=== PATIENT | female | born 1945 | race Caucasian/White ===

== ENCOUNTER → 2017-02-17 | Outpatient (CLI) | payer OTHER, MEDICARE ==
[~2017-02-17] MED LIST: ATOR10TA88 PO; CLOB-85 TOP; MCRK20 PO; METO25TA3 PO; ZLF50 PO
[2017-02-17 10:00] LABS: ESTIMATED AVERAGE GLUCOSE 126 mg/dl; HA1C FLAG Normal (Normal)
[2017-02-17 10:13] LABS: ALT/SGPT 35 U/L (12-78); AST/SGOT 27 U/L (15-37); BLOOD UREA NITROGEN 16 mg/dl (7-18); BUN/CREATININE RATIO 19.4 (10-20); CALCIUM 9.5 mg/dl (8.5-10.1); CARBON DIOXIDE 29 mmol/L (21-32); CHLORIDE 105 mmol/L (98-107); CHOLESTEROL 166 mg/dl (0-200); GLUCOSE 102 mg/dl (70-99); POTASSIUM 3.9 mmol/L (3.5-5.1); SODIUM 141 mmol/L (136-145); TRIGLYCERIDES 152 mg/dl (0-150); VERY LOW DENSITY LIPOPROT CALC 30 mg/dl
[2017-02-17 10:24] LABS: HDL CHOLESTEROL 55 mg/dl; LDL CHOLESTEROL CALCULATED 81 mg/dl
== END | disposition home or self-care (01) ==
LOC: C.LAB1850 08:39
PROVIDERS: ATTEND Internal Medicine
DX: Z11.59 Encounter for screening for other viral diseases (principal); E78.00 Pure hypercholesterolemia, unspecified; R73.03 Prediabetes

== ENCOUNTER 2019-05-04 19:55 | Inpatient (IN) ==
[2019-05-04] MEDS ORDERED: LABETALOL HCL IV 5 MG/ML 20ML IV STA ×2 (20:11→22:28)
[2019-05-04 20:27] LABS: Basophils # (auto) 0.03 K/uL (0-0.2); Basophils % (auto) 0.3 %; Eosinophils # (auto) 0.12 K/uL (0-0.5); Hematocrit (blood only) 39.9 % (37-47); Hemoglobin 13.5 g/dL (12.0-16.0); Immature Granulocytes # (auto) 0.03 K/uL (0.00-0.02); Immature Granulocytes % (auto) 0.3 %; Lymphocytes # (auto) 2.49 K/uL (1.2-3.4); Lymphocytes % (auto) 21.7 %; Mean Corpuscular Hemoglobin 31.6 pg (25-34); Mean Corpuscular Hgb Conc 33.8 g/dL (32-36); Mean Corpuscular Volume 93.4 fL (80-100); Mean Platelet Volume 11.5 fL (7.4-10.4); Monocytes # (auto) 1.26 K/uL (0.11-0.59); Neutrophils # (auto) 7.57 K/uL (1.4-6.5); Neutrophils % (auto) 65.7 %; Platelet Count 207 K/uL (130-400); RDW Coefficient of Variation 12.7 % (11.5-14.5); RDW Standard Deviation 43.1 fL (36.4-46.3); Red Blood Count 4.27 M/uL (4.2-5.4)
[2019-05-04 20:36] LABS: Prothrombin Time 10.1 Seconds (9.0-12.0)
[2019-05-04 20:43] LABS: Albumin Level 3.6 gm/dl (3.4-5.0); BUN Creatinine Ratio 18.2 (10-20); Blood Urea Nitrogen 16 mg/dl (7-18); Calcium 9.2 mg/dl (8.5-10.1); Carbon Dioxide 26 mmol/L (21-32); Chloride 105 mmol/L (98-107); Creatinine Clr Calc Pharmacy 61.9 ml/min; Est GFR (African American) 77.1; Est GFR (Non-African American) 66.6; Glucose 178 mg/dl (70-99); Lipase 125 U/L (73-393); Magnesium 1.9 mg/dl (1.8-2.4); Potassium 2.8 mmol/L (3.5-5.1); Sodium 138 mmol/L (136-145)
[2019-05-04] MEDS: SODIUM CHLORIDE 0.9% 1000ML 1,000 ML IV SCH (20:48)
[2019-05-04 20:54] LABS: Alanine Aminotransferase 41 U/L (12-78); Albumin Globulin Ratio 0.9 (0.9-2); Alkaline Phosphatase 103 U/L (45-117); Aspartate Aminotransferase 30 U/L (15-37); Bilirubin,Total 0.7 mg/dl (0.2-1); Globulin 3.9 gm/dl (2.5-4.0); Total Protein 7.5 gm/dl (6.4-8.2); Troponin I < 0.015 ng/ml (0-0.045)
[2019-05-04] MEDS ORDERED: OPTIRAY 320 125ml IV PRN (21:26)
--- NOTE | 2019-05-04 21:58 | CT Scan Report ---
UNENHANCED CT OF THE BRAIN; CT ANGIOGRAM OF THE BRAIN; CT ANGIOGRAM OF THE NECK CLINICAL HISTORY: Headache and dizziness. COMPARISON STUDY: CT of the brain, CT angiogram of the head, and CT angiogram of the neck dated 03/11. TECHNIQUE: Unenhanced axial CT scan of the brain is performed. Subsequently, following the IV adminis tration of 118 of [address] [address], CT angiogram of the head and neck was performed from the aortic arch t o the vertex. Images are reviewed in the axial, sagittal, and coronal planes. 3-D MIPS images are cre ated and assessed. IV contrast was administered without complication. All measurements were calculate d based on NASCET criteria. A dose lowering technique was utilized adhering to the principles of ALA RA. CT DOSE: 1037.23 mGy.cm FINDINGS: Brain parenchyma: There is age-related involutional change noting mild subcortical and periventricula r microangiopathic disease. 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 There is no hemorrhage, mass effect, or evidence of acute territorial ischemia by CT criteria. There is no evidence of enhancing mass lesion on the angiogram phase images. The ventricles, sulci, and ci sterns are prominent secondary to involutional change. Rosales-white matter differentiation is preserved . No extra-axial fluid collection is seen. Thoracic aorta: There is atherosclerotic calcification of the thoracic aorta. Visualized portions of the thoracic aorta are normal in caliber. The aortic arch demonstrates bovine variant anatomy. Right carotid arterial system: The right common carotid artery is widely patent, as are the right int ernal and external carotid arteries. Left carotid arterial system: The left common carotid artery is widely patent, as are the left engineer internship al and external carotid arteries. Vertebral arteries: The vertebral arteries are widely patent bilaterally and codominant. Subclavian arteries: Widely patent bilaterally. Intracranial vasculature: There is atherosclerotic calcification of the cavernous carotid and vertebr al arteries. There is a large right posterior communicating artery. The internal carotid arteries are patent at the skull base, as are the anterior and middle cerebral arteries bilaterally. The vertebro basilar system and posterior cerebral arteries are widely patent. The vertebral arteries are codomina nt. There is focal stenosis in the M2 segment of the right middle cerebral artery, best seen on coron al MIP image #37. No additional foci of high-grade stenosis are seen. No aneurysm or vessel cut off s een throughout the intracranial circulation. Jugular veins: Patent bilaterally. Dural sinuses: Patent. Lung apices: Partially visualized upper lobe lung parenchyma appears clear. Soft tissues: The visualized pharyngeal soft tissues are normal in appearance noting angiographic pha se technique. The oropharyngeal airway appears widely patent. The salivary and thyroid glands are nor mal in appearance. No cervical lymphadenopathy is seen. Orbits: The bony orbits are grossly intact. Orbital contents are normal as visualized. Skeletal structures: The skeletal structures are osteopenic. The calvarium appears intact. The cervic al spine is maintained noting multilevel spondylosis. No lytic or blastic lesion is seen. Sinuses and mastoids: The paranasal sinuses are clear. There are bilateral mastoid effusions, left la rger than right. IMPRESSION: 1. There is no hemorrhage, mass effect, or evidence of acute territorial ischemia by CT criteria. 2. Senescent change and remote right MCA territory infarct as above. 3. Unremarkable CT angiogram of the neck. 4. There is focal high-grade stenosis within an M2 branch of the right middle cerebral artery. 5. The remaining intracranial vessels appear patent. ACT 112: Negative or not required by law. Electronically signed by: Fadi Orozco M.D. 05/04/2019 9:56 PM
[2019-05-04 22:21] LABS: Appearance Urine Clear (Clear); Bacteria Urine Automated Negative (Negative); Bilirubin Urine Negative (Negative); Blood Urine Negative (Negative); Color Urine Yellow; Epithelial Cell Urine Auto >30 /lpf (0-5); Glucose Urine UA Negative (Negative); Ketones Urine Trace (Negative); Leukocyte Esterase Urine 1+ (Negative); Nitrite Urine Negative (Negative); Protein Urine Negative (Negative); RBC Urine Automated 0-4 /hpf (0-4); Specific Gravity Urine 1.036 (1.000-1.030); Urobilinogen Urine Negative (Negative)
--- NOTE | 2019-05-04 22:21 | XRay Report ---
AP CHEST WITH ABDOMINAL SERIES CLINICAL HISTORY: Strokelike symptoms. Diarrhea FINDINGS: An AP upright chest radiograph is compared to study dated 06/07/2018. The examination is degraded by a pical lordotic positioning. The heart is enlarged noting atherosclerotic calcification of the thoraci c aorta. The pulmonary vasculature is noncongested. Chronic interstitial thickening is similar to pre vious. The lungs and pleural spaces are clear. No pneumothorax is seen. The skeletal structures are o steopenic. The bony thorax is grossly intact. Supine and erect abdominal radiographs are correlated with lumbar spine radiographs dated 03/15/2012. There is a nonobstructed abdominal bowel gas pattern. No evidence of intraperitoneal free air is seen . Question a calcified gallstone in the right upper quadrant. Excreted IV contrast is present within the renal collecting systems and the bladder. The lumbosacral spine and bony pelvis appear intact. Scarlet mbosacral spondylosis is observed. IMPRESSION: 1. Cardiomegaly with no active disease in the chest. 2. Nonobstructed abdominal bowel gas pattern. 3. Question cholelithiasis. ACT 112: Negative or not required by law. Electronically signed by: Fadi Orozco M.D. 05/04/2019 10:20 PM
[2019-05-04] MEDS ORDERED: POTASSIUM CHLORIDE 20 MEQ TABCR PO STA (22:28)
[2019-05-05] MEDS ORDERED: HydrALAZINE HCL 20 MG/ML VIAL IV ONE (00:29)
[2019-05-05] MEDS ORDERED: ASPIRIN CHEW 324 MG PO STA (00:30)
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
[2019-05-05] MEDS ORDERED: PHARMACIST DISCHARGE MED REC CONSULT PRN (02:29)
[2019-05-05] MEDS: SODIUM CHLORIDE 0.9% 1000ML 1,000 ML IV SCH (03:53)
[2019-05-05 03:59] LABS: Basophils # (auto) 0.02 K/uL (0-0.2); Basophils % (auto) 0.2 %; Eosinophils # (auto) 0.09 K/uL (0-0.5); Eosinophils % (auto) 1.1 %; Hematocrit (blood only) 39.3 % (37-47); Hemoglobin 13.5 g/dL (12.0-16.0); Immature Granulocytes # (auto) 0.03 K/uL (0.00-0.02); Immature Granulocytes % (auto) 0.4 %; Lymphocytes # (auto) 2.05 K/uL (1.2-3.4); Lymphocytes % (auto) 25.1 %; Mean Corpuscular Hemoglobin 31.5 pg (25-34); Mean Corpuscular Hgb Conc 34.4 g/dL (32-36); Mean Corpuscular Volume 91.6 fL (80-100); Mean Platelet Volume 11.6 fL (7.4-10.4); Monocytes % (auto) 12.2 %; Neutrophils # (auto) 4.99 K/uL (1.4-6.5); Platelet Count 196 K/uL (130-400); RDW Coefficient of Variation 12.8 % (11.5-14.5); RDW Standard Deviation 42.9 fL (36.4-46.3); Red Blood Count 4.29 M/uL (4.2-5.4); White Blood Count 8.18 K/uL (4.8-10.8)
[2019-05-05 04:16] LABS: Partial Thromboplastin Time 25.9 Seconds (21.0-31.0); Prothrombin Time 10.1 Seconds (9.0-12.0)
[2019-05-05 04:24] LABS: Alanine Aminotransferase 36 U/L (12-78); Albumin Globulin Ratio 0.9 (0.9-2); Albumin Level 3.5 gm/dl (3.4-5.0); Alkaline Phosphatase 96 U/L (45-117); Aspartate Aminotransferase 22 U/L (15-37); BUN Creatinine Ratio 14.8 (10-20); Bilirubin,Total 0.7 mg/dl (0.2-1); Blood Urea Nitrogen 10 mg/dl (7-18); Calcium 8.6 mg/dl (8.5-10.1); Carbon Dioxide 27 mmol/L (21-32); Chloride 110 mmol/L (98-107); Chol HDL Ratio 3; Cholesterol 180 mg/dl (0-200); Creatinine Clr Calc Pharmacy 79.5 ml/min; Est GFR (African American) 100.4; Est GFR (Non-African American) 86.6; Globulin 3.9 gm/dl (2.5-4.0); Glucose 110 mg/dl (70-99); HDL Cholesterol 64 mg/dl; LDL Cholesterol Calculated 99 mg/dl; Magnesium 1.9 mg/dl (1.8-2.4); Potassium 3.4 mmol/L (3.5-5.1); Sodium 142 mmol/L (136-145); Total Protein 7.4 gm/dl (6.4-8.2); Triglycerides 87 mg/dl (0-150); Troponin I < 0.015 ng/ml (0-0.045); VLDL Cholesterol 17 mg/dl
[2019-05-05] MEDS ORDERED: dilTIAZem HCl 5 MG/ML 5 ML VIAL IV PRN (05:10)
[2019-05-05] MEDS ORDERED: GLUCOSE 40% GEL 15 GM TUBE PO PRN (05:17)
[2019-05-05] MEDS ORDERED: GLUCAGON FOR INJ 1 MG VIAL SQ PRN (05:17)
[2019-05-05] MEDS ORDERED: CARBOHYDRATES FOR HYPOGLYCEMIA PO PRN (05:17)
[2019-05-05] MEDS ORDERED: DEXTROSE 50% 50 ML SYRINGE IV PRN (05:17)
[2019-05-05] MEDS ORDERED: GLUCOSE 10 TABS/TUBE PO PRN (05:17)
[2019-05-05] MEDS ORDERED: METOPROLOL TARTRATE 1 MG/ML VIAL IV ONE (05:20)
[2019-05-05] MEDS ORDERED: NSS + 20MEQ KCL 20 MEQ/1,000 ML BAG IV SCH (05:30)
[2019-05-05 06:01] LABS: Estimated Average Glucose 120 mg/dl; Hemoglobin A1C 5.8 % (4.5-5.6)
--- NOTE | 2019-05-05 07:21 | Magnetic Resonance Report ---
MR brain wo con CLINICAL HISTORY: 74 years-old Female presenting with Left side weakness, imbalance, gait disturbance since 05/01/2019, left hand weakness, history of stroke, high-grade stenosis of the M2 segment of th e right MCA. TECHNIQUE: Multisequence, multiplanar MR imaging of the brain was performed without the use of intrav enous contrast. IV contrast: None. COMPARISON: 03/11/[address] from 05/04/2019. FINDINGS: Localizer images: Unremarkable. Bone marrow signal intensity within the calvarium within normal limits. Normal midline sagittal structures. Proportional ventricular and sulcal prominence, likely age-relate d parenchymal volume loss. No mass effect or midline shift. Acute lacunar infarct in the right centra l mayela. Associated mild FLAIR hyperintensity. No hemorrhage. Periventricular white matter T2/FLAIR hy perintensity, nonspecific but likely indicative of chronic small vessel ischemic change. Old right mi ddle cerebral artery (MCA) territory infarct involving the right temporoparietal region. Associated T 1 hyperintensity consistent with cortical laminar necrosis/mineralization. No extra-axial fluid collection. T2 skull base flow voids preserved. Fluid in the mastoid air cells, left greater than right. IMPRESSION: 1. Acute lacunar infarct in the right central mayela. This is at least 6 to 12 hours old given the ass ociated FLAIR hyperintensity. 2. No hemorrhage. 3. Old right MCA infarct. 4. Chronic small vessel ischemic change. These findings were discussed with Dr. Hakwins by Dr. Mcclendon on 05/05/2019 4:17 AM. ACT 112: Negative or not required by law. Electronically signed by: Alvin Barbosa M.D. 05/05/2019 7:19 AM
[2019-05-05] MEDS ORDERED: METOPROLOL TARTRATE 1 MG/ML VIAL IV PRN (08:00)
[2019-05-05] MEDS: HEPARIN SOD 5,000 UNIT/0.5 ML VIAL SQ SCH ×3 (08:01→20:32)
[2019-05-05] MEDS: INSULIN ASPART 100 UNITS/ML 3 ML PEN SC SCH ×4 (08:01→20:21)
[2019-05-05] MEDS ORDERED: HydrALAZINE HCL 20 MG/ML VIAL IV PRN ×2 (09:41→13:39)
--- NOTE | 2019-05-05 09:54 | Neurology Consultation ---
Date of Consultation May 05, 2019 Assessment & Plan (1) Right pontine CVA: Small acute lacunar infarct within the central right elvin-mayela presenting with a mild left hemiparesis and incoordination which has been present for the past 3 days, but occurs in the context of a chronic right MCA territory infarct with some probable left-sided sensorimotor neglect. Hypertension and history of prior stroke are significant risk factors for this patient. She does appear to be neurologically stable this morning. There is no evidence of a significant stenosis within the cervical vessels. Specifically, no evidence of vertebrobasilar insufficiency on angiography. 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 Would recommend adding clopidogrel 75 mg/day. May continue with daily low-dose aspirin for the next 6 weeks. Afterwards, however, I would discontinue daily low-dose aspirin and continue with clopidogrel monotherapy. Agree with switching from pravastatin to atorvastatin. Continue medical management of hypertension, plan for gradual reduction in s ystolic blood pressure to avoid hypoperfusion injury. Follow-up with results of up-to-date transthoracic echocardiogram. Consultations with PT/OT/speech therapy. No further immediate neurological recommendations. Please contact me if I may be of further assistance. History of Present Illness Reason for Consultation: Stroke Requesting Physician: Garrett Hawkins MD Attending Physician: Agustin Louis MD History of Present Illness The patient is a 74-year-old female with a history of hypertension, prediabetes, hyperlipidemia, and right MCA stroke occurring last March presenting with a mild left hemisensory deficit, associated mild neglect, and very mild left hemiparesis. She has been taking daily low-dose aspirin and pravastatin. The patient presented to the emergency department yesterday with a chief complaint of left-sided weakness, especially the left arm which began 2 days prior and is associated with a feeling of imbalance with standing and walking. The symptoms have been persistent. She denies any associated numbness, change in speech, change in vision, vertigo, or headache. A CT of the head revealed changes consistent with her known history of chronic right MCA territory stroke. CT angiography of the head revealed a high-grade stenosis of the right M2 branch. CT angiography of the neck was unremarkable. A follow-up brain MRI has been completed as well which reveals an acute lacunar infarct within the right central mayela, probably 6 to 12 hours old based on imaging characteristics. Imaging described below. The patient has been notably hypertensive with a systolic blood pressure of around 200 at the time of presentation. This morning, the patient does not report any significant change in her presenting symptoms. Additional details as below. Allergies Allergy/AdvReac Type Severity Reaction Status Date / Time "ALL ANTIBIOTICS" Allergy Intermediate HIVES Uncoded 05/04/19 21:46 Home Medications Home Medications Medication Instructions Recorded Confirmed Type aspirin 81 mg PO DAILY 06/05/18 05/04/19 History acetaminophen [Tylenol] 650 mg PO Q6H PRN 06/07/18 05/04/19 History metoprolol tartrate 50 mg tablet 50 mg PO BID #180 tab 01/24/19 05/04/19 Rx hydrochlorothiazide 25 mg tablet 25 mg PO DAILY 03/09/19 05/04/19 History omeprazole 20 mg capsule,delayed 20 mg PO DAILY #90 cap 03/09/19 05/04/19 Rx release pravastatin 40 mg tablet 40 mg PO DAILY #90 tab 04/19/19 05/04/19 Rx Patient History Medical History Acute right MCA stroke (Resolved) GERD (gastroesophageal reflux disease) HTN (hypertension) (Chronic) HTN (hypertension) Hypercholesterolemia Hypercholesterolemia (Chronic) Pre-diabetes Prediabetes Sinusitis Suicide attempt 2013 - ETOH/Valium combination - had acute inpatient psychiatric stay Surgical History H/O oral surgery S/P appendectomy S/P hysterectomy with oophorectomy Family History Mother Hypertension Grandmother (Maternal) Stroke Other Heart disease Social History Preferred Language: [place] Communication Ability: Effective Visual Impairment: Severely Limited Hearing Ability: Normal 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 Beliefs That Will Affect Care: None marital status: Current Living Situation: Alone Current Living Situation Comment: senior apartment housing current occupational status: retired Other Information That Helps Us Care for You: No Feels Safe at Home: Yes Safety Concerns: Feels Safe At This Time Smoking Status: Unknown if ever smoked Hx Alcohol Use: No Hx Substance Use: No Childhood Exposure to Second-Hand Smoke: Yes Dental Care, Regularly: Yes Physical Activity Frequency: Daily Seatbelt Use: always Sunscreen Use: No Review of Systems Constitutional: no fever and no chills Eyes: no blind spots and no diplopia Ear, Nose, Mouth, Throat: no hearing loss Respiratory: no cough and no dyspnea Cardiovascular: no chest pain and no palpitations Gastrointestinal: no nausea and no vomiting Genitourinary: no urinary incontinence Musculoskeletal: no neck pain and no myalgia Integumentary: no rash and no lesions Neurologic: as per Subjective / HPI, + gait abnormality, + unsteadiness, + localized weakness and + lack of coordination; no loss of sensation, no syncope, no headache(s), no confusion and no memory loss Psychiatric: no depression and no anxiety Hematologic / Lymphatic: no easy bleeding and no easy bruising Physical Exam Physical Exam: The patient is a well-developed, well-nourished elderly female. She is alert and fully oriented. Recent and remote memory intact. Attention and concentration normal. Patient exhibits a normal spontaneous speech pattern. She is able to name objects and repeat phrases. Speech is non-dysarthric. Patient exhibits an age-appropriate fund of knowledge and normal comprehension of vocabulary. Visual mensah full to confrontation. Visual acuity normal. Pupils equal round reactive to light and accommodation. Eye movements normal. There is no ptosis, nystagmus, or ophthalmoplegia. Facial sensation intact. There is no facial droop or weakness. Hearing intact. Palate elevates to midl ine. Shoulder shrug intact. Tongue protrudes to midline. Sensation intact all modalities in all 4 limbs. Deep tendon reflexes are relatively brisk for the left arm and leg. Left plantar response upgoing, right plantar response downgoing. Patient exhibits mild to moderate dysmetria with ukodzd-iq-bpay and idoz-be-abyg on the left. No dysmetria with yuvrwv-cm-beqh or uklp-lm-djqd on the right. There is decreased facility of fine finger movements for the left hand as well. I am unable to adequately visualize the optic nerves and posterior segments with direct ophthalmoscopic examination. Carotid pulses normal bilaterally, no bruits to auscultation. Gait and station not tested due to safety concerns. Muscle strength testing reveals a mild left hemiparesis affecting the arm and leg. There is no pronator drift for the left arm. Muscle tone normal throughout. There is no atrophy. No abnormal movements observed. Results & Data Vital Signs (Past 12 Hours) Vital Signs Temp Pulse Pulse Resp BP BP Pulse Ox 05/05/19 09:15 88 7 L 175/74 H 97 05/05/19 09:08 77 13 235/97 H 98 05/05/19 09:06 79 9 L 219/86 H 97 05/05/19 09:00 95 H 27 H 94 05/05/19 08:36 77 8 L 211/99 H 98 05/05/19 08:30 81 23 93 05/05/19 08:00 37.2 C 89 84 26 H 195/87 H 225/103 H 95 05/05/19 07:57 81 18 195/87 H 97 05/05/19 07:30 82 17 96 05/05/19 07:17 84 18 225/103 H 97 05/05/19 07:00 80 18 97 05/05/19 06:39 77 16 205/87 H 98 05/05/19 06:30 81 20 95 05/05/19 06:00 77 18 96 05/05/19 05:39 78 17 214/91 H 98 05/05/19 05:30 75 13 94 05/05/19 05:23 88 212/80 H 05/05/19 05:18 89 12 212/90 H 97 05/05/19 05:00 83 18 93 05/05/19 04:30 88 18 93 05/05/19 04:17 89 05/05/19 04:00 96 H 21 97 05/05/19 03:46 104 H 27 H 227/87 H 97 05/05/19 03:40 98 H 16 237/112 H 99 05/05/19 03:35 36.8 C 100 H 24 05/05/19 03:30 36.8 C 92 H 20 227/87 H 96 05/05/19 02:23 90 18 235/117 H 97 05/05/19 02:01 92 H 18 235/117 H 98 05/05/19 01:30 87 19 175/84 H 97 05/05/19 01:00 84 19 189/74 H 97 05/05/19 00:30 84 17 197/77 H 98 05/05/19 00:19 89 16 188/116 H 98 05/05/19 00:00 87 13 209/94 H 96 05/04/19 23:30 83 15 186/79 H 98 05/04/19 23:27 86 20 197/87 H 95 05/04/19 23:01 82 17 197/87 H 97 05/04/19 23:00 83 82 12 197/87 H 95 05/04/19 22:39 85 21 211/82 H 95 05/04/19 22:30 87 15 93 05/04/19 22:18 88 18 191/86 H 97 05/04/19 22:17 90 14 191/86 H 05/04/19 22:15 95 H 19 05/04/19 21:30 95 Laboratory Results WBC 8.18, hemoglobin 13.5, hematocrit 39.3, platelet count 196, sodium 142, potassium 3.4, BUN 10, creatinine 0.67, glucose 110, hemoglobin A1c 5.8, calcium 8.6, magnesium 1.9, AST 22, ALT 36, troponin less than 0.015, triglycerides 87, cholesterol 180, LDL 99, VLDL 17, HDL [address] of the head negative for hemorrhage, mass-effect, or acute process. There are changes consistent with this patient's history of a chronic right MCA infarct. CT angiography of the head and neck revealed a high-grade stenosis within the right M2 branch of the middle cerebral artery. No significant st enosis within the cervical vessels. I reviewed the images as well as the radiologist's interpretation of this test. Noncontrast brain MRI reveals an acute lacunar infarct within the right central mayela, probably 6 to 12 hours old given associated abnormality on FLAIR sequences. The old right MCA territory infarct is again observed. There is also evidence of chronic small vessel ischemic disease. No hemorrhage. I reviewed the images as well as the radiologist's interpretation of this test. Electrocardiogram reveals a normal sinus rhythm, 94 bpm An echocardiogram completed in March 2018 reveals normal left ventricular size and systolic function, ejection fraction 60 to 65%, without regional wall motion abnormalities. No ASD or PFO visualized.
[2019-05-05] MEDS: METOPROLOL TARTRATE 50 MG TAB PO SCH ×3 (10:08→20:22)
[2019-05-05] MEDS: PANTOprazole 40 MG TAB PO SCH ×2 (10:08→10:41)
[2019-05-05] MEDS: ASPIRIN 81 MG ECTAB PO SCH ×2 (10:08→10:40)
[2019-05-05] MEDS: ATORVASTATIN 40 MG TAB PO SCH ×2 (10:08→10:40)
[2019-05-05] MEDS ORDERED: CLOPIDOGREL BISULFATE 75 MG TAB PO SCH (11:45)
[2019-05-05] MEDS: ENALAPRILAT 0.625 MG in SYRINGE 9.5 ML IV SCH ×3 (12:04→23:25)
[2019-05-05] MEDS ORDERED: LABETALOL HCL IV 5 MG/ML 20ML IV PRN (13:39)
--- NOTE | 2019-05-05 13:54 | Hospitalist Progress Note ---
Date of Service May 05, 2019 Assessment & Plan (1) Right pontine CVA: MRI brain on 05/05 shows acute right pontine CVA. - Seen by neurology - Recommend DAPT x 6 weeks, then switch to Plavix only - Switch from pravastatin to atorvastatin - Consult PT/OT/speech/neurology. - Risk-factor modification: - A1c was 5.8%. - Lipid panel with LDL 99, HDL 64, trig 87, total cholesterol 180. - Will need to work on BP. Patient reports her BP is usually >180/100 in the office or checking at the pharmacy. (2) Uncontrolled hypertension: BP has been high for a long time, and was as high as 270/120 on presentation. - Will work to keep BP < 180/110 with home meds, hydralazine PRN, and enalaprilat. (3) Major depressive disorder, recurrent episode, severe degree, without mention of psychotic behavior: Reported an episode of feeling "overwhelmed" today with lots of crying. Had a prior suicide attempt in 2013 from overdose. Presently denies overall depression, self-harm intent, or other SIGECAPS symptoms. - Will monitor mood. (4) Prediabetes: A1c was 5.8%. - Sliding scale insulin (5) Hypercholesterolemia: - Continue atorvastatin (6) GERD (gastroesophageal reflux disease): Change omeprazole to pantoprazole 40 mg p.o. daily (7) DVT prophylaxis: Heparin 5000 units SQ Q12h Subjective Reports feeling tearful today because she feels "overwhelmed" by her situation. Otherwise, she is doing well Reports no fevers/chills, chest pain, shortness of breath, abdominal pain, nausea, or vomiting. Physical Exam Constitutional: WD/WN, vitals as above Eyes: EOM intact bilaterally; no conjunctival abnormality ENMT: external ear and nose normal, oropharynx normal Neck: trachea midline, no thyromegaly normal visual inspection Respiratory: normal respiratory effort, lungs clear to auscultation no r espiratory distress Cardiovascular: RRR, no murmur, no edema Gastrointestinal (Abdomen): Inspection/Auscultation: abdomen normal to inspection; abdomen not distended Musculoskeletal: no cyanosis or clubbing, extremities motor strength 5/5 Skin: no rashes, warm and dry Neurologic: moves all extremities and awake Speech / Cognition: normal speech Motor/Sensory: + abnormal movement Coordination: + abnormal zdfkwa-ku-rsgv test (Left) and + abnormal ghqb-wz-ybrt test (Left) Psychiatric: Orientation: alert, oriented to person and cooperative Results & Data Vital Signs (Past 12 Hours) Vital Signs Temp Pulse Pulse Resp BP BP Pulse Ox 05/05/19 12:00 85 05/05/19 11:30 112 H 26 H 05/05/19 11:22 96 H 23 224/101 H 05/05/19 11:06 109 H 22 188/114 H 05/05/19 11:00 112 H 16 05/05/19 10:36 95 H 12 199/107 H 05/05/19 10:30 94 H 20 05/05/19 10:06 85 16 195/87 H 05/05/19 10:00 85 16 05/05/19 09:39 80 17 05/05/19 09:37 79 24 194/96 H 05/05/19 09:36 78 18 208/136 H 05/05/19 09:30 77 22 05/05/19 09:15 88 7 L 175/74 H 97 05/05/19 09:08 77 13 235/97 H 98 05/05/19 09:06 79 9 L 219/86 H 97 05/05/19 09:00 95 H 27 H 94 05/05/19 08:36 77 8 L 211/99 H 98 05/05/19 08:30 81 23 93 05/05/19 08:00 37.2 C 89 84 26 H 195/87 H 225/103 H 95 05/05/19 07:57 81 18 195/87 H 97 05/05/19 07:30 82 17 96 05/05/19 07:17 84 18 225/103 H 97 05/05/19 07:00 80 18 97 05/05/19 06:39 77 16 205/87 H 98 05/05/19 06:30 81 20 95 05/05/19 06:00 77 18 96 05/05/19 05:39 78 17 214/91 H 98 05/05/19 05:30 75 13 94 05/05/19 05:23 88 212/80 H 05/05/19 05:18 89 12 212/90 H 97 05/05/19 05:00 83 18 93 05/05/19 04:30 88 18 93 05/05/19 04:17 89 05/05/19 04:00 96 H 21 97 05/05/19 03:46 104 H 27 H 227/87 H 97 05/05/19 03:40 98 H 16 237/112 H 99 05/05/19 03:35 36.8 C 100 H 24 05/05/19 03:30 36.8 C 92 H 20 227/87 H 96 05/05/19 02:23 90 18 235/117 H 97 05/05/19 02:01 92 H 18 235/117 H 98 PG Care Time/CCT Total # of Minutes Spent Total Time Spent with Patient: Total time spent is greater than 50% in coordination of care (as documented) at patient's floor/unit and/or counseling patient:
[2019-05-05] MEDS: ACETAMINOPHEN 325 MG TAB PO PRN ×2 (17:01→23:15)
--- NOTE | 2019-05-05 17:28 | Communication Note ---
Date of Service: May 05, 2019 Responded to code purple in Telemetry patient in room 102 Ms. Marylou Donnelly. She is a 74 year old woman who is here in hospital for an ischemic stroke. She had a witnessed episode of loss of consciousness with a rigidity to her body that lasted for about a minute which resulted in her nurse calling the code purple. When ICU team got to the room <1 minute after code call patient was speaking normally in full sentences and was intact mentally apart from some anxiety over the commotion. She denied any chest pain, shortness of breath, abdominal pain, though she did endorse that she had recently used the bathroom and felt she was nauseous at that time. She does not remember the event at all just that she awoke and was helped back to bed. On physical exam she did have some right sided limb weakness and neglect that according to primary team physician represents no new change on this admission. Cranial nerves appeared to be intact. With no new neurologic findings and no post ictal state and given history of recent bathroom use vaso vagal is most likely cause of her presentation. Patient has been having her blood pressure lowered slowly and pressures had been lower and patient had been bradycardic prior to event. We will investigate cardiogenic causes by checking a stat EKG, BMP, Calcium, Phosphate, Magnesium and TSH levels now. No need for escalation of care at this time, but we will follow along with primary Dr. Louis from not too far as patient is still down here on the unit on telemetry status. Resident Activity Tracking Resident Involvement: Resident Care Provided Care Provided: Adult Hospital Medicine
[2019-05-05 18:13] LABS: BUN Creatinine Ratio 12.2 (10-20); Calcium 9.3 mg/dl (8.5-10.1); Creatinine Clr Calc Pharmacy 73.6 ml/min; Est GFR (African American) 99.4; Est GFR (Non-African American) 85.8; Magnesium 1.9 mg/dl (1.8-2.4); Potassium 3.4 mmol/L (3.5-5.1)
[2019-05-05 18:23] LABS: Phosphorus 2.7 mg/dl (2.5-4.9); Thyroid Stimulating Hormone 2.96 uIu/ml (0.300-4.500)
[2019-05-05] MEDS ORDERED: POTASSIUM CHLORIDE PWD 20 MEQ PACK PO SCH (21:00)
--- NOTE | 2019-05-06 03:11 | Emergency Department Note ---
Entered by Lupe Forbes acting as a scribe for Adriana Aleman DO History of Present Illness General Chief complaint: Stroke/CVA Symptoms Time Seen by Provider: 05/04/19 20:01 Source: patient and EMS Mode of arrival: EMS History of Present Illness Onset (ago): day(s) 2 Location: head (stroke/CVA sx) Pain Consistency: + constant Associated symptoms: + denies other symptoms (changes in vision, tinnitus, cold sx, current heartburn, trouble with speech or swallowing, numbness/tingling, hand pain ), + headaches (today only (now relieved), present with dizziness), + weakness (generalized x2 days, left arm and hand weakness/loss of strength this morning) and + other (left sided facial droop today, 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 EMS reports that the patient began to experience dizziness associated with loss of balance 2 days ago. Today her friends noticed that she had a left sided facial droop. EMS reports that her last known well was 3 days ago. 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 The patient explains that she has a walker which she uses for ambulation when needed and that she had to rely on it for the last 2 days due to extreme dizziness, weakness, and "staggering". This morning the patient noticed weakness in her left arm and loss of strength in her dominant left hand. She states that she could not hold a pen to write and that she could wrap her hand around a glass but was unable to hold it. EMS explains that the patient's previous stroke was discovered after experiencing symptoms of a sinus infection and having a head CT reveal a stroke. The patient states that her symptoms today do not feel the same as those of her past stroke and that she did not experience trouble with her left hand at that time. She reports complete resolution from her previous stroke. Additionally, the patient had a headache present with her dizziness today. She took Acetaminophen for relief of her headache and since onset, her dizziness subsided on its own. The patient explains that she went to sleep and woke up with a "clear head" but still felt off balance. She admits that she has not had any other headaches within the last few days. The patient also reports waking up with a sore throat for the past 3 days. She also includes that she has had more frequent bowel movements and urination. Of note, she recently began a new prescription for heartburn but has not had any other medication changes. The patient also notes that she was doing a lot of housework 1 day ago which made her arms and shoulders sore. She denies chest pain, shortness of breath, changes in vision, tinnitus, cold sx, current heartburn, trouble with speech or swallowing, numbness/tingling, and hand pain. The patient offers no additional concerns at this time. Home Medications Home Medications Medication Instructions Recorded Confirmed Type aspirin 81 mg PO DAILY 06/05/18 05/04/19 History acetaminophen [Tylenol] 650 mg PO Q6H PRN 06/07/18 05/04/19 History metoprolol tartrate 50 mg tablet 50 mg PO BID #180 tab 01/24/19 05/04/19 Rx hydrochlorothiazide 25 mg tablet 25 mg PO DAILY 03/09/19 05/04/19 History omeprazole 20 mg capsule,delayed 20 mg PO DAILY #90 cap 03/09/19 05/04/19 Rx release pravastatin 40 mg tablet 40 mg PO DAILY #90 tab 04/19/19 05/04/19 Rx Allergies Allergy/AdvReac Type Severity Reaction Status Date / Time "ALL ANTIBIOTICS" Allergy Intermediate HIVES Uncoded 05/04/19 21:46 Past Med/Surg History Medical History Acute right MCA stroke (Resolved) GERD (gastroesophageal reflux disease) HTN (hypertension) (Chronic) HTN (hypertension) Hypercholesterolemia Hypercholesterolemia (Chronic) Pre-diabetes Prediabetes Sinusitis Suicide attempt 2013 - ETOH/Valium combination - had acute inpatient psychiatric stay Surgical History H/O oral surgery S/P appendectomy S/P hysterectomy with oophorectomy Family History Mother Hypertension Grandmother (Maternal) Stroke Other Heart disease Social History Preferred Language: [place] Communication Ability: Effective Visual Impairment: Severely Limited Hearing Ability: Normal Kettle Loader Required: No Beliefs That Will Affect Care: None marital status: Current Living Situation: Alone Current Living Situation Comment: senior apartment housing current occupational status: retired Other Information That Helps Us Care for You: No Feels Safe at Home: Yes Safety Concerns: Feels Safe At This Time Smoking Status: Unknown if ever smoked Hx Alcohol Use: No Hx Substance Use: No Childhood Exposure to Second-Hand Smoke: Yes Dental Care, Regularly: Yes Physical Activity Frequency: Daily Seatbelt Use: always Sunscreen Use: No Review of Systems See HPI for pertinent positives & negatives. and A total of 10 systems reviewed and were otherwise negative Physical Exam Vital Signs Vital Signs - 24 hr 05/04/19 19:49 05/04/19 20:02 05/04/19 20:09 Temperature Temperature Source Pulse Rate 101 H 99 H Pulse Rate [Apical] Pulse Rate from SpO2 Sensor Pulse Rhythm Pulse Rhythm [Apical] Pulse Strength Pulse Strength [Apical] Respiratory Rate 26 H 24 Respiratory Effort / Characteristics Respiratory Depth Respiratory Pattern Blood Pressure 271/118 H Blood Pressure [Left Arm] Blood Pressure Mean 178 Blood Pressure Mean [Left Arm] Blood Pressure Position Blood Pressure Position [Left Arm] Pulse Oximetry 98 Oxygen Delivery Method Room Air Sepsis Recent Fever Within 48 Hours Sepsis New/Unexplained Change in Mental Status Sepsis Action Taken by Nursing 05/04/19 20:12 05/04/19 20:19 05/04/19 20:33 Temperature 36.9 C Temperature Source Oral Pulse Rate 97 H 96 H Pulse Rate [Apical] 97 H Pulse Rate from SpO2 Sensor Pulse Rhythm Regular Pulse Rhythm [Apical] Pulse Strength Normal Pulse Strength [Apical] Respiratory Rate 20 21 20 Respiratory Effort / Characteristics Non-Labored Spontaneous Non-Labored Spontaneous Respiratory Depth Normal Normal Respiratory Pattern Blood Pressure 271/118 H 197/74 H Blood Pressure [Left Arm] 197/74 H Blood Pressure Mean 169 151 Blood Pressure Mean [Left Arm] 115 Blood Pressure Position Sitting Blood Pressure Position [Left Arm] Sitting Pulse Oximetry 96 96 Oxygen Delivery Method Room Air Room Air Sepsis Recent Fever Within 48 Hours No Sepsis New/Unexplained Change in Mental Status No Sepsis Action Taken by Nursing No Action Required 05/04/19 20:35 05/04/19 20:37 05/04/19 21:00 Temperature Temperature Source Pulse Rate 98 H 95 H 86 Pulse Rate [Apical] Pulse Rate from SpO2 Sensor 98 H 95 H 86 Pulse Rhythm Pulse Rhythm [Apical] Pulse Strength Pulse Strength [Apical] Respiratory Rate 21 23 14 Respiratory Effort / Characteristics Respiratory Depth Respiratory Pattern Blood Pressure 208/87 H 197/101 H Blood Pressure [Left Arm] Blood Pressure Mean 118 128 Blood Pressure Mean [Left Arm] Blood Pressure Position Blood Pressure Position [Left Arm] Pulse Oximetry 96 95 95 Oxygen Delivery Method Sepsis Recent Fever Within 48 Hours Sepsis New/Unexplained Change in Mental Status Sepsis Action Taken by Nursing 05/04/19 21:01 05/04/19 22:18 05/04/19 23:00 Temperature Temperature Source Pulse Rate 85 Pulse Rate [Apical] 88 82 Pulse Rate from SpO2 Sensor 85 Pulse Rhythm Pulse Rhythm [Apical] Regular Regular Pulse Strength Pulse Strength [Apical] Normal Normal Respiratory Rate 21 18 14 Respiratory Effort / Characteristics Non-Labored Non-Labored Respiratory Depth Normal Normal Respiratory Pattern Regular Regular Blood Pressure 187/70 H Blood Pressure [Left Arm] 191/86 H 197/87 H Blood Pressure Mean 108 Blood Pressure Mean [Left Arm] 121 123 Blood Pressure Position Blood Pressure Position [Left Arm] Lying Lying Pulse Oximetry 94 97 96 Oxygen Delivery Method Room Air Room Air Sepsis Recent Fever Within 48 Hours Sepsis New/Unexplained Change in Mental Status Sepsis Action Taken by Nursing GENERAL: alert, well appearing, well nourished, no distress, non-toxic EYE EXAM: normal conjunctiva, PERRL and EOM's grossly intact OROPHARYNX: no exudate, no erythema, lips, buccal mucosa, and tongue normal and mucous membranes are moist NECK: supple, no nuchal rigidity, no adenopathy, non-tender LUNGS: Clear to auscultation. Normal chest wall mechanics, no w/r/r HEART: no murmurs, S1 normal and S2 normal ABDOMEN: abdomen soft, non-tender, normo-active bowel sounds, no masses, no rebound or guarding. BACK: Back is symmetrical on inspection and there is no deformity, no midline tenderness, no CVA tenderness. SKIN: no rashes and no bruising UPPER EXTREMITIES: left upper extremity weakness and mild ataxia. No evidence of trauma, normal pulses, no swelling. LOWER EXTREMITIES: No pitting edema, left lower extremity weakness. No evidence of trauma, normal pulses. NEURO EXAM: Normal sensorium, cranial nerves II-XII grossly intact, normal speech, left sided facial droop, mild limb ataxia, weakness in left upper and lower extremities. No drift. Difficulty with finger to nose of left side. Gross sensation intact. NIH stroke score is 5. Course Course 2010: Past medical records reviewed. The patient was evaluated in room B03B. A complete history and physical exam was performed. 2144: I spoke to Dr. Hawkins, [facility] who accepts the patient for admission. 2234: I checked on the patient and updated her on scans and plan to admit. The patient verbally expressed understanding and agreement of the treatment plan. The patient will be evaluated for further treatment. Administered Medications Acetaminophen (Tylenol) 650 mg PO Q6H PRN PRN Reason: Pain Stop: 06/04/19 02:28 Last Admin: 05/05/19 23:15 Dose: 650 mg Documented by: [id number] Admin: 05/05/19 17:01 Dose: 650 mg Documented by: [id number] Aspirin (Ecotrin Ectab) 81 mg PO DAILY [facility] Stop: 06/04/19 08:59 Last Admin: 05/05/19 10:40 Dose: 81 mg Documented by: [id number] Admin: 05/05/19 10:08 Dose: Not Given Documented by: [id number] Atorvastatin Cal[facility]) [facility] Stop: 06/04/19 08:59 Last Admin: 05/05/19 10:40 Dose: 40 mg Documented by: [id number] Admin: 05/05/19 10:08 Dose: Not Given Documented by: [id number] Clopidogrel Bisulfate (Plavix) [facility] Stop: 06/04/19 11:44 Last Admin: 05/05/19 12:04 Dose: 75 mg Documented by: [id number] Heparin Sodium (Porcine) (Heparin Sodium (Porcine)) 5,000 units SQ Q12 [facility] Stop: 06/04/19 08:59 Last Admin: 05/05/19 20:32 Dose: Not Given Documented by: [id number] Admin: 05/05/19 08:01 Dose: 5,000 units Documented by: [id number] Cosigned by: [id number] Hydralazine HCl (Hydralazine Hcl) 10 mg IV Q4H PRN PRN Reason: SBP > 180 or DBP > 110 Stop: 06/04/19 09:40 Last Admin: 05/05/19 15:54 Dose: 10 mg Documented by: [id number] Enalaprilat 0.625 mg/ Syringe 10 mls @ 2 mls/min IV Q6H [facility]NA Stop: 06/04/19 11:59 Last Admin: 05/05/19 23:25 Dose: 2 mls/min Documented by: [id number] Admin: 05/05/19 17:01 Dose: 2 mls/min Documented by: [id number] Admin: 05/05/19 12:04 Dose: 2 mls/min Documented by: [id number] Insulin Aspart (Novolog Flexpen) 0 units SC ACHS SUSANA Stop: 06/04/19 07:29 Last Admin: 05/05/19 20:21 Dose: Not Given Documented by: [id number] Cosigned by: [id number] Admin: 05/05/19 17:01 Dose: Not Given Documented by: [id number] Cosigned by: [id number] Admin: 05/05/19 11:52 Dose: 4 units Documented by: [id number] Cosigned by: [id number] Admin: 05/05/19 08:01 Dose: Not Given Documented by: [id number] Cosigned by: [id number] Metoprolol Tartrate (Lopressor) 50 mg PO BID [facility]USANA Stop: 06/04/19 08:59 Last Admin: 05/05/19 20:22 Dose: 50 mg Documented by: [id number] Admin: 05/05/19 10:41 Dose: 50 mg Documented by: [id number] Admin: 05/05/19 10:08 Dose: Not Given Documented by: [id number] Pantoprazole Sodium (Protonix) 40 mg PO DAILY [facility] Stop: 06/04/19 08:59 Last Admin: 05/05/19 10:41 Dose: 40 mg Documented by: [id number] Admin: 05/05/19 10:08 Dose: Not Given Documented by: [id number] Potassium Chloride (Klor-Con Pwd) 20 meq PO BID SUSANA Stop: 05/06/19 09:01 Last Admin: 05/05/19 20:22 Dose: 20 meq Documented by: [id number] Discontinued Medications Aspirin (Aspirin) 324 mg PO NOW STA Stop: 05/05/19 00:31 Last Admin: 05/05/19 01:20 Dose: 324 mg Documented by: [id number] Diltiazem HCl (Cardizem) 10 mg IV Q4H PRN PRN Reason: Blood Pressure - High Stop: 06/04/19 05:09 Last Admin: 05/05/19 09:10 Dose: 10 mg Documented by: [id number] Cosigned by: [id number] Hydralazine HCl (Hydralazine Hcl) 5 mg IV NOW ONE Stop: 05/05/19 00:30 Last Admin: 05/05/19 01:19 Dose: 5 mg Documented by: [id number] Hydralazine HCl (Hydralazine Hcl) 5 mg IV Q4H PRN PRN Reason: SBP > 180 or DBP > 110 Stop: 06/04/19 09:40 Last Admin: 05/05/19 10:07 Dose: 5 mg Documented by: [id number] Sodium Chloride (Nss 1000ml) 1,000 mls @ 250 mls/hr IV .Q4H SUSANA Stop: 06/03/19 20:14 Last Infusion: 05/05/19 07:42 Dose: 0 mls/hr Documented by: [id number] Admin: 05/05/19 03:53 Dose: 250 mls/hr Documented by: [id number] Infusion: 05/05/19 01:32 Dose: 0 mls/hr Documented by: [id number] Admin: 05/04/19 20:48 Dose: 250 mls/hr Documented by: [id number] Potassium Chloride/Sodium Chloride (Normal Saline W/20 Meq Kcl) 20 meq in 1,000 mls @ 100 mls/hr IV .Q10H SUSANA Stop: 06/04/19 05:29 Last Infusion: 05/05/19 12:00 Dose: 0 mls/hr Documented by: [id number] Admin: 05/05/19 05:39 Dose: 100 mls/hr Documented by: [id number] Ioversol (Optiray 320 125ml) 118 ml IV ONCE PRN PRN Reason: Interaction Checking Stop: 05/08/19 21:25 Last Admin: 05/04/19 21:26 Dose: 1 ml Documented by: [id number] Labetalol HCl (Normodyne) 10 mg IV NOW STA Stop: 05/04/19 20:12 Last Admin: 05/04/19 20:46 Dose: 5 mg Documented by: [id number] Cosigned by: [id number] Labetalol HCl (Normodyne) 5 mg IV NOW STA Stop: 05/04/19 22:29 Last Admin: 05/04/19 22:35 Dose: 5 mg Documented by: [id number] Cosigned by: [id number] Metoprolol Tartrate (Lopressor) 5 mg IV Q4 PRN PRN Reason: .SBP >180 Stop: 06/04/19 07:59 Last Admin: 05/05/19 08:00 Dose: 5 mg Documented by: [id number] Metoprolol Tartrate (Lopressor) Confirm Administered Dose 5 mg IV .STK-MED ONE Stop: 05/05/19 05:21 Last Admin: 05/05/19 05:23 Dose: 5 mg Documented by: [id number] Potassium Chloride (Klor-Con M20) 40 meq PO NOW STA Stop: 05/04/19 22:29 Last Admin: 05/04/19 22:35 Dose: 40 meq Documented by: [id number] Medical Decision Making Differential Diagnosis Differential diagnosis includes but is not limited to etiologies such as metabolic, infection, hypo/hyperglycemia, electrolyte abnormalities, cardiac sources, intracerebral event, toxicologic, neurologic, as well as others were entertained. Medical Records Attestation: I reviewed the patient's medical records. Home Medications Current Medication List: was personally reviewed by me Laboratory Data Attestation: I reviewed the patient's lab results. Result diagrams: 05/05/19 03:34 05/05/19 17:34 Lab Results 05/04/19 05/04/19 05/04/19 Range/Units 20:15 20:15 20:15 WBC 11.50 H (4.8-10.8) K/uL RBC 4.27 (4.2-5.4) M/uL Hgb 13.5 (12.0-16.0) g/dL Hct 39.9 (37-47) % MCV 93.4 (80-100) fL MCH 31.6 (25-34) pg MCHC 33.8 (32-36) g/dL RDW Std Deviation 43.1 (36.4-46.3) fL RDW Coeff of Ghassan 12.7 (11.5-14.5) % Plt Count 207 (130-400) K/uL MPV 11.5 H (7.4-10.4) fL Immature Gran % (Auto) 0.3 % Neut % (Auto) 65.7 % Lymph % (Auto) 21.7 % Buchanan % (Auto) 11.0 % Eos % (Auto) 1.0 % Baso % (Auto) 0.3 % Immature Gran # (Auto) 0.03 H (0.00-0.02) K/uL Neut # (Auto) 7.57 H (1.4-6.5) K/uL Lymph # (Auto) 2.49 (1.2-3.4) K/uL Buchanan # (Auto) 1.26 H (0.11-0.59) K/uL Eos # (Auto) 0.12 (0-0.5) K/uL Baso # (Auto) 0.03 (0-0.2) K/uL PT 10.1 (9.0-12.0) Seconds INR 1.0 (0.9-1.1) Sodium 138 (136-145) mmol/L Potassium 2.8 L (3.5-5.1) mmol/L Chloride 105 (98-107) mmol/L Carbon Dioxide 26 (21-32) mmol/L Anion Gap 7.0 (3-11) BUN 16 (7-18) mg/dl Creatinine 0.86 (0.6-1.2) mg/dl Est Cr Clr Drug Dosing 61.9 ml/min Est GFR ( Amer) 77.1 Est GFR (Non-Af Amer) 66.6 BUN/Creatinine Ratio 18.2 (10-20) Glucose 178 H (70-99) mg/dl POC Glucose (70-99) Calcium 9.2 (8.5-10.1) mg/dl Magnesium 1.9 (1.8-2.4) mg/dl Total Bilirubin 0.7 (0.2-1) mg/dl AST 30 (15-37) U/L ALT 41 (12-78) U/L Alkaline Phosphatase 103 (45-117) U/L Troponin I < 0.015 (0-0.045) ng/ml Total Protein 7.5 (6.4-8.2) gm/dl Albumin 3.6 (3.4-5.0) gm/dl Globulin 3.9 (2.5-4.0) gm/dl Albumin/Globulin Ratio 0.9 (0.9-2) Lipase 125 (73-393) U/L TSH 1.640 (0.300-4.500) uIu/ml Urine Color Urine Appearance (Clear) Urine pH (4.5-7.5) Ur Specific [place] (1.000-1.030) Urine Protein (Negative) Urine Glucose (UA) (Negative) Urine Ketones (Negative) Urine Blood (Negative) Urine Nitrite (Negative) Urine Bilirubin (Negative) Urine Urobilinogen (Negative) Ur Leukocyte Esterase (Negative) Urine WBC (Auto) (0-5) /hpf Urine RBC (Auto) (0-4) /hpf U Hyaline Cast (Auto) (0-5) /lpf U Epithel Cells (Auto) (0-5) /lpf Urine Bacteria (Auto) (Negative) 05/04/19 05/04/19 05/04/19 Range/Units 20:30 20:31 22:09 WBC (4.8-10.8) K/uL RBC (4.2-5.4) M/uL Hgb (12.0-16.0) g/dL Hct (37-47) % MCV (80-100) fL MCH (25-34) pg MCHC (32-36) g/dL RDW Std Deviation (36.4-46.3) fL RDW Coeff of Ghassan (11.5-14.5) % Plt Count (130-400) K/uL MPV (7.4-10.4) fL Immature Gran % (Auto) % Neut % (Auto) % Lymph % (Auto) % Buchanan % (Auto) % Eos % (Auto) % Baso % (Auto) % Immature Gran # (Auto) (0.00-0.02) K/uL Neut # (Auto) (1.4-6.5) K/uL Lymph # (Auto) (1.2-3.4) K/uL [place]anan # (Auto) (0.11-0.59) K/uL Eos # (Auto) (0-0.5) K/uL Baso # (Auto) (0-0.2) K/uL PT (9.0-12.0) Seconds INR (0.9-1.1) Sodium (136-145) mmol/L Potassium (3.5-5.1) mmol/L Chloride (98-107) mmol/L Carbon Dioxide (21-32) mmol/L Anion Gap (3-11) BUN (7-18) mg/dl Creatinine (0.6-1.2) mg/dl Est Cr Clr Drug Dosing ml/min Est GFR ( Amer) Est GFR (Non-Af Amer) BUN/Creatinine Ratio (10-20) Glucose (70-99) mg/dl POC Glucose 52 L* 180 H (70-99) Calcium (8.5-10.1) mg/dl Magnesium (1.8-2.4) mg/dl Total Bilirubin (0.2-1) mg/dl AST (15-37) U/L ALT (12-78) U/L Alkaline Phosphatase (45-117) U/L Troponin I (0-0.045) ng/ml Total Protein (6.4-8.2) gm/dl Albumin (3.4-5.0) gm/dl Globulin (2.5-4.0) gm/dl Albumin/Globulin Ratio (0.9-2) Lipase (73-393) U/L TSH (0.300-4.500) uIu/ml Urine Color Yellow Urine Appearance Clear (Clear) Urine pH 6.0 (4.5-7.5) Ur Specific [place] 1.036 H (1.000-1.030) Urine Protein Negative (Negative) Urine Glucose (UA) Negative (Negative) Urine Ketones Trace H (Negative) Urine Blood Negative (Negative) Urine Nitrite Negative (Negative) Urine Bilirubin Negative (Negative) Urine Urobilinogen Negative (Negative) Ur Leukocyte Esterase 1+ H (Negative) Urine WBC (Auto) 5-10 H (0-5) /hpf Urine RBC (Auto) 0-4 (0-4) /hpf U Hyaline Cast (Auto) 1-5 (0-5) /lpf U Epithel Cells (Auto) >30 H (0-5) /lpf Urine Bacteria (Auto) Negative (Negative) Imaging Data Radiologist's Impression: Radiology results as stated below per my review and the radiologist's interpretation: AP CHEST WITH ABDOMINAL SERIES CLINICAL HISTORY: Strokelike symptoms. Diarrhea FINDINGS: An AP upright chest radiograph is compared to study dated 06/07/2018. The examination is degraded by apical lordotic positioning. The heart is enlarged noting atherosclerotic calcification of the thoracic aorta. The pulmonary vasculature is noncongested. Chronic interstitial thickening is similar to previous. The lungs and pleural spaces are clear. No pneumothorax is seen. The skeletal structures are osteopenic. The bony thorax is grossly intact. Supine and erect abdominal radiographs are correlated with lumbar spine radiographs dated 03/15/2012. There is a nonobstructed abdominal bowel gas pattern. No evidence of intraperitoneal free air is seen. Question a calcified gallstone in the right upper quadrant. Excreted IV contrast is present within the renal collecting systems and the bladder. The lumbosacral spine and bony pelvis appear intact. Lumbosacral spondylosis is observed. IMPRESSION: 1. Cardiomegaly with no active disease in the chest. 2. Nonobstructed abdominal bowel gas pattern. 3. Question cholelithiasis. ACT 112: Negative or not required by law. Electronically signed by: Fadi Orozco M.D. 05/04/2019 10:[address] OF THE BRAIN; CT ANGIOGRAM OF THE BRAIN; CT ANGIOGRAM OF THE NECK CLINICAL HISTORY: Headache and dizziness. COMPARISON STUDY: CT of the brain, CT angiogram of the head, and CT angiogram of the neck dated 03/11/2018. TECHNIQUE: Unenhanced axial CT scan of the brain is performed. Subsequently, following the IV administration of 118 of Optiray 320, CT angiogram of the head and neck was performed from the aortic arch to the vertex. Images are reviewed in the axial, sagittal, and coronal planes. 3-D MIPS images are created and assessed. IV contrast was administered without complication. All measurements were calculated based on NASCET criteria. A dose lowering technique was utilized adhering to the principles of ALARA. CT DOSE: 1037.23 mGy.cm FINDINGS: Brain parenchyma: There is age-related involutional change noting mild subcortical and periventricular microangiopathic disease. 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 There is no hemorrhage, mass effect, or evidence of acute territorial ischemia by CT criteria. There is no evidence of enhancing mass lesion on the angiogram phase images. The ventricles, sulci, and cisterns are prominent secondary to involutional change. Rosales-white matter differentiation is preserved. No extra-axial fluid collection is seen. Thoracic aorta: There is atherosclerotic calcification of the thoracic aorta. Visualized portions of the thoracic aorta are normal in caliber. The aortic arch demonstrates bovine variant anatomy. Right carotid arterial system: The right common carotid artery is widely patent, as are the right internal and external carotid arteries. Left carotid arterial system: The left common carotid artery is widely patent, as are the left internal and external carotid arteries. Vertebral arteries: The vertebral arteries are widely patent bilaterally and codominant. Subclavian arteries: Widely patent bilaterally. Intracranial vasculature: There is atherosclerotic calcification of the cavernous carotid and vertebral arteries. There is a large right posterior communicating artery. The internal carotid arteries are patent at the skull base, as are the anterior and middle cerebral arteries bilaterally. The vertebrobasilar system and posterior cerebral arteries are widely patent. The vertebral arteries are codominant. There is focal stenosis in the M2 segment of the right middle cerebral artery, best seen on coronal MIP image #37. No additional foci of high-grade stenosis are seen. No aneurysm or vessel cut off seen throughout the intracranial circulation. Jugular veins: Patent bilaterally. Dural sinuses: Patent. Lung apices: Partially visualized upper lobe lung parenchyma appears clear. Soft tissues: The visualized pharyngeal soft tissues are normal in appearance noting angiographic phase technique. The oropharyngeal airway appears widely patent. The salivary and thyroid glands are normal in appearance. No cervical lymphadenopathy is seen. Orbits: The bony orbits are grossly intact. Orbital contents are normal as visualized. Skeletal structures: The skeletal structures are osteopenic. The calvarium appears intact. The cervical spine is maintained noting multilevel spondylosis. No lytic or blastic lesion is seen. Sinuses and mastoids: The paranasal sinuses are clear. There are bilateral mastoid effusions, left larger than right. IMPRESSION: 1. There is no hemorrhage, mass effect, or evidence of acute territorial ischemia by CT criteria. 2. Senescent change and remote right MCA territory infarct as above. 3. Unremarkable CT angiogram of the neck. 4. There is focal high-grade stenosis within an M2 branch of the right middle cerebral artery. 5. The remaining intracranial vessels appear patent. ACT 112: Negative or not required by law. Electronically signed by: Fadi Orozco M.D. 05/04/2019 9:[address] OF THE BRAIN; CT ANGIOGRAM OF THE BRAIN; CT ANGIOGRAM OF THE NECK CLINICAL HISTORY: Headache and dizziness. COMPARISON STUDY: CT of the brain, CT angiogram of the head, and CT angiogram of the neck dated 03/11/2018. TECHNIQUE: Unenhanced axial CT scan of the brain is performed. Subsequently, following the IV administration of 118 of Optiray 320, CT angiogram of the head and neck was performed from the aortic arch to the vertex. Images are reviewed in the axial, sagittal, and coronal planes. 3-D MIPS images are created and assessed. IV contrast was administered without complication. All measurements were calculated based on NASCET criteria. A dose lowering technique was utilized adhering to the principles of ALARA. CT DOSE: 1037.23 mGy.cm FINDINGS: Brain parenchyma: There is age-related involutional change noting mild subcortical and periventricular microangiopathic disease. Right MCA territory en cephalomalacia is consistent with a remote infarct. There is no hemorrhage, mass effect, or evidence of acute territorial ischemia by CT criteria. There is no evidence of enhancing mass lesion on the angiogram phase images. The ventricles, sulci, and cisterns are prominent secondary to involutional change. Rosales-white matter differentiation is preserved. No extra-axial fluid collection is seen. Thoracic aorta: There is atherosclerotic calcification of the thoracic aorta. Visualized portions of the thoracic aorta are normal in caliber. The aortic arch demonstrates bovine variant anatomy. Right carotid arterial system: The right common carotid artery is widely patent, as are the right internal and external carotid arteries. Left carotid arterial system: The left common carotid artery is widely patent, as are the left internal and external carotid arteries. Vertebral arteries: The vertebral arteries are widely patent bilaterally and codominant. Subclavian arteries: Widely patent bilaterally. Intracranial vasculature: There is atherosclerotic calcification of the cavernous carotid and vertebral arteries. There is a large right posterior communicating artery. The internal carotid arteries are patent at the skull base, as are the anterior and middle cerebral arteries bilaterally. The vertebrobasilar system and posterior cerebral arteries are widely patent. The vertebral arteries are codominant. There is focal stenosis in the M2 segment of the right middle cerebral artery, best seen on coronal MIP image #37. No additional foci of high-grade stenosis are seen. No aneurysm or vessel cut off seen throughout the intracranial circulation. Jugular veins: Patent bilaterally. Dural sinuses: Patent. Lung apices: Partially visualized upper lobe lung parenchyma appears clear. Soft tissues: The visualized pharyngeal soft tissues are normal in appearance noting angiographic phase technique. The oropharyngeal airway appears widely patent. The salivary and thyroid glands are normal in appearance. No cervical lymphadenopathy is seen. Orbits: The bony orbits are grossly intact. Orbital contents are normal as visualized. Skeletal structures: The skeletal structures are osteopenic. The calvarium appears intact. The cervical spine is maintained noting multilevel spondylosis. No lytic or blastic lesion is seen. Sinuses and mastoids: The paranasal sinuses are clear. There are bilateral mastoid effusions, left larger than right. IMPRESSION: 1. There is no hemorrhage, mass effect, or evidence of acute territorial ischemia by CT criteria. 2. Senescent change and remote right MCA territory infarct as above. 3. Unremarkable CT angiogram of the neck. 4. There is focal high-grade stenosis within an M2 branch of the right middle cerebral artery. 5. The remaining intracranial vessels appear patent. ACT 112: Negative or not required by law. Electronically signed by: Fadi Orozco M.D. 05/04/2019 9:[address] OF THE BRAIN; CT ANGIOGRAM OF THE BRAIN; CT ANGIOGRAM OF THE NECK CLINICAL HISTORY: Headache and dizziness. COMPARISON STUDY: CT of the brain, CT angiogram of the head, and CT angiogram of the neck dated 03/11/2018. TECHNIQUE: Unenhanced axial CT scan of the brain is performed. Subsequently, following the IV administration of 118 of Optiray 320, CT angiogram of the head and neck was performed from the aortic arch to the vertex. Images are reviewed in the axial, sagittal, and coronal planes. 3-D MIPS images are created and assessed. IV contrast was administered without complication. All measurements were calculated based on NASCET criteria. A dose lowering technique was utilized adhering to the principles of ALARA. CT DOSE: 1037.23 mGy.cm FINDINGS: Brain parenchyma: There is age-related involutional change noting mild subcortical and periventricular microangiopathic disease. 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 There is no hemorrhage, m ass effect, or evidence of acute territorial ischemia by CT criteria. There is no evidence of enhancing mass lesion on the angiogram phase images. The ventricles, sulci, and cisterns are prominent secondary to involutional change. Rosales-white matter differentiation is preserved. No extra-axial fluid collection is seen. Thoracic aorta: There is atherosclerotic calcification of the thoracic aorta. V isualized portions of the thoracic aorta are normal in caliber. The aortic arch demonstrates bovine variant anatomy. Right carotid arterial system: The right common carotid artery is widely patent, as are the right internal and external carotid arteries. Left carotid arterial system: The left common carotid artery is widely patent, as are the left internal and external carotid arteries. Vertebral arteries: The vertebral arteries are widely patent bilaterally and codominant. Subclavian arteries: Widely patent bilaterally. Intracranial vasculature: There is atherosclerotic calcification of the cavernous carotid and vertebral arteries. There is a large right posterior communicating artery. The internal carotid arteries are patent at the skull base, as are the anterior and middle cerebral arteries bilaterally. The vertebrobasilar system and posterior cerebral arteries are widely patent. The vertebral arteries are codominant. There is focal stenosis in the M2 segment of the right middle cerebral artery, best seen on coronal MIP image #37. No additional foci of high-grade stenosis are seen. No aneurysm or vessel cut off seen throughout the intracranial circulation. Jugular veins: Patent bilaterally. Dural sinuses: Patent. Lung apices: Partially visualized upper lobe lung parenchyma appears clear. Soft tissues: The visualized pharyngeal soft tissues are normal in appearance n oting angiographic phase technique. The oropharyngeal airway appears widely patent. The salivary and thyroid glands are normal in appearance. No cervical lymphadenopathy is seen. Orbits: The bony orbits are grossly intact. Orbital contents are normal as visualized. Skeletal structures: The skeletal structures are osteopenic. The calvarium appears intact. The cervical spine is maintained noting multilevel spondylosis. No lytic or blastic lesion is seen. Sinuses and mastoids: The paranasal sinuses are clear. There are bilateral mastoid effusions, left larger than right. IMPRESSION: 1. There is no hemorrhage, mass effect, or evidence of acute territorial ischemia by CT criteria. 2. Senescent change and remote right MCA territory infarct as above. 3. Unremarkable CT angiogram of the neck. 4. There is focal high-grade stenosis within an M2 branch of the right middle cerebral artery. 5. The remaining intracranial vessels appear patent. ACT 112: Negative or not required by law. Electronically signed by: Fadi Orozco M.D. 05/04/2019 9:56 PM ECG Data Attestation: I personally reviewed and interpreted this ECG as follows: Indication: + other (stroke/ CVA symptoms ) Rate (beats per minute): 94 Rhythm: + sinus rhythm ECG [place]: + Normal ECG Findings: + Other (normal intervals, no acute ischemic changes); no PACs and no PVCs Blood Pressure Blood Pressure Findings: Elevated blood pressure Blood Pressure Disposition: further management by hospitalist MDM Narrative Patient presenting with concerns for possible stroke. Patient found to be significantly hypertensive. Unfortunately patient not a candidate for TPA or other intervention due to symptoms starting 3 days prior. Patient did receive multiple doses of IV medication in order to help improve her blood pressure which still remained significantly elevated. Patient had no worsening symptoms while in the emergency room. No other evidence of acute infection or active bleeding. Case discussed with hospitalist for additional management and evaluation. Patient was made aware of all results and was in agreement with plan. Impression & Plan CVA (cerebral vascular accident), Uncontrolled hypertension Discharge Plan Visit Data *Final* Discharge Date/Time: 05/05/19 02:23 Chief Complaint: Stroke/CVA Symptoms ED Provider: Adriana Aleman Discharge Problem: CVA (cerebral vascular accident), Uncontrolled hypertension Patient Disposition: Admitted As Inpatient Discharge Instructions Interventions: ED Discharge Assessment Last Done: 05/05/19 02:23 Discharge Problem: CVA (cerebral vascular accident) Qualifiers: CVA mechanism: unspecified Qualified Code(s): I63.9 - Cerebral infarction, unspecified The scribe's documentation has been prepared under my direction and personally reviewed by me in its entirety. I confirm that the note above accurately reflects all work, treatment, procedures, and medical decision making performed by me.
[2019-05-06 04:18] LABS: Basophils # (auto) 0.03 K/uL (0-0.2); Basophils % (auto) 0.3 %; Eosinophils # (auto) 0.07 K/uL (0-0.5); Eosinophils % (auto) 0.7 %; Hematocrit (blood only) 38.5 % (37-47); Hemoglobin 13.3 g/dL (12.0-16.0); Immature Granulocytes # (auto) 0.03 K/uL (0.00-0.02); Immature Granulocytes % (auto) 0.3 %; Lymphocytes # (auto) 2.21 K/uL (1.2-3.4); Lymphocytes % (auto) 22.1 %; Mean Corpuscular Hemoglobin 32.3 pg (25-34); Mean Corpuscular Hgb Conc 34.5 g/dL (32-36); Mean Corpuscular Volume 93.4 fL (80-100); Mean Platelet Volume 11.5 fL (7.4-10.4); Monocytes # (auto) 1.05 K/uL (0.11-0.59); Monocytes % (auto) 10.5 %; Neutrophils # (auto) 6.63 K/uL (1.4-6.5); Neutrophils % (auto) 66.1 %; Platelet Count 206 K/uL (130-400); RDW Coefficient of Variation 12.8 % (11.5-14.5); RDW Standard Deviation 43.5 fL (36.4-46.3); Red Blood Count 4.12 M/uL (4.2-5.4); White Blood Count 10.02 K/uL (4.8-10.8)
[2019-05-06 04:35] LABS: Prothrombin Time 10.3 Seconds (9.0-12.0)
[2019-05-06 04:38] LABS: Albumin Level 3.3 gm/dl (3.4-5.0); BUN Creatinine Ratio 14.6 (10-20); Calcium 9.4 mg/dl (8.5-10.1); Creatinine Clr Calc Pharmacy 83.3 ml/min; Est GFR (African American) 103.5; Est GFR (Non-African American) 89.3; Potassium 3.4 mmol/L (3.5-5.1)
[2019-05-06 04:41] LABS: Albumin Globulin Ratio 0.9 (0.9-2); Bilirubin,Total 0.8 mg/dl (0.2-1); Globulin 3.8 gm/dl (2.5-4.0); Total Protein 7.1 gm/dl (6.4-8.2)
[2019-05-06] MEDS: ENALAPRILAT 0.625 MG in SYRINGE 9.5 ML IV SCH (06:00)
[2019-05-06] MEDS: SODIUM CHLORIDE 0.9% 1000ML 1,000 ML IV SCH (07:11)
--- NOTE | 2019-05-06 16:23 | Discharge Summary ---
Date of Service May 06, 2019 Admission HPI Per Admitting Provider The patient is a 74-year-old female with a past medical history including hypertension, prediabetes, hypercholesterolemia, previous acute right MCA stroke and GERD, who presents to the emergency department at the insistence of friends who saw her today, and noted her to have new left upper extremity weakness. The patient reports that she has not noted any specific weakness in her left lower extremity, but she does report difficulty in getting around because of imbalance. In the emergency department, patient underwent a CT of the head which showed no acute findings but did show a remote right MCA CVA. CTA of the neck was found to be negative. CTA of the head showed a high-grade stenosis of the M2 branch of the right MCA. While in the emergency department, patient did receive aspirin 3 and 24 mg p.o., labetalol 10 mg IV and then 5 mg IV. She also received hydralazine 5 mg IV and potassium chloride 40 mEq orally. Principal Diagnosis Acute lacunar infarct in the right central mayela Discharge Exam Constitutional WD/WN, vitals as above Eyes EOM intact bilaterally; no conjunctival abnormality ENMT external ear and nose normal, oropharynx normal Neck trachea midline, no thyromegaly normal visual inspection Respiratory normal respiratory effort, lungs clear to auscultation no respiratory distress Cardiovascular RRR, no murmur, no edema Gastrointestinal (Abdomen) Inspection/Auscultation: abdomen normal to inspection; abdomen not distended Musculoskeletal no cyanosis or clubbing, extremities motor strength 5/5 Skin no rashes, warm and dry Neurologic moves all extremities and awake Speech / Cognition: normal speech Motor/Sensory: + abnormal movement Coordination: + abnormal [id number] test (Left) and + abnormal [id number] test (Left) Psychiatric Orientation: alert, oriented to person and cooperative Discharge Data Allergies Allergy/AdvReac Type Severity Reaction Status Date / Time "ALL ANTIBIOTICS" Allergy Intermediate HIVES Uncoded 05/04/19 21:46 Consultations 05/05/19 00:30 ED Decision to Admit Stat 05/05/19 02:29 Consult Case Management - Discharge Planning Routine Consult Neurology Routine Ordered Studies 05/04/19 20:12 CT head/brain wo con Stat 05/04/19 20:17 CT angio head w con Stat CT angio neck with con Stat 05/05/19 01:43 MR brain wo con Urgent Hospital Course (1) Right pontine CVA: MRI brain on 05/05 showed acute right pontine CVA. - Seen by neurology - Recommended DAPT x 6 weeks, then switch to Plavix only - Switch from pravastatin to atorvastatin Her main modifiable risk factor was her severe HTN. It was >200/120 at times. She was started on a variety of medications to help lower her BP. On 05/06/2019 at 8am, she decided to leave the hospital. I spent considerable time with her trying to dissuade her from this idea. She reported she just needed to go home to get some "deep rest" and that while she knew we were helping her, we were hurting her. (In this regard, she was referring to the blood pressure cuff and lab draws that we needed to do.) She was AAOx4 (self, place, location, season, & current events). She clearly explained why she was here and what we had been doing to treat her. She denied any self-harm, passive wish, or other concerning psychiatric ideation. She was capable of making her own decisions, and so she was discharged with request to closely follow up with her PCP and monitor her BP. I assured her we were always happy to have her come back to the hospital. We discussed her discharge medication changes, and I encouraged her to sheepskin pickler scripts I would send to her pharmacy. She would not wait for printed paperwork and in fact called when the nurse informed her that she had to have her IV removed before she could be discharged. Eventually, after the dispatcher told her the nurse was correct and it was a liability issue to discharge her with an IV in place, she allowed it to be removed and left the hospital. (2) Uncontrolled hypertension: BP has been high for a long time, and was as high as 270/120 on presentation. - Worked to keep BP < 180/110 with home meds, hydralazine PRN, and enalaprilat. - On AMA discharge, I sent lisinopril 20mg PO QHS to her pharmacy and verbally told her about the medication. (3) Major depressive disorder, recurrent episode, severe degree, without mention of psychotic behavior: Reported an episode of feeling "overwhelmed" on 05/05 with lots of crying. Had a prior suicide attempt in 2013 from overdose. Presently denies overall depression, self-harm intent, or other SIGECAPS symptoms prior to this acute m edical event. - See above sections for her AMA discharge. She denied any self-harm intent, passive wish, or other concerning psychiatric issues on 05/06 to me. I encouraged her to seek psychiatric care if she continues to have depression. (4) Prediabetes: A1c was 5.8%. - Sliding scale insulin (5) Hypercholesterolemia: - Continue atorvastatin (6) GERD (gastroesophageal reflux disease): Change omeprazole to pantoprazole 40 mg p.o. daily on discharge to not int eract with Plavix. (7) DVT prophylaxis: Heparin 5000 units SQ Q12h Total Time Total Time Spent Total Time Spent (In Minutes): 35 Discharge Plan Discharge Items Patient Disposition: Against Medical Advice Reason For Visit: R HEMISPHERE CVA Discharge Diagnosis: Stroke Activity: Resume your previous activity Non-emergency contact: Primary Care Provider Call non-emergency contact if: your symptoms worsen Follow-up/Referrals: Maik Du MD [Primary Care Provider] - Diet: Heart Healthy Addtl Attending Provider Instructions: Please take your aspirin for 1 month. Then you can just take the Plavix afterward. We sent Plavix to your pharmacy as well as lisinopril to help lower your blood pressure. You can stop taking the hydrochlorothiazide as you were not taking this anyhow. We switched your omeprazole as it interacts with the Plavix. Please take the pantoprazole instead. Please call Dr. Du's office on Wednesday to be seen as soon as possible. Pending Studies at Discharge: No Stand-Alone Forms: My [facility] [email or web address], Smoking Cessation Medications and DC Order Prescriptions: New atorvastatin 40 mg Tablet 40 mg PO QAM Qty: 30 RF: 0 clopidogrel 75 mg Tablet 75 mg PO QAM Qty: 30 RF: 0 lisinopril 20 mg tablet 20 mg PO HS Qty: 30 RF: 0 pantoprazole 40 mg Tablet,Delayed Release (Dr/Ec) 40 mg PO DAILY Qty: 30 RF: 0 Continued metoprolol tartrate 50 mg tablet 50 mg PO BID Qty: 180 RF: 3 aspirin 81 mg Tablet,Delayed Release (Dr/Ec) 81 mg PO DAILY RF: 0 acetaminophen [Tylenol] 325 mg Tablet 650 mg PO Q6H PRN (Reason: Pain) RF: 0 Discontinued pravastatin 40 mg tablet 40 mg PO DAILY Qty: 90 RF: 3 hydrochlorothiazide 25 mg tablet 25 mg PO DAILY RF: 0 omeprazole 20 mg capsule,delayed release(DR/EC) 20 mg PO DAILY Qty: 90 RF: 3 Discharge Orders: Left Against Medical Advice (Routine); Ordered 05/06/19 Ordered By: Agustin Louis Admission Data Admit Date/Time: 05/05/19 01:53 Attending Provider: Agustin Louis Admit Provider: Garrett Hawkins Primary Care Provider: Maik Du Other Providers: Walter Roberts ; Agustin Louis Other Interventions: Discharge Summary Assessment (RN) Last Done: 05/06/19 08:20 DC Date/Time DO NOT enter until pt leaves facility: 05/06/19 08:37
== END 2019-05-06 08:37 | disposition left against medical advice (07) | DRG 65 ==
LOC: ED 19:55 → SUATTDRO 05-05 01:53 → 1E 05-05 01:53

== ENCOUNTER 2019-05-21 02:39 | Inpatient (IN) ==
[2019-05-21] MEDS ORDERED: LABETALOL HCL IV 5 MG/ML 20ML IV STA ×2 (02:51→03:15)
--- NOTE | 2019-05-21 03:01 | Emergency Department Note ---
ED Provider Note Name: SAVANNA JAMES Age: 74 Arrives Via: Ambulance Informant: Patient, EMS, Chart Review CC: Stroke HPI: [id number] arrives for evaluation of left sided weakness. Patient with history of HTN, DMII, DLP, CVA, GERD, arrives with worsening left sided weakness. Acute right mayela stroke 2 weeks ago and supposed to start lisinopril and Plavix though admits did not yet begin taking these after leaving AMA a day after stroke. Admits she has had some weakness left side since. Went to bed at 7pm. Awoke at 2am with difficulty ambulating due to worsening left leg weakness. Denies headache, fall, chest pain, palpitations, nausea, vomiting. States left arm weakness stable. No medications taken prior to arrival. Patient further admits she may have had this weakness 2 days ago as well with leg dragging at that time. Patient states she wishes to and kill herself. She states she does not wish to be better, she just wants to be . She denies plan nor attempt at harming self. ROS: See above HPI for pertinent positives & negatives. A total of 10 systems reviewed and were otherwise negative. Past Medical History:HTN, GERD, CVA, DLP, DMII Past Surgical History:Apendectomy, hysterectomy Family History:Mother cad, gm htn cva Social History:, lives alone, retired, nonsmoker, no etoh, no drugs Home Medications:See Below - admits she doesn't regularly take them. Allergies:"antibiotics" Vitals:Blood Pressure 270/111, Pulse 68, Resp 18, T 36.8C, O2 97% on RA Physical Exam: GENERAL: Patient is very anxious appearing and in moderate distress. Sobbing EYES: No scleral icterus, unremarkable pupils. ENT: Mucous membranes moist, no nasal congestion. NECK: No masses appreciated, nomeningismus, trachea is midline. RESPIRATORY: No dyspnea. Clear to auscultation and equal bilaterally. No wheeze, no rhonchi. CARDIOVASCULAR: Regular rate and rhythm.No murmurs, rubs, gallops appreciated. GASTROINTESTINAL: Abdomen soft, non-tender, no peritonitis.Bowel sounds positive.No masses appreciated. BACK: No midline tenderness, no CVA tenderness EXTREMITIES: Normal motion all extremities, no cyanosis, no edema. NEUROLOGIC: Alert and oriented. 4/5 left hand strength, 5/5 prox left arm, 4/5 distal left leg, 4/5 prox left leg, perceived decreased sensation left foot, normal 5/5 right side. Left facial droop overcome with voluntary muscles, SKIN: No rash, no jaundice, no diaphoresis. PSYCH: Admits suicidal ideation, admits depression, denies suicidal plan ED Course: Prior Medical Record, Triage/Nursing Notes, Medications, Allergies reviewed by Me Vital Signs: reviewed and remarkable for HTN Labs:Reviewed and remarkable for no significant abnormalities Interventions: Saline Lock, Labetalol 10mg IV x 2, Ativan 1mg IV, Asa 324mg PO Imaging:[facility] Radiologist interpretation reviewed by me: CT Head no acute findings X ray results are stated below per my interpretation: Chest: 1 view: No infiltrate, no effusion, normal cardiac border. EKG:Per My Interpretation: Indication Stroke: SR 70 bpm, qtc 488 with bigeminy. No Ischemia. Compared to EKG 05/05/19 there is similar QRS morphology Consults:Dr Justine Handley Neuro phone conversation agrees not TPA candidate. Mental Health Case Management evaluated and filled 302 petition. Reassessments/Times: Multiple throughout. Seen on arrival at 2:39 am. Evaled many times after this throughout ED stay. Dr Ross NELSON Hospitalist in to evaluate 4am. Blood pressure:Elevated - Referred to Hospitalist Disposition:Hospitalization Differentials:Stroke, Suicide attempt, Infection, HTN emergency, ACS, Electrolyte imbalance, anemia, amongst other pathologies. Medical Decision Makin yr old female history of cva, htn, dmii, gerd, dlp, arrives with worsening left sided weakness. She admits non-compliance with medical regimen since discharge 2 weeks ago after having right mayela stroke and resulting left weakness. Weakness appears to have worsened over last 2 days (though initially thought to have been just a few hours). Did discuss with stroke neuro who agree she is not TPA candidate. Initial CT head was negative for acute findings. She was severely hypertensive which gradually improved with IV anti-hypertensives. She is severely depressed with strong urge for suicide and wish to . No attempt at harming herself yet per patient. Patient was evaluated by Mental Health Case Management who agree she is in need of inpatient psychiatric treatment and 302 petition filled by them. With acute worsening stroke symptoms and HTN will need to come in to hospital for medical monitoring and treatment first. Impression: Acute CVA Hypertensive Emergency Suicidal Ideation Depression Noncompliance with Medical Regimen Critical Care Time: I have personally spent 45 minutes of critical care time in the direct management of this patient. Hypertensive emergency requiring multiple rounds IV antihypertensives in setting of acute on chronic stroke. This was a life/limb threatening event. This 45 minutes is in excess of all separately billable procedures. Ramos Jain MD Impression & Plan Acute CVA (cerebrovascular accident), Hypertensive emergency, Suicidal ideation, Depression, Noncompliance with medication regimen Past Med/Surg History Social History Preferred Language: Mohawk Communication Ability: Effective Visual Impairment: Severely Limited Hearing Ability: Normal Pilot Required: No Beliefs That Will Affect Care: None marital status: Current Living Situation: Alone Current Living Situation Comment: senior apartment housing current occupational status: retired Feels Safe at Home: Yes Smoking Status: Never smoker Hx Alcohol Use: No Hx Substance Use: No Childhood Exposure to Second-Hand Smoke: Yes Dental Care, Regularly: Yes Physical Activity Frequency: Daily Seatbelt Use: always Sunscreen Use: No Results & Data Vital Signs Vital Signs - 24 hr 05/21/19 02:36 05/21/19 02:41 05/21/19 02:52 Temperature 36.8 C Temperature Source Oral Pulse Rate 68 76 Pulse Rate from SpO2 Sensor 78 Pulse Rhythm Regular Pulse Strength Normal Respiratory Rate 18 Respiratory Effort / Characteristics Non-Labored Spontaneous Respiratory Depth Normal Respiratory Pattern Regular Blood Pressure 270/111 H 270/111 H Blood Pressure Mean 164 129 Blood Pressure Position Lying Pulse Oximetry 97 97 97 Oxygen Delivery Method Room Air Room Air Sepsis Recent Fever Within 48 Hours No Sepsis New/Unexplained Change in Mental Status No Sepsis Action Taken by Nursing No Action Required 05/21/19 03:13 05/21/19 03:24 05/21/19 03:36 Temperature Temperature Source Pulse Rate 69 70 74 Pulse Rate from SpO2 Sensor Pulse Rhythm Pulse Strength Respiratory Rate Respiratory Effort / Characteristics Respiratory Depth Respiratory Pattern Blood Pressure 230/83 H 200/81 H 215/117 H Blood Pressure Mean 122 121 135 Blood Pressure Position Pulse Oximetry Oxygen Delivery Method Sepsis Recent Fever Within 48 Hours Sepsis New/Unexplained Change in Mental Status Sepsis Action Taken by Nursing 05/21/19 03:48 05/21/19 03:55 05/21/19 04:01 Temperature Temperature Source Pulse Rate 74 72 69 Pulse Rate from SpO2 Sensor Pulse Rhythm Pulse Strength Respiratory Rate Respiratory Effort / Characteristics Respiratory Depth Respiratory Pattern Blood Pressure 222/112 H 177/89 H 189/80 H Blood Pressure Mean 171 133 98 Blood Pressure Position Pulse Oximetry Oxygen Delivery Method Sepsis Recent Fever Within 48 Hours Sepsis New/Unexplained Change in Mental Status Sepsis Action Taken by Nursing 05/21/19 04:31 Temperature Temperature Source Pulse Rate 68 Pulse Rate from SpO2 Sensor 69 Pulse Rhythm Pulse Strength Respiratory Rate Respiratory Effort / Characteristics Respiratory Depth Respiratory Pattern Blood Pressure 184/135 H Blood Pressure Mean 141 Blood Pressure Position Pulse Oximetry 96 Oxygen Delivery Method Sepsis Recent Fever Within 48 Hours Sepsis New/Unexplained Change in Mental Status Sepsis Action Taken by Nursing Laboratory Data Result diagrams: 05/21/19 02:56 05/21/19 02:56 Lab Results 05/21/19 05/21/19 05/21/19 Range/Units 02:48 02:56 02:56 WBC 7.98 (4.8-10.8) K/uL RBC 4.63 (4.2-5.4) M/uL Hgb 14.7 (12.0-16.0) g/dL POC Hgb (12.0-16.0) g/dl Hct 42.2 (37-47) % POC Hct (37-47) % MCV 91.1 (80-100) fL MCH 31.7 (25-34) pg MCHC 34.8 (32-36) g/dL RDW Std Deviation 41.4 (36.4-46.3) fL RDW Coeff of Ghassan 12.5 (11.5-14.5) % Plt Count 241 (130-400) K/uL MPV 11.2 H (7.4-10.4) fL PT 10.1 (9.0-12.0) Seconds INR 1.0 (0.9-1.1) APTT 25.9 (21.0-31.0) Seconds PTT Ratio 1.0 POC Sodium (135-144) mEq/L Sodium (136-145) mmol/L POC Potassium (3.3-5.0) mEq/L Potassium (3.5-5.1) mmol/L POC Chloride (101-112) mEq/L Chloride (98-107) mmol/L Carbon Dioxide (21-32) mmol/L POC Total CO2 (24-31) mEq/l Anion Gap (3-11) POC Anion Gap (16-25) mmol/L POC BUN (7-18) mg/dl BUN (7-18) mg/dl Creatinine (0.6-1.2) mg/dl POC Creatinine (0.6-1.3) mg/dl Est Cr Clr Drug Dosing ml/min Est GFR ( Amer) Est GFR (Non-Af Amer) BUN/Creatinine Ratio (10-20) Glucose (70-99) mg/dl POC Glucose 110 H (70-99) POC Glucose (other) (70-99) mg/dl Calcium (8.5-10.1) mg/dl POC Ioniz Calcium Jair (1.12-1.32) mmol/l Magnesium (1.8-2.4) mg/dl Total Bilirubin (0.2-1) mg/dl AST (15-37) U/L ALT (12-78) U/L Alkaline Phosphatase (45-117) U/L Total Protein (6.4-8.2) gm/dl Albumin (3.4-5.0) gm/dl Globulin (2.5-4.0) gm/dl Albumin/Globulin Ratio (0.9-2) Salicylates (2.8-20) mg/dl Acetaminophen (10-30) ug/ml 05/21/19 05/21/19 05/21/19 Range/Units 02:56 02:56 02:58 WBC (4.8-10.8) K/uL RBC (4.2-5.4) M/uL Hgb (12.0-16.0) g/dL POC Hgb 14.3 (12.0-16.0) g/dl Hct (37-47) % POC Hct 42 (37-47) % MCV (80-100) fL MCH (25-34) pg MCHC (32-36) g/dL RDW Std Deviation (36.4-46.3) fL RDW Coeff of Ghassan (11.5-14.5) % Plt Count (130-400) K/uL MPV (7.4-10.4) fL PT (9.0-12.0) Seconds INR (0.9-1.1) APTT (21.0-31.0) Seconds PTT Ratio POC Sodium 140 (135-144) mEq/L Sodium 138 (136-145) mmol/L POC Potassium 3.4 (3.3-5.0) mEq/L Potassium 3.3 L (3.5-5.1) mmol/L POC Chloride 103 (101-112) mEq/L Chloride 105 (98-107) mmol/L Carbon Dioxide 26 (21-32) mmol/L POC Total CO2 25 (24-31) mEq/l Anion Gap 7.0 (3-11) POC Anion Gap 16.0 (16-25) mmol/L POC BUN 13 (7-18) mg/dl BUN 13 (7-18) mg/dl Creatinine 0.70 (0.6-1.2) mg/dl POC Creatinine 0.6 (0.6-1.3) mg/dl Est Cr Clr Drug Dosing 84.2 ml/min Est GFR ( Amer) 98.9 Est GFR (Non-Af Amer) 85.4 BUN/Creatinine Ratio 18.1 (10-20) Glucose 121 H (70-99) mg/dl POC Glucose (70-99) POC Glucose (other) 126 H (70-99) mg/dl Calcium 9.7 (8.5-10.1) mg/dl POC Ioniz Calcium Jair 1.13 (1.12-1.32) mmol/l Magnesium 1.9 (1.8-2.4) mg/dl Total Bilirubin 0.5 (0.2-1) mg/dl AST 31 (15-37) U/L ALT 49 (12-78) U/L Alkaline Phosphatase 103 (45-117) U/L Total Protein 7.9 (6.4-8.2) gm/dl Albumin 3.8 (3.4-5.0) gm/dl Globulin 4.1 H (2.5-4.0) gm/dl Albumin/Globulin Ratio 0.9 (0.9-2) Salicylates < 1.7 L (2.8-20) mg/dl Acetaminophen < 2 L (10-30) ug/ml Administered Medications Discontinued Medications Aspirin (Aspirin) 324 mg PO NOW STA Stop: 05/21/19 03:19 Last Admin: 05/21/19 03:28 Dose: 324 mg Documented by: [id number] Lorazepam (Ativan) 1 mg in 2 mls @ 2 mls/min IV NOW STA Stop: 05/21/19 03:04 Last Admin: 05/21/19 03:17 Dose: 2 mls/min Documented by: [id number] Labetalol HCl (Normodyne) 10 mg IV NOW STA Stop: 05/21/19 02:52 Last Admin: 05/21/19 03:18 Dose: 10 mg Documented by: [id number] Cosigned by: [id number] Labetalol HCl (Normodyne) 10 mg IV NOW STA Stop: 05/21/19 03:16 Last Admin: 05/21/19 03:51 Dose: 7.5 mg Documented by: [id number] Cosigned by: [id number] Discharge Plan Visit Data Chief Complaint: Stroke Alert Stated Complaint: STROKE ED Provider: Ramos Jain Discharge Problem: Acute CVA (cerebrovascular accident), Hypertensive emergency, Suicidal ideation, Depression, Noncompliance with medication regimen Discharge Instructions Interventions: ED Discharge Assessment Last Done: 05/21/19 05:16 Discharge Problem: Depression Qualifiers: Depression Type: major depressive disorder Major depression recurrence: recurrent Active/Remission status: currently active Major depression episode severity: severe Psychotic features: without psychotic features Qualified Code(s): F33.2 - Major depressive disorder, recurrent severe without psychotic features
[2019-05-21] MEDS ORDERED: LORazepam 1 MG/2 ML VIAL IV STA (03:03)
[2019-05-21 03:05] LABS: Hematocrit (blood only) 42.2 % (37-47); Hemoglobin 14.7 g/dL (12.0-16.0); Mean Corpuscular Hemoglobin 31.7 pg (25-34); Mean Corpuscular Hgb Conc 34.8 g/dL (32-36); Mean Corpuscular Volume 91.1 fL (80-100); Mean Platelet Volume 11.2 fL (7.4-10.4); Platelet Count 241 K/uL (130-400); RDW Coefficient of Variation 12.5 % (11.5-14.5); RDW Standard Deviation 41.4 fL (36.4-46.3); Red Blood Count 4.63 M/uL (4.2-5.4); White Blood Count 7.98 K/uL (4.8-10.8)
[2019-05-21 03:12] LABS: iSTAT Creatinine 0.6 mg/dl (0.6-1.3); iSTAT Hemoglobin 14.3 g/dl (12.0-16.0); iSTAT Ionized Calcium 1.13 mmol/l (1.12-1.32); iSTAT Potassium 3.4 mEq/L (3.3-5.0)
[2019-05-21 03:16] LABS: Partial Thromboplastin Time 25.9 Seconds (21.0-31.0); Prothrombin Time 10.1 Seconds (9.0-12.0)
[2019-05-21] MEDS ORDERED: ASPIRIN CHEW 324 MG PO STA (03:18)
[2019-05-21 03:24] LABS: Albumin Level 3.8 gm/dl (3.4-5.0); BUN Creatinine Ratio 18.1 (10-20); Calcium 9.7 mg/dl (8.5-10.1); Creatinine Clr Calc Pharmacy 84.2 ml/min; Est GFR (African American) 98.9; Est GFR (Non-African American) 85.4; Magnesium 1.9 mg/dl (1.8-2.4); Potassium 3.3 mmol/L (3.5-5.1)
[2019-05-21 03:26] LABS: Albumin Globulin Ratio 0.9 (0.9-2); Bilirubin,Total 0.5 mg/dl (0.2-1); Globulin 4.1 gm/dl (2.5-4.0); Total Protein 7.9 gm/dl (6.4-8.2)
[2019-05-21 03:34] LABS: Acetaminophen < 2 ug/ml (10-30)
[2019-05-21 03:35] LABS: Salicylate < 1.7 mg/dl (2.8-20)
--- NOTE | 2019-05-21 04:38 | History & Physical Report ---
Date of Service May 21, 2019 Assessment & Plan (1) Acute CVA (cerebrovascular accident): The patient presented with symptomatic worsening of left-sided weakness, felt to be due to noncompliance with taking new medication regimen as outlined. She was admitted 2 weeks ago for an acute right pontine CVA. At that time it was noted that she had a previous right MCA CVA. Plan from neurology was to have an overlap of aspirin and clopidogrel, and then stop aspirin and remain primarily on clopidogrel. The patient had not started to take the lisinopril or clopidogrel after last admission. We will consult neurology to see if there recommendations are unchanged. Present on Admission?: Yes (2) Hypertensive emergency: Permissive hypertension for the first 12 hours for systolic blood pressure target of 180. Hydralazine 10 mg IV every 4 hours as needed systolic blood pressure greater than 180 if heart rate less than 70. Lopressor 5 mg IV every 4 hours PRN systolic blood pressure greater than 180 if heart rate greater than or equal to 70 Continue metoprolol tartrate 50 mg p.o. twice daily and lisinopril 20 mg at bedtime. Hold HCTZ Present on Admission?: Yes (3) Suicidal ideation: Suicidal ideation/depression- patient told nurses and psychiatric liaison that she wished she were , but had no specific plan to kill herself. At this point patient has had a petition completed for 302. We will consult psychiatry. Present on Admission?: Yes (4) Depression: See above Present on Admission?: Yes (5) Right pontine CVA: See above Present on Admission?: Yes (6) GERD (gastroesophageal reflux disease): Continue pantoprazole 40 mg daily Present on Admission?: Yes (7) Hypercholesterolemia: Continue atorvastatin 40 mg daily. Was changed to high intensity atorvastatin instead of pravastatin at last visit. Present on Admission?: Yes History of Present Illness Chief Complaint: The patient presented to the emergency department with complaint of left sided weakness, similar to her episode on 05/05/2019, where she had an acute right mayela stroke. Primary Care Provider: Maik Du MD The patient is a 74-year-old female with a past medical history including cerebrovascular disease, with more distant right MCA stroke, and a more recent right mayela stroke that required admission from 05/05-05/06/2019. At after that admission, the patient was advised to start lisinopril and Plavix, was to have an overlap of aspirin and Plavix for several weeks, and then stop the aspirin. Patient reports that she has not yet started to take those medications. She was noted also to have left the hospital AMA the day after her stroke. Patient also reportedly told the nurses and psychiatric assessment personnel that she wanted to be , but denies on having a specific plan. A petition for a 302 was written at that time. Allergies Allergy/AdvReac Type Severity Reaction Status Date / Time "ALL ANTIBIOTICS" Allergy Intermediate HIVES Uncoded 05/21/19 02:52 Home Medications Home Medications Medication Instructions Recorded Confirmed Type aspirin 81 mg PO DAILY 06/05/18 05/21/19 History acetaminophen [Tylenol] 650 mg PO Q6H PRN 06/07/18 05/21/19 History metoprolol tartrate 50 mg tablet 50 mg PO BID #180 tab 01/24/19 05/21/19 Rx hydrochlorothiazide 25 mg tablet 25 mg PO DAILY 03/09/19 05/21/19 History omeprazole 20 mg capsule,delayed 20 mg PO DAILY #90 cap 03/09/19 05/21/19 Rx release pravastatin 40 mg tablet 40 mg PO DAILY #90 tab 04/19/19 05/21/19 Rx atorvastatin 40 mg PO QAM #30 tab 05/06/19 05/21/19 Rx clopidogrel 75 mg PO QAM #30 tab 05/06/19 05/21/19 Rx lisinopril 20 mg PO HS #30 tab 05/06/19 05/21/19 Rx pantoprazole 40 mg PO DAILY #30 tab 05/06/19 05/21/19 Rx Past Med/Surg History Social History Preferred Language: Malawian Communication Ability: Effective Visual Impairment: Severely Limited Hearing Ability: Normal 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 Beliefs That Will Affect Care: None marital status: Current Living Situation: Alone Current Living Situation Comment: senior apartment housing current occupational status: retired Feels Safe at Home: Yes Smoking Status: Never smoker Hx Alcohol Use: No Hx Substance Use: No Childhood Exposure to Second-Hand Smoke: Yes Dental Care, Regularly: Yes Physical Activity Frequency: Daily Seatbelt Use: always Sunscreen Use: No Review of Systems Review of Systems: Unobtainable due to mental health condition Physical Exam Physical Exam: The patient is awake, alert and oriented 3, well developed and well nourished, normocephalic and atraumatic, lying in bed and in no acute distress. HEENT--PERRL, EOMI, mucous membranes and oropharynx normal. Neck--supple. No JVD. No bruits. Thyroid normal, trachea midline, no adenopathy. Heart--normal S1 and S2. No murmurs, rubs or gallops. Lungs--clear bilaterally, no respiratory distress, no accessory muscle use. Abdomen--normal bowel sounds and soft. Nontender. Nondistended. Extremities--no cyanosis or clubbing. No edema. Dermatologic--normal skin turgor, normal color, no abnormal lymph nodes, no rash. Neurologic--decreased motor strength left side, no change compared to 05/05/2019 when I examined her then Rheumatologic--as noted on left side decreased due to strength decrease. Psychiatric--at the time of my examination, the patient appeared to have a more normal affect, but also been given Lorazepam by the ED. Results & Data Vital Signs (Past 12 Hours) Vital Signs Temp Pulse Resp BP Pulse Ox 05/21/19 02:41 97 05/21/19 02:36 98.2 F 68 18 270/111 H 97 Laboratory Results Laboratory Results WBC 7.98 K/uL (4.8-10.8) 05/21/19 02:56 RBC 4.63 M/uL (4.2-5.4) 05/21/19 02:56 Hgb 14.7 g/dL (12.0-16.0) 05/21/19 02:56 POC Hgb 14.3 g/dl (12.0-16.0) 05/21/19 02:58 Hct 42.2 % (37-47) 05/21/19 02:56 POC Hct 42 % (37-47) 05/21/19 02:58 MCV 91.1 fL (80-100) 05/21/19 02:56 MCH 31.7 pg (25-34) 05/21/19 02:56 MCHC 34.8 g/dL (32-36) 05/21/19 02:56 RDW Std Deviation 41.4 fL (36.4-46.3) 05/21/19 02:56 RDW Coeff of Ghassan 12.5 % (11.5-14.5) 05/21/19 02:56 Plt Count 241 K/uL (130-400) 05/21/19 02:56 MPV 11.2 fL (7.4-10.4) H 05/21/19 02:56 PT 10.1 Seconds (9.0-12.0) 05/21/19 02:56 INR 1.0 (0.9-1.1) 05/21/19 02:56 APTT 25.9 Seconds (21.0-31.0) 05/21/19 02:56 PTT Ratio 1.0 05/21/19 02:56 POC Sodium 140 mEq/L (135-144) 05/21/19 02:58 Sodium 138 mmol/L (136-145) 05/21/19 02:56 POC Potassium 3.4 mEq/L (3.3-5.0) 05/21/19 02:58 Potassium 3.3 mmol/L (3.5-5.1) L 05/21/19 02:56 POC Chloride 103 mEq/L (101-112) 05/21/19 02:58 Chloride 105 mmol/L (98-107) 05/21/19 02:56 Carbon Dioxide 26 mmol/L (21-32) 05/21/19 02:56 POC Total CO2 25 mEq/l (24-31) 05/21/19 02:58 Anion Gap 7.0 (3-11) 05/21/19 02:56 POC Anion Gap 16.0 mmol/L (16-25) 05/21/19 02:58 POC BUN 13 mg/dl (7-18) 05/21/19 02:58 BUN 13 mg/dl (7-18) 05/21/19 02:56 Creatinine 0.70 mg/dl (0.6-1.2) 05/21/19 02:56 POC Creatinine 0.6 mg/dl (0.6-1.3) 05/21/19 02:58 Est Cr Clr Drug Dosing 84.2 ml/min 05/21/19 02:56 Est GFR ( Amer) 98.9 05/21/19 02:56 Est GFR (Non-Af Amer) 85.4 05/21/19 02:56 BUN/Creatinine Ratio 18.1 (10-20) 05/21/19 02:56 Glucose 121 mg/dl (70-99) H 05/21/19 02:56 POC Glucose 110 (70-99) H 05/21/19 02:48 POC Glucose (other) 126 mg/dl (70-99) H 05/21/19 02:58 Calcium 9.7 mg/dl (8.5-10.1) 05/21/19 02:56 POC Ioniz Calcium Jair 1.13 mmol/l (1.12-1.32) 05/21/19 02:58 Magnesium 1.9 mg/dl (1.8-2.4) 05/21/19 02:56 Total Bilirubin 0.5 mg/dl (0.2-1) 05/21/19 02:56 AST 31 U/L (15-37) 05/21/19 02:56 ALT 49 U/L (12-78) 05/21/19 02:56 Alkaline Phosphatase 103 U/L (45-117) 05/21/19 02:56 Total Protein 7.9 gm/dl (6.4-8.2) 05/21/19 02:56 Albumin 3.8 gm/dl (3.4-5.0) 05/21/19 02:56 Globulin 4.1 gm/dl (2.5-4.0) H 05/21/19 02:56 Albumin/Globulin Ratio 0.9 (0.9-2) 05/21/19 02:56 Salicylates < 1.7 mg/dl (2.8-20) L 05/21/19 02:56 Acetaminophen < 2 ug/ml (10-30) L 05/21/19 02:56 Code Status & VTE Plan Code Status Full code VTE Prophylaxis Plan VTE Prophylaxis will be ordered: Yes PG Care Time/CCT Total # of Minutes Spent Total Time Spent with Patient: Total time spent is greater than 50% in coordination of care (as documented) at patient's floor/unit and/or counseling patient: (1) Depression Active/Remission status: currently active Depression Type: major depressive disorder Major depression episode severity: severe Major depression recurrence: recurrent Psychotic features: without psychotic features Qualified Code(s): F33.2 - Major depressive disorder, recurrent severe without psychotic features
[2019-05-21] MEDS ORDERED: HydrALAZINE HCL 20 MG/ML VIAL IV PRN ×2 (05:27→08:40)
[2019-05-21] MEDS ORDERED: METOPROLOL TARTRATE 1 MG/ML VIAL IV PRN (05:27)
[2019-05-21] MEDS ORDERED: ACETAMINOPHEN 325 MG TAB PO PRN (05:39)
[2019-05-21] MEDS ORDERED: MAGNESIUM HYDROXIDE SUSP 30 ML UDC PO PRN (05:39)
[2019-05-21] MEDS ORDERED: ALUMINUM/MAGNESIUM SUSP 30 ML UDC PO PRN (05:39)
[2019-05-21] MEDS ORDERED: POLYETHYLENE (MIRALAX) 17 GM PACK PO PRN (05:39)
[2019-05-21] MEDS ORDERED: PHARMACIST DISCHARGE MED REC CONSULT PRN (05:39)
[2019-05-21] MEDS ORDERED: ONDANSETRON INJ 2 MG/ML 2 ML VIAL IV PRN (05:39)
--- NOTE | 2019-05-21 06:48 | CT Scan Report ---
CT head/brain wo con CLINICAL HISTORY: Stroke alert LEFT-SIDED NUMBNESS AND WEAKNESS. POSSIBLE ACUTE STROKE. COMPARISON STUDY: May 04, 2019 TECHNIQUE: Axial CT of the brain is performed from the vertex to the skull base. IV contrast was not administered for this examination. A dose lowering technique was utilized adhering to the principles of ALARA. CT DOSE: 537.48 mGy.cm FINDINGS: No intra or extra-axial mass lesions are visualized. There is no CT evidence of acute cortical infarc tion. There is no evidence of midline shift. There is no acute hemorrhage. No calvarial fractures ar e visualized. There are patchy white matter hypodensities likely on a small vessel basis. There is an old right MCA distribution infarct. There is no evidence of pathologic ventricular dilatation. There is no evidence of acute sinusitis IMPRESSION: 1. Old right MCA distribution infarct 2. No acute intracranial findings. ACT 112: Negative or not required by law. Electronically signed by: Bird Duckworth M.D. 05/21/2019 6:47 AM
--- NOTE | 2019-05-21 06:50 | XRay Report ---
XR chest 1V portable CLINICAL HISTORY: Suspected acute stroke COMPARISON STUDY: 05/04/2019 FINDINGS: The cardiac and mediastinal contours are normal. There is no evidence of focal pulmonary co nsolidation. There is no evidence of failure. No pleural effusions are visualized.[There is a retroca rdiac opacity possibly representing a hiatal hernia. IMPRESSION: No active disease in the chest. ACT 112: Negative or not required by law. Electronically signed by: Bird Duckworth M.D. 05/21/2019 6:49 AM
--- NOTE | 2019-05-21 07:54 | Neurology Consultation ---
Date of Consultation May 21, 2019 Assessment & Plan (1) Hypertensive urgency: Marylou Donnelly is a 74-year-old woman with past medical history of hypertension, hyperlipidemia, prediabetes, history of right MCA stroke, depression/anxiety with prior suicide attempt and recent right pontine stroke with residual left-sided weakness who p/t [facility] with worsening left-sided weakness in the setting of hypertensive urgency. # H/o multiple strokes (R MCA/R mayela) w/ residual left-sided weakness: now p/w worsening left sided weakness in the setting of severe HTN. Highest on the differential would be hypertensive urgency versus emergency causing recrudescence of recent stroke symptoms. Would also rule out any infectious process that can also cause recrudescence. Less likely would be new lacunar stroke in the setting of hypertensive emergency. - would obtain MRI brain to differentiate hypertensive urgency from emergency - no need to complete stroke workup (TTE/A1c/lipid panel) unless new stroke identified on MRI brain - would obtain UA to r/o UTI that could also worsen prior stroke symptoms - PT/OT, strongly encouraged her that she should go to rehab following this admission - work with PCP on stroke prevention goals (BP<130/85, A1c<7, LDL<70) - would consider 30 day event monitor vs loop recorder to r/o Afib as she has now had 2 strokes in different distributions (R MCA does not have a clear mechanism, more recent pontine stroke is likely 2/2 uncontrolled HTN) - follow up with neurology as previously scheduled after recent pontine stroke at the end of April 2019 # Hypertensive urgency: suspect that this is the main reason for worsening of her recent stroke symptoms (recrudescence effect) - management per primary team, slowly return to goal normotension to prevent cerebral hypoperfusion # Depression with SI: management per primary team. She may benefit from starting fluoxetine for motor recovery and mood (though there is some debate now on whether fluoxetine has that large of an impact on post-stroke motor recovery, but it may still be worth a try in her case). She was requesting a psychiatric consultation to help with symptoms. Thank you for this interesting consult. Dr Roberts will take over the service tomorrow. Please text or call with questions. 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 In the ED, initial blood pressure was 270/111, heart rate 68, respiratory rate 18, satting 97% on room air. Labs notable for hemoglobin 14.7, platelets 241, INR 1.0, mild hypokalemia 3.3, creatinine 0.7, glucose 121, normal calcium and magnesium, LFTs within normal. Chest x-ray showed no sign of infection. Independent review of CTH shows no hemorrhage, encephalomalacia in the right temporo-parietal lobe c/w known chronic R MCA stroke, no loss of mayer-white differentiation or new hypodensity. Of note, she was just admitted 2 weeks ago with left-sided weakness and found to have a right pontine stroke at that time. She left the hospital AMA without completing rehab. She does report non- compliance with BP medication yesterday evening, as well as taking only baby aspirin (has not started plavix as she was waiting to see her PCP on 05/24 because she had some questions). History per patient is that she woke up on 05/20 and noticed dizziness, gait imbalance, dragging her left foot and weakness/numbness in her LLE (predominantly in the left foot). The LUE weakness felt similar to the day prior. She denied any other new symptoms including vision changes, hearing changes, speech changes, or numbness/tingling/weakness elsewhere. She became distraught about having another possible stroke and endorses having SI without a clear plan. She p/t the ED many hours after symptom onset only in the setting of a GLF. She reports that she felt traumatized by her last hospitalization and that was why she left AMA and was hesitant to come in for new neurological symptoms (reports frequent examinations and painful interventions when she was in the ICU during most recent admission). Allergies Allergy/AdvReac Type Severity Reaction Status Date / Time "ALL ANTIBIOTICS" Allergy Intermediate HIVES Uncoded 05/21/19 02:52 Home Medications Home Medications Medication Instructions Recorded Confirmed Type aspirin 81 mg PO DAILY 06/05/18 05/21/19 History acetaminophen [Tylenol] 650 mg PO Q6H PRN 06/07/18 05/21/19 History metoprolol tartrate 50 mg tablet 50 mg PO BID #180 tab 01/24/19 05/21/19 Rx hydrochlorothiazide 25 mg tablet 25 mg PO DAILY 03/09/19 05/21/19 History omeprazole 20 mg capsule,delayed 20 mg PO DAILY #90 cap 03/09/19 05/21/19 Rx release pravastatin 40 mg tablet 40 mg PO DAILY #90 tab 04/19/19 05/21/19 Rx atorvastatin 40 mg PO QAM #30 tab 05/06/19 05/21/19 Rx clopidogrel 75 mg PO QAM #30 tab 05/06/19 05/21/19 Rx lisinopril 20 mg PO HS #30 tab 05/06/19 05/21/19 Rx pantoprazole 40 mg PO DAILY #30 tab 05/06/19 05/21/19 Rx Patient History Medical History Acute right MCA stroke (Resolved) GERD (gastroesophageal reflux disease) HTN (hypertension) (Chronic) HTN (hypertension) Hypercholesterolemia Hypercholesterolemia (Chronic) Pre-diabetes Prediabetes Sinusitis Suicide attempt 2013 - ETOH/Valium combination - had acute inpatient psychiatric stay Surgical History H/O oral surgery S/P appendectomy S/P hysterectomy with oophorectomy Family History Mother Hypertension Grandmother (Maternal) Stroke Other Heart disease Social History Preferred Language: [place] Communication Ability: Effective Visual Impairment: Severely Limited Hearing Ability: Normal Surgical Coder Required: No Beliefs That Will Affect Care: None marital status: Current Living Situation: Alone Current Living Situation Comment: senior apartment housing current occupational status: retired Feels Safe at Home: Yes Smoking Status: Never smoker Second Hand Exposure: No ; Hx Alcohol Use: No Hx Substance Use: No Childhood Exposure to Second-Hand Smoke: Yes Dental Care, Regularly: Yes Physical Activity Frequency: Daily Seatbelt Use: always Sunscreen Use: No Review of Systems 2 Review of Systems: 14 point review of systems completed and negative except as in HPI. Physical Exam Physical Exam: General Exam: GEN: NAD, sitting down in examination bed. HEENT: No conjunctival injection, no rhinorrhea. CV: RRR on monitor, no significant edema. PULM: Nonlabored respirations on room air. Neuro Exam: MS: Awake and Alert. Oriented to person, place, and date. Speech fluent and appropriate without dysarthria or paraphasic errors. Language intact including naming, comprehension, repetition. Cognition and memory grossly intact. Attention intact. No neglect. CN: Left homonymous hemianopia noted mainly in the left eye. No extinction to double simultaneous stimuli. No optic disc edema on fundoscopic exam. PERRLA OU. EOMI without nystagmus. Facial sensation intact to LT. Flattening of the left nasolabial fold. Hearing intact to conversation. Uvula midline with symmetric palatal elevation. Shoulder shrug normal on the right, decreased strength in the left. Tongue midline. MOTOR: Normal bulk and tone. + pronator drift in the LUE. RUE strength 5/5 at deltoids, biceps, triceps, wrist flexors and extensors, and hand grasp. LUE strength 4+/5 at deltoids, biceps, triceps, 5-/5wrist flexors and extensors, and 5/5 hand grasp. RLE strength 5/5 at iliopsoas, hamstrings, quadriceps, tibialis anterior, and gastrocnemius. LLE strength 3/5 at iliopsoas, 3/5 hamstrings, 3/5 quadriceps, 4+/5 tibialis anterior, and 5-/5 gastrocnemius. REFLEXES: 1+ at biceps, triceps, brachioradialis, 1+ patella, and absent Achilles on the right; all reflexes on the left were 2+. Toes mute bilaterally. SENSORY: Intact to LT throughout, no extinction to double simultaneous stimuli. Vibration and temperature intact throughout. COORDINATION: No dysmetria or ataxia on [id number] bilaterally. Normal Gabe bilaterally. GAIT: Deferred due to physical status. NIH STROKE SCALE 1A. Level of Consciousness (0-3) = 0 1B. LOC Questions (0-2) = 0 1C. LOC Commands (0-2) = 0 2. Best Horizontal Gaze (0-2) = 0 3. Visual [place] (0-3) = 1 4. Facial Palsy (0-3) = 1 5. Motor Arm Right (0-4) = 0 Left (0-4) = 1 6. Motor Leg Right (0-4) = 0 Left (0-4) = 3 7. Limb Ataxia (0-2) = 0 8. Sensory (0-2) = 0 9. Best Language (0-3) = 0 10. Dysarthria (0-2) = 0 11. Extinction and Inattention (0-2) = 0 NIHSS TOTAL = 6 Results & Data Vital Signs (Past 12 Hours) Vital Signs Temp Pulse Pulse Resp BP BP Pulse Ox 05/21/19 07:34 36.3 C L 92 H 18 207/110 H 93 05/21/19 05:25 36.5 C 65 18 203/84 H 98 05/21/19 05:16 61 17 206/82 H 96 05/21/19 04:31 68 184/135 H 96 05/21/19 04:01 69 189/80 H 05/21/19 03:55 72 177/89 H 05/21/19 03:48 74 222/112 H 05/21/19 03:36 74 215/117 H 05/21/19 03:24 70 200/81 H 05/21/19 03:13 69 230/83 H 05/21/19 02:52 76 270/111 H 97 05/21/19 02:41 97 05/21/19 02:36 36.8 C 68 18 270/111 H 97 Laboratory Results Short CBC 05/21/19 Range/Units 02:56 WBC 7.98 (4.8-10.8) K/uL Hgb 14.7 (12.0-16.0) g/dL Hct 42.2 (37-47) % Plt Count 241 (130-400) K/uL BMP 05/21/19 02:56 Sodium 138 Potassium 3.3 L Chloride 105 Carbon Dioxide 26 BUN 13 Creatinine 0.70 Glucose 121 H Calcium 9.7 Liver Function 05/21/19 Range/Units 02:56 Total Bilirubin 0.5 (0.2-1) mg/dl AST 31 (15-37) U/L ALT 49 (12-78) U/L Alkaline Phosphatase 103 (45-117) U/L Albumin 3.8 (3.4-5.0) gm/dl PG Care Time/CCT Total # of Minutes Spent Total Time Spent with Patient: Total time spent is greater than 50% in coordination of care (as documented) at patient's floor/unit and/or counseling patient: (1) Depression Active/Remission status: currently active Depression Type: major depressive disorder Major depression episode severity: severe Major depression re currence: recurrent Psychotic features: without psychotic features Qualified Code(s): F33.2 - Major depressive disorder, recurrent severe without psychotic features
[2019-05-21] MEDS: ASPIRIN 81 MG ECTAB PO SCH (08:12)
[2019-05-21] MEDS: ATORVASTATIN 40 MG TAB PO SCH (08:12)
[2019-05-21] MEDS: CLOPIDOGREL BISULFATE 75 MG TAB PO SCH (08:12)
[2019-05-21] MEDS: HEPARIN SOD 5,000 UNIT/0.5 ML VIAL SQ SCH ×3 (08:12→21:15)
[2019-05-21] MEDS: PANTOprazole 40 MG TAB PO SCH (08:12)
[2019-05-21] MEDS ORDERED: METOPROLOL TARTRATE 50 MG TAB PO SCH (09:00)
--- NOTE | 2019-05-21 09:36 | Hospitalist Progress Note ---
Date of Service May 21, 2019 Assessment & Plan (1) Acute CVA (cerebrovascular accident): 74 yo F with recent hx of right pontine CVA, Right MCA CVA, suicide attempt, depression, Gerd, uncontrolled HTN, medication noncompliance admitted for recurrence of stroke-like symptoms found to be secondary to new CVA on MRI. 1) Recurrent CVA - MRI on 05/21 showing acute/subacute infarct on right lentiform nucleus/external capsule in addition to previous MCA and pontine infarcts - Started 75 mg Plavix in addition to 81 mg ASA as patient has had strokes while on just ASA - Atorvastatin 40 mg - Patient previously did not start Plavix and Lisinopril 20 mg after last CVA due to lack of knowledge/poor communication/uncertainty regarding purpose of medications and wanted to discuss with PCP prior to starting. Lengthy discussion between myself and patient as well as with Dr. López regarding vital importance of these medications in controlling her risk for future strokes especially within first 3 months after stroke. - PT/OT crucial to improved functional status - Neuro onboard 2) Uncontrolled HTN - Lisinopril 10 mg - Metoprolol 5 mg IV PRN for Sys BP>180 with HR >70 - Metoprolol Tartrate 25 mg BID - holding HCTZ 3) Depression/Suicidality - evaluated by psychiatry after suicidal ideation on admission. Currently denying ideations however previous suicide attempt in 2013 was planned for 6 months with extremely high doses of narcotics that patient planned and saved up. - left ICU AMA last admission - Very high concern that patient is at risk for suicide at home given the number of strokes she has suffered in the past few months and her change in demeanor when discussing depression/treatment. - Patient is not willing to take antidepressant at this time but says she is willing to do therapy; Psych to set up with [facility] - patient describes her cat as the only source of happiness in her life and only thing keeping her going - Ativan 1 mg PRN at nighttime for agitation 4) Hypokalemia - K 3.4; repleted with oral K 20 mEQ DVT PPx: 5,000 u Heparin SubQ BID FEN/GI: protonix 40 mg IV Diet: Heart Healthy/Safe Tray Code Status: Full Code (2) Hypertensive urgency: (3) H/O stroke within last year: (4) Depression: Supervising Physician Co-Signing Physician Notes I personally examined the patient and verified all zhong points of history and exam, discussed case, and agree with decision making with Dr Ramírez. Feeling about the same. Leg weakness about the same. Expresses motivation to work with therapy and get stronger. Smiling and an occasional laugh during the entirety of our conversation. Vitals noted, in general she is awake and alert no distress. HEENT normocephalic atraumatic mucous membranes are moist. Breathing unlabored no accessory muscle use good effort. Skin shows no rashes no pallor or icterus. Focal weakness as before. Strokesmall vessel disease predominantly related to her hypertensive emergency/crisis. Slowly bring blood pressure under control. Secondary risk reduction mostly with what amounted to be what she should have been on is her home medsas she was not taking all of them, and concerned about how much she was actually taking. PT/OT eval and treat, likely to need rehab. 2 weeks ago her work-up showed no concern for cardioembolic source and no carotid sourcenothing about her situation appears to have changed that. Depressionno longer expressing suicidality, no legal means to keep her here, but given her dramatic shift in demeanor from depressed and expressing suicidality yesterday to now smiling with an occasional laughing saying that she will do everything that she needs to, I do have some concerns that she may simply be masking her depressive symptoms. Definitely will need to follow this closely, fortunately she does at least appear willing to set up counseling out of the hospital. Ongoing empathy and support should be helpful. Otherwise as above Subjective 74 yo F with recent hx of CVA 2 weeks ago and re-emergence of stroke-like symptoms with weakness of left leg upon waking up yesterday morning. This morning still has left hand weakness but says it is improving compared to the original weakness from 2 weeks ago. Describes numbness in the left foot but no abnormal sensation in any other distribution. Weakness in left leg still present. No headache or blurring vision. No chest pain, shortness of breath, difficulty breathing. Of note, expressed suicidal ideation upon admission in the emergency department and was 302'd. This morning she denies any suicidal ideation or having a plan. She says these thoughts were present on admission but improved after receiving 2mg Ativan at 3 am. Attests that her cat at home is the biggest reason she wants to get out of the hospital. Says she didn't take her lisinopril or plavix after the last admission because she wasn't sure about trying new medications prior to meeting with her primary care physician. Review of Systems Constitutional: no fever, no chills, no body aches and no fatigue Respiratory: no cough and no dyspnea Cardiovascular: no chest pain, no dyspnea and no edema Gastrointestinal: no abdominal pain, no nausea, no vomiting, no constipation and no diarrhea/loose stools Genitourinary: no dysuria Physical Exam Constitutional: cooperative; no acute distress and not ill appearing Neck: normal visual inspection Respiratory: normal respiratory effort and able to speak in complete sentences; no respiratory distress, no labored breathing, no retractions, no cough and no audible wheezes Auscultation: lungs clear to auscultation bilaterally; no crackles, no rales, no rhonchi and no wheezes Cardiovascular: Rate/Rhythm: regular rate and regular rhythm Heart Sounds: normal S1 and normal S2; no gallop, no murmur and no cardiac rub Vessels: posterior tibial pulses present Extremities: no pedal edema and no edema Gastrointestinal (Abdomen): Inspection/Auscultation: abdomen normal to inspe ction and normal bowel sounds; abdomen not distended Percussion/Palpation: abdomen soft; abdomen nontender, no guarding, abdomen not rigid and no abdominal mass Neurologic: Diminished connection worker strength bilaterally left weaker than right. left forearm extension and flexion weaker than right. Able to lift rught leg about 2 inches off bed and able to push against resistance. left leg difficult to lift off bed but was able to lift a few centimeters. unable to keep left leg up against resistance. plantar and dorsiflexion of feet bilaterally intact against resistance. Results & Data Vital Signs (Past 12 Hours) Vital Signs Temp Pulse Pulse Resp BP BP Pulse Ox 05/21/19 09:28 169/81 H 05/21/19 07:34 36.3 C L 92 H 18 207/110 H 93 05/21/19 05:25 36.5 C 65 18 203/84 H 98 05/21/19 05:16 61 17 206/82 H 96 05/21/19 04:31 68 184/135 H 96 05/21/19 04:01 69 189/80 H 05/21/19 03:55 72 177/89 H 05/21/19 03:48 74 222/112 H 05/21/19 03:36 74 215/117 H 05/21/19 03:24 70 200/81 H 05/21/19 03:13 69 230/83 H 05/21/19 02:52 76 270/111 H 97 05/21/19 02:41 97 05/21/19 02:36 36.8 C 68 18 270/111 H 97 05/21/19 05/21/19 05/21/19 Range/Units 13:54 07:34 07:22 WBC (4.8-10.8) K/uL RBC (4.2-5.4) M/uL Hgb (12.0-16.0) g/dL POC Hgb (12.0-16.0) g/dl Hct (37-47) % POC Hct (37-47) % MCV (80-100) fL MCH (25-34) pg MCHC (32-36) g/dL RDW Std Deviation (36.4-46.3) fL RDW Coeff of Ghsasan (11.5-14.5) % Plt Count (130-400) K/uL MPV (7.4-10.4) fL PT (9.0-12.0) Seconds INR (0.9-1.1) APTT (21.0-31.0) Seconds PTT Ratio POC Sodium (135-144) mEq/L Sodium (136-145) mmol/L POC Potassium (3.3-5.0) mEq/L Potassium (3.5-5.1) mmol/L POC Chloride (101-112) mEq/L Chloride (98-107) mmol/L Carbon Dioxide (21-32) mmol/L POC Total CO2 (24-31) mEq/l Anion Gap (3-11) POC Anion Gap (16-25) mmol/L POC BUN (7-18) mg/dl BUN (7-18) mg/dl Creatinine (0.6-1.2) mg/dl POC Creatinine (0.6-1.3) mg/dl Est Cr Clr Drug Dosing ml/min Est GFR ( Amer) Est GFR (Non-Af Amer) BUN/Creatinine Ratio (10-20) Glucose (70-99) mg/dl POC Glucose (70-99) POC Glucose (other) (70-99) mg/dl Estimat Average Glucose Pending Hemoglobin A1c Pending Calcium (8.5-10.1) mg/dl POC Ioniz Calcium Jair (1.12-1.32) mmol/l Magnesium (1.8-2.4) mg/dl Total Bilirubin (0.2-1) mg/dl AST (15-37) U/L ALT (12-78) U/L Alkaline Phosphatase (45-117) U/L Troponin I < 0.015 < 0.015 (0-0.045) ng/ml Total Protein (6.4-8.2) gm/dl Albumin (3.4-5.0) gm/dl Globulin (2.5-4.0) gm/dl Albumin/Globulin Ratio (0.9-2) Salicylates (2.8-20) mg/dl Acetaminophen (10-30) ug/ml 05/21/19 05/21/19 05/21/19 Range/Units 02:58 02:56 02:56 WBC (4.8-10.8) K/uL RBC (4.2-5.4) M/uL Hgb (12.0-16.0) g/dL POC Hgb 14.3 (12.0-16.0) g/dl Hct (37-47) % POC Hct 42 (37-47) % MCV (80-100) fL MCH (25-34) pg MCHC (32-36) g/dL RDW Std Deviation (36.4-46.3) fL RDW Coeff of Ghassan (11.5-14.5) % Plt Count (130-400) K/uL MPV (7.4-10.4) fL PT (9.0-12.0) Seconds INR (0.9-1.1) APTT (21.0-31.0) Seconds PTT Ratio POC Sodium 140 (135-144) mEq/L Sodium 138 (136-145) mmol/L POC Potassium 3.4 (3.3-5.0) mEq/L Potassium 3.3 L (3.5-5.1) mmol/L POC Chloride 103 (101-112) mEq/L Chloride 105 (98-107) mmol/L Carbon Dioxide 26 (21-32) mmol/L POC Total CO2 25 (24-31) mEq/l Anion Gap 7.0 (3-11) POC Anion Gap 16.0 (16-25) mmol/L POC BUN 13 (7-18) mg/dl BUN 13 (7-18) mg/dl Creatinine 0.70 (0.6-1.2) mg/dl POC Creatinine 0.6 (0.6-1.3) mg/dl Est Cr Clr Drug Dosing 84.2 ml/min Est GFR ( Amer) 98.9 Est GFR (Non-Af Amer) 85.4 BUN/Creatinine Ratio 18.1 (10-20) Glucose 121 H (70-99) mg/dl POC Glucose (70-99) POC Glucose (other) 126 H (70-99) mg/dl Estimat Average Glucose Hemoglobin A1c Calcium 9.7 (8.5-10.1) mg/dl POC Ioniz Calcium Jair 1.13 (1.12-1.32) mmol/l Magnesium 1.9 (1.8-2.4) mg/dl Total Bilirubin 0.5 (0.2-1) mg/dl AST 31 (15-37) U/L ALT 49 (12-78) U/L Alkaline Phosphatase 103 (45-117) U/L Troponin I (0-0.045) ng/ml Total Protein 7.9 (6.4-8.2) gm/dl Albumin 3.8 (3.4-5.0) gm/dl Globulin 4.1 H (2.5-4.0) gm/dl Albumin/Globulin Ratio 0.9 (0.9-2) Salicylates < 1.7 L (2.8-20) mg/dl Acetaminophen < 2 L (10-30) ug/ml 05/21/19 05/21/19 05/21/19 Range/Units 02:56 02:56 02:48 WBC 7.98 (4.8-10.8) K/uL RBC 4.63 (4.2-5.4) M/uL Hgb 14.7 (12.0-16.0) g/dL POC Hgb (12.0-16.0) g/dl Hct 42.2 (37-47) % POC Hct (37-47) % MCV 91.1 (80-100) fL MCH 31.7 (25-34) pg MCHC 34.8 (32-36) g/dL RDW Std Deviation 41.4 (36.4-46.3) fL RDW Coeff of Ghassan 12.5 (11.5-14.5) % Plt Count 241 (130-400) K/uL MPV 11.2 H (7.4-10.4) fL PT 10.1 (9.0-12.0) Seconds INR 1.0 (0.9-1.1) APTT 25.9 (21.0-31.0) Seconds PTT Ratio 1.0 POC Sodium (135-144) mEq/L Sodium (136-145) mmol/L POC Potassium (3.3-5.0) mEq/L Potassium (3.5-5.1) mmol/L POC Chloride (101-112) mEq/L Chloride (98-107) mmol/L Carbon Dioxide (21-32) mmol/L POC Total CO2 (24-31) mEq/l Anion Gap (3-11) POC Anion Gap (16-25) mmol/L POC BUN (7-18) mg/dl BUN (7-18) mg/dl Creatinine (0.6-1.2) mg/dl POC Creatinine (0.6-1.3) mg/dl Est Cr Clr Drug Dosing ml/min Est GFR ( Amer) Est GFR (Non-Af Amer) BUN/Creatinine Ratio (10-20) Glucose (70-99) mg/dl POC Glucose 110 H (70-99) POC Glucose (other) (70-99) mg/dl Estimat Average Glucose Hemoglobin A1c Calcium (8.5-10.1) mg/dl POC Ioniz Calcium Jair (1.12-1.32) mmol/l Magnesium (1.8-2.4) mg/dl Total Bilirubin (0.2-1) mg/dl AST (15-37) U/L ALT (12-78) U/L Alkaline Phosphatase (45-117) U/L Troponin I (0-0.045) ng/ml Total Protein (6.4-8.2) gm/dl Albumin (3.4-5.0) gm/dl Globulin (2.5-4.0) gm/dl Albumin/Globulin Ratio (0.9-2) Salicylates (2.8-20) mg/dl Acetaminophen (10-30) ug/ml Resident Activity Tracking Resident Involvement: Resident Care Provided Care Provided: Adult Hospital Medicine (1) Depression Active/Remission status: currently active Depression Type: major depressive disorder Major depression episode severity: severe Major depression recurrence: recurrent Psychotic features: without psychotic features Qualified Code(s): F33.2 - Major depressive disorder, recurrent severe without psychotic features
[2019-05-21] MEDS ORDERED: POTASSIUM CHLORIDE 20 MEQ TABCR PO STA (09:55)
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
--- NOTE | 2019-05-21 15:28 | Magnetic Resonance Report ---
MRI OF THE BRAIN WITHOUT CONTRAST CLINICAL HISTORY: New stroke like symptoms. A left-sided weakness. COMPARISON STUDY: Head CT dated 05/21/2019, MRI the brain dated 05/05/2019 FINDINGS: Sagittal T1, axial diffusion, proton density and T2 weighted axial, coronal FLAIR, and axial T1-weigh stacy images were acquired. No intra or extra-axial mass lesions are visualized There are new foci of restricted water diffusion in the region of the right lentiform nucleus/externa l capsule. The findings are indicative of acute/subacute infarct. There is no evidence of ventricular dilatation. Proton density T2-weighted and FLAIR images reveal evidence for old ischemic infarcts involving the r ight temporal and parietal lobes. Gyral increased T1 signal is consistent with laminar necrosis/quartz miner alization. There is an old lacunar infarct at the level the right pontomedullary junction. There are no abnormal flow voids. IMPRESSION: 1. Acute/subacute infarct involving the right lateral lentiform nucleus/external capsule 2. Old right MCA distribution infarcts involving the right temporal and parietal lobes. There is also an old lacunar infarct at the right pontomedullary junction. ACT 112: Negative or not required by law. Electronically signed by: Bird Duckworth M.D. 05/21/2019 3:27 PM
--- NOTE | 2019-05-21 18:06 | Billing Data ---
Date of Service May 21, 2019 Coding Level of Care Code 94979 Subseq Hosp Care Lvl 3
[2019-05-21] MEDS: METOPROLOL TARTRATE 25 MG TAB PO SCH (19:55)
[2019-05-21] MEDS: lisinopriL 10 MG TAB PO SCH (19:55)
[2019-05-21] MEDS ORDERED: lisinopriL 20 MG TAB PO SCH (21:00)
--- NOTE | 2019-05-21 21:43 | Electrocardiogram Report ---
Test Reason : Blood Pressure : / mmHG Vent. Rate : 070 BPM Atrial Rate : 070 BPM P-R Int : 142 ms QRS Dur : 092 ms QT Int : 452 ms P-R-T Axes : 010 -16 -03 degrees QTc Int : 488 ms Poor data quality, interpretation may be adversely affected Sinus rhythm with Premature atrial complexes in a pattern of bigeminy Moderate voltage criteria for LVH, may be normal variant Borderline ECG When compared with ECG of 05-MAY-2019 17:23, Premature atrial complexes are now Present Questionable change in QRS axis T wave inversion now evident in Inferior leads Confirmed by Orestes Joshi ([id number]) on 05/21/2019 9:42:46 PM Referred By: REFERRED SELF Confirmed By:Orestes Joshi
[2019-05-22 06:19] LABS: Basophils # (auto) 0.03 K/uL (0-0.2); Basophils % (auto) 0.4 %; Eosinophils # (auto) 0.16 K/uL (0-0.5); Eosinophils % (auto) 2.3 %; Hematocrit (blood only) 40.3 % (37-47); Hemoglobin 13.5 g/dL (12.0-16.0); Immature Granulocytes # (auto) 0.02 K/uL (0.00-0.02); Immature Granulocytes % (auto) 0.3 %; Lymphocytes # (auto) 1.55 K/uL (1.2-3.4); Lymphocytes % (auto) 21.9 %; Mean Corpuscular Hemoglobin 31.2 pg (25-34); Mean Corpuscular Hgb Conc 33.5 g/dL (32-36); Mean Corpuscular Volume 93.1 fL (80-100); Mean Platelet Volume 11.4 fL (7.4-10.4); Monocytes # (auto) 0.71 K/uL (0.11-0.59); Neutrophils # (auto) 4.62 K/uL (1.4-6.5); Neutrophils % (auto) 65.1 %; Platelet Count 214 K/uL (130-400); RDW Coefficient of Variation 12.8 % (11.5-14.5); Red Blood Count 4.33 M/uL (4.2-5.4); White Blood Count 7.09 K/uL (4.8-10.8)
[2019-05-22 06:29] LABS: Estimated Average Glucose 123 mg/dl; Hemoglobin A1C 5.9 % (4.5-5.6)
[2019-05-22 06:46] LABS: BUN Creatinine Ratio 23.2 (10-20); Calcium 9.4 mg/dl (8.5-10.1); Creatinine Clr Calc Pharmacy 62.3 ml/min; Est GFR (African American) 82.9; Est GFR (Non-African American) 71.5; Potassium 3.7 mmol/L (3.5-5.1)
--- NOTE | 2019-05-22 08:48 | Hospitalist Progress Note ---
Date of Service May 22, 2019 Assessment & Plan (1) Acute CVA (cerebrovascular accident): 74 yo F with recent hx of right pontine CVA admitted on 05/21 for recurrence of L sided weakness found to be secondary to new R CVA on MRI. Recurrent CVA - MRI on 05/21 showing acute/subacute infarct on right lentiform nucleus/external capsule in addition to previous MCA and pontine infarcts (04/2019 and 03/2019) - Started 75 mg Plavix in addition to 81 mg ASA - Continue Atorvastatin 40 mg; Lisinopril 10mg - New CVA thought to be due to medication non-adherence, as patient never started Lisinopril or Plavix after her most recent CVA in April 2019 - Patient had full stroke work up including HbA1c, lipid panel, CTA of head and neck and echocardiogram in April 2019, all of which failed to identify a cardioembolic source - CTA of head from 04/2019 did show focal, high grade stenosis of M2 branch of right MCA - per neurology, management for this is antiplatelet therapy only - we will hold off on repeat TTE and CTA at this time, but will consider cards consult for loop recorder placement to assess for underlying arrhythmia - PT/OT ordered - Neuro following, appreciate recs 2) Uncontrolled HTN - BP sys between 150s-low 200s today, florentino 60-90s. - in the setting of acute ischemic stroke, will d/c PRN medications for elevated BPs, as permissive HTN is appropriate. - holding home HCTZ - Lisinopril 10 mg as above; we would like upper limit of sys pressure <200 3) Depression/Suicidality - This was of concern as patient expressed suicidal ideation during previous recent admission. She subsequently left ICU AMA - Currently denying ideations however previous suicide attempt in 2014 was planned for 6 months with extremely high doses of narcotics that patient saved up. Patient endorsees cat as only source of happiness in life. - evaluated by psychiatry 05/21; recommended against inpatient admission; outpatient follow up established with [facility]. Outpatient follow up is strongly recommended given risk of developing post-stroke depression, in addition to underlying risk factors. - Ativan 1 mg PRN at nighttime for agitation 4) Hypokalemia: -resolved with PO supplement - K at 3.7 05/22 DVT PPx: 5,000 u Heparin SubQ BID FEN/GI: protonix 40 mg IV Diet: Heart Healthy/Safe Tray Code Status: Full Code (2) Hypertensive urgency: (3) H/O stroke within last year: (4) Depression: Supervising Physician Co-Signing Physician Notes Resident Physician Supervision Note: I independently interviewed and examined the patient and verified the zhong history and physical, reviewed labs and image studies, discussed the case with the resident Dr. Beavers and agree with the findings and care plan. Subjective No acute events overnight. Eating and drinking. Toileting well. Denies being in any discomfort. Review of Systems Neurologic: Left sided leg weakness Physical Exam Constitutional: WD/WN, vitals as above Eyes: PERRL, conjunctivae normal, anicteric sclerae ENMT: external ear and nose normal, oropharynx normal Neck: normal visual inspection and trachea midline Respiratory: normal respiratory effort, lungs clear to auscultation no cough Auscultation: no crackles, no rales, no rhonchi, no wheezes and no pleural rub Cardiovascular: Rate/Rhythm: regular rate and regular rhythm Heart Sounds: normal S1, normal S2 and + murmur (systolic ejection murmur with radiation to neck) Vessels: normal carotid upstroke; no carotid bruit Extremities: no edema Gastrointestinal (Abdomen): normal bowel sounds, soft, nontender, no hepatosplenomegaly Skin: no rashes, warm and dry Neurologic: CN's II-XI intact bilaterally, moves all extremities and awake Speech / Cognition: normal speech and normal cognition Motor/Sensory: + abnormal movement (Strength 5/5 on R upper extremity; 4/5 on L; lower extremities not tested) and + pronator drift (L side); no tremor and no sensory deficit Coordination: normal [id number] test Results & Data Vital Signs (Past 12 Hours) Vital Signs Temp Pulse Pulse Pulse Resp BP Pulse Ox 05/22/19 07:09 36.6 C 62 18 210/83 H 97 05/22/19 03:13 36.5 C 60 18 157/77 H 97 05/22/19 00:00 62 05/21/19 23:42 36.7 C 64 19 146/67 H 97 Resident Activity Tracking Resident Involvement: Resident Care Provided Care Provided: Adult Hospital Medicine (1) Depression Active/Remission status: currently active Depression Type: major depressive disorder Major depression episode severity: severe Major depression recurrence: recurrent Psychotic features: without psychotic features Qualified Code(s): F33.2 - Major depressive disorder, recurrent severe without psychotic features
[2019-05-22] MEDS: ATORVASTATIN 40 MG TAB PO SCH (09:10)
[2019-05-22] MEDS: ASPIRIN 81 MG ECTAB PO SCH (09:10)
[2019-05-22] MEDS: CLOPIDOGREL BISULFATE 75 MG TAB PO SCH (09:10)
[2019-05-22] MEDS: METOPROLOL TARTRATE 25 MG TAB PO SCH ×2 (09:10→19:59)
[2019-05-22] MEDS: PANTOprazole 40 MG TAB PO SCH (09:10)
[2019-05-22] MEDS: HEPARIN SOD 5,000 UNIT/0.5 ML VIAL SQ SCH ×2 (09:11→20:37)
[2019-05-22] MEDS: lisinopriL 10 MG TAB PO SCH (19:59)
[2019-05-23 07:04] LABS: Basophils # (auto) 0.02 K/uL (0-0.2); Basophils % (auto) 0.3 %; Eosinophils # (auto) 0.21 K/uL (0-0.5); Eosinophils % (auto) 2.6 %; Hematocrit (blood only) 40.5 % (37-47); Hemoglobin 13.7 g/dL (12.0-16.0); Immature Granulocytes # (auto) 0.02 K/uL (0.00-0.02); Immature Granulocytes % (auto) 0.3 %; Lymphocytes # (auto) 1.59 K/uL (1.2-3.4); Mean Corpuscular Hemoglobin 31.5 pg (25-34); Mean Corpuscular Hgb Conc 33.8 g/dL (32-36); Mean Corpuscular Volume 93.1 fL (80-100); Mean Platelet Volume 11.6 fL (7.4-10.4); Monocytes # (auto) 0.81 K/uL (0.11-0.59); Monocytes % (auto) 10.2 %; Neutrophils # (auto) 5.31 K/uL (1.4-6.5); Neutrophils % (auto) 66.6 %; Platelet Count 208 K/uL (130-400); RDW Coefficient of Variation 12.7 % (11.5-14.5); RDW Standard Deviation 43.1 fL (36.4-46.3); Red Blood Count 4.35 M/uL (4.2-5.4); White Blood Count 7.96 K/uL (4.8-10.8)
[2019-05-23 07:38] LABS: Calcium 9.5 mg/dl (8.5-10.1); Est GFR (African American) 100.4; Est GFR (Non-African American) 86.6; Potassium 3.6 mmol/L (3.5-5.1)
[2019-05-23] MEDS: CLOPIDOGREL BISULFATE 75 MG TAB PO SCH (08:22)
[2019-05-23] MEDS: ASPIRIN 81 MG ECTAB PO SCH (08:22)
[2019-05-23] MEDS: ATORVASTATIN 40 MG TAB PO SCH (08:22)
[2019-05-23] MEDS: PANTOprazole 40 MG TAB PO SCH (08:22)
[2019-05-23] MEDS: HEPARIN SOD 5,000 UNIT/0.5 ML VIAL SQ SCH ×2 (08:24→20:45)
[2019-05-23] MEDS: METOPROLOL TARTRATE 25 MG TAB PO SCH ×2 (09:50→20:44)
--- NOTE | 2019-05-23 14:48 | Hospitalist Progress Note ---
Date of Service May 23, 2019 Assessment & Plan (1) Acute CVA (cerebrovascular accident): 74 yo F with recent hx of right pontine CVA admitted on 05/21 for recurrence of L sided weakness found to be secondary to new R CVA on MRI. Recurrent CVA - MRI on 05/21 showing acute/subacute infarct on right lentiform nucleus/external capsule in addition to previous MCA and pontine infarcts (04/2019 and 03/2019) - Started 75 mg Plavix in addition to 81 mg ASA - Continue Atorvastatin 40 mg; Lisinopril 10mg - New CVA thought to be due to medication non-adherence, as patient never started Lisinopril or Plavix after her most recent CVA in April 2019 - Patient had full stroke work up including HbA1c, lipid panel, CTA of head and neck and echocardiogram in April 2019, all of which failed to identify a cardioembolic source - CTA of head from 04/2019 did show focal, high grade stenosis of M2 branch of right MCA - per neurology, management for this is antiplatelet therapy only - we will hold off on repeat TTE and CTA at this time; cards consult placed for consideration of loop recorder placement to assess for underlying arrhythmia - Neuro following, appreciate recs - PT recommended acute inpatient rehab stay, awaiting placement Uncontrolled HTN - BP sys between 170s-low 200s today, florentino 70-80s. - in the setting of acute ischemic stroke, will d/c PRN medications for elevated BPs, as permissive HTN is appropriate. - holding home HCTZ - Lisinopril 10 mg as above; we would like upper limit of sys pressure <220 Depression/Suicidality - This was of concern as patient expressed suicidal ideation during previous recent admission. She subsequently left ICU AMA - Currently denying ideations however previous suicide attempt in 2014 was planned for 6 months with extremely high doses of narcotics that patient saved up. Patient endorsees cat as only source of happiness in life. - evaluated by psychiatry 05/21; recommended against inpatient admission; outpatient follow up established with [facility]. Outpatient follow up is strongly recommended given risk of developing post-stroke depression, in addition to underlying risk factors. - Ativan 1 mg PRN at nighttime for agitation Hypokalemia: Resolved - K at 3.6 05/23 DVT PPx: 5,000 u Heparin SubQ BID FEN/GI: protonix 40 mg IV Diet: Heart Healthy diet Code Status: Full Code (2) Hypertensive urgency: (3) H/O stroke within last year: (4) Depression: Supervising Physician Co-Signing Physician Notes Resident Physician Supervision Note: I independently interviewed and examined the patient and verified the zhong history and physical, reviewed labs and image studies, discussed the case with the resident Dr. Beavers and agree with the findings and care plan. Subjective No acute events overnight. Eating and drinking. Toileting well. Denies being in any discomfort. Prefers home health vs. acute rehab, but willing to do whatever is best for her health Review of Systems Neurologic: Left sided leg weakness Physical Exam Constitutional: WD/WN, vitals as above Eyes: PERRL, conjunctivae normal, anicteric sclerae ENMT: external ear and nose normal, oropharynx normal Neck: normal visual inspection and trachea midline Respiratory: normal respiratory effort, lungs clear to auscultation no cough Auscultation: no crackles, no rales, no rhonchi, no wheezes and no pleural rub Cardiovascular: Rate/Rhythm: regular rate and regular rhythm Heart Sounds: normal S1, normal S2 and + murmur (systolic ejection murmur with radiation to neck) Vessels: normal carotid upstroke; no carotid bruit Extremities: no edema Gastrointestinal (Abdomen): normal bowel sounds, soft, nontender, no hepatosplenomegaly Skin: no rashes, warm and dry Neurologic: CN's II-XI intact bilaterally, moves all extremities and awake Speech / Cognition: normal speech and normal cognition Motor/Sensory: + abnormal movement (Strength 5/5 on R upper extremity; 4/5 on L; lower extremities not tested) and + pronator drift (L side); no tremor and no sensory deficit Coordination: normal [id number] test Results & Data Vital Signs (Past 12 Hours) Vital Signs Temp Pulse Pulse Pulse Resp BP Pulse Ox 05/23/19 12:00 37 C 74 18 190/85 H 99 05/23/19 08:00 73 05/23/19 07:06 36.8 C 66 19 202/82 H 97 05/23/19 04:18 36.4 C L 62 20 189/78 H 96 Resident Activity Tracking Resident Involvement: Resident Care Provided Care Provided: Adult Hospital Medicine (1) Depression Active/Remission status: currently active Depression Type: major depressive disorder Major depression episode severity: severe Major depression recurrence: recurrent Psychotic features: without psychotic features Qualified Code(s): F33.2 - Major depressive disorder, recurrent severe without psychotic features
--- NOTE | 2019-05-23 16:22 | Cardiology Consultation ---
Date of Consultation May 23, 2019 Assessment & Plan (1) Acute CVA (cerebrovascular accident): She has had 3 separate admissions recently for CVA, they have been in different distributions and so far we have not seen atrial fibrillation. It is certainly possible however that she had it, that can be difficult to diagnose. I agree the loop recorder is indicated. I discussed it with her and she is tentatively agreeable. I have made arrangements for this to be done on May 24, 2019. I discussed the indications, procedure, risks and alternatives with her, I will review them again with her tomorrow before the surgery. 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 There is some question as to whether she started her antiplatelet agents and also left AMA after her more recent stroke. She also has psychiatric issues and has had suicide attempts in the past. She presented on May 21, 2019 with worsening left-sided weakness as well as severe hypertension. Evaluation here included an MRI on May 21, 2019 which showed an acute or subacute infarct in the right lentiform nucleus and external capsule. The prior infarcts were also noted. She has been started on her antiplatelet agents and a consideration for monitoring for atrial fibrillation since she has strokes in several distributions. At the time of my evaluation she is feeling well, she has had no recollection of having palpitations and has never been aware of an abnormal heart rhythm. She tells me that her strokes have always happened during the night. She has no other cardiovascular symptoms. Allergies Allergy/AdvReac Type Severity Reaction Status Date / Time "ALL ANTIBIOTICS" Allergy Intermediate HIVES Uncoded 05/21/19 02:52 Home Medications Home Medications Medication Instructions Recorded Confirmed Type aspirin 81 mg PO DAILY 06/05/18 05/21/19 History acetaminophen [Tylenol] 650 mg PO Q6H PRN 06/07/18 05/21/19 History metoprolol tartrate 50 mg tablet 50 mg PO BID #180 tab 01/24/19 05/21/19 Rx hydrochlorothiazide 25 mg tablet 25 mg PO DAILY 03/09/19 05/21/19 History omeprazole 20 mg capsule,delayed 20 mg PO DAILY #90 cap 03/09/19 05/21/19 Rx release pravastatin 40 mg tablet 40 mg PO DAILY #90 tab 04/19/19 05/21/19 Rx atorvastatin 40 mg PO QAM #30 tab 05/06/19 05/21/19 Rx clopidogrel 75 mg PO QAM #30 tab 05/06/19 05/21/19 Rx lisinopril 20 mg PO HS #30 tab 05/06/19 05/21/19 Rx pantoprazole 40 mg PO DAILY #30 tab 05/06/19 05/21/19 Rx Patient History Medical History Acute right MCA stroke (Resolved) GERD (gastroesophageal reflux disease) HTN (hypertension) (Chronic) HTN (hypertension) Hypercholesterolemia Hypercholesterolemia (Chronic) Pre-diabetes Prediabetes Sinusitis Suicide attempt 2013 - ETOH/Valium combination - had acute inpatient psychiatric stay Surgical History H/O oral surgery S/P appendectomy S/P hysterectomy with oophorectomy Family History Mother Hypertension Grandmother (Maternal) Stroke Other Heart disease Social History Preferred Language: Georgian Communication Ability: Effective Visual Impairment: Severely Limited Hearing Ability: Normal [employer] Required: No Beliefs That Will Affect Care: None marital status: Unknown Current Living Situation: Alone Current Living Situation Comment: senior apartment housing current occupational status: retired Feels Safe at Home: Yes Smoking Status: Never smoker Second Hand Exposure: No ; Hx Alcohol Use: No Hx Substance Use: No Childhood Exposure to Second-Hand Smoke: Yes Dental Care, Regularly: Yes Physical Activity Frequency: Daily Seatbelt Use: always Sunscreen Use: No Review of Systems Review of Systems: All systems reviewed & are unremarkable except as noted in HPI & below Physical Exam Physical Exam: Constitutional: Alert, cooperative and in no distress. HEENT: Unremarkable Neck: No jugular venous distention, carotid pulses are normal and equal bilaterally without bruits. Pulmonary: Clear to auscultation bilaterally. Cardiac: Regular rhythm with no murmur, gallop or rub. Abdomen: Soft, nontender with normal bowel sounds. Extremities: No edema. Distal pulses intact. Neurologic: No obvious focal findings. Gait was not tested. Skin: No rash, ecchymoses or petechiae. Results & Data Vital Signs (Past 12 Hours) Vital Signs Temp Pulse Pulse Pulse Resp BP Pulse Ox 05/23/19 16:00 36.9 C 77 18 184/74 H 96 05/23/19 12:00 37 C 74 18 190/85 H 99 05/23/19 08:00 73 05/23/19 07:06 36.8 C 66 19 202/82 H 97 Diagnostic Findings An electrocardiogram on presentation on May 21, 2019 shows sinus rhythm with frequent premature atrial beats. Review of prior electrocardiogram showed no atrial fibrillation. Telemetry: Since admission she has been on telemetry and has had no atrial fibrillation. She is in sinus rhythm with frequent premature atrial beats. An echocardiogram done May 05, 2019 shows normal left ventricular size and function with no regional wall motion abnormalities. She has moderate left atrial dilatation and mild mitral regurgitation. PG Care Time/CCT Total # of Minutes Spent Total Time Spent with Patient: Total time spent is greater than 50% in coordination of care (as documented) at patient's floor/unit and/or counseling patient:
[2019-05-23] MEDS: lisinopriL 10 MG TAB PO SCH (20:43)
[2019-05-24 06:12] LABS: Basophils # (auto) 0.04 K/uL (0-0.2); Basophils % (auto) 0.6 %; Eosinophils # (auto) 0.22 K/uL (0-0.5); Eosinophils % (auto) 3.3 %; Hematocrit (blood only) 38.5 % (37-47); Hemoglobin 13.4 g/dL (12.0-16.0); Immature Granulocytes # (auto) 0.02 K/uL (0.00-0.02); Immature Granulocytes % (auto) 0.3 %; Lymphocytes % (auto) 23.7 %; Mean Corpuscular Hemoglobin 32.3 pg (25-34); Mean Corpuscular Hgb Conc 34.8 g/dL (32-36); Mean Corpuscular Volume 92.8 fL (80-100); Mean Platelet Volume 11.7 fL (7.4-10.4); Monocytes # (auto) 0.67 K/uL (0.11-0.59); Monocytes % (auto) 9.9 %; Neutrophils # (auto) 4.19 K/uL (1.4-6.5); Neutrophils % (auto) 62.2 %; Platelet Count 194 K/uL (130-400); RDW Coefficient of Variation 12.7 % (11.5-14.5); RDW Standard Deviation 42.9 fL (36.4-46.3); Red Blood Count 4.15 M/uL (4.2-5.4); White Blood Count 6.74 K/uL (4.8-10.8)
[2019-05-24 06:44] LABS: BUN Creatinine Ratio 25.6 (10-20); Calcium 9.4 mg/dl (8.5-10.1); Creatinine Clr Calc Pharmacy 79.7 ml/min; Est GFR (African American) 102.4; Est GFR (Non-African American) 88.4; Potassium 3.6 mmol/L (3.5-5.1)
[2019-05-24] MEDS: ASPIRIN 81 MG ECTAB PO SCH (07:59)
[2019-05-24] MEDS: HEPARIN SOD 5,000 UNIT/0.5 ML VIAL SQ SCH ×2 (07:59→20:11)
[2019-05-24] MEDS: METOPROLOL TARTRATE 25 MG TAB PO SCH ×3 (07:59→21:29)
[2019-05-24] MEDS: PANTOprazole 40 MG TAB PO SCH (07:59)
[2019-05-24] MEDS: CLOPIDOGREL BISULFATE 75 MG TAB PO SCH (07:59)
[2019-05-24] MEDS: ATORVASTATIN 40 MG TAB PO SCH (07:59)
[2019-05-24] MEDS: hydroCHLOROthiazide 25 MG TAB PO SCH (08:35)
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
--- NOTE | 2019-05-24 12:47 | Cardiology Progress Note ---
Date of Service May 24, 2019 Assessment & Plan (1) Acute CVA (cerebrovascular accident): She has had 3 separate admissions recently for CVA, they have been in different distributions and so far we have not seen atrial fibrillation but she has not had long-term monitoring. It is certainly possible however that she had atrial fibrillation, that can be difficult to diagnose. I agree that a loop recorder is indicated. I discussed it with her including the indications, procedure, risks and alternatives and she is agreeable to proceed. Consent obtained. We will be doing that this afternoon. We will not be using sedation. Subjective She is tearful today and worried about her upcoming procedure but she has no cardiovascular complaints. Physical Exam Physical Exam: Constitutional: Alert, cooperative and in no distress. HEENT: Unremarkable Neck: No jugular venous distention, carotid pulses are normal and equal bilaterally without bruits. Pulmonary: Clear to auscultation bilaterally. Cardiac: Regular rhythm with no murmur, gallop or rub. Abdomen: Soft, nontender with normal bowel sounds. Extremities: No edema. Distal pulses intact. Neurologic: No obvious focal findings. Gait was not tested. Skin: No rash, ecchymoses or petechiae. Results & Data Vital Signs (Past 12 Hours) Vital Signs Temp Pulse Resp BP Pulse Ox 05/24/19 11:26 36.6 C 59 L 18 212/108 H 97 05/24/19 08:04 36.6 C 65 18 221/81 H 97 05/24/19 03:44 71 197/84 H PG Care Time/CCT Total # of Minutes Spent Total Time Spent with Patient: Total time spent is greater than 50% in coordination of care (as documented) at patient's floor/unit and/or counseling patient:
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
[2019-05-24] MEDS ORDERED: LIDOCAINE HCL 1% 20 ML VIAL ONE (15:07)
[2019-05-24] MEDS ORDERED: BACITRACIN OINT 0.9 GM PKT ONE (15:24)
--- NOTE | 2019-05-24 15:26 | Operative Report ---
PG Post Operative Report Pre & Post Diagnosis Operation Date: 05/24/19 14:00 Preop diagnosis: Cryptogenic stroke Postoperative diagnosis: Same I identified the patient and participated in the time-out.: Yes Procedure Operation Date: 05/24/19 14:00 Actual Procedures p Loop Insertion - Luis Reese MD Surgeon Luis Reese MD Isolation Washer None Estimated Blood Loss 2 Findings Consistent with Post-Op Diagnosis Specimens None Disposition Accompanied Patient To Recovery: Yes Disposition: Recovery Room Description of Procedure After obtaining informed consent for the procedure, the patient was brought to the laboratory having had nothing by mouth after midnight. The patient was pr epped and draped in the standard sterile manner for a loop recorder implantation. An area at the fourth left intercostal space and 1 cm left of the left sternal border was infiltrated with 1% lidocaine local anesthetic and a 0.5 cm incision was made through the skin. Using the loop recorder insertion tool the loop recorder was inserted through the incision at a 45 downward and leftward angle. The incision was closed with a subcutaneous continuous closure of 4-0 Vicryl followed by a running subcuticular skin closure of 4-0 Vicryl. Steri-Strips were applied and bacitracin ointment was placed on the incision. A dressing was applied. I attest to the content of the Intraoperative Record and any orders documented therein. Any exceptions are noted below.
[2019-05-24] MEDS: lisinopriL 10 MG TAB PO SCH (21:28)
[2019-05-25] MEDS: ATORVASTATIN 40 MG TAB PO SCH (09:00)
[2019-05-25] MEDS: PANTOprazole 40 MG TAB PO SCH (09:00)
[2019-05-25] MEDS: ASPIRIN 81 MG ECTAB PO SCH (09:00)
[2019-05-25] MEDS: CLOPIDOGREL BISULFATE 75 MG TAB PO SCH (09:00)
[2019-05-25] MEDS: METOPROLOL TARTRATE 25 MG TAB PO SCH (09:00)
[2019-05-25] MEDS: HEPARIN SOD 5,000 UNIT/0.5 ML VIAL SQ SCH (09:01)
[2019-05-25] MEDS: hydroCHLOROthiazide 25 MG TAB PO SCH (09:01)
[2019-05-25] MEDS ORDERED: STROKE PATIENT DISCHARGE STA (10:10)
--- NOTE | 2019-05-25 10:17 | Hospitalist Progress Note ---
Date of Service May 25, 2019 Patient was set to be d/c to acute rehab afternoon of 05/24, however because her loop recorder placement was delayed, transport was not available on the evening of 05/24. She will be discharged today to [facility]. Please use today's subjective, ROS and exam; see discharge summary from 05/24/19. Assessment & Plan (1) Acute CVA (cerebrovascular accident): *Please see discharge summary published 05/24/19 (2) Hypertensive urgency: (3) H/O stroke within last year: (4) Depression: Supervising Physician Co-Signing Physician Notes Resident Physician Supervision Note: I independently interviewed and examined the patient and verified the zhong history and physical, reviewed labs and image studies, discussed the case with the resident Dr. Beavers and agree with the findings and care plan. Time spent in discharge 35 min Subjective Reports loop recorder placement was painful. No acute events overnight. No new complaints Review of Systems Neurologic: Left sided leg weakness Physical Exam Constitutional: WD/WN, vitals as above Eyes: PERRL, conjunctivae normal, anicteric sclerae ENMT: external ear and nose normal, oropharynx normal Neck: normal visual inspection and trachea midline Respiratory: normal respiratory effort, lungs clear to auscultation no cough Auscultation: no crackles, no rales, no rhonchi, no wheezes and no pleural rub Cardiovascular: Rate/Rhythm: regular rate and regular rhythm Heart Sounds: normal S1, normal S2 and + murmur (systolic ejection murmur with radiation to neck) Vessels: normal carotid upstroke; no carotid bruit Extremities: no edema Chest (Breasts): Additional Comments: Loop recorder in place on L side of chest; dressing in place Gastrointestinal (Abdomen): normal bowel sounds, soft, nontender, no hepatosplenomegaly Skin: no rashes, warm and dry Neurologic: CN's II-XI intact bilaterally, moves all extremities and awake Speech / Cognition: normal speech and normal cognition Motor/Sensory: + abnormal movement (Strength 5/5 on R upper extremity; 4/5 on L; lower extremities not tested) and + pronator drift (L side); no tremor and no sensory deficit Coordination: normal [id number] test Results & Data Vital Signs (Past 12 Hours) Vital Signs Temp Pulse Pulse Pulse Resp BP Pulse Ox 05/25/19 08:00 57 L 05/25/19 07:32 36.7 C 56 L 19 187/75 H 98 05/25/19 03:58 162/83 H 05/25/19 03:23 36.6 C 56 L 20 97 05/24/19 23:39 36.9 C 60 18 169/74 H 97 Resident Activity Tracking Resident Involvement: Resident Care Provided Care Provided: Adult Hospital Medicine (1) Depression Active/Remission status: currently active Depression Type: major depressive disorder Major depression episode severity: severe Major depression recurrence: recurrent Psychotic features: without psychotic features Qualified Code(s): F33.2 - Major depressive disorder, recurrent severe without psychotic features
--- NOTE | 2019-05-25 10:21 | Cardiology Progress Note ---
Date of Service May 25, 2019 Assessment & Plan (1) Acute CVA (cerebrovascular accident): She has had 3 separate admissions over the past year for CVA, they have been in different distributions and so far we have not seen atrial fibrillation but she has not had long-term monitoring. It is certainly possible however that she had atrial fibrillation, that can be difficult to diagnose as it can be quite sporadic. We can now monitor her for arrhythmias using her loop recorder. (2) History of loop recorder: Her loop recorder implant site looks good, she has received the training on the use of the device and the remote monitor. She is stable for discharge from my standpoint. I have arranged a one-month appointment in place the time and date in her discharge instructions. I have also included wound care and bandaging instructions and her discharge instructions. Subjective She does not have any significant incisional discomfort. No other cardiovascular complaints. Physical Exam Physical Exam: Her loop recorder insertion site looks clean and dry, no bleeding on her dressing. I did change the dressing, the site is not swollen or erythematous. Results & Data Vital Signs (Past 12 Hours) Vital Signs Temp Pulse Pulse Pulse Resp BP Pulse Ox 05/25/19 08:00 57 L 05/25/19 07:32 36.7 C 56 L 19 187/75 H 98 05/25/19 03:58 162/83 H 05/25/19 03:23 36.6 C 56 L 20 97 05/24/19 23:39 36.9 C 60 18 169/74 H 97 Diagnostic Findings Telemetry: No atrial fibrillation. PG Care Time/CCT Total # of Minutes Spent Total Time Spent with Patient: Total time spent is greater than 50% in coordination of care (as documented) at patient's floor/unit and/or counseling patient:
== END 2019-05-25 14:56 | DRG 41 ==
LOC: ED 02:39 → SUATTDRO 04:37 → 2S 04:37 → 2N 05-23 23:16 → 2S 05-24 15:57

== ENCOUNTER 2020-11-15 15:54 | Observation (INO) ==
--- NOTE | 2020-11-15 16:27 | XRay Report ---
XR chest 1V portable HISTORY: 75 years-old Female weakness acute weakness COMPARISON: Chest radiograph 06/06/2019 TECHNIQUE: Portable AP view of the chest FINDINGS: Hiatal hernia. Loop recorder device. The cardiomediastinal and hilar silhouettes are within normal li mits. Calcified plaque of the thoracic aorta. No pneumothorax, pleural effusion, airspace consolidati on or overt pulmonary edema. Spondylitic spurring of the spine. Degenerative changes of the shoulders . IMPRESSION: No acute process. ACT 112: Negative or not required by law. The above report was generated using voice recognition software. It may contain grammatical, syntax o r spelling errors. Electronically signed by: Fred Macedo M.D. 11/15/2020 4:26 PM
--- NOTE | 2020-11-15 16:41 | Emergency Department Note ---
Impression & Plan CVA (cerebral vascular accident), Depression with suicidal ideation ED Provider Note NAME: SAVANNA JAMES AGE: 75 SEX: F : 1945 ARRIVES VIA: Ambulance INFORMANT: Patient, ED PROVIDER(S): Maik Staton DO CHIEF COMPLAINT: Weakness HPI: The patient is a 75-year-old female who presented to the emergency department directly from her primary care physician's office for an evaluation of possible strokelike symptoms. The patient has had multiple strokes in the past. She states that she was recently in our facility almost a year ago with similar complaints. At that time she was found to have a new stroke. She was t old by friends and family approximately 6 weeks ago that she was starting to have strokelike symptoms. She states that she notes eye drifting. She states when she is talking somebody she knows that her eyes will drift and go off of the person's face that she is talking to and go to the side. She notices no nausea or vomiting. She has had no headache. She was also sent to the emergency department because she was felt to be a significant fall risk. She does have significant left-sided weakness from previous strokes. She is also been experiencing suicidal thoughts. The patient states that she does suffer from depression and suicidal ideation. She denies having any fever or cough. She has had no recent traveling. She was sent from the office by ambulance for further evaluation as well as by evaluation by case management. She is also noticed bladder incontinence. ROS: See above HPI for pertinent positives & negatives. A total of 10 systems reviewed and were otherwise negative. PAST MEDICAL HISTORY: See Below PAST SURGICAL HISTORY: See Below FAMILY HISTORY: See Below SOCIAL HISTORY: See Below HOME MEDICATIONS: See Below ALLERGIES: See Below VITALS: See Below PHYSICAL EXAMINATION: GENERAL: Patient is awake alert in no acute distress patient is resting comfortably and showing no signs of anxiety EYES: The conjunctivae are clear. The pupils are round and reactive. EARS, NOSE, MOUTH AND THROAT: The nose is without any evidence of any deformity. NECK: The neck is nontender and supple. RESPIRATORY: Normal respiratory effort is noted there is no evidence of wheezing rhonchi or rales CARDIOVASCULAR: Regular rate and rhythm noted there no murmurs rubs or gallops normal S1 normal S2. GASTROINTESTINAL: The abdomen is soft. The abdomen is mildly distended. There is no significant tenderness. MUSCULOSKELETAL/EXTREMITIES: There is no evidence of gross deformity full range of motion is noted in the hips and shoulders. SKIN: There is no obvious evidence of any rash. There are no petechiae, pallor or cyanosis noted. NEUROLOGIC: Patient is awake alert and oriented x3. There is a left-sided arm drift. The patient is able to hold each leg off the bed for greater than 5 seconds. There is no facial droop. MEDICAL DECISION MAKING: The patient is a 75-year-old female who presented to the emergency department for an evaluation of possible stroke. The patient has had changes in her neurologic status. She has been noticing that her eyes have been drifting and that she has had some change in her ability to concentrate on one object. She went to see her family doctor for the symptoms today which have been ongoing for many weeks and was sent to the emergency department for further evaluation. The patient also has depression with suicidal ideation. I discussed the patient's laboratory and radiographic studies with her. She did appear to have some new findings on CAT scan that were not noticed previously. For this reason I consulted the [facility] hospitalist group they evaluated the patient and felt that she was in need of further inpatient work-up. Triage Nursing notes reviewed. Prior medical records reviewed Vital Signs: reviewed and remarkable for elevated blood pressure. Differential diagnosis: Infection, dehydration, metabolic abnormality, hypo/hyperglycemia, electrolyte disturbance, anemia, hypoxia, cardiac sources, intracerebral event, toxicologic, neurologic, as well as other pathologies. ER treatment provided: See below Diagnostics interpreted by me: ECG: EKG was obtained in the emergency department. My interpretation is normal sinus rhythm at 96 bpm. There is no ectopy. Early transition was noted. There was no acute ST segment abnormalities noted. This was compared to a tracing from June 062019. No significant changes were noted. Cardiac Monitoring: An order was placed for continuous cardiac monitoring. The monitor shows a rate of 78 bpm with sinus rhythm. Laboratory studies: As stated above and show below. Imaging studies: See below Consultation(s): Dr. Shaw was notified about the patient. He evaluated the patient in the emergency department. Past Med/Surg History Medical History Acute CVA (cerebrovascular accident) Acute right MCA stroke Depression GERD (gastroesophageal reflux disease) HTN (hypertension) HTN (hypertension) Hypercholesterolemia Hypercholesterolemia Pre-diabetes Prediabetes Sinusitis Suicidal ideation Suicide attempt 2014 - ETOH/Valium combination - had acute inpatient psychiatric stay Urinary and bowel incontinence Urinary incontinence Surgical History H/O oral surgery History of loop recorder S/P appendectomy S/P hysterectomy with oophorectomy Family History Mother Hypertension Grandmother (Maternal) Stroke Other Heart disease Denies family history of Ovarian cancer Prostate cancer Myocardial infarction Breast cancer Colorectal cancer Social History Smoking Status: Never smoker Second Hand Exposure: No; Hx Alcohol Use: No Hx Substance Use: No Preferred Language: Macedonian Communication Ability: Effective Visual Impairment: No Limitations Hearing Ability: Normal Esl Instructor Required: No Beliefs That Will Affect Care: None marital status: Current Living Situation: Alone Current Living Situation Comment: senior apartment housing, lives at [facility] current occupational status: retired 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[employer], similar to [employer] work Feels Safe at Home: Yes Childhood Exposure to Second-Hand Smoke: Yes Dental Care, Regularly: Yes Physical Activity Frequency: 1-2 Times per Week Physical Activity Frequency Comment: walks to [facility] 2X a week for her groceries Seatbelt Use: always Sunscreen Use: No Assistive Devices: Glasses and Walker Allergies Allergies Allergy/AdvReac Type Severity Reaction Status Date / Time Penicillins Allergy Hives Verified 11/15/20 14:13 Sulfa (Sulfonamide Allergy Hives Verified 11/15/20 14:13 Antibiotics) "ALL ANTIBIOTICS" Allergy Intermediate HIVES Uncoded 11/15/20 17:49 Home Meds Home Medications Medication Instructions Recorded Confirmed acetaminophen [Tylenol] 650 mg PO Q6H PRN 06/07/18 11/15/20 omeprazole 20 mg PO DAILY 11/15/20 11/15/20 Previous Rx's Medication Instructions Recorded clopidogrel 75 mg tablet 75 mg PO QAM #30 tab 10/02/20 lisinopril 20 mg tablet 20 mg PO HS #90 tab 10/02/20 metoprolol tartrate 50 mg tablet 50 mg PO BID #180 tab 10/02/20 pravastatin 40 mg tablet 40 mg PO HS #90 tab 10/02/20 Results & Data (ED) Vital Signs Vital Signs - 24 hr 11/15/20 16:00 11/15/20 16:12 11/15/20 16:17 Temperature 36.9 C 36.9 C Temperature Source Oral Oral Pulse Rate 103 H 96 H Pulse Rate from SpO2 Sensor 103 H Pulse Rhythm Regular Respiratory Rate 16 16 16 Blood Pressure Position Lying Pulse Oximetry 97 97 97 Oxygen Delivery Method Room Air Room Air Sepsis Recent Fever Within 48 Hours No Sepsis New/Unexplained Change in Mental Status N/A Sepsis Action Taken by Nursing No Action Required 11/15/20 16:32 11/15/20 17:13 11/15/20 17:30 Temperature Temperature Source Pulse Rate 100 H 93 H 89 Pulse Rate from SpO2 Sensor 101 H Pulse Rhythm Respiratory Rate 15 16 17 Blood Pressure Position Pulse Oximetry 97 Oxygen Delivery Method Sepsis Recent Fever Within 48 Hours Sepsis New/Unexplained Change in Mental Status Sepsis Action Taken by Nursing 11/15/20 18:07 11/15/20 18:30 Temperature Temperature Source Pulse Rate 104 H 96 H Pulse Rate from SpO2 Sensor 105 H 95 H Pulse Rhythm Respiratory Rate 24 18 Blood Pressure Position Pulse Oximetry 96 95 Oxygen Delivery Method Sepsis Recent Fever Within 48 Hours Sepsis New/Unexplained Change in Mental Status Sepsis Action Taken by [facility]pc Medications Current Medication List: was personally reviewed by me Laboratory Data Attestation: I reviewed the patient's lab results. Result diagrams: 11/15/20 16:40 11/15/20 16:40 Lab Results 11/15/20 11/15/20 11/15/20 Range/Units 16:40 16:40 16:40 WBC 7.83 (4.8-10.8) K/uL RBC 4.84 (4.2-5.4) M/uL Hgb 15.3 (12.0-16.0) g/dL Hct 43.6 (37-47) % MCV 90.1 (80-100) fL MCH 31.6 (25-34) pg MCHC 35.1 (32-36) g/dL RDW Std Deviation 41.0 (36.4-46.3) fL RDW Coeff of Ghassan 12.5 (11.5-14.5) % Plt Count 266 (130-400) K/uL MPV 11.2 H (7.4-10.4) fL Immature Gran % (Auto) 0.3 % Neut % (Auto) 61.8 % Lymph % (Auto) 25.7 % [place] % (Auto) 10.3 % Eos % (Auto) 1.5 % Baso % (Auto) 0.4 % Neut # (Auto) 4.84 (1.4-6.5) K/uL Lymph # (Auto) 2.01 (1.2-3.4) K/uL [place] # (Auto) 0.81 H (0.11-0.59) K/uL Eos # (Auto) 0.12 (0-0.5) K/uL Baso # (Auto) 0.03 (0-0.2) K/uL Immature Gran # (Auto) 0.02 (0.00-0.02) K/uL PT 9.7 (9.0-12.0) Seconds INR 1.0 (0.9-1.1) APTT 24.8 (21.0-31.0) Seconds PTT Ratio 0.9 Sodium 138 (136-145) mmol/L Potassium 3.8 (3.5-5.1) mmol/L Chloride 106 (98-107) mmol/L Carbon Dioxide 25 (21-32) mmol/L Anion Gap 7.0 (3-11) BUN 19 H (7-18) mg/dl Creatinine 0.72 (0.6-1.2) mg/dl Est Cr Clr Drug Dosing 65.8 ml/min Est GFR ( Amer) 94.9 ml/min Est GFR (Non-Af Amer) 81.9 ml/min BUN/Creatinine Ratio 25.6 H (10-20) Glucose 103 H (70-99) mg/dl Calcium 9.6 (8.5-10.1) mg/dl Magnesium 2.4 (1.8-2.4) mg/dl Total Bilirubin 0.5 (0.2-1) mg/dl AST 17 (15-37) U/L ALT 21 (12-78) U/L Alkaline Phosphatase 131 H (45-117) U/L Troponin I < 0.015 (0-0.045) ng/ml Total Protein 8.3 H (6.4-8.2) gm/dl Albumin 4.0 (3.4-5.0) gm/dl Globulin 4.3 H (2.5-4.0) gm/dl Albumin/Globulin Ratio 0.9 (0.9-2) TSH 1.530 (0.300-4.500) uIu/ml Urine Color Urine Appearance (Clear) Urine pH (4.5-7.5) Ur Specific [place] (1.000-1.030) Urine Protein (Negative) Urine Glucose (UA) (Negative) Urine Ketones (Negative) Urine Blood (Negative) Urine Nitrite (Negative) Urine Bilirubin (Negative) Urine Urobilinogen (Negative) Ur Leukocyte Esterase (Negative) COVID-19 Eval Order SARS-CoV-2 (PCR) (Negative) Hepatitis C Ab Screen (Neg) 11/15/20 11/15/20 11/15/20 Range/Units 16:40 17:41 17:41 WBC (4.8-10.8) K/uL RBC (4.2-5.4) M/uL Hgb (12.0-16.0) g/dL Hct (37-47) % MCV (80-100) fL MCH (25-34) pg MCHC (32-36) g/dL RDW Std Deviation (36.4-46.3) fL RDW Coeff of Ghassan (11.5-14.5) % Plt Count (130-400) K/uL MPV (7.4-10.4) fL Immature Gran % (Auto) % Neut % (Auto) % Lymph % (Auto) % [place] % (Auto) % Eos % (Auto) % Baso % (Auto) % Neut # (Auto) (1.4-6.5) K/uL Lymph # (Auto) (1.2-3.4) K/uL [place] # (Auto) (0.11-0.59) K/uL Eos # (Auto) (0-0.5) K/uL Baso # (Auto) (0-0.2) K/uL Immature Gran # (Auto) (0.00-0.02) K/uL PT (9.0-12.0) Seconds INR (0.9-1.1) APTT (21.0-31.0) Seconds PTT Ratio Sodium (136-145) mmol/L Potassium (3.5-5.1) mmol/L Chloride (98-107) mmol/L Carbon Dioxide (21-32) mmol/L Anion Gap (3-11) BUN (7-18) mg/dl Creatinine (0.6-1.2) mg/dl Est Cr Clr Drug Dosing ml/min Est GFR ( Amer) ml/min Est GFR (Non-Af Amer) ml/min BUN/Creatinine Ratio (10-20) Glucose (70-99) mg/dl Calcium (8.5-10.1) mg/dl Magnesium (1.8-2.4) mg/dl Total Bilirubin (0.2-1) mg/dl AST (15-37) U/L ALT (12-78) U/L Alkaline Phosphatase (45-117) U/L Troponin I (0-0.045) ng/ml Total Protein (6.4-8.2) gm/dl Albumin (3.4-5.0) gm/dl Globulin (2.5-4.0) gm/dl Albumin/Globulin Ratio (0.9-2) TSH (0.300-4.500) uIu/ml Urine Color Urine Appearance (Clear) Urine pH (4.5-7.5) Ur Specific [place] (1.000-1.030) Urine Protein (Negative) Urine Glucose (UA) (Negative) Urine Ketones (Negative) Urine Blood (Negative) Urine Nitrite (Negative) Urine Bilirubin (Negative) Urine Urobilinogen (Negative) Ur Leukocyte Esterase (Negative) COVID-19 Eval Order Covid19 at [facility] SARS-CoV-2 (PCR) NEGATIVE (Negative) Hepatitis C Ab Screen Neg (Neg) 11/15/20 Range/Units 18:02 WBC (4.8-10.8) K/uL RBC (4.2-5.4) M/uL Hgb (12.0-16.0) g/dL Hct (37-47) % MCV (80-100) fL MCH (25-34) pg MCHC (32-36) g/dL RDW Std Deviation (36.4-46.3) fL RDW Coeff of Ghassan (11.5-14.5) % Plt Count (130-400) K/uL MPV (7.4-10.4) fL Immature Gran % (Auto) % Neut % (Auto) % Lymph % (Auto) % [place] % (Auto) % Eos % (Auto) % Baso % (Auto) % Neut # (Auto) (1.4-6.5) K/uL Lymph # (Auto) (1.2-3.4) K/uL [place] # (Auto) (0.11-0.59) K/uL Eos # (Auto) (0-0.5) K/uL Baso # (Auto) (0-0.2) K/uL Immature Gran # (Auto) (0.00-0.02) K/uL PT (9.0-12.0) Seconds INR (0.9-1.1) APTT (21.0-31.0) Seconds PTT Ratio Sodium (136-145) mmol/L Potassium (3.5-5.1) mmol/L Chloride (98-107) mmol/L Carbon Dioxide (21-32) mmol/L Anion Gap (3-11) BUN (7-18) mg/dl Creatinine (0.6-1.2) mg/dl Est Cr Clr Drug Dosing ml/min Est GFR ( Amer) ml/min Est GFR (Non-Af Amer) ml/min BUN/Creatinine Ratio (10-20) Glucose (70-99) mg/dl Calcium (8.5-10.1) mg/dl Magnesium (1.8-2.4) mg/dl Total Bilirubin (0.2-1) mg/dl AST (15-37) U/L ALT (12-78) U/L Alkaline Phosphatase (45-117) U/L Troponin I (0-0.045) ng/ml Total Protein (6.4-8.2) gm/dl Albumin (3.4-5.0) gm/dl Globulin (2.5-4.0) gm/dl Albumin/Globulin Ratio (0.9-2) TSH (0.300-4.500) uIu/ml Urine Color Yellow Urine Appearance Clear (Clear) Urine pH 7.5 (4.5-7.5) Ur Specific [place] 1.007 (1.000-1.030) Urine Protein Negative (Negative) Urine Glucose (UA) Negative (Negative) Urine Ketones Trace H (Negative) Urine Blood Negative (Negative) Urine Nitrite Negative (Negative) Urine Bilirubin Negative (Negative) Urine Urobilinogen Negative (Negative) Ur Leukocyte Esterase Negative (Negative) COVID-19 Eval Order SARS-CoV-2 (PCR) (Negative) Hepatitis C Ab Screen (Neg) Administered Medications Heparin Sodium (Porcine) (Heparin Sod 5,000 Unit/0.5 Ml Vial) 5,000 units SQ Q8 SUSANA Stop: 12/15/20 21:59 Last Admin: 11/15/20 21:51 Dose: 5,000 units Documented by: [id number] Lisinopril (Lisinopril 20 Mg Tab) 20 mg PO HS SUSANA Stop: 12/15/20 21:14 Last Admin: 11/15/20 21:50 Dose: 20 mg Documented by: [id number] Metoprolol Tartrate (Metoprolol Tartrate 50 Mg Tab) 50 mg PO BID SUSANA Stop: 12/15/20 21:14 Last Admin: 11/15/20 21:50 Dose: 50 mg Documented by: [id number] Ondansetron HCl (Ondansetron Inj 2 Mg/Ml 2 Ml Vial) 4 mg IV Q6H PRN PRN Reason: Nausea Stop: 12/15/20 21:04 Last Admin: 11/15/20 23:33 Dose: 4 mg Documented by: [id number] Pravastatin Sodium (Pravastatin Sod 40 Mg Tab) 40 mg PO HS SUSANA Stop: 12/15/20 21:14 Last Admin: 11/15/20 21:51 Dose: 40 mg Documented by: [id number] Discontinued Medications Metoprolol Tartrate (Metoprolol Tartrate 1 Mg/Ml Vial) 5 mg IV NOW STA Stop: 11/15/20 19:47 Last Admin: 11/15/20 19:53 Dose: 5 mg Documented by: [id number] Metoprolol Tartrate (Metoprolol Tartrate 1 Mg/Ml Vial) 2.5 mg IV NOW STA Stop: 11/15/20 23:13 Last Admin: 11/15/20 23:32 Dose: 2.5 mg Documented by: [id number] Imaging Data Radiologist's Impression: Chest X-Ray 11/15/20 16:07 XR chest 1V portable HISTORY: 75 years-old Female weakness acute weakness COMPARISON: Chest radiograph 06/06/2019 TECHNIQUE: Portable AP view of the chest FINDINGS: Hiatal hernia. Loop recorder device. The cardiomediastinal and hilar silhouettes are within normal limits. Calcified plaque of the thoracic aorta. No pneumothorax, pleural effusion, airspace consolidation or overt pulmonary edema. Spondylitic spurring of the spine. Degenerative changes of the shoulders. IMPRESSION: No acute process. ACT 112: Negative or not required by law. The above report was generated using voice recognition software. It may contain grammatical, syntax or spelling errors. Electronically signed by: Fred Macedo M.D. 11/15/2020 4:[address] 11/15/20 16:07 CT head/brain wo con CLINICAL HISTORY: 75 years-old Female with weakness. Acute weakness TECHNIQUE: Multiple axial CT images of the head were obtained without contrast. A dose lowering technique was utilized adhering to the principles of ALARA. CT DOSE: 1894.51 mGy.cm COMPARISON: Head CT 06/06/2019. FINDINGS: No acute intracranial hemorrhage, midline shift, intracranial mass, hydrocephalus, territorial ischemia or abnormal extra-axial collection. Encephalomalacia from chronic right MCA territorial infarct. Ex vacuo ventriculomegaly of the right lateral ventricle. Mild patchy white matter hypodensities suggest chronic microvascular ischemic disease. Cerebral vascular calcifications are noted. Subcentimeter chronic appearing lacunar infarcts of the right calix radiata and lentiform nucleus, left calix radiata and caudate nucleus are new from comparison. The calvarium is intact. The paranasal sinuses, mastoid air cells, and middle ear cavities are clear. IMPRESSION: 1. No acute intracranial hemorrhage or acute territorial infarct. 2. Chronic infarct of the right MCA territory. 3. Subcentimeter chronic appearing lacunar infarcts of the bilateral basal ganglia are new from 06/06/2019. ACT 112: Negative or not required by law. The above report was generated using voice recognition software. It may contain grammatical, syntax or spelling errors. Electronically signed by: Fred Macedo M.D. 11/15/2020 5:13 PM Discharge Plan Visit Data Chief Complaint: Stroke/CVA Symptoms ED Provider: Maik Staton Discharge Problem: CVA (cerebral vascular accident), Depression with suicidal ideation Patient Disposition: Admitted As Inpatient Condition: Good Discharge Instructions Interventions: ED Discharge Assessment Last Done: 11/15/20 20:17 Discharge Problem: CVA (cerebral vascular accident) Qualifiers: CVA mechanism: unspecified Qualified Code(s): I63.9 - Cerebral infarction, unspecified
[2020-11-15 16:52] LABS: Basophils # (auto) 0.03 K/uL (0-0.2); Basophils % (auto) 0.4 %; Eosinophils # (auto) 0.12 K/uL (0-0.5); Eosinophils % (auto) 1.5 %; Hematocrit (blood only) 43.6 % (37-47); Hemoglobin 15.3 g/dL (12.0-16.0); Immature Granulocytes # (auto) 0.02 K/uL (0.00-0.02); Immature Granulocytes % (auto) 0.3 %; Lymphocytes # (auto) 2.01 K/uL (1.2-3.4); Lymphocytes % (auto) 25.7 %; Mean Corpuscular Hemoglobin 31.6 pg (25-34); Mean Corpuscular Hgb Conc 35.1 g/dL (32-36); Mean Corpuscular Volume 90.1 fL (80-100); Mean Platelet Volume 11.2 fL (7.4-10.4); Monocytes # (auto) 0.81 K/uL (0.11-0.59); Monocytes % (auto) 10.3 %; Neutrophils # (auto) 4.84 K/uL (1.4-6.5); Neutrophils % (auto) 61.8 %; Platelet Count 266 K/uL (130-400); RDW Coefficient of Variation 12.5 % (11.5-14.5); Red Blood Count 4.84 M/uL (4.2-5.4); White Blood Count 7.83 K/uL (4.8-10.8)
[2020-11-15 17:05] LABS: Partial Thromboplastin Ratio 0.9; Partial Thromboplastin Time 24.8 Seconds (21.0-31.0); Prothrombin Time 9.7 Seconds (9.0-12.0)
[2020-11-15 17:10] LABS: BUN Creatinine Ratio 25.6 (10-20); Blood Urea Nitrogen 19 mg/dl (7-18); Calcium 9.6 mg/dl (8.5-10.1); Carbon Dioxide 25 mmol/L (21-32); Chloride 106 mmol/L (98-107); Creatinine Clr Calc Pharmacy 65.8 ml/min; Est GFR (African American) 94.9 ml/min; Est GFR (Non-African American) 81.9 ml/min; Glucose 103 mg/dl (70-99); Magnesium 2.4 mg/dl (1.8-2.4); Potassium 3.8 mmol/L (3.5-5.1); Sodium 138 mmol/L (136-145)
--- NOTE | 2020-11-15 17:14 | CT Scan Report ---
CT head/brain wo con CLINICAL HISTORY: 75 years-old Female with weakness. Acute weakness TECHNIQUE: Multiple axial CT images of the head were obtained without contrast. A dose lowering tech nique was utilized adhering to the principles of ALARA. CT DOSE: 1894.51 mGy.cm COMPARISON: Head CT 06/06/2019. FINDINGS: No acute intracranial hemorrhage, midline shift, intracranial mass, hydrocephalus, territorial ischem ia or abnormal extra-axial collection. Encephalomalacia from chronic right MCA territorial infarct. E x vacuo ventriculomegaly of the right lateral ventricle. Mild patchy white matter hypodensities sugge st chronic microvascular ischemic disease. Cerebral vascular calcifications are noted. Subcentimeter chronic appearing lacunar infarcts of the right calix radiata and lentiform nucleus, left calix rad iata and caudate nucleus are new from comparison. The calvarium is intact. The paranasal sinuses, mastoid air cells, and middle ear cavities are clear. IMPRESSION: 1. No acute intracranial hemorrhage or acute territorial infarct. 2. Chronic infarct of the right MCA territory. 3. Subcentimeter chronic appearing lacunar infarcts of the bilateral basal ganglia are new from 2019. ACT 112: Negative or not required by law. The above report was generated using voice recognition software. It may contain grammatical, syntax o r spelling errors. Electronically signed by: Fred Macedo M.D. 11/15/2020 5:13 PM
[2020-11-15 17:21] LABS: Alanine Aminotransferase 21 U/L (12-78); Albumin Globulin Ratio 0.9 (0.9-2); Alkaline Phosphatase 131 U/L (45-117); Aspartate Aminotransferase 17 U/L (15-37); Bilirubin,Total 0.5 mg/dl (0.2-1); Globulin 4.3 gm/dl (2.5-4.0); Total Protein 8.3 gm/dl (6.4-8.2); Troponin I < 0.015 ng/ml (0-0.045)
[2020-11-15] MEDS ORDERED: METOPROLOL TARTRATE 1 MG/ML VIAL IV STA ×2 (19:46→23:12)
--- NOTE | 2020-11-15 20:13 | History & Physical Report ---
Date of Service November 15, 2020 Assessment & Plan (1) Stroke-like symptoms: Strokelike symptoms/gaze drifting/worsening imbalance- Stroke without TPA order set CT of head shows chronic infarct in the right MCA territory. Subcentimeter chronic appearing lacunar infarcts of the bilateral basal ganglia new from 06/06/2019 Order CTA of head and neck now Will need to confirm with cardiology as to whether her pacer is MRI compatible before an MRI can be ordered. Continue clopidogrel Permissive hypertension Present on Admission?: Yes (2) CVA (cerebral vascular accident): Previous CVA with residual left-sided weakness, necessitating use of walker, has reportedly become worse over the past weeks to months Present on Admission?: Yes (3) Left leg weakness: Residual from previous CVA Present on Admission?: Yes (4) HTN (hypertension): Continue metoprolol tartrate 50 mg p.o. twice daily and lisinopril 20 mg daily Lopressor 5 mg IV every 4 hours as needed systolic blood pressure greater than 180 Present on Admission?: Yes (5) Hypercholesterolemia: Continue pravastatin 40 mg at bedtime Check a fasting lipid panel Present on Admission?: Yes (6) GERD (gastroesophageal reflux disease): Continue omeprazole Present on Admission?: Yes (7) Urinary incontinence: Check urinalysis, urine culture and sensitivity Present on Admission?: Yes History of Present Illness Chief Complaint: The patient was initially sent to her PCPs office by nurses at her living facility, and then her PCPs office sent her to the emergency department due to concerns regarding strokelike symptoms Primary Care Provider: Maik Du MD The patient is a 75-year-old female with a past medical history including urinary bowel incontinence, depression, left arm and leg weakness from previous CVA, hypertensive urgency, GERD, right pontine CVA, prediabetes, hypertension and hypercholesterolemia. Her family and friends told her that about 6 weeks ago they thought she was having some issues with eye drifting when she was talking to somebody. She has had persistent left arm and leg weakness, which has worsened a little bit during his interval time. She walks with a walker, leading with her right foot, and dragging her left leg behind. The main new symptom she notices over the past 6 weeks, is increased urinary frequency and urgency. Allergies Allergy/AdvReac Type Severity Reaction Status Date / Time Penicillins Allergy Hives Verified 11/15/20 14:13 Sulfa (Sulfonamide Allergy Hives Verified 11/15/20 14:13 Antibiotics) "ALL ANTIBIOTICS" Allergy Intermediate HIVES Uncoded 11/15/20 17:49 Home Medications Medication Instructions Recorded Confirmed Type acetaminophen [Tylenol] 650 mg PO Q6H PRN 06/07/18 11/15/20 History clopidogrel 75 mg tablet 75 mg PO QAM #30 tab 10/02/20 11/15/20 Rx lisinopril 20 mg tablet 20 mg PO HS #90 tab 10/02/20 11/15/20 Rx metoprolol tartrate 50 mg tablet 50 mg PO BID #180 tab 10/02/20 11/15/20 Rx pravastatin 40 mg tablet 40 mg PO HS #90 tab 10/02/20 11/15/20 Rx omeprazole 20 mg PO DAILY 11/15/20 11/15/20 History Past Med/Surg History Medical History Acute CVA (cerebrovascular accident) Acute right MCA stroke Depression GERD (gastroesophageal reflux disease) HTN (hypertension) HTN (hypertension) Hypercholesterolemia Hypercholesterolemia Pre-diabetes Prediabetes Sinusitis Suicidal ideation Suicide attempt 2013 - ETOH/Valium combination - had acute inpatient psychiatric stay Urinary and bowel incontinence Urinary incontinence Surgical History H/O oral surgery History of loop recorder S/P appendectomy S/P hysterectomy with oophorectomy Family History Mother Hypertension Grandmother (Maternal) Stroke Other Heart disease Denies family history of Ovarian cancer Prostate cancer Myocardial infarction Breast cancer Colorectal cancer Social History Smoking Status: Never smoker Second Hand Exposure: No; Hx Alcohol Use: No Hx Substance Use: No Preferred Language: Croatian Communication Ability: Effective Visual Impairment: No Limitations Hearing Ability: Normal Film Developer Required: No Beliefs That Will Affect Care: None marital status: Current Living Situation: Alone Current Living Situation Comment: senior apartment housing, lives at [facility] current occupational status: retired 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[employer] companies, similar to [employer] work Other Information That Helps Us Care for You: No Feels Safe at Home: Yes Childhood Exposure to Second-Hand Smoke: Yes Dental Care, Regularly: Yes Physical Activity Frequency: 1-2 Times per Week Physical Activity Frequency Comment: walks to [place] 2X a week for her groceries Seatbelt Use: always Sunscreen Use: No Assistive Devices: Glasses and Walker Review of Systems Review of Systems: The patient denies chest pain, palpitations, shortness of breath, dyspnea on exertion, cough, lower extremity swelling, sore throat, fevers, chills, sweats, weight change, fatigue, nausea, vomiting, diarrhea , constipation, abdominal pain, pelvic pain, blood in urine or stool, dysuria, loss of consciousness, rash, abnormal bruising or bleeding, generalized arthralgias or myalgias, back or neck pain, or night sweats. The review of systems is otherwise negative other than for that already noted a lauren, and at least 10 systems have been reviewed. Physical Exam Physical Exam: The patient is awake, alert and oriented 3, normocephalic and atraumatic, lying in bed and in no acute distress. HEENT--PERRL, EOMI, mucous membranes and oropharynx dry. Neck--supple. No JVD. No bruits. Thyroid normal, trachea midline, no adenopathy. Heart--normal S1 and S2. No murmurs, rubs or gallops. Lungs--clear bilaterally, no respiratory distress, no accessory muscle use. Abdomen--normal bowel sounds and soft. Nontender. Nondistended Extremities--no cyanosis or clubbing. No edema. There are good distal pulses b/l. Dermatologic--normal skin turgor, normal color, no abnormal lymph nodes, no rash. Neurologic--cranial nerves II through XII grossly intact. right arm and leg normal strength and sensation. Left arm and leg with normal sensation, but decreased strength 4/5 Psychiatric--normal affect. Results & Data Results & Data ([facility]) Vital Signs (Past 12 Hours) Vital Signs Temp Pulse Pulse Resp BP BP Pulse Ox 11/15/20 19:53 86 233/131 H 11/15/20 19:44 100 H 21 233/131 H 96 11/15/20 19:03 14 98 11/15/20 16:17 98.4 F 16 97 11/15/20 16:12 98.4 F 96 H 16 97 Laboratory Results Laboratory Results WBC 7.83 K/uL (4.8-10.8) 11/15/20 16:40 RBC 4.84 M/uL (4.2-5.4) 11/15/20 16:40 Hgb 15.3 g/dL (12.0-16.0) 11/15/20 16:40 Hct 43.6 % (37-47) 11/15/20 16:40 MCV 90.1 fL (80-100) 11/15/20 16:40 MCH 31.6 pg (25-34) 11/15/20 16:40 MCHC 35.1 g/dL (32-36) 11/15/20 16:40 RDW Std Deviation 41.0 fL (36.4-46.3) 11/15/20 16:40 RDW Coeff of Ghassan 12.5 % (11.5-14.5) 11/15/20 16:40 Plt Count 266 K/uL (130-400) 11/15/20 16:40 MPV 11.2 fL (7.4-10.4) H 11/15/20 16:40 Immature Gran % (Auto) 0.3 % 11/15/20 16:40 Neut % (Auto) 61.8 % 11/15/20 16:40 Lymph % (Auto) 25.7 % 11/15/20 16:40 [place] % (Auto) 10.3 % 11/15/20 16:40 Eos % (Auto) 1.5 % 11/15/20 16:40 Baso % (Auto) 0.4 % 11/15/20 16:40 Neut # (Auto) 4.84 K/uL (1.4-6.5) 11/15/20 16:40 Lymph # (Auto) 2.01 K/uL (1.2-3.4) 11/15/20 16:40 [place] # (Auto) 0.81 K/uL (0.11-0.59) H 11/15/20 16:40 Eos # (Auto) 0.12 K/uL (0-0.5) 11/15/20 16:40 Baso # (Auto) 0.03 K/uL (0-0.2) 11/15/20 16:40 Immature Gran # (Auto) 0.02 K/uL (0.00-0.02) 11/15/20 16:40 PT 9.7 Seconds (9.0-12.0) 11/15/20 16:40 INR 1.0 (0.9-1.1) 11/15/20 16:40 APTT 24.8 Seconds (21.0-31.0) 11/15/20 16:40 PTT Ratio 0.9 11/15/20 16:40 Sodium 138 mmol/L (136-145) 11/15/20 16:40 Potassium 3.8 mmol/L (3.5-5.1) 11/15/20 16:40 Chloride 106 mmol/L (98-107) 11/15/20 16:40 Carbon Dioxide 25 mmol/L (21-32) 11/15/20 16:40 Anion Gap 7.0 (3-11) 11/15/20 16:40 BUN 19 mg/dl (7-18) H 11/15/20 16:40 Creatinine 0.72 mg/dl (0.6-1.2) 11/15/20 16:40 Est Cr Clr Drug Dosing 65.8 ml/min 11/15/20 16:40 Est GFR ( Amer) 94.9 ml/min 11/15/20 16:40 Est GFR (Non-Af Amer) 81.9 ml/min 11/15/20 16:40 BUN/Creatinine Ratio 25.6 (10-20) H 11/15/20 16:40 Glucose 103 mg/dl (70-99) H 11/15/20 16:40 Calcium 9.6 mg/dl (8.5-10.1) 11/15/20 16:40 Magnesium 2.4 mg/dl (1.8-2.4) 11/15/20 16:40 Total Bilirubin 0.5 mg/dl (0.2-1) 11/15/20 16:40 AST 17 U/L (15-37) 11/15/20 16:40 ALT 21 U/L (12-78) 11/15/20 16:40 Alkaline Phosphatase 131 U/L (45-117) H 11/15/20 16:40 Troponin I < 0.015 ng/ml (0-0.045) 11/15/20 16:40 Total Protein 8.3 gm/dl (6.4-8.2) H 11/15/20 16:40 Albumin 4.0 gm/dl (3.4-5.0) 11/15/20 16:40 Globulin 4.3 gm/dl (2.5-4.0) H 11/15/20 16:40 Albumin/Globulin Ratio 0.9 (0.9-2) 11/15/20 16:40 TSH 1.530 uIu/ml (0.300-4.500) 11/15/20 16:40 COVID-19 Eval Order Covid19 at [facility] 11/15/20 17:41 SARS-CoV-2 (PCR) NEGATIVE (Negative) 11/15/20 17:41 Impressions Chest X-Ray 11/15/20 16:07 XR chest 1V portable HISTORY: 75 years-old Female weakness acute weakness COMPARISON: Chest radiograph 06/06/2019 TECHNIQUE: Portable AP view of the chest FINDINGS: Hiatal hernia. Loop recorder device. The cardiomediastinal and hilar silhouettes are within normal limits. Calcified plaque of the thoracic aorta. No pne umothorax, pleural effusion, airspace consolidation or overt pulmonary edema. Spondylitic spurring of the spine. Degenerative changes of the shoulders. IMPRESSION: No acute process. ACT 112: Negative or not required by law. The above report was generated using voice recognition software. It may contain grammatical, syntax or spelling errors. Electronically signed by: Fred Macedo M.D. 11/15/2020 4:[address] 11/15/20 16:07 CT head/brain wo con CLINICAL HISTORY: 75 years-old Female with weakness. Acute weakness TECHNIQUE: Multiple axial CT images of the head were obtained without contrast. A dose lowering technique was utilized adhering to the principles of ALARA. CT DOSE: 1894.51 mGy.cm COMPARISON: Head CT 06/06/2019. FINDINGS: No acute intracranial hemorrhage, midline shift, intracranial mass, hydrocephalus, territorial ischemia or abnormal extra-axial collection. Encephalomalacia from chronic right MCA territorial infarct. Ex vacuo ventriculomegaly of the right lateral ventricle. Mild patchy white matter hypodensities suggest chronic microvascular ischemic disease. Cerebral vascular calcifications are noted. Subcentimeter chronic appearing lacunar infarcts of the right calix radiata and lentiform nucleus, left calix radiata and caudate nucleus are new from comparison. The calvarium is intact. The paranasal sinuses, mastoid air cells, and middle ear cavities are clear. IMPRESSION: 1. No acute intracranial hemorrhage or acute territorial infarct. 2. Chronic infarct of the right MCA territory. 3. Subcentimeter chronic appearing lacunar infarcts of the bilateral basal ganglia are new from 06/06/2019. ACT 112: Negative or not required by law. The above report was generated using voice recognition software. It may contain grammatical, syntax or spelling errors. Electronically signed by: Fred Macedo M.D. 11/15/2020 5:13 PM Code Status & VTE Plan Code Status Full code VTE Prophylaxis Plan VTE Prophylaxis will be ordered: Yes PG Care Time/CCT Total # of Minutes Spent Total Time Spent with Patient: Total time spent is greater than 50% in coor dination of care (as documented) at patient's floor/unit and/or counseling patient: Coding Level of Care Code 67132 OBS Care - Level 3 Diagnoses Stroke-like symptoms R29.90 CVA (cerebral vascular accident) I63.9 CVA mechanism: unspecified Left leg weakness R29.898 HTN (hypertension) I10 Hypercholesterolemia E78.00 GERD (gastroesophageal reflux disease) K21.9 Urinary incontinence R32 (1) CVA (cerebral vascular accident) CVA mechanism: unspecified Qualified Code(s): I63.9 - Cerebral infarction, unspecified
[2020-11-15] MEDS ORDERED: METOPROLOL TARTRATE 1 MG/ML VIAL IV PRN (20:45)
[2020-11-15] MEDS ORDERED: ACETAMINOPHEN 325 MG TAB PO PRN ×2 (21:05)
[2020-11-15] MEDS ORDERED: PHARMACIST DISCHARGE MED REC CONSULT PRN (21:05)
[2020-11-15] MEDS: lisinopril 20 MG TAB PO SCH (21:50)
[2020-11-15] MEDS: METOPROLOL TARTRATE 50 MG TAB PO SCH (21:50)
[2020-11-15] MEDS: PRAVASTATIN SOD 40 MG TAB PO SCH (21:51)
[2020-11-15] MEDS: HEPARIN SOD 5,000 UNIT/0.5 ML VIAL SQ SCH (21:51)
[2020-11-15 22:46] LABS: Appearance Urine Clear (Clear); Bilirubin Urine Negative (Negative); Blood Urine Negative (Negative); Color Urine Yellow; Glucose Urine UA Negative (Negative); Ketones Urine Trace (Negative); Leukocyte Esterase Urine Negative (Negative); Nitrite Urine Negative (Negative); Protein Urine Negative (Negative); Specific Gravity Urine 1.007 (1.000-1.030); Urobilinogen Urine Negative (Negative); pH Urine 7.5 (4.5-7.5)
[2020-11-15] MEDS: ONDANSETRON INJ 2 MG/ML 2 ML VIAL IV PRN (23:33)
[2020-11-16] MEDS ORDERED: hydrALAZINE HCL 20 MG/ML VIAL IV ONE ×2 (02:44→11:41)
[2020-11-16] MEDS: HEPARIN SOD 5,000 UNIT/0.5 ML VIAL SQ SCH ×3 (06:39→20:41)
[2020-11-16 07:34] LABS: Basophils # (auto) 0.04 K/uL (0-0.2); Basophils % (auto) 0.5 %; Eosinophils # (auto) 0.17 K/uL (0-0.5); Hematocrit (blood only) 42.2 % (37-47); Hemoglobin 14.4 g/dL (12.0-16.0); Immature Granulocytes # (auto) 0.03 K/uL (0.00-0.02); Immature Granulocytes % (auto) 0.4 %; Lymphocytes # (auto) 1.84 K/uL (1.2-3.4); Lymphocytes % (auto) 21.6 %; Mean Corpuscular Hemoglobin 31.3 pg (25-34); Mean Corpuscular Hgb Conc 34.1 g/dL (32-36); Mean Corpuscular Volume 91.7 fL (80-100); Mean Platelet Volume 11.4 fL (7.4-10.4); Monocytes # (auto) 0.98 K/uL (0.11-0.59); Monocytes % (auto) 11.5 %; Neutrophils # (auto) 5.44 K/uL (1.4-6.5); Platelet Count 277 K/uL (130-400); RDW Coefficient of Variation 12.6 % (11.5-14.5); RDW Standard Deviation 42.1 fL (36.4-46.3)
[2020-11-16] MEDS ORDERED: METOPROLOL TARTRATE 1 MG/ML VIAL IV STA (07:34)
[2020-11-16 07:54] LABS: Partial Thromboplastin Time 26.1 Seconds (21.0-31.0)
[2020-11-16] MEDS: ONDANSETRON INJ 2 MG/ML 2 ML VIAL IV PRN (07:57)
[2020-11-16 08:03] LABS: Alanine Aminotransferase 21 U/L (12-78); Albumin Level 3.3 gm/dl (3.4-5.0); Aspartate Aminotransferase 14 U/L (15-37); BUN Creatinine Ratio 24.3 (10-20); Blood Urea Nitrogen 14 mg/dl (7-18); Calcium 9.2 mg/dl (8.5-10.1); Carbon Dioxide 25 mmol/L (21-32); Chloride 107 mmol/L (98-107); Cholesterol 214 mg/dl (0-200); Creatinine Clr Calc Pharmacy 83.1 ml/min; Est GFR (African American) 105.1 ml/min; Est GFR (Non-African American) 90.7 ml/min; Glucose 103 mg/dl (70-99); Magnesium 2.3 mg/dl (1.8-2.4); Potassium 3.6 mmol/L (3.5-5.1); Sodium 138 mmol/L (136-145); Triglycerides 109 mg/dl (0-150); VLDL Cholesterol 22 mg/dl
[2020-11-16 08:06] LABS: Albumin Globulin Ratio 0.9 (0.9-2); Alkaline Phosphatase 111 U/L (45-117); Bilirubin,Total 0.7 mg/dl (0.2-1); Chol HDL Ratio 4; Globulin 3.7 gm/dl (2.5-4.0); HDL Cholesterol 51 mg/dl; LDL Cholesterol Calculated 141 mg/dl; Troponin I < 0.015 ng/ml (0-0.045)
[2020-11-16] MEDS: PANTOprazole 40 MG TAB PO SCH (08:19)
[2020-11-16] MEDS: CLOPIDOGREL BISULFATE 75 MG TAB PO SCH (08:19)
[2020-11-16] MEDS: METOPROLOL TARTRATE 50 MG TAB PO SCH ×2 (08:19→20:38)
--- NOTE | 2020-11-16 08:29 | Hospitalist Progress Note ---
Date of Service November 16, 2020 Assessment & Plan (1) CVA (cerebral vascular accident): 75 yo F with hx R MCA stroke, depression, HTNive urgency admitted for concerns of stroke symptoms and recurrent rightward gaze. 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 - lipid panel : total cholesterol elevated to 214, LDL 141. - will switch pravastatin to rosuvastatin. - A1c 5.8 - trops negative x3 - PT/OT Gerd - protonix HLD - statin as above DVT ppx: heparin Q8 sq FEN/GI: heart healthy Bowel regimen: miralax prn Code Status: full code Dispo: med/tele (2) Stroke-like symptoms: Admission and Anticipated Discharge Date Admission Date: November 15, 2020 Supervising Physician Co-Signing Physician Notes I personally saw and examined the patient. I verified all zhong points and agree with resident physician Dr Darrell SONI with the following exceptions and/or additions: Generalized left sided weakness at baseline. Left elvin-sensory neglect. No visual field deficit on my exam today but possibly some neglect on this side. Appreciate neurology recommendations for treatment regarding acute/subacute stroke in right occipital lobe. Would recommend DAPT for three weeks. Will clarify this with neruology tomorrow. Subjective feeling ok this morning. no specific complaints. states that her nurses told her that she "drifts to the right" starting about a month ago, and had been getting worse and more persistent in the last 2 weeks. Denies any blurring of vision, starring, twinkling, shades. no pain with movement of eyes. says she gets "easily distracted" which is why it's hard for her to focus on one object during conversations. No new numbness/tingling/weakness. feeling ok this morning. no specific complaints. states that her nurses told her that she "drifts to the right" starting about a month ago, and had been getting worse and more persistent in the last 2 weeks. Denies any blurring of vision, starring, twinkling, shades. no pain with movement of eyes. says she gets "easily distracted" which is why it's hard for her to focus on one object during conversations. No new numbness/tingling/weakness. Review of Systems Review of Systems: All systems reviewed & are unremarkable except as noted in Subjective Physical Exam Physical Exam: Constitutional: in no apparent distress, sitting comfortably in bed. Eyes: EOMI, pupils equal and reactive bilaterally, no scleral icterus. visual mensah intact. choppy/lagging pursuit. Cardiac: RRR, no murmurs, gallops or rubs. Normal S1, S2. loop recorder in p lace. Pulm: CTA BL, no wheezes, rhonchi, crackles or rubs, moving air well throughout both lungs Abd: soft, nontender, nondistended, normal bowel sounds, no rebound or guarding Extremities: 2+ peripheral pulses, no edema. left leg 4/5, right leg 5/5 Neuro: weak movement of left arm and leg, A&Ox3 Results & Data Results & Data ([facility]) Vital Signs (Past 12 Hours) Vital Signs Temp Pulse Pulse Resp BP BP BP 11/16/20 08:16 72 175/80 H 11/16/20 07:53 70 185/72 H 11/16/20 07:49 36.6 C 70 16 185/72 H 11/16/20 03:25 36.7 C 69 18 195/84 H 11/16/20 02:38 64 203/97 H 11/16/20 01:56 68 201/94 H 11/16/20 00:00 78 11/15/20 23:44 36.8 C 65 16 189/97 H 11/15/20 23:32 78 203/95 H 11/15/20 22:50 37.0 C 78 18 203/95 H 11/15/20 22:22 78 11/15/20 21:05 36.8 C 78 18 227/113 H Pulse Ox 11/16/20 08:16 96 11/16/20 07:53 11/16/20 07:49 91 11/16/20 03:25 96 11/16/20 02:38 11/16/20 01:56 11/16/20 00:00 11/15/20 23:44 96 11/15/20 23:32 11/15/20 22:50 98 11/15/20 22:22 11/15/20 21:05 98 Laboratory Results WBC 8.50 K/uL (4.8-10.8) 11/16/20 06:56 RBC 4.60 M/uL (4.2-5.4) 11/16/20 06:56 Hgb 14.4 g/dL (12.0-16.0) 11/16/20 06:56 Hct 42.2 % (37-47) 11/16/20 06:56 MCV 91.7 fL (80-100) 11/16/20 06:56 MCH 31.3 pg (25-34) 11/16/20 06:56 MCHC 34.1 g/dL (32-36) 11/16/20 06:56 RDW Std Deviation 42.1 fL (36.4-46.3) 11/16/20 06:56 RDW Coeff of Ghassan 12.6 % (11.5-14.5) 11/16/20 06:56 Plt Count 277 K/uL (130-400) 11/16/20 06:56 MPV 11.4 fL (7.4-10.4) H 11/16/20 06:56 Immature Gran % (Auto) 0.4 % 11/16/20 06:56 Neut % (Auto) 64.0 % 11/16/20 06:56 Lymph % (Auto) 21.6 % 11/16/20 06:56 [place] % (Auto) 11.5 % 11/16/20 06:56 Eos % (Auto) 2.0 % 11/16/20 06:56 Baso % (Auto) 0.5 % 11/16/20 06:56 Neut # (Auto) 5.44 K/uL (1.4-6.5) 11/16/20 06:56 Lymph # (Auto) 1.84 K/uL (1.2-3.4) 11/16/20 06:56 [place] # (Auto) 0.98 K/uL (0.11-0.59) H 11/16/20 06:56 Eos # (Auto) 0.17 K/uL (0-0.5) 11/16/20 06:56 Baso # (Auto) 0.04 K/uL (0-0.2) 11/16/20 06:56 Immature Gran # (Auto) 0.03 K/uL (0.00-0.02) H 11/16/20 06:56 PT 10.0 Seconds (9.0-12.0) 11/16/20 06:56 INR 1.0 (0.9-1.1) 11/16/20 06:56 APTT 26.1 Seconds (21.0-31.0) 11/16/20 06:56 PTT Ratio 1.0 11/16/20 06:56 Sodium 138 mmol/L (136-145) 11/16/20 06:56 Potassium 3.6 mmol/L (3.5-5.1) 11/16/20 06:56 Chloride 107 mmol/L (98-107) 11/16/20 06:56 Carbon Dioxide 25 mmol/L (21-32) 11/16/20 06:56 Anion Gap 6.0 (3-11) 11/16/20 06:56 BUN 14 mg/dl (7-18) 11/16/20 06:56 Creatinine 0.57 mg/dl (0.6-1.2) L 11/16/20 06:56 Est Cr Clr Drug Dosing 83.1 ml/min 11/16/20 06:56 Est GFR ( Amer) 105.1 ml/min 11/16/20 06:56 Est GFR (Non-Af Amer) 90.7 ml/min 11/16/20 06:56 BUN/Creatinine Ratio 24.3 (10-20) H 11/16/20 06:56 Glucose 103 mg/dl (70-99) H 11/16/20 06:56 Estimat Average Glucose 120 mg/dl 11/16/20 06:56 Hemoglobin A1c 5.8 % (4.5-5.6) H 11/16/20 06:56 Calcium 9.2 mg/dl (8.5-10.1) 11/16/20 06:56 Magnesium 2.3 mg/dl (1.8-2.4) 11/16/20 06:56 Total Bilirubin 0.7 mg/dl (0.2-1) 11/16/20 06:56 AST 14 U/L (15-37) L 11/16/20 06:56 ALT 21 U/L (12-78) 11/16/20 06:56 Alkaline Phosphatase 111 U/L (45-117) 11/16/20 06:56 Troponin I < 0.015 ng/ml (0-0.045) 11/16/20 06:56 Total Protein 7.0 gm/dl (6.4-8.2) 11/16/20 06:56 Albumin 3.3 gm/dl (3.4-5.0) L 11/16/20 06:56 Globulin 3.7 gm/dl (2.5-4.0) 11/16/20 06:56 Albumin/Globulin Ratio 0.9 (0.9-2) 11/16/20 06:56 Triglycerides 109 mg/dl (0-150) 11/16/20 06:56 Cholesterol 214 mg/dl (0-200) H 11/16/20 06:56 LDL Cholesterol, Calc 141 mg/dl 11/16/20 06:56 VLDL Cholesterol, Calc 22 mg/dl 11/16/20 06:56 HDL Cholesterol 51 mg/dl 11/16/20 06:56 Cholesterol/HDL Ratio 4 11/16/20 06:56 TSH 1.530 uIu/ml (0.300-4.500) 11/15/20 16:40 Urine Color Yellow 11/15/20 18:02 Urine Appearance Clear (Clear) 11/15/20 18:02 Urine pH 7.5 (4.5-7.5) 11/15/20 18:02 Ur Specific [place] 1.007 (1.000-1.030) 11/15/20 18:02 Urine Protein Negative (Negative) 11/15/20 18:02 Urine Glucose (UA) Negative (Negative) 11/15/20 18:02 Urine Ketones Trace (Negative) H 11/15/20 18:02 Urine Blood Negative (Negative) 11/15/20 18:02 Urine Nitrite Negative (Negative) 11/15/20 18:02 Urine Bilirubin Negative (Negative) 11/15/20 18:02 Urine Urobilinogen Negative (Negative) 11/15/20 18:02 Ur Leukocyte Esterase Negative (Negative) 11/15/20 18:02 COVID-19 Eval Order Covid19 at [facility] 11/15/20 17:41 SARS-CoV-2 (PCR) NEGATIVE (Negative) 11/15/20 17:41 Hepatitis C Ab Screen Neg (Neg) 11/15/20 16:40 Impressions Chest X-Ray 11/15/20 16:07 XR chest 1V portable HISTORY: 75 years-old Female weakness acute weakness COMPARISON: Chest radiograph 06/06/2019 TECHNIQUE: Portable AP view of the chest FINDINGS: Hiatal hernia. Loop recorder device. The cardiomediastinal and hilar silhouettes are within normal limits. Calcified plaque of the thoracic aorta. No pneumothorax, pleural effusion, airspace consolidation or overt pulmonary edema. Spondylitic spurring of the spine. Degenerative changes of the shoulders. IMPRESSION: No acute process. ACT 112: Negative or not required by law. The above report was generated using voice recognition software. It may contain grammatical, syntax or spelling errors. Electronically signed by: Fred Macedo M.D. 11/15/2020 4:[address] 11/15/20 16:07 CT head/brain wo con CLINICAL HISTORY: 75 years-old Female with weakness. Acute weakness TECHNIQUE: Multiple axial CT images of the head were obtained without contrast. A dose lowering technique was utilized adhering to the principles of ALARA. CT DOSE: 1894.51 mGy.cm COMPARISON: Head CT 06/06/2019. FINDINGS: No acute intracranial hemorrhage, midline shift, intracranial mass, hydrocephalus, territorial ischemia or abnormal extra-axial collection. Encephalomalacia from chronic right MCA territorial infarct. Ex vacuo ventriculomegaly of the right lateral ventricle. Mild patchy white matter hypodensities suggest chronic microvascular ischemic disease. Cerebral vascular calcifications are noted. Subcentimeter chronic appearing lacunar infarcts of the right calix radiata and lentiform nucleus, left calix radiata and caudate nucleus are new from comparison. The calvarium is intact. The paranasal sinuses, mastoid air cells, and middle ear cavities are clear. IMPRESSION: 1. No acute intracranial hemorrhage or acute territorial infarct. 2. Chronic infarct of the right MCA territory. 3. Subcentimeter chronic appearing lacunar infarcts of the bilateral basal ganglia are new from 06/06/2019. ACT 112: Negative or not required by law. The above report was generated using voice recognition software. It may contain grammatical, syntax or spelling errors. Electronically signed by: Fred Macedo M.D. 11/15/2020 5:13 PM Head CTA 11/15/20 21:05 CT angio head w con CLINICAL HISTORY: stroke-like symptoms TECHNIQUE: CT angiography of the head was performed in a dynamic helical fashion during intravenous administration of 119 cc of Optiray. MIP imaging was performed. A dose lowering technique was utilized adhering to the principles of ALARA. CT DOSE: 518.91 mGy.cm COMPARISON STUDY: No previous studies for comparison. FINDINGS: Mild atherosclerotic involvement of supraclinoid aspect of the right and left internal carotid arteries are seen without hemodynamically significant stenosis. Previously seen focal stenosis of the one of M2 segment branches of the right MCA is unchanged. No new areas of stenosis are seen. Left MCA is patent. Bilateral anterior cerebral and anterior communicating arteries are patent patent. Basilar artery is tortuous and patent. Nodular appearance of the P1 segment of the left posterior cerebral artery which is patent through its entire course. Partial origin of the right posterior cerebral artery with mild diffuse narrowing of its P1 segment is unchanged since prior. Distal aspect of the right posterior cerebral artery is patent. Findings are unchanged since prior study. There are no lesion suspicious for aneurysm. There are no major intracranial branch occlusions. The dural venous sinuses appear patent. IMPRESSION: 1. Stable changes at the M2 branch of the right middle cerebral artery. 2. origin of the right posterior cerebral artery with mild diffuse narrowing of its P1 segment which is stable since prior study. 3. Nodular appearance of P1 segment of the left posterior cerebral artery which is also unchanged since prior study. ACT 112: Negative or not required by law. The above report was generated using voice recognition software. It may contain grammatical, syntax or spelling errors. Electronically signed by: Michelle Rapp DO 11/16/2020 9:42 AM Neck CTA 11/15/20 21:05 CT angio neck with con CLINICAL HISTORY: stroke-like symptoms COMPARISON STUDY: May 04, 2019 TECHNIQUE: CT angiography was performed from the aortic arch to the skull base. MIP imaging was performed. The patient was scanned in a dynamic helical fashion during intravenous administration of 119 cc of Optiray. A dose lowering technique was utilized adhering to the principles of ALARA. CT DOSE: Technique: CT angiogram of the carotid and vertebral arteries was obtained using intravenous contrast and 3-D reconstruction. NASCET criteria was utilized. Findings: Minimal atherosclerotic involvement of the clinoid portion of bilateral internal carotid arteries without hemodynamically significant stenosis. Right and left common and internal carotid arteries are patent throughout its course. Short retropharyngeal course of the proximal aspect of the right and left common carotid arteries are seen. Interval development of approximately 70% stenosis within V2 segment of the right vertebral artery (4/216). The rest of right and left vertebral arteries are patent and tortuous. There is no evidence of vertebral dissection. IMPRESSION: 1. Interval development of approximately 70% stenosis within the V2 segment of the right vertebral artery as detailed above. Findings were called to nursing unit at the time of this dictation. ACT 112: Positive. There are findings on this exam that require communication between the performing entity and the patient following Patient Test Result Information Act ([place] Act 112) guidelines. The above report was generated using voice recognition software. It may contain grammatical, syntax or spelling errors. Electronically signed by: Michelle Rapp DO 11/16/2020 9:21 AM Brain MRI 11/16/20 11:06 MRI OF THE BRAIN WITHOUT IV CONTRAST CLINICAL HISTORY: Strokelike symptoms COMPARISON STUDY: CT of the brain dated 11/15/2020. TECHNIQUE: MRI of the brain was performed utilizing various T1 and T2-weighted sequences in the axial, sagittal, and coronal planes. IV contrast was not administered for this examination. FINDINGS: Brain parenchyma: There is age-related involutional change noting moderate subcortical and periventricular microangiopathic disease. Right temporoparietal encephalomalacia is consistent with a remote infarct. There is associated ex vacuo dilatation of the right lateral ventricle and [place] degeneration of the right mayela. Chronic lacunar infarcts are noted in the right mayela and the left basal ganglia. There is no hemorrhage or mass effect. There is no restricted diffusion atypical for acute ischemia. Rosales-white matter differentiation is preserved. No extra-axial fluid collection is seen. The cerebellar tonsils are normal in configuration. Ventricles, sulci, and cisterns: Prominent secondary to involutional change. Pituitary and sella: Unremarkable. Intracranial vasculature: Normal flow voids are maintained at the skull base. Orbits: The bony orbits are grossly intact. Orbital contents are normal in appearance. Sinuses and mastoids: The paranasal sinuses are clear. There are left larger than right mastoid effusions. Calvarium: Unremarkable. Cervical cord: Partially visualized cervical spinal cord is normal in morphology and signal intensity. IMPRESSION: No acute intracranial abnormality. ACT 112: Negative or not required by law. Electronically signed by: Fadi Orozco M.D. 11/16/2020 2:43 PM Resident Activity Tracking Resident Involvement: Resident Care Provided Care Provided: Adult Hospital Medicine (1) CVA (cerebral vascular accident) CVA mechanism: unspecified Qualified Code(s): I63.9 - Cerebral infarction, unspecified
[2020-11-16 08:46] LABS: Estimated Average Glucose 120 mg/dl; Hemoglobin A1C 5.8 % (4.5-5.6)
[2020-11-16] MEDS ORDERED: OPTIRAY 320 125ml IV ONE (08:57)
--- NOTE | 2020-11-16 09:16 | Neurology Consultation ---
Date of Consultation November 16, 2020 Assessment & Plan (1) CVA (cerebral vascular accident): Probable subacute to acute stroke within the right occipital lobe. Patient has a left homonymous hemianopsia, left visual neglect, and left sided sensory neglect she is a tendency to gaze to the right likely due to her left visual and sensory neglect syndrome. Patient will need a brain MRI completed. Continue with Plavix and pravastatin. Would recommend 30-day mobile cardiac outpatient telemetry. Outpatient visual field assessment with ophthalmology. Medical management of hypertension. Patient has been significantly hypertensive during this hospitalization. Systolic blood pressure goal 140 to 160 mmHg. History of Present Illness Reason for Consultation: Strokelike symptoms Requesting Physician: Garrett Hawkins MD Attending Physician: Clyde Christina MD History of Present Illness The patient is a 75-year-old female with a chief complaint of a tendency for her eyes to drift to the right. The symptoms began about 6 weeks ago and has been noted while patient has interacted with friends and family. She is aware that she has a tendency to gaze off to the right. She does complain of some associated difficulty with her visual field to the left side. She denies experiencing any diplopia or ocular pain. No associated vertigo, dysarthria, or dysphagia. She relays a history of previous stroke with some residual left- sided weakness and sensory loss. She has been able to ambulate with a walker. A CT of the head and CT angiogram of the head and neck have been completed. No evidence of hemorrhage or acute process. There is a chronic right MCA territory infarct as well as subcentimeter chronic lacunar infarcts within the bilateral basal ganglia, new from May 2019. CT angiography of the neck reveals interval development of approximately 70% stenosis within the V2 segment of the right vertebral artery. CTA of the head revealed stable stenosis of the M2 segment branch of the right MCA. origin of the right posterior cerebral artery with diffuse narrowing of its P1 segment, stable. Stable nodular appearance of the left P1 segment of the posterior cerebral artery as well. Past medical history notable for an acute right pontine infarct which occurred in April 2019 and a large acute to subacute right MCA territory infarct occurring in March 2018. Previous CT angiography of the neck unremarkable although she does have a focal high-grade stenosis within the M2 branch of the right MCA. Allergies Allergy/AdvReac Type Severity Reaction Status Date / Time Penicillins Allergy Hives Verified 11/15/20 14:13 Sulfa (Sulfonamide Allergy Hives Verified 11/15/20 14:13 Antibiotics) "ALL ANTIBIOTICS" Allergy Intermediate HIVES Uncoded 11/15/20 17:49 Home Medications Medication Instructions Recorded Confirmed Type acetaminophen [Tylenol] 650 mg PO Q6H PRN 06/07/18 11/15/20 History clopidogrel 75 mg tablet 75 mg PO QAM #30 tab 10/02/20 11/15/20 Rx lisinopril 20 mg tablet 20 mg PO HS #90 tab 10/02/20 11/15/20 Rx metoprolol tartrate 50 mg tablet 50 mg PO BID #180 tab 10/02/20 11/15/20 Rx pravastatin 40 mg tablet 40 mg PO HS #90 tab 10/02/20 11/15/20 Rx omeprazole 20 mg PO DAILY 11/15/20 11/15/20 History Patient History Medical History Acute CVA (cerebrovascular accident) Acute right MCA stroke Depression GERD (gastroesophageal reflux disease) HTN (hypertension) HTN (hypertension) Hypercholesterolemia Hypercholesterolemia Pre-diabetes Prediabetes Sinusitis Suicidal ideation Suicide attempt 2013 - ETOH/Valium combination - had acute inpatient psychiatric stay Urinary and bowel incontinence Urinary incontinence Surgical History H/O oral surgery History of loop recorder S/P appendectomy S/P hysterectomy with oophorectomy Family History Mother Hypertension Grandmother (Maternal) Stroke Other Heart disease Denies family history of Ovarian cancer Prostate cancer Myocardial infarction Breast cancer Colorectal cancer Social History Smoking Status: Never smoker Second Hand Exposure: No; Hx Alcohol Use: No Hx Substance Use: No Preferred Language: Indonesian Communication Ability: Effective Visual Impairment: No Limitations Hearing Ability: Normal Hand Packer/Packager Required: No Beliefs That Will Affect Care: None marital status: Current Living Situation: Alone Current Living Situation Comment: senior apartment housing, lives at [facility] current occupational status: retired 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[employer], 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 Feels Safe at Home: Yes Childhood Exposure to Second-Hand Smoke: Yes Dental Care, Regularly: Yes Physical Activity Frequency: 1-2 Times per Week Physical Activity Frequency Comment: walks to [place] 2X a week for her groceries Seatbelt Use: always Sunscreen Use: No Assistive Devices: Glasses and Walker Review of Systems Constitutional: no fever and no chills Eyes: as per Subjective / HPI and + blind spots; no diplopia Ear, Nose, Mouth, Throat: no hearing loss Respiratory: no cough and no dyspnea Cardiovascular: no chest pain and no palpitations Gastrointestinal: no nausea and no vomiting Genitourinary: no dysuria Musculoskeletal: no myalgia Integumentary: no rash and no lesions Neurologic: as per Subjective / HPI, + localized weakness and + loss of sensation; no headache(s) and no memory loss Psychiatric: + depression Hematologic / Lymphatic: no easy bleeding and no easy bruising Exam (Neuro) 2 Constitutional: well developed and well nourished; no acute distress Eyes: PERRL, normal accommodation and EOM intact bilaterally (Tendency for patient to gaze to the right noted); + abnormal visual field confrontation (Left visual field loss noted with confrontation testing.), no fundoscopic abnormality, no nystagmus and no papilledema Cardiovascular: Vessels: normal carotid upstroke; no carotid bruit Neurologic: Oriented to:: Person, Place and Time Memory: Short Term Intact and Remote Intact Attention: Span Intact and Concentration Intact Language: Naming Objects and Repeating Phrases Speech Fluency: negative Dysarthria Speech Aphasia: negative Aphasia Fund of Knowledge: Current Events, Past History and Vocabulary Cranial Nerves: Normal III, IV, (Pupils equal round reactive to light and accommodation, eye movements normal), V (Facial sensation intact), VII (There is no facial droop or weakness), VIII (Hearing intact), IX, X (Palate elevates to midline), XI (Shoulder shrug intact) and XII (Tongue protrudes to midline); Abnorm II (Left visual field loss noted with confrontation testing.) Motor Strength: Hemiparesis Laterality: Left; negative Normal Lower Extremities, Normal Upper Extremities and Pronator Drift Motor Tone: Normal Lower Extremities and Normal Upper Extremities Muscle Bulk/Involuntary Movements: No Involuntary Movements; negative Muscle Atrophy Sensation: Light Touch Intact, Pain/Temperature Intact, Vibration Intact and Proprioception Intact Coordination: Normal, Finger-Nose Abnormal Laterality: Left and Heel-Mancini Abnormal Laterality: Left; negative Dysdiadochokinesia Deep Tendon Reflexes: Rt Triceps: 2+, Lt Triceps: 3+, Rt Biceps: 2+, Lt Biceps: 3+, Rt Brachioradialis: 2+, Lt Brachioradialis: 3+, Rt Patellar: 2+, Lt Patellar: 3+, Rt Ankle: 2+ and Lt Ankle: 2+ Special Tests: Babinski Present (left) Details: Gait cannot be tested in the context of patient's current neurological status. Patient exhibits neglect to the left visual field with a tendency to gaze right. No nystagmus or ophthalmoplegia. Ocular motility otherwise intact. Patient also exhibits some left hemisensory neglect. She will extinguish to double simultaneous stimulation on the left as well. Results & Data ([facility]) Vital Signs (Past 12 Hours) Vital Signs Temp Pulse Pulse Resp BP BP BP 11/16/20 08:35 36.6 C 70 16 185/72 H 11/16/20 08:16 72 175/80 H 11/16/20 07:53 70 185/72 H 11/16/20 07:49 36.6 C 70 16 185/72 H 11/16/20 03:25 36.7 C 69 18 195/84 H 11/16/20 02:38 64 203/97 H 11/16/20 01:56 68 201/94 H 11/16/20 00:00 78 11/15/20 23:44 36.8 C 65 16 189/97 H 11/15/20 23:32 78 203/95 H 11/15/20 22:50 37.0 C 78 18 203/95 H 11/15/20 22:22 78 Pulse Ox 11/16/20 08:35 91 11/16/20 08:16 96 11/16/20 07:53 11/16/20 07:49 91 11/16/20 03:25 96 11/16/20 02:38 11/16/20 01:56 11/16/20 00:00 11/15/20 23:44 96 11/15/20 23:32 11/15/20 22:50 98 11/15/20 22:22 Laboratory Results WBC 8.50, hemoglobin 14.4, hematocrit 42.2, platelet count 277, sodium 138, potassium 3.6, BUN 14, creatinine 0.57, glucose 103, hemoglobin A1c 5.8, calcium 9.2, magnesium 2.3, AST 14, ALT 21, troponin less than 0.015, triglycerides 109, cholesterol 214, LDL 141, VLDL 22, HDL 51, TSH 1.[address] of the head and CT angiography of the head and neck have been completed and are as described in the history of present illness. I reviewed the images as well as the radiologist's interpretation of these tests. A brain MRI completed in May 2019 had revealed an acute to subacute infarct involving the right lateral lentiform nucleus/external capsule as well as old right MCA distribution infarcts involving the right temporal and parietal lobes as well as an old lacunar infarct at the right pontomedullary junction. I reviewed the images as well as the radiologist's interpretation of this test as well. Electrocardiogram reveals a normal sinus rhythm, possible left atrial enlargement, 96 bpm. Coding Level of Care Code 23398 Initial In Care Lvl 3 Diagnoses CVA (cerebral vascular accident) I63.9 CVA mechanism: unspecified (1) CVA (cerebral vascular accident) CVA mechanism: unspecified Qualified Code(s): I63.9 - Cerebral infarction, unspecified
--- NOTE | 2020-11-16 09:22 | CT Scan Report ---
CT angio neck with con CLINICAL HISTORY: stroke-like symptoms COMPARISON STUDY: May 04, 2019 TECHNIQUE: CT angiography was performed from the aortic arch to the skull base. MIP imaging was perfo rmed. The patient was scanned in a dynamic helical fashion during intravenous administration of 119 c c of Optiray. A dose lowering technique was utilized adhering to the principles of ALARA. CT DOSE: Technique: CT angiogram of the carotid and vertebral arteries was obtained using intravenous contrast and 3-D reconstruction. NASCET criteria was utilized. Findings: Minimal atherosclerotic involvement of the clinoid portion of bilateral internal carotid arteries wit hout hemodynamically significant stenosis. Right and left common and internal carotid arteries are pa tent throughout its course. Short retropharyngeal course of the proximal aspect of the right and left common carotid arteries are seen. Interval development of approximately 70% stenosis within V2 segment of the right vertebral artery (4 /216). The rest of right and left vertebral arteries are patent and tortuous. There is no evidence of vertebral dissection. IMPRESSION: 1. Interval development of approximately 70% stenosis within the V2 segment of the right vertebral a rtery as detailed above. Findings were called to nursing unit at the time of this dictation. ACT 112: Positive. There are findings on this exam that require communication between the performing entity and the patient following Patient Test Result Information Act ([place] Act 112) guidelines. The above report was generated using voice recognition software. It may contain grammatical, syntax o r spelling errors. Electronically signed by: Michelle Rapp DO 11/16/2020 9:21 AM
--- NOTE | 2020-11-16 09:43 | CT Scan Report ---
CT angio head w con CLINICAL HISTORY: stroke-like symptoms TECHNIQUE: CT angiography of the head was performed in a dynamic helical fashion during intravenous a dministration of 119 cc of Optiray. MIP imaging was performed. A dose lowering technique was utilized adhering to the principles of ALARA. CT DOSE: 518.91 mGy.cm COMPARISON STUDY: No previous studies for comparison. FINDINGS: Mild atherosclerotic involvement of supraclinoid aspect of the right and left internal carotid arteri es are seen without hemodynamically significant stenosis. Previously seen focal stenosis of the one of M2 segment branches of the right MCA is unchanged. No ne w areas of stenosis are seen. Left MCA is patent. Bilateral anterior cerebral and anterior communicating arteries are patent patent. Basilar artery is tortuous and patent. Nodular appearance of the P1 segment of the left posterior cer ebral artery which is patent through its entire course. Partial origin of the right posterior c erebral artery with mild diffuse narrowing of its P1 segment is unchanged since prior. Distal aspect of the right posterior cerebral artery is patent. Findings are unchanged since prior study. There are no lesion suspicious for aneurysm. There are no major intracranial branch occlusions. The d ural venous sinuses appear patent. IMPRESSION: 1. Stable changes at the M2 branch of the right middle cerebral artery. 2. origin of the right posterior cerebral artery with mild diffuse narrowing of its P1 segment which is stable since prior study. 3. Nodular appearance of P1 segment of the left posterior cerebral artery which is also unchanged si nce prior study. ACT 112: Negative or not required by law. The above report was generated using voice recognition software. It may contain grammatical, syntax o r spelling errors. Electronically signed by: Michelle Rapp DO 11/16/2020 9:42 AM
--- NOTE | 2020-11-16 10:19 | Electrocardiogram Report ---
Test Reason : Blood Pressure : / mmHG Vent. Rate : 096 BPM Atrial Rate : 096 BPM P-R Int : 138 ms QRS Dur : 092 ms QT Int : 378 ms P-R-T Axes : 054 059 020 degrees QTc Int : 477 ms Poor data quality, interpretation may be adversely affected Normal sinus rhythm Possible Left atrial enlargement Borderline ECG When compared with ECG of 06-JUN-2019 07:14, Non-specific change in ST segment in Inferior leads Confirmed by Silas Santiago ([id number]) on 11/16/2020 10:19:21 AM Referred By: Maik Du Confirmed By:Aj Santiago
--- NOTE | 2020-11-16 10:58 | XCELERA ---
[id number]
[2020-11-16] MEDS ORDERED: CYCLOBENZAPRINE HCL 5 MG TAB PO STA (14:04)
--- NOTE | 2020-11-16 14:44 | Magnetic Resonance Report ---
MRI OF THE BRAIN WITHOUT IV CONTRAST CLINICAL HISTORY: Strokelike symptoms COMPARISON STUDY: CT of the brain dated 11/15/2020. TECHNIQUE: MRI of the brain was performed utilizing various T1 and T2-weighted sequences in the axial , sagittal, and coronal planes. IV contrast was not administered for this examination. FINDINGS: Brain parenchyma: There is age-related involutional change noting moderate subcortical and periventri cular microangiopathic disease. Right temporoparietal encephalomalacia is consistent with a remote in farct. There is associated ex vacuo dilatation of the right lateral ventricle and Wallerian degenerat ion of the right mayela. Chronic lacunar infarcts are noted in the right mayela and the left basal gangli a. There is no hemorrhage or mass effect. There is no restricted diffusion atypical for acute ischemi a. Rosales-white matter differentiation is preserved. No extra-axial fluid collection is seen. The cereb ellar tonsils are normal in configuration. Ventricles, sulci, and cisterns: Prominent secondary to involutional change. Pituitary and sella: Unremarkable. Intracranial vasculature: Normal flow voids are maintained at the skull base. Orbits: The bony orbits are grossly intact. Orbital contents are normal in appearance. Sinuses and mastoids: The paranasal sinuses are clear. There are left larger than right mastoid effus ions. Calvarium: Unremarkable. Cervical cord: Partially visualized cervical spinal cord is normal in morphology and signal intensity . IMPRESSION: No acute intracranial abnormality. ACT 112: Negative or not required by law. Electronically signed by: Fadi Orozco M.D. 11/16/2020 2:43 PM
[2020-11-16] MEDS: lisinopril 20 MG TAB PO SCH (20:38)
[2020-11-16] MEDS: PRAVASTATIN SOD 40 MG TAB PO SCH (20:39)
[2020-11-17] MEDS: HEPARIN SOD 5,000 UNIT/0.5 ML VIAL SQ SCH (06:01)
--- NOTE | 2020-11-17 08:43 | Discharge Summary ---
Date of Service November 17, 2020 Admission HPI Per Admitting Provider The patient is a 75-year-old female with a past medical history including urinary bowel incontinence, depression, left arm and leg weakness from previous CVA, hypertensive urgency, GERD, right pontine CVA, prediabetes, hypertension and hypercholesterolemia. Her family and friends told her that about 6 weeks ago they thought she was having some issues with eye drifting when she was talking to somebody. She has had persistent left arm and leg weakness, which has worsened a little bit during his interval time. She walks with a walker, leading with her right foot, and dragging her left leg behind. The main new sy mptom she notices over the past 6 weeks, is increased urinary frequency and urgency. Admission Exam Per Admitting Provider The patient is awake, alert and oriented 3, normocephalic and atraumatic, lying in bed and in no acute distress. HEENT--PERRL, EOMI, mucous membranes and oropharynx dry. Neck--supple. No JVD. No bruits. Thyroid normal, trachea midline, no adenopathy. Heart--normal S1 and S2. No murmurs, rubs or gallops. Lungs--clear bilaterally, no respiratory distress, no accessory muscle use. Abdomen--normal bowel sounds and soft. Nontender. Nondistended Extremities--no cyanosis or clubbing. No edema. There are good distal pulses b/l. Dermatologic--normal skin turgor, normal color, no abnormal lymph nodes, no rash. Neurologic--cranial nerves II through XII grossly intact. right arm and leg normal strength and sensation. Left arm and leg with normal sensation, but decreased strength 4/5 Psychiatric--normal affect. Principal Diagnosis subacute stroke Discharge Exam Constitutional: in no apparent distress, sitting comfortably in bed. Eyes: EOMI, pupils equal and reactive bilaterally, no scleral icterus, visual mensah intact, rightward preferred gaze, choppy movement of eyes Cardiac: RRR, no murmurs, gallops or rubs. Normal S1, S2 Pulm: CTA BL, no wheezes, rhonchi, crackles or rubs, moving air well throughout both lungs Abd: soft, nontender, nondistended, normal bowel sounds, no rebound or guarding Extremities: 2+ peripheral pulses, no edema, limited movement and use of left arm and leg Neuro: A&Ox3, nomal finger to nose, normal right sided heel to ny, Discharge Data Allergies Allergy/AdvReac Type Severity Reaction Status Date / Time Penicillins Allergy Hives Verified 11/25/20 14:15 Sulfa (Sulfonamide Allergy Hives Verified 11/25/20 14:15 Antibiotics) "ALL ANTIBIOTICS" Allergy Intermediate HIVES Uncoded 11/25/20 14:15 Consultations 11/15/20 17:37 ED Decision to Admit Stat 11/15/20 21:05 Consult Neurology Routine Ordered Studies 11/15/20 16:07 CT head/brain wo con Stat 11/15/20 21:05 CT angio head w con Routine CT angio neck with con Routine 11/16/20 11:06 MR brain wo con Routine Hospital Course (1) CVA (cerebral vascular accident): 75 yo F with hx R MCA stroke, depression, HTNive urgency admitted for concerns of stroke symptoms and recurrent rightward gaze. Stroke Symptoms - CTA Head and Neck showing interval prominence of R vertebral artery stenosis to 70% - Head ct negative, MRI negative for acute intracerebral changes - per neurology,recommend 30 day outpatient leasing professional, continue plavix. - loop recorder findings thus far reviewed -- no episodes of Afib. few bradycardic and tachycardic episodes that last <15s each. - lipid panel : total cholesterol elevated to 214, LDL 141. - will switch pravastatin to rosuvastatin 20mg. - A1c 5.8 Would benefit from home health aid to help her around the home since she lives alone. Discharged home with [facility] home health to evaluate her on 11/18 at home. All other medical conditions managed per home regimen. (2) Stroke-like symptoms: Total Time Total Time Spent Total Time Spent (In Minutes): see attending attestation Discharge Plan Discharge Items Patient Disposition: Home - Home Health Services Reason For Visit: Discharge Diagnosis: subacute stroke Condition on Discharge: Good Activity: Resume your previous activity Non-emergency contact: Primary Care Provider Call non-emergency contact if: you have any medication questions and your symptoms worsen Follow-up/Referrals: Maik Du MD [Primary Care Provider] - Diet: Heart Healthy Addtl Attending Provider Instructions: You were seen in the hospital for a persistent rightward gaze that was noticed by others around you. THis is most likely due to an old stroke or brain injury in the part of your brain that controls eye movement and function. Our neurologist saw you in the hospital and recommend you have a 30 day heart mo nitor performed, which you are in the process of having with your loop recorder. We changed your blood pressure medication from the short acting 50 mg Metoprolol twice a day to the long acting Metoprolol succinate 100 mg once a day to help control your high blood pressures more. We also changed your cholesterol medication from pravastatin to rosuvastatin 20 mg once a day. It is important that you continue doing exercises and stretches at home to maintain your strength and work with home PT/OT. You will continue taking your other medications as before. Follow up with your primary care provider and have an ophthalmology appointment set up to have your vision and eyes checked. Pending Studies at Discharge: No Stand-Alone Forms: My [facility], Smoking Cessation Medications and DC Order Prescriptions: New metoprolol succinate 50 mg Tablet Extended Release 24 Hr 100 mg PO QAM 30 Days Qty: 60 RF: 0 Continued clopidogrel 75 mg tablet 75 mg PO QAM Qty: 30 RF: 2 lisinopril 20 mg tablet 20 mg PO HS Qty: 90 RF: 5 acetaminophen [Tylenol] 325 mg Tablet 650 mg PO Q6H PRN (Reason: Pain) RF: 0 omeprazole 20 mg Tablet,Delayed Release (Dr/Ec) 20 mg PO DAILY RF: 0 Discontinued metoprolol tartrate 50 mg tablet 50 mg PO BID Qty: 180 RF: 3 pravastatin 40 mg tablet 40 mg PO HS Qty: 90 RF: 3 No Action baclofen 10 mg tablet 10 mg PO BID Qty: 60 RF: 2 rosuvastatin 20 mg tablet 20 mg PO DAILY Qty: 30 RF: 2 Discharge Orders: Discharge Order (Routine); Ordered 11/17/20 Ordered By: Kendy Ramírez Admission Data Admit Date/Time: 11/15/20 18:32 Attending Provider: Clyde Christina Admit Provider: Garrett Hawkins Primary Care Provider: Maik Du Other Providers: Walter Roberts Other Interventions: Discharge Summary Assessment (RN) Last Done: 11/17/20 13:23 Supervising Physician Co-Signing Physician Notes I personally saw and examined the patient. I verified all zhong points and agree with resident physician Dr Kendy Ramírez with the following exceptions and/or additions: Subacute CVA with rightward gaze noted. Patient mostly at baseline at this time. Switched to rosuvastatin (high dose) and Metoprolol succinate fo better blood pressure control. Resident Activity Tracking Resident Involvement: Resident Care Provided Care Provided: Adult Hospital Medicine
[2020-11-17] MEDS ORDERED: METOPROLOL SUCC 50MG EXT REL TAB PO SCH (09:00)
[2020-11-17 09:13] LABS: Basophils # (auto) 0.03 K/uL (0-0.2); Basophils % (auto) 0.4 %; Eosinophils # (auto) 0.11 K/uL (0-0.5); Eosinophils % (auto) 1.3 %; Hematocrit (blood only) 42.7 % (37-47); Hemoglobin 14.8 g/dL (12.0-16.0); Immature Granulocytes # (auto) 0.02 K/uL (0.00-0.02); Immature Granulocytes % (auto) 0.2 %; Lymphocytes % (auto) 10.9 %; Mean Corpuscular Hemoglobin 31.6 pg (25-34); Mean Corpuscular Hgb Conc 34.7 g/dL (32-36); Mean Platelet Volume 11.4 fL (7.4-10.4); Monocytes # (auto) 0.66 K/uL (0.11-0.59); Neutrophils # (auto) 6.53 K/uL (1.4-6.5); Neutrophils % (auto) 79.2 %; Platelet Count 231 K/uL (130-400); RDW Coefficient of Variation 12.6 % (11.5-14.5); Red Blood Count 4.69 M/uL (4.2-5.4); White Blood Count 8.25 K/uL (4.8-10.8)
[2020-11-17 09:23] LABS: Partial Thromboplastin Time 25.6 Seconds (21.0-31.0)
[2020-11-17 09:42] LABS: Albumin Globulin Ratio 0.8 (0.9-2); Albumin Level 3.2 gm/dl (3.4-5.0); BUN Creatinine Ratio 22.2 (10-20); Bilirubin,Total 0.6 mg/dl (0.2-1); Creatinine Clr Calc Pharmacy 51.3 ml/min; Est GFR (African American) 68.8 ml/min; Est GFR (Non-African American) 59.3 ml/min; Globulin 3.8 gm/dl (2.5-4.0); Magnesium 2.3 mg/dl (1.8-2.4)
[2020-11-17] MEDS: PANTOprazole 40 MG TAB PO SCH (09:44)
[2020-11-17] MEDS: CLOPIDOGREL BISULFATE 75 MG TAB PO SCH (09:45)
[2020-11-17] MEDS ORDERED: STROKE PATIENT DISCHARGE STA (10:19)
--- NOTE | 2020-11-17 11:58 | Neurology Progress Note ---
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 Patient's tendency to gaze right is likely related to her chronic infarct and associated left hemineglect syndrome. No evidence of acute or subacute stroke on recent MRI. Patient should continue with Plavix and pravastatin. Would recommend 30-day mobile cardiac outpatient telemetry as well as assessment with ophthalmology to further characterize her visual field deficit. No further immediate neurological recommendations. Admission and Anticipated Discharge Date Admission Date: November 15, 2020 Subjective Follow-up for stroke No significant change in patient's symptoms since yesterday. Continues to have a tendency to gaze to the right and has difficulty with her left visual field and associated left-sided hemisensory neglect. Patient did complete follow-up brain MRI yesterday which was negative for evidence of any acute or subacute stroke. The study does reveal a relatively large chronic infarct within the right temporoparietal region with associated encephalomalacia and ex vacuo dilatation of the right lateral ventricle and wallerian degeneration of the right mayela. There are chronic lacunar infarcts within the right mayela and left basal ganglia as well. I reviewed the images as well as the radiologist's interpretation of this test and agree. As described previously, her CT angiogram of the neck reveals a 70% stenosis within the V2 segment of the right vertebral artery. CTA of the head had revealed stable changes at the M2 branch of the right middle cerebral artery. An echocardiogram has revealed normal left ventricular systolic function, mild concentric left ventricular hypertrophy, moderately dilated left atrium, no interatrial shunt. Review of Systems Eyes: + blind spots; no diplopia Neurologic: no localized weakness, no loss of sensation and no headache(s) Results & Data ([facility]) Vital Signs (Past 12 Hours) Vital Signs Temp Pulse Resp BP Pulse Ox 11/17/20 08:08 36.8 C 60 16 161/97 H 96 11/17/20 03:44 36.6 C 57 L 20 146/74 H 96 Exam (Neuro) Physical Exam: Patient continues to exhibit signs of left hemineglect and tendency to gaze to the right. She continues to have elements of a left homonymous hemianopsia versus left homonymous quadrantanopsia. Mild left hemiparesis unchanged. Coding Level of Care Code 24807 Subseq Hosp Care Lvl 2 Diagnoses H/O: stroke with residual effects I69.30 Yaniv-neglect of left side R41.4
--- NOTE | 2020-12-02 00:06 | Billing Data ---
Date of Service November 16, 2020 Coding Level of Care Code 61294 Subseq Obs Care Lvl 3
== END 2020-11-17 14:16 | disposition home health service (06) ==
LOC: ED 15:54 → 2S 15:54 → SUATTDRO 18:32 → 2S 20:17
DX: K21.9 Gastro-esophageal reflux disease without esophagitis; Z88.0 Allergy status to penicillin; R73.03 Prediabetes; R15.9 Full incontinence of feces; I10 Essential (primary) hypertension; E78.00 Pure hypercholesterolemia, unspecified; Z88.1 Allergy status to other antibiotic agents; Z79.02 Long term (current) use of antithrombotics/antiplatelets; Z82.49 Family history of ischemic heart disease and other diseases of the circulatory system; Z82.3 Family history of stroke; Z79.899 Other long term (current) drug therapy; Z86.73 Personal history of transient ischemic attack (TIA), and cerebral infarction without residual deficits; I63.9 Cerebral infarction, unspecified; R32 Unspecified urinary incontinence; Z20.822 Contact with and (suspected) exposure to COVID-19; Z88.2 Allergy status to sulfonamides; I69.352 Hemiplegia and hemiparesis following cerebral infarction affecting left dominant side

== ENCOUNTER 2021-01-11 15:25 | Inpatient (IN) ==
--- NOTE | 2021-01-11 16:48 | Medical Student H&P ---
Date of Service January 11, 2021 History of Present Illness Chief Complaint: Falls the past 3 days Primary Care Provider: Maik Du MD Marylou is a 75 yo woman with a history of R MCA infarct with chronic residual L hemiparesis, HTN, HLD, GERD, pre-diabetes, and suicidal ideation who presents to the ED with concerns about repeated falling. She states that she is concerned about a stroke because she has fallen every day the past 3 days. She says that she did not hurt herself when she fell, did not hit her head, or lose consciousness. She remembers each fall. She did not feel dizzy or lightheaded prior to falling; she says that she was just walking from the bathroom with her walker and fell down. She states that she has been on the ground for about 1 hr each fall and crawled across the room for help. She reports no change in vision, no headache, no sob, no chest pain, no palpitations, no abdominal pain, no change in bowel movements, no hematuria, no hematochezia, no vertigo. She is incontinent normally and wears Depends. She has persistent bilateral right deviation of her eyes from past stroke. Allergies Allergy/AdvReac Type Severity Reaction Status Date / Time Penicillins Allergy Hives Verified 11/25/20 14:15 Sulfa (Sulfonamide Allergy Hives Verified 11/25/20 14:15 Antibiotics) "ALL ANTIBIOTICS" Allergy Intermediate HIVES Uncoded 11/25/20 14:15 Home Medications Medication Instructions Recorded Confirmed Type acetaminophen 325 mg tablet 650 mg PO Q6H PRN 06/07/18 01/11/21 History (Tylenol) clopidogrel 75 mg tablet 75 mg PO QAM #30 tab 10/02/20 01/11/21 Rx omeprazole 20 mg tablet,delayed 20 mg PO DAILY 11/15/20 01/11/21 History release baclofen 10 mg tablet 10 mg PO BID #60 tab 11/18/20 01/11/21 Rx rosuvastatin 20 mg tablet 20 mg PO DAILY #30 tab 11/18/20 01/11/21 Rx lisinopril 20 mg tablet 40 mg PO HS #90 tab 12/11/20 01/11/21 Rx Past Med/Surg History Medical History Acute CVA (cerebrovascular accident) Acute right MCA stroke Depression GERD (gastroesophageal reflux disease) HTN (hypertension) HTN (hypertension) Hypercholesterolemia Hypercholesterolemia Pre-diabetes Prediabetes Sinusitis Suicidal ideation Suicide attempt 2013 - ETOH/Valium combination - had acute inpatient psychiatric stay Urinary and bowel incontinence Urinary incontinence Surgical History H/O oral surgery History of loop recorder S/P appendectomy S/P hysterectomy with oophorectomy Family History Mother Hypertension Grandmother (Maternal) Stroke Other Heart disease Denies family history of Ovarian cancer Prostate cancer Myocardial infarction Breast cancer Colorectal cancer Social History Smoking Status: Never smoker Second Hand Exposure: No; Hx Alcohol Use: No Hx Substance Use: No Preferred Language: Romanian Communication Ability: Effective Visual Impairment: No Limitations Hearing Ability: Normal 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 Beliefs That Will Affect Care: None marital status: Current Living Situation: Alone Current Living Situation Comment: senior apartment housing, lives at [facility] current occupational status: retired 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[employer], 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 Feels Safe at Home: No Is there a partner from a previous relationship who is making you feel unsafe now?: No Childhood Exposure to Second-Hand Smoke: Yes Dental Care, Regularly: Yes Physical Activity Frequency: 1-2 Times per Week Physical Activity Frequency Comment: walks to [facility] 2X a week for her groceries Seatbelt Use: always Sunscreen Use: No Assistive Devices: Glasses and Walker Review of Systems no fever, chills, night sweats see HPI no congestion, sore throat see HPI Additional Comments: see HPI see HPI see HPI Physical Exam Constitutional: WD/WN, sitting comfortably in no acute distress Eyes: PERRLA, right deviation of eyes ENMT: oral and pharyngeal mucosa moist Respiratory: lungs CTA in all 6 lung mensah Cardiovascular: regular rate and rhythm, no m/r/g. no carotid bruits appreciated. mild edema in left LE. dorsalis pedis pulse 2+ bilaterally. Gastrointestinal (Abdomen): abdomen soft and non-tender to palpation Skin: no breaks in skin, no erythema, rashes. Neurologic: Alert and oriented x3. Cranial nerves II- XII intact. I not tested. Motor strength in biceps/triceps 5/5 on the R 4/5 on the left. quad strength 5/5 on the R, 4/5 on the L. Psychiatric: Appropriate mood and affect Results & Data ([facility]) Vital Signs (Past 12 Hours) Vital Signs Temp Pulse Resp BP Pulse Ox 01/11/21 16:42 98 01/11/21 15:27 36.8 C 95 H 18 203/117 H 95
[2021-01-11 17:20] LABS: Basophils # (auto) 0.03 K/uL (0-0.2); Basophils % (auto) 0.3 %; Eosinophils % (auto) 1.1 %; Hematocrit (blood only) 42.6 % (37-47); Hemoglobin 14.5 g/dL (12.0-16.0); Immature Granulocytes # (auto) 0.02 K/uL (0.00-0.02); Immature Granulocytes % (auto) 0.2 %; Lymphocytes # (auto) 2.04 K/uL (1.2-3.4); Lymphocytes % (auto) 22.1 %; Mean Corpuscular Hemoglobin 31.5 pg (25-34); Mean Corpuscular Volume 92.6 fL (80-100); Mean Platelet Volume 11.1 fL (7.4-10.4); Monocytes # (auto) 0.82 K/uL (0.11-0.59); Monocytes % (auto) 8.9 %; Neutrophils # (auto) 6.23 K/uL (1.4-6.5); Neutrophils % (auto) 67.4 %; Platelet Count 263 K/uL (130-400); RDW Coefficient of Variation 12.6 % (11.5-14.5); White Blood Count 9.24 K/uL (4.8-10.8)
[2021-01-11 17:37] LABS: Alanine Aminotransferase 22 U/L (12-78); Albumin Level 3.5 gm/dl (3.4-5.0); Aspartate Aminotransferase 16 U/L (15-37); BUN Creatinine Ratio 20.9 (10-20); Blood Urea Nitrogen 17 mg/dl (7-18); Calcium 9.1 mg/dl (8.5-10.1); Carbon Dioxide 28 mmol/L (21-32); Chloride 107 mmol/L (98-107); Creatinine Clr Calc Pharmacy 62.3 ml/min; Est GFR (African American) 84.9 ml/min; Est GFR (Non-African American) 73.2 ml/min; Glucose 107 mg/dl (70-99); Potassium 3.7 mmol/L (3.5-5.1); Sodium 142 mmol/L (136-145)
--- NOTE | 2021-01-11 17:38 | XRay Report ---
XR chest 1V portable CLINICAL HISTORY: weakness COMPARISON STUDY: November 15, 2020 FINDINGS: No pneumothorax. No pleural effusion. No large infiltrates or consolidative lesions are seen. Diffuse reticular coarsening of pulmonary int erstitium is again seen bilaterally, slightly worsened since prior and most likely represent chronic interstitial changes. Cardiomediastinal silhouette is within normal limits in size. No significant pulmonary vascular congestion.. Aorta is calcified Osseous structures: Osteopenia. Degenerative changes of the spine. Loop recorder is again seen projecting to the cardiac silhouette. IMPRESSION: 1. No large infiltrates or consolidative lesions. 2. Atherosclerotic. 3. The rest of findings as above. ACT 112: Negative or not required by law. The above report was generated using voice recognition software. It may contain grammatical, syntax o r spelling errors. Electronically signed by: Michelle Rapp DO 01/11/2021 5:36 PM
--- NOTE | 2021-01-11 17:43 | CT Scan Report ---
CT head/brain wo con CLINICAL HISTORY: falls COMPARISON STUDY: November 15, 2020 TECHNIQUE: Axial CT of the brain is performed from the vertex to the skull base. IV contrast was not administered for this examination. A dose lowering technique was utilized adhering to the principles of ALARA. CT DOSE: 537.48 mGy.cm FINDINGS: No acute intracranial hemorrhage, no midline shift or space occupying lesions. Redemonstration of large area of encephalomalacia involving right parietal and temporal region also a ssociated with slightly asymmetrical ex vacuo dilatation of the right lateral ventricle. Stable lacunar infarcts are seen within bilateral basal ganglia. There are patchy white matter hypodensities likely on a small vessel basis. Atrophic changes of brain parenchyma are seen and associated with mild ex vacuo dilatation of ventric les. No acute depressed skull fractures seen. There is no evidence of acute sinusitis IMPRESSION: No acute intracranial hemorrhage, no midline shift or space occupying lesions. Redemonstration of the stable encephalomalacia involving right parietal and temporal region. No acute depressed skull fractures. The rest of findings as above. ACT 112: Negative or not required by law. The above report was generated using voice recognition software. It may contain grammatical, syntax o r spelling errors. Electronically signed by: Michelle Rapp DO 01/11/2021 5:42 PM
[2021-01-11 17:48] LABS: Albumin Globulin Ratio 0.8 (0.9-2); Alkaline Phosphatase 119 U/L (45-117); Bilirubin,Total 0.4 mg/dl (0.2-1); Globulin 4.1 gm/dl (2.5-4.0); Total Protein 7.6 gm/dl (6.4-8.2); Troponin I < 0.015 ng/ml (0-0.045)
[2021-01-11 17:56] LABS: Bilirubin Urine Negative (Negative); Blood Urine Negative (Negative); Color Urine Yellow; Glucose Urine UA Negative (Negative); Ketones Urine Negative (Negative); Leukocyte Esterase Urine Negative (Negative); Nitrite Urine Negative (Negative); Protein Urine Negative (Negative); Specific Gravity Urine 1.012 (1.000-1.030); Urobilinogen Urine Negative (Negative)
[2021-01-11 17:58] LABS: Appearance Urine Clear (Clear)
--- NOTE | 2021-01-11 18:48 | History & Physical Report ---
Date of Service January 11, 2021 Assessment & Plan (1) Recurrent falls: Plan: Not clear new symptoms to suggest new stroke. Will get MRI as clearly at increased risk but suspect more recrudescence of old stroke areas in setting of uncontrolled hypertension If MRI positive for new acute stroke consult neurology No injuries apparent from her falls Requesting rehab stay which seems guzman. PT/OT/Case management (2) Hypertensive urgency: Plan: Secondary to not taking her usual medications Give her usual metoprolol succinate now as missed for the last 2 days which also explains rebound tachycardia Continue lisinopril 40mg HS Hydralazine 5mg IV now then PRN depending on response. (3) Yaniv-neglect of left side: Plan: Known from previous strokes (4) History of stroke: Plan: Left sided weakness. Prior visual deficits although none on gross visual field exam today. Continue clopidogrel and rosuvastatin (5) Ambulatory dysfunction: Plan: PT/OT (6) Noncompliance with medication regimen: (7) GERD (gastroesophageal reflux disease): Plan: Switch omeprazole to pantoprazole per hospital formulary Plan: VTE prophylaxis - Lovenox 40mg SQ daily Diet - Heart healthy, low Na Disposition - admit to med/tele Admission and Anticipated Discharge Date Admission Date: January 11, 2021 History of Present Illness Chief Complaint: Falling to left side Primary Care Provider: Maik Du MD Marylou Sanders is a 75 year old female with history of multiple strokes who presents to the ER with concern of a new stroke as she has been falling to her left side for the last 3 days. She has significant left sided weakness chronically and left sided neglect but usually is able to walk around with a walker. She is concerned about a new stroke but mainly feels she needs to go somewhere for rehabilitation at this time. She reports no injuries or pain from the falls. No new vision, speech or hearing changes. No new weakness or change in sensation of extremities. Reports her left sided weakness is at it's baseline. She reports non compliance with her medications as sometimes it is too hard to get into the room where she keeps them. Therefore has not taken her medications (including for her blood pressure) for the last few days. She reports her blood pressure is usually higher in hospital than at home. In the ER CT head showed no acute pathology. She was referred to medicine for admission and ongoing management of weakness. Allergies Allergy/AdvReac Type Severity Reaction Status Date / Time Penicillins Allergy Hives Verified 11/25/20 14:15 Sulfa (Sulfonamide Allergy Hives Verified 11/25/20 14:15 Antibiotics) "ALL ANTIBIOTICS" Allergy Intermediate HIVES Uncoded 11/25/20 14:15 Home Medications Medication Instructions Recorded Confirmed Type acetaminophen 325 mg tablet 650 mg PO Q6H PRN 06/07/18 01/11/21 History (Tylenol) clopidogrel 75 mg tablet 75 mg PO QAM #30 tab 10/02/20 01/11/21 Rx omeprazole 20 mg tablet,delayed 20 mg PO DAILY 11/15/20 01/11/21 History release baclofen 10 mg tablet 10 mg PO BID #60 tab 11/18/20 01/11/21 Rx rosuvastatin 20 mg tablet 20 mg PO DAILY #30 tab 11/18/20 01/11/21 Rx lisinopril 20 mg tablet 40 mg PO HS #90 tab 12/11/20 01/11/21 Rx metoprolol succinate 50 mg 100 mg PO QAM 01/11/21 01/11/21 History tablet,extended release 24 hr Past Med/Surg History Medical History Acute CVA (cerebrovascular accident) Acute right MCA stroke Depression Depression with suicidal ideation GERD (gastroesophageal reflux disease) HTN (hypertension) HTN (hypertension) Hypercholesterolemia Hypercholesterolemia Pre-diabetes Prediabetes Sinusitis Suicidal ideation Suicide attempt 2013 - ETOH/Valium combination - had acute inpatient psychiatric stay Urinary and bowel incontinence Urinary incontinence Surgical History H/O oral surgery History of loop recorder S/P appendectomy S/P hysterectomy with oophorectomy Family History Mother Hypertension Grandmother (Maternal) Stroke Other Heart disease Denies family history of Ovarian cancer Prostate cancer Myocardial infarction Breast cancer Colorectal cancer Social History Smoking Status: Never smoker Second Hand Exposure: No; Hx Alcohol Use: No Hx Substance Use: No Preferred Language: Chinese Communication Ability: Effective Visual Impairment: No Limitations Hearing Ability: Normal 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: No Beliefs That Will Affect Care: None marital status: Current Living Situation: Alone Current Living Situation Comment: Senior apartment housing current occupational status: retired 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[employer] companies, similar to [employer] work Other Information That Helps Us Care for You: No Feels Safe at Home: No Is there a partner from a previous relationship who is making you feel unsafe now?: No Any Concerns about Your Family Situation: No Would You Like to Speak to Someone About Your Situation: No Safety Concerns: Afraid for Self Childhood Exposure to Second-Hand Smoke: Yes Dental Care, Regularly: Yes Physical Activity Frequency: 1-2 Times per Week Physical Activity Frequency Comment: walks to [facility] 2X a week for her groceries Seatbelt Use: always Sunscreen Use: No Assistive Devices: Glasses Review of Systems Review of Systems: All systems reviewed & are unremarkable except as noted in HPI & below Physical Exam Constitutional: WD/WN, vitals as above no acute distress Eyes: PERRL, conjunctivae normal, anicteric sclerae normal visual mensah by confrontation and EOM intact bilaterally; no nystagmus ENMT: external ear and nose normal, oropharynx normal Neck: trachea midline, no thyromegaly Respiratory: normal respiratory effort, lungs clear to auscultation Cardiovascular: Rate/Rhythm: regular rhythm and + tachycardic Heart Sounds: + murmur (LLSB systolic) Vessels: no JVD Extremities: normal capillary refill and + pedal edema (L 2+ > R trace pre tibial); no calf tenderness Gastrointestinal (Abdomen): normal bowel sounds, soft, nontender, no hepatosplenomegaly Skin: no rashes, warm and dry Neurologic: moves all extremities, + focal motor deficit (see below) and awake; not confused Speech / Cognition: normal speech Motor/Sensory: + pronator drift (Left); no tremor Cranial Nerves: PERRL, EOM intact bilaterally, normal facial strength, tongue midline, able to rotate head bilaterally, able to elevate shoulders bilaterally, no nystagmus and symmetric palate elevation No right sided weakness LUE weakness proximal > distal, 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 No pleural effusion. No large infiltrates or consolidative lesions are seen. Diffuse reticular coarsening of pulmonary interstitium is again seen bilaterally, slightly worsened since prior and most likely represent chronic interstitial changes. Cardiomediastinal silhouette is within normal limits in size. No significant pulmonary vascular congestion.. Aorta is calcified Osseous structures: Osteopenia. Degenerative changes of the spine. Loop recorder is again seen projecting to the cardiac silhouette. IMPRESSION: 1. No large infiltrates or consolidative lesions. 2. Atherosclerotic. 3. The rest of findings as above. CT head/brain wo con No acute intracranial hemorrhage, no midline shift or space occupying lesions. Redemonstration of large area of encephalomalacia involving right parietal and temporal region also associated with slightly asymmetrical ex vacuo dilatation of the right lateral ventricle. Stable lacunar infarcts are seen within bilateral basal ganglia. There are patchy white matter hypodensities likely on a small vessel basis. Atrophic changes of brain parenchyma are seen and associated with mild ex vacuo dilatation of ventricles. No acute depressed skull fractures seen. There is no evidence of acute sinusitis IMPRESSION: No acute intracranial hemorrhage, no midline shift or space occupying lesions. Redemonstration of the stable encephalomalacia involving right parietal and temporal region. No acute depressed skull fractures. The rest of findings as above. ECG Indication: other Rate (beats per minute): 103 Rhythm: sinus tachycardia Findings: no acute ischemic change Comparison ECG Date: from (November 15, 2020) Change: no significant change Code Status & VTE Plan Code Status Full VTE Prophylaxis Plan VTE Prophylaxis will be ordered: Yes PG Care Time/CCT Total # of Minutes Spent Total Time Spent with Patient: Total time spent is greater than 50% in coordination of care (as documented) at patient's floor/unit and/or counseling patient: Coding Level of Care Code 23429 Initial Inpt Care Lvl 3 Diagnoses Recurrent falls R29.6 Yaniv-neglect of left side R41.4 History of stroke Z86.73 Ambulatory dysfunction R26.2 Hypertensive urgency I16.0 Noncompliance with medication regimen Z91.14 GERD (gastroesophageal reflux disease) K21.9
--- NOTE | 2021-01-11 18:58 | Emergency Department Note ---
History of Present Illness General Chief complaint: Hypertension Stated complaint: UNSTEADY GAIT, FALLS Time Seen by Provider: 01/11/21 16:18 Source: patient Mode of arrival: EMS Limitations: no limitations History of Present Illness This patient comes in after falling the last 3 days. She is fallen once a day. She lives independently. She had a significant stroke in the past and has baseline left-sided weakness mostly of her left hand but also the leg. She does not feel that she is more weak and she is not quite sure why she is falling but is concerned about being at home by herself. She is on Plavix. She feels that she wants to be [facility] to [facility]. She has had no dizziness or lightheadedness or syncope no chest pain. No abdominal pain there is no injuries and she has neck pain or stiffness. No change in vision or difficulty speaking or swallowing acutely. No chest pain shortness of breath or abdominal pain. She had the Covid vaccine. Home Medications Medication Instructions Recorded Confirmed Type acetaminophen 325 mg tablet 650 mg PO Q6H PRN 06/07/18 01/11/21 History (Tylenol) clopidogrel 75 mg tablet 75 mg PO QAM #30 tab 10/02/20 01/11/21 Rx omeprazole 20 mg tablet,delayed 20 mg PO DAILY 11/15/20 01/11/21 History release baclofen 10 mg tablet 10 mg PO BID #60 tab 11/18/20 01/11/21 Rx rosuvastatin 20 mg tablet 20 mg PO DAILY #30 tab 11/18/20 01/11/21 Rx lisinopril 20 mg tablet 40 mg PO HS #90 tab 12/11/20 01/11/21 Rx metoprolol succinate 50 mg 100 mg PO QAM 01/11/21 01/11/21 History tablet,extended release 24 hr Allergies Allergy/AdvReac Type Severity Reaction Status Date / Time Penicillins Allergy Hives Verified 11/25/20 14:15 Sulfa (Sulfonamide Allergy Hives Verified 11/25/20 14:15 Antibiotics) "ALL ANTIBIOTICS" Allergy Intermediate HIVES Uncoded 11/25/20 14:15 Past Med/Surg History Medical History Acute CVA (cerebrovascular accident) Acute right MCA stroke Depression Depression with suicidal ideation GERD (gastroesophageal reflux disease) HTN (hypertension) HTN (hypertension) Hypercholesterolemia Hypercholesterolemia Pre-diabetes Prediabetes Sinusitis Suicidal ideation Suicide attempt 2014 - ETOH/Valium combination - had acute inpatient psychiatric stay Urinary and bowel incontinence Urinary incontinence Surgical History H/O oral surgery History of loop recorder S/P appendectomy S/P hysterectomy with oophorectomy Family History Mother Hypertension Grandmother (Maternal) Stroke Other Heart disease Denies family history of Ovarian cancer Prostate cancer Myocardial infarction Breast cancer Colorectal cancer Social History Smoking Status: Never smoker Second Hand Exposure: No; Hx Alcohol Use: No Hx Substance Use: No Preferred Language: Occitan Communication Ability: Effective Visual Impairment: No Limitations Hearing Ability: Normal Bible Teacher Required: No Beliefs That Will Affect Care: None marital status: Current Living Situation: Alone Current Living Situation Comment: senior apartment housing, lives at [facility] current occupational status: retired 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[employer], 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 Feels Safe at Home: No Is there a partner from a previous relationship who is making you feel unsafe now?: No Childhood Exposure to Second-Hand Smoke: Yes Dental Care, Regularly: Yes Physical Activity Frequency: 1-2 Times per Week Physical Activity Frequency Comment: walks to [facility] 2X a week for her groceries Seatbelt Use: always Sunscreen Use: No Assistive Devices: Glasses and Walker Review of Systems A total of 10 systems reviewed and were otherwise negative Physical Exam Vital Signs Vital Signs - 24 hr 01/11/21 15:27 01/11/21 16:24 01/11/21 16:30 Temperature 36.8 C Temperature Source Oral Pulse Rate 95 H 104 H 105 H Pulse Rate [Apical] Pulse Rate from SpO2 Sensor 113 H 104 H Respiratory Rate 18 16 18 Respiratory Effort / Characteristics Non-Labored Respiratory Depth Normal Respiratory Pattern Regular Blood Pressure 203/117 H Blood Pressure [Right Arm] Blood Pressure Mean 145 Blood Pressure Mean [Right Arm] Blood Pressure Position Lying Blood Pressure Position [Right Arm] Pulse Oximetry 95 97 98 Oxygen Delivery Method Room Air Sepsis Recent Fever Within 48 Hours No Sepsis New/Unexplained Change in Mental Status No Sepsis Action Taken by Nursing No Action Required 01/11/21 16:40 01/11/21 16:42 01/11/21 16:52 Temperature Temperature Source Pulse Rate 103 H 104 H Pulse Rate [Apical] Pulse Rate from SpO2 Sensor 103 H 105 H Respiratory Rate 18 18 Respiratory Effort / Characteristics Respiratory Depth Respiratory Pattern Blood Pressure Blood Pressure [Right Arm] Blood Pressure Mean Blood Pressure Mean [Right Arm] Blood Pressure Position Blood Pressure Position [Right Arm] Pulse Oximetry 98 98 97 Oxygen Delivery Method Room Air Sepsis Recent Fever Within 48 Hours Sepsis New/Unexplained Change in Mental Status Sepsis Action Taken by Nursing 01/11/21 17:00 01/11/21 17:10 01/11/21 17:20 Temperature Temperature Source Pulse Rate 103 H 107 H 109 H Pulse Rate [Apical] Pulse Rate from SpO2 Sensor Respiratory Rate Respiratory Effort / Characteristics Respiratory Depth Respiratory Pattern Blood Pressure Blood Pressure [Right Arm] Blood Pressure Mean Blood Pressure Mean [Right Arm] Blood Pressure Position Blood Pressure Position [Right Arm] Pulse Oximetry Oxygen Delivery Method Sepsis Recent Fever Within 48 Hours Sepsis New/Unexplained Change in Mental Status Sepsis Action Taken by Nursing 01/11/21 17:27 01/11/21 17:30 01/11/21 17:40 Temperature Temperature Source Pulse Rate 100 H 100 H Pulse Rate [Apical] 102 H Pulse Rate from SpO2 Sensor Respiratory Rate 20 14 Respiratory Effort / Characteristics Non-Labored Respiratory Depth Normal Respiratory Pattern Regular Blood Pressure Blood Pressure [Right Arm] Blood Pressure Mean Blood Pressure Mean [Right Arm] Blood Pressure Position Blood Pressure Position [Right Arm] Pulse Oximetry 96 Oxygen Delivery Method Room Air Sepsis Recent Fever Within 48 Hours Sepsis New/Unexplained Change in Mental Status Sepsis Action Taken by Nursing 01/11/21 18:01 01/11/21 19:19 01/11/21 19:20 Temperature Temperature Source Pulse Rate 99 H 96 H Pulse Rate [Apical] Pulse Rate from SpO2 Sensor Respiratory Rate Respiratory Effort / Characteristics Respiratory Depth Respiratory Pattern Blood Pressure Blood Pressure [Right Arm] 215/113 H Blood Pressure Mean Blood Pressure Mean [Right Arm] 147 Blood Pressure Position Blood Pressure Position [Right Arm] Lying Pulse Oximetry Oxygen Delivery Method Sepsis Recent Fever Within 48 Hours Sepsis New/Unexplained Change in Mental Status Sepsis Action Taken by Nursing 01/11/21 19:30 01/11/21 19:50 Temperature Temperature Source Pulse Rate 118 H Pulse Rate [Apical] Pulse Rate from SpO2 Sensor 118 H Respiratory Rate Respiratory Effort / Characteristics Respiratory Depth Respiratory Pattern Blood Pressure Blood Pressure [Right Arm] 195/103 H Blood Pressure Mean Blood Pressure Mean [Right Arm] 133 Blood Pressure Position Blood Pressure Position [Right Arm] Pulse Oximetry 99 Oxygen Delivery Method Sepsis Recent Fever Within 48 Hours Sepsis New/Unexplained Change in Mental Status Sepsis Action Taken by Nursing General: Well developed well nourished older female who appears in no acute distress, breathing comfortably on room air. Normal speech HEENT: Normal cephalic atraumatic. Pupils are equal round and reactive to light. Extraocular movements are intact. Oropharynx is pink with moist mucous membranes. No swelling of the mouth lips or tongue. Neck: Supple with a midline trachea. No meningeal signs or stiffness, no JVD or bruits. No Stridor. Chest: Clear to auscultation bilaterally. No wheezes or rhonchi. No increased work of breathing. Heart: Regular rate and rhythm without murmurs or gallops. Abdomen: Soft nontender, nondistended without rebound guarding or rigidity. Extremities: No cyanosis clubbing or edema. No calf tenderness or assymetry Spine/Back. Non tender to palpation. No CVA tenderness Skin: Good turgor without rashes. Neurologic exam: Cranial nerves two through 12 are intact. She does have some baseline weakness left arm and leg more so on the left arm. She feels that she has no new numbness or weakness compared to baseline. Course Administered Medications Discontinued Medications Hydralazine HCl (Hydralazine Hcl 20 Mg/Ml Vial) 5 mg IV NOW STA Stop: 01/11/21 19:05 Last Admin: 01/11/21 19:15 Dose: 5 mg Documented by: [id number] Metoprolol Succinate (Metoprolol Succ 50mg Ext Rel Tab) 100 mg PO NOW STA Stop: 01/11/21 19:07 Last Admin: 01/11/21 19:57 Dose: 100 mg Documented by: [id number] Medical Decision Making Differential Diagnosis Weakness, infection, CVA, intracranial hemorrhage, electrolyte or metabolic abnormality, trauma Medical Records Attestation: I reviewed the patient's medical records. Home Medications Current Medication List: was personally reviewed by me Laboratory Data Attestation: I reviewed the patient's lab results. Result diagrams: 01/11/21 17:07 01/11/21 17:07 Lab Results 01/11/21 01/11/2101/11/21 Range/Units 17:07 17:07 17:21 WBC 9.24 (4.8-10.8) K/uL RBC 4.60 (4.2-5.4) M/uL Hgb 14.5 (12.0-16.0) g/dL Hct 42.6 (37-47) % MCV 92.6 (80-100) fL MCH 31.5 (25-34) pg MCHC 34.0 (32-36) g/dL RDW Std Deviation 43.0 (36.4-46.3) fL RDW Coeff of Ghassan 12.6 (11.5-14.5) % Plt Count 263 (130-400) K/uL MPV 11.1 H (7.4-10.4) fL Immature Gran % (Auto) 0.2 % Neut % (Auto) 67.4 % Lymph % (Auto) 22.1 % [facility] % (Auto) 8.9 % Eos % (Auto) 1.1 % Baso % (Auto) 0.3 % Neut # (Auto) 6.23 (1.4-6.5) K/uL Lymph # (Auto) 2.04 (1.2-3.4) K/uL [facility] # (Auto) 0.82 H (0.11-0.59) K/uL Eos # (Auto) 0.10 (0-0.5) K/uL Baso # (Auto) 0.03 (0-0.2) K/uL Immature Gran # (Auto) 0.02 (0.00-0.02) K/uL Sodium 142 (136-145) mmol/L Potassium 3.7 (3.5-5.1) mmol/L Chloride 107 (98-107) mmol/L Carbon Dioxide 28 (21-32) mmol/L Anion Gap 7.0 (3-11) BUN 17 (7-18) mg/dl Creatinine 0.79 (0.6-1.2) mg/dl Est Cr Clr Drug Dosing 62.3 ml/min Est GFR ( Amer) 84.9 ml/min Est GFR (Non-Af Amer) 73.2 ml/min BUN/Creatinine Ratio 20.9 H (10-20) Glucose 107 H (70-99) mg/dl Calcium 9.1 (8.5-10.1) mg/dl Total Bilirubin 0.4 (0.2-1) mg/dl AST 16 (15-37) U/L ALT 22 (12-78) U/L Alkaline Phosphatase 119 H (45-117) U/L Troponin I < 0.015 (0-0.045) ng/ml Total Protein 7.6 (6.4-8.2) gm/dl Albumin 3.5 (3.4-5.0) gm/dl Globulin 4.1 H (2.5-4.0) gm/dl Albumin/Globulin Ratio 0.8 L (0.9-2) TSH 1.010 (0.300-4.500) uIu/ml Urine Color Urine Appearance (Clear) Urine pH (4.5-7.5) Ur Specific [place] (1.000-1.030) Urine Protein (Negative) Urine Glucose (UA) (Negative) Urine Ketones (Negative) Urine Blood (Negative) Urine Nitrite (Negative) Urine Bilirubin (Negative) Urine Urobilinogen (Negative) Ur Leukocyte Esterase (Negative) COVID-19 Eval Order Covid19 at [facility] SARS-CoV-2 (PCR) (Negative) 01/11/21 01/11/21 Range/Units 17:21 Unknown WBC (4.8-10.8) K/uL RBC (4.2-5.4) M/uL Hgb (12.0-16.0) g/dL Hct (37-47) % MCV (80-100) fL MCH (25-34) pg MCHC (32-36) g/dL RDW Std Deviation (36.4-46.3) fL RDW Coeff of Ghassan (11.5-14.5) % Plt Count (130-400) K/uL MPV (7.4-10.4) fL Immature Gran % (Auto) % Neut % (Auto) % Lymph % (Auto) % [place] % (Auto) % Eos % (Auto) % Baso % (Auto) % Neut # (Auto) (1.4-6.5) K/uL Lymph # (Auto) (1.2-3.4) K/uL [facility] # (Auto) (0.11-0.59) K/uL Eos # (Auto) (0-0.5) K/uL Baso # (Auto) (0-0.2) K/uL Immature Gran # (Auto) (0.00-0.02) K/uL Sodium (136-145) mmol/L Potassium (3.5-5.1) mmol/L Chloride (98-107) mmol/L Carbon Dioxide (21-32) mmol/L Anion Gap (3-11) BUN (7-18) mg/dl Creatinine (0.6-1.2) mg/dl Est Cr Clr Drug Dosing ml/min Est GFR ( Amer) ml/min Est GFR (Non-Af Amer) ml/min BUN/Creatinine Ratio (10-20) Glucose (70-99) mg/dl Calcium (8.5-10.1) mg/dl Total Bilirubin (0.2-1) mg/dl AST (15-37) U/L ALT (12-78) U/L Alkaline Phosphatase (45-117) U/L Troponin I (0-0.045) ng/ml Total Protein (6.4-8.2) gm/dl Albumin (3.4-5.0) gm/dl Globulin (2.5-4.0) gm/dl Albumin/Globulin Ratio (0.9-2) TSH (0.300-4.500) uIu/ml Urine Color Yellow Urine Appearance Clear (Clear) Urine pH 7.0 (4.5-7.5) Ur Specific [place] 1.012 (1.000-1.030) Urine Protein Negative (Negative) Urine Glucose (UA) Negative (Negative) Urine Ketones Negative (Negative) Urine Blood Negative (Negative) Urine Nitrite Negative (Negative) Urine Bilirubin Negative (Negative) Urine Urobilinogen Negative (Negative) Ur Leukocyte Esterase Negative (Negative) COVID-19 Eval Order SARS-CoV-2 (PCR) NEGATIVE (Negative) Imaging Data Attestation: I personally reviewed and interpreted this imaging study as follows: My Impression: Chest x-rayno acute infiltrate, failure, thorax pain Radiologist's Impression: Chest X-Ray 01/11/21 16:29 XR chest 1V portable CLINICAL HISTORY: weakness COMPARISON STUDY: November 15, 2020 FINDINGS: No pneumothorax. No pleural effusion. No large infiltrates or consolidative lesions are seen. Diffuse reticular coarsening of pulmonary interstitium is again seen bilaterally, slightly worsened since prior and most likely represent chronic interstitial changes. Cardiomediastinal silhouette is within normal limits in size. No significant pulmonary vascular congestion.. Aorta is calcified Osseous structures: Osteopenia. Degenerative changes of the spine. Loop recorder is again seen projecting to the cardiac silhouette. IMPRESSION: 1. No large infiltrates or consolidative lesions. 2. Atherosclerotic. 3. The rest of findings as above. ACT 112: Negative or not required by law. The above report was generated using voice recognition software. It may contain grammatical, syntax or spelling errors. Electronically signed by: Michelle Rapp DO 01/11/2021 5:[address] 01/11/21 16:29 CT head/brain wo con CLINICAL HISTORY: falls COMPARISON STUDY: November 15, 2020 TECHNIQUE: Axial CT of the brain is performed from the vertex to the skull base. IV contrast was not administered for this examination. A dose lowering technique was utilized adhering to the principles of ALARA. CT DOSE: 537.48 mGy.cm FINDINGS: No acute intracranial hemorrhage, no midline shift or space occupying lesions. Redemonstration of large area of encephalomalacia involving right parietal and temporal region also associated with slightly asymmetrical ex vacuo dilatation of the right lateral ventricle. Stable lacunar infarcts are seen within bilateral basal ganglia. There are patchy white matter hypodensities likely on a small vessel basis. Atrophic changes of brain parenchyma are seen and associated with mild ex vacuo dilatation of ventricles. No acute depressed skull fractures seen. There is no evidence of acute sinusitis IMPRESSION: No acute intracranial hemorrhage, no midline shift or space occupying lesions. Redemonstration of the stable encephalomalacia involving right parietal and temporal region. No acute depressed skull fractures. The rest of findings as above. ACT 112: Negative or not required by law. The above report was generated using voice recognition software. It may contain grammatical, syntax or spelling errors. Electronically signed by: Michelle Rapp DO 01/11/2021 5:42 PM ECG Data Attestation: I personally reviewed and interpreted this ECG as follows: Indication: + tachycardia Rate (beats per minute): 103 Rhythm: + sinus tachycardia ECG Intervals/blocks: + Normal QRS, + Normal QT and + Normal MN ECG [place]: + Normal ECG ST segments: + Normal ST segments ECG Findings: no PACs or no PVCs Comparison ECG Date: from (11/15/20) [facility] Narrative This patient comes in as scribed above she has had a history of strokes and lives independently. She is fallen 3 times in the last 3 days. She does not feel she has any new numbness or weakness her neurologic exam. CAT scan of her head was unremarkable for any acute findings. EKG was unremarkable. She has no acute electrolyte or metabolic abnormalities. Her Covid testing was negative. I do feel she needs to be admitted for treatment and evaluation and likely placement as she has been falling frequently. She is on Plavix. I have consulted the [facility] hospitalist to see her for these jorge sures. She has been hypertensive however apparently has not been taking her meds and she will need to be started back on her medications. 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, Ambulatory dysfunction Discharge Plan Visit Data Chief Complaint: Hypertension Stated Complaint: UNSTEADY GAIT, FALLS ED Provider: Walter Young Discharge Problem: Weakness, HTN (hypertension), Falls frequently, retirement (current) use of antithrombotics/antiplatelets, Ambulatory dysfunction Forms Stand Alone Forms: My [facility] Prescriptions Prescriptions: No Action clopidogrel 75 mg tablet 75 mg PO QAM Qty: 30 RF: 2 baclofen 10 mg tablet 10 mg PO BID Qty: 60 RF: 2 rosuvastatin 20 mg tablet 20 mg PO DAILY Qty: 30 RF: 2 lisinopril 20 mg tablet 40 mg PO HS Qty: 90 RF: 5 acetaminophen [Tylenol] 325 mg Tablet 650 mg PO Q6H PRN (Reason: Pain) RF: 0 omeprazole 20 mg Tablet,Delayed Release (Dr/Ec) 20 mg PO DAILY RF: 0 metoprolol succinate 50 mg tablet extended release 24 hr 100 mg PO QAM RF: 0 Referrals Referrals: Maik Du MD [Primary Care Provider] - Discharge Problem: HTN (hypertension) Qualifiers: Hypertension type: unspecified Qualified Code(s): I10 - Essential (primary) hypertension
[2021-01-11] MEDS ORDERED: hydrALAZINE HCL 20 MG/ML VIAL IV STA (19:04)
[2021-01-11] MEDS ORDERED: METOPROLOL SUCC 50MG EXT REL TAB PO STA (19:06)
[2021-01-11] MEDS ORDERED: ACETAMINOPHEN 325 MG TAB PO PRN (21:54)
[2021-01-11] MEDS: BACLOFEN 10 MG TAB PO SCH (23:20)
[2021-01-11] MEDS: lisinopril 40 MG TAB PO SCH (23:20)
[2021-01-11] MEDS: ACETAMINOPHEN 325 MG TAB PO PRN (23:22)
[2021-01-12] MEDS: hydrALAZINE HCL 20 MG/ML VIAL IV PRN (04:21)
--- NOTE | 2021-01-12 06:39 | Ultrasound Report ---
US venous doppler LE LT CLINICAL HISTORY: swollen calf ?DVT COMPARISON STUDY: No previous studies for comparison. FINDINGS: Real-time and color flow Doppler imaging were performed. Flow was seen within the femoral, popliteal and calf veins with no intraluminal thrombus demonstrated. The saphenous vein is patent. This exam is suboptimal due to patient positioning and inability to move left leg according to techni luis report. IMPRESSION: No evidence of deep venous thrombosis. ACT 112: Negative or not required by law. The above report was generated using voice recognition software. It may contain grammatical, syntax o r spelling errors. Electronically signed by: Michelle Rapp DO 01/12/2021 6:38 AM
--- NOTE | 2021-01-12 07:35 | Electrocardiogram Report ---
Test Reason : Blood Pressure : / mmHG Vent. Rate : 103 BPM Atrial Rate : 103 BPM P-R Int : 158 ms QRS Dur : 100 ms QT Int : 360 ms P-R-T Axes : 046 067 047 degrees QTc Int : 471 ms Poor data quality, interpretation may be adversely affected Sinus tachycardia Otherwise normal ECG When compared with ECG of 15-NOV-2020 15:55, Nonspecific T wave abnormality no longer evident in Inferior leads Confirmed by Silas Santiago ([id number]) on 01/12/2021 7:35:45 AM Referred By: REFERRED SELF Confirmed By:Aj Santiago
[2021-01-12] MEDS: ENOXAPARIN INJ 40 MG/0.4 ML SYR SQ SCH (08:58)
[2021-01-12] MEDS: BACLOFEN 10 MG TAB PO SCH ×2 (08:58→20:18)
[2021-01-12] MEDS: METOPROLOL SUCC 50MG EXT REL TAB PO SCH (08:58)
[2021-01-12] MEDS: CLOPIDOGREL BISULFATE 75 MG TAB PO SCH (08:59)
[2021-01-12] MEDS: ROSUVASTATIN CALCIUM 20 MG TAB PO SCH (08:59)
[2021-01-12] MEDS: PANTOprazole 40 MG TAB PO SCH (09:00)
--- NOTE | 2021-01-12 10:15 | Hospitalist Progress Note ---
Date of Service January 12, 2021 Assessment & Plan (1) Recurrent falls: Plan: No clear new symptoms to suggest new stroke. Mostly she feels her left side gives out. No prodromal symptoms, no lightheadedness, chest pain, dizziness, etc. to suggest anything other than mechanical cause. - MRI pending -> Patient reports she will go down this morning. Will get neuro involved if MRI shows acute changes/findings - PT/OT/Case management -> Patient is hoping to go to [facility] and then possibly transition to long-term care as she feels she is no longer safe in her apartment. (2) Hypertensive urgency: Plan: Secondary to not taking her usual medications. - Continue home Toprol XL and lsinopril. - HTN urgency aspect resolved; BP now 145/65. 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 Patient notes no new deficits to me today. (4) History of stroke: Plan: Left sided weakness. Prior visual deficits although none on gross visual field exam. - Continue clopidogrel and rosuvastatin - Continue baclofen BID for contractures (5) Ambulatory dysfunction: Plan: PT/OT (6) GERD (gastroesophageal reflux disease): Plan: - Switch omeprazole to pantoprazole per hospital formulary (7) DVT prophylaxis: Plan: Lovenox 40 mg SQ daily Admission and Anticipated Discharge Date Admission Date: January 11, 2021 Subjective Stable today. No headache, no new focal neurologic deficits. Feels at baseline. Reports no fevers/chills, chest pain, shortness of breath, abdominal pain, nausea, or vomiting. Physical Exam Constitutional: WD/WN, vitals as above Eyes: EOM intact bilaterally; no conjunctival abnormality ENMT: external ear and nose normal, oropharynx normal Neck: trachea midline, no thyromegaly normal visual inspection Respiratory: normal respiratory effort, lungs clear to auscultation no respiratory distress Cardiovascular: RRR, no murmur, no edema Gastrointestinal (Abdomen): Inspection/Auscultation: abdomen normal to inspection; abdomen not distended Musculoskeletal: Extremities: + limited ROM of extremities (Left side contracture) Skin: no rashes, warm and dry Neurologic: + focal motor deficit (Left > right) and awake Psychiatric: Orientation: alert, oriented to person and cooperative Results & Data Results & Data ([facility]) Vital Signs (Past 12 Hours) Vital Signs Temp Pulse Resp BP Pulse Ox 01/12/21 07:57 36.6 C 65 18 147/67 H 92 01/12/21 05:02 129/71 01/12/21 04:00 182/73 H 01/12/21 03:28 36.7 C 66 18 180/81 H 97 01/12/21 01:58 151/90 H 01/11/21 23:29 36.4 C L 67 18 198/104 H 94 PG Care Time/CCT Total # of Minutes Spent Total Time Spent with Patient: Total time spent is greater than 50% in coordination of care (as documented) at patient's floor/unit and/or counseling patient: Coding Level of Care Code 65004 Subseq Hosp Care Lvl 2 Diagnoses Recurrent falls R29.6 Hypertensive urgency I16.0 Yaniv-neglect of left side R41.4 History of stroke Z86.73 Ambulatory dysfunction R26.2 GERD (gastroesophageal reflux disease) K21.9 DVT prophylaxis Z29.9
--- NOTE | 2021-01-12 12:08 | Magnetic Resonance Report ---
MRI OF THE BRAIN WITHOUT CONTRAST CLINICAL HISTORY: New falls to left side ?acute stroke COMPARISON STUDY: MRI of the brain November 16, 2020. Head CT January 11, 2021. TECHNIQUE: Utilizing a 1.5 Margarita magnet and dedicated coil, multiplanar, multiecho imaging of the bra in was performed without IV contrast. FINDINGS: Note is made of a 1 cm focus of increased signal intensity within the lateral right thalamu s on axial image 13 of 24 of the diffusion-weighted sequence. This is mildly hypointense on the ADC m ap. This is new since previous MRI. There is no mass effect. No acute hemorrhage. Old right MCA ken tory infarct with encephalomalacia is unchanged. Associated dilatation of the right lateral ventricle is chronic. Basal cisterns are patent. There are no extra-axial collections. Flow-voids for the og r intracranial vessels are present. This exam is mildly compromised by motion artifact. Multiple old lacunar infarcts are again noted. IMPRESSION: 1. 1 cm acute to subacute infarct within the lateral right thalamus. 2. Otherwise, unchanged appearance of the brain since prior MRI. Old right MCA territory infarct. ACT 112: Negative or not required by law. Electronically signed by: David Carlisle M.D. 01/12/2021 12:06 PM
[2021-01-12] MEDS: lisinopril 40 MG TAB PO SCH (20:18)
[2021-01-13] MEDS: ENOXAPARIN INJ 40 MG/0.4 ML SYR SQ SCH ×2 (08:08→08:12)
[2021-01-13] MEDS: CLOPIDOGREL BISULFATE 75 MG TAB PO SCH (08:09)
[2021-01-13] MEDS: METOPROLOL SUCC 50MG EXT REL TAB PO SCH (08:09)
[2021-01-13] MEDS: ROSUVASTATIN CALCIUM 20 MG TAB PO SCH (08:09)
[2021-01-13] MEDS: PANTOprazole 40 MG TAB PO SCH (08:09)
[2021-01-13] MEDS: BACLOFEN 10 MG TAB PO SCH ×2 (08:09→20:24)
--- NOTE | 2021-01-13 08:27 | Hospitalist Progress Note ---
Date of Service January 13, 2021 Assessment & Plan (1) Recurrent falls: Plan: acute to subacute R thalamic stroke PT/OT will benefit from rehab (2) Hypertensive urgency: Plan: Secondary to not taking her usual medications. - Continue home Toprol XL and lsinopril. Watch now as is bradycardic, will need adjustment - HTN urgency aspect resolved; BP now 145/65. (3) Yaniv-neglect of left side: Plan: new Right thalamic stroke possibly from hypertensive urgency, also left sided weakness from previous R MCA strokes. Patient notes no new deficits with new stroke / to neuro about Plavix failure but with non compliance will continue with Plavix and rosuvastatin (4) History of stroke: Plan: Left sided weakness. Prior visual deficits although none on gross visual field exam. - Continue clopidogrel and rosuvastatin per neurology recommendations - Continue baclofen BID for contractures (5) Ambulatory dysfunction: Plan: PT/OT (6) GERD (gastroesophageal reflux disease): Plan: - PPI per hospital formulary (7) DVT prophylaxis: Plan: Lovenox 40 mg SQ daily Plan: - PT/OT/Case management -> Patient is hoping to go to [facility] and then possibly transition to long-term care as she feels she is no longer safe in her apartment. Admission and Anticipated Discharge Date Admission Date: January 11, 2021 Subjective pt has persistent left hemiparesis, she agrees whole heartedly that she should go to rehab. no new issues today, after speaking to Neurology the pt admits to non compliance with plavix and statin due to immobility and difficulty getting medicines Review of Systems Review of Systems: Mild distress and fatigue no headache, no visual changes no speech or swallowing issues no chest pain, pressure or palpitations no shortness of breath, cough or wheezes no abdominal pain, nausea or vomiting, diarrhea or constipation no dysuria, hematuria or frequency no focal joint pain or swelling no back pain, CVA tenderness or radicular pain no bruising, bleeding or rashes pre existing left hemiplegia no complaints of anxiety or depression.. Physical Exam Physical Exam: The patient appeared well nourished and normally developed. although with pre existing left hemipelegia Vital signs as documented. Head exam is normocephalic atraumatic Neck is without JVD, thyromegaly, or carotid bruits. Lungs are clear to auscultation, no focal loss of breath sounds Cardiac exam, Rhythm is regular.. No murmurs, rubs or gallops. Abdominal exam reveals normal bowel sounds, soft non tender, no masses Extremities are nonedematous and both pedal pulses are present Neurologic exam is alert and oriented, left hemiplegia Skin is without bruises or rashes Psychologically is without concerns for anxiety or depression Results & Data Results & Data ([facility]) Vital Signs (Past 12 Hours) Vital Signs Temp Pulse Pulse Resp BP Pulse Ox 01/13/21 07:31 48 L 01/13/21 06:59 97.9 F 58 L 18 179/77 H 95 01/13/21 04:10 98.2 F 67 18 193/73 H 96 01/13/21 00:48 62 01/12/21 23:39 98.2 F 62 18 141/60 H 98 PG Care Time/CCT Total # of Minutes Spent Total Time Spent with Patient: Total time spent is greater than 50% in coordination of care (as documented) at patient's floor/unit and/or counseling patient: Coding Level of Care Code 53623 Subseq Hosp Care Lvl 2 Diagnoses Recurrent falls R29.6 Hypertensive urgency I16.0 Yaniv-neglect of left side R41.4 History of stroke Z86.73 Ambulatory dysfunction R26.2 GERD (gastroesophageal reflux disease) K21.9 DVT prophylaxis Z29.9
--- NOTE | 2021-01-13 11:00 | Neurology Consultation ---
Date of Consultation January 13, 2021 Assessment & Plan (1) History of stroke: (2) Ambulatory dysfunction: (3) Yaniv-neglect of left side: (4) H/O: stroke with residual effects: (5) Hypertensive urgency: (6) Noncompliance with medication regimen: (7) Hypercholesterolemia: (8) Right thalamic stroke: Marylou Donnelly is a 75-year-old woman with past medical history of hypertension, hyperlipidemia, prediabetes, history of right MCA stroke with residual left sided yaniv-neglect, depression/anxiety with prior suicide attempt and h/o right pontine stroke with residual left-sided weakness who p/t [facility] with recurrent falls in the setting of uncontrolled HTN. Symptom localization: n/a (no new symptoms other than worsening falls) Stroke mechanism: most likely lacunar/lipohyalinosis in setting of medication non-compliance, less likely cardioembolic or cryptogenic Stroke WorkUp: - CT head: shows no hemorrhage, stable hypodensities in the right MCA territory in the temporo-parietal region, chronic right pontine infarct, chronic infarct in the left caudate head/left internal capsule, chronic right external capsule/BG infarct, and questionable infarct in the right thalamus. MRI brain - CTA head/neck: none current admission (had CTA in November 2020) - MRI brain: shows acute infarct in the right thalamus with chronic infarcts in the above territories with associated dilation of the right lateral ventricle, moderate SVID, and mild to moderate generalized atrophy - TTE: pending - Telemetry: intermittent bradycardia - A1c: pending - FLP: pending - Troponin, TSH: negative, WNL Stroke Management: - Acute treatment: n/a, outside of time window - Continuous cardiac monitoring, recommend interrogating pacemaker - Vitals, Neurochecks, NIHSS per unit routine - BP parameters: SBP CAP 180, restart home anti-hypertensives for goal normotension - Complete ischemic stroke workup with: TTE without bubble, A1c, fasting lipid panel, CTA head and neck - Consult speech, PT, OT for supportive management - Will estate planning counselor concerning stroke education, smoking cessation, healthy diet, physical activity, weight loss - Follow up with PCP for assistance with outpatient goals (BP <130/80, LDL <70, A1c <7) - Follow up in neurology clinic in 6-8 weeks with LAUREN Oquendo Secondary Stroke Prevention: - Antiplatelet: continue plavix 75mg daily and consider outpatient plavix assay to make sure she is a responder. If another new stroke in the future in setting of medication compliance, would change to ASA 81mg po daily/brillinta 90mg bid x 30 days (after loading with brilinta 180mg daily), with plan to go back to ASA/plavix after 30 day period - Anticoagulation: Not indicated at this time - Statin: change to atorvastatin 40 mg daily HTN: - BP parameters, as above - Restart home medications with goal of lowering BP to normotension over next 3- 4 days - Interrogate pacemaker FEN/GI: - Diet: Beside dysphagia to clear patient for PO meds/Cardiac HH diet - Monitor lytes and replete PRN Glucose Control: - Sliding scale insulin and accuchecks per primary team to avoid hyperglycemia Thank you for this interesting consult. Plan of care was discussed with primary team. Please call with any questions. Agree with transfer to assisted living as it is unclear if she is appropriately taking her medications at home. History of Present Illness Attending Physician: Joey Elise MD History of Present Illness Marylou Donnelly is a 75-year-old woman with past medical history of hypertension, hyperlipidemia, prediabetes, history of right MCA stroke with residual left sided yaniv-neglect, depression/anxiety with prior suicide attempt and h/o right pontine stroke with residual left-sided weakness who p/t [facility] with recurrent falls in the setting of uncontrolled HTN. [employer] 01/08/21. In the ED, she is afebrile, BP 203/117, heart rate 95, respiratory rate 18, satting 95% room air. Labs notable for WBC 9.24, hemoglobin 14.5, platelets 263, sodium 142, potassium 3.7, creatinine 0.79, glucose 107, LFTs within normal, troponin negative, TSH within normal, UA negative, Covid negative. Chest x-ray showed no pneumonia but did note chronic interstitial changes. Imaging independently reviewed. CT head shows no hemorrhage, stable hypodensities in the right MCA territory in the temporo-parietal region, chronic right pontine infarct, chronic infarct in the left caudate head/left internal capsule, chronic right external capsule/BG infarct, and questionable infarct in the right thalamus. MRI brain shows acute infarct in the right thalamus with chronic infarcts in the above territories with associated dilation of the right lateral ventricle, moderate SVID, and mild to moderate generalized atrophy. She was admitted for placement given recurrent falls. She is on plavix at home with no known missed doses. On examination, she reports that she was in her normal state of health until last week when she started falling more often (at least once per day). Reports that she has not been taking her medications recently due to not being able to get out of her bed easily and getting her medications in the kitchen. She is interested in placement to help her with medications and ambulating. Allergies Allergy/AdvReac Type Severity Reaction Status Date / Time Penicillins Allergy Hives Verified 11/25/20 14:15 Sulfa (Sulfonamide Allergy Hives Verified 11/25/20 14:15 Antibiotics) "ALL ANTIBIOTICS" Allergy Intermediate HIVES Uncoded 11/25/20 14:15 Home Medications Medication Instructions Recorded Confirmed Type acetaminophen 325 mg tablet 650 mg PO Q6H PRN 06/07/18 01/11/21 History (Tylenol) clopidogrel 75 mg tablet 75 mg PO QAM #30 tab 10/02/20 01/11/21 Rx omeprazole 20 mg tablet,delayed 20 mg PO DAILY 11/15/20 01/11/21 History release baclofen 10 mg tablet 10 mg PO BID #60 tab 11/18/20 01/11/21 Rx rosuvastatin 20 mg tablet 20 mg PO DAILY #30 tab 11/18/20 01/11/21 Rx lisinopril 20 mg tablet 40 mg PO HS #90 tab 12/11/20 01/11/21 Rx metoprolol succinate 50 mg 100 mg PO QAM 01/11/21 01/11/21 History tablet,extended release 24 hr Patient History Medical History Acute CVA (cerebrovascular accident) Acute right MCA stroke Depression Depression with suicidal ideation GERD (gastroesophageal reflux disease) HTN (hypertension) HTN (hypertension) Hypercholesterolemia Hypercholesterolemia Pre-diabetes Prediabetes Sinusitis Suicidal ideation Suicide attempt 2013 - ETOH/Valium combination - had acute inpatient psychiatric stay Urinary and bowel incontinence Urinary incontinence Surgical History H/O oral surgery History of loop recorder S/P appendectomy S/P hysterectomy with oophorectomy Family History Mother Hypertension Grandmother (Maternal) Stroke Other Heart disease Denies family history of Ovarian cancer Prostate cancer Myocardial infarction Breast cancer Colorectal cancer Social History Smoking Status: Never smoker Second Hand Exposure: No; Hx Alcohol Use: No Hx Substance Use: No Preferred Language: Armenian Communication Ability: Effective Visual Impairment: No Limitations Hearing Ability: Normal Billet Examiner Required: No Beliefs That Will Affect Care: None marital status: Current Living Situation: Alone Current Living Situation Comment: Senior apartment housing current occupational status: retired 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[employer] companies, similar to [employer] work Other Information That Helps Us Care for You: No Feels Safe at Home: No Is there a partner from a previous relationship who is making you feel unsafe now?: No Any Concerns about Your Family Situation: No Would You Like to Speak to Someone About Your Situation: No Safety Concerns: Afraid for Self Childhood Exposure to Second-Hand Smoke: Yes Dental Care, Regularly: Yes Physical Activity Frequency: 1-2 Times per Week Physical Activity Frequency Comment: walks [facility] 2X a week for her groceries Seatbelt Use: always Sunscreen Use: No Assistive Devices: Glasses and Walker Review of Systems Review of Systems: 14 point review of systems completed and negative except as in HPI. Exam (Neuro) Physical Exam: General Exam: GEN: NAD, lying down in examination bed. HEENT: No conjunctival injection, no rhinorrhea CV: RRR on monitor, no significant edema. PULM: Nonlabored respirations on room air. Neuro Exam: MS: Awake and Alert. Oriented to person, place, and date. Speech fluent and appropriate without dysarthria or paraphasic errors. Language intact including comprehension and repetition, difficulty with low frequency and some high frequency words. Cognition and memory grossly intact. Attention intact. +left sided neglect. CN: +left inferior quadrantopia. + extinction to double simultaneous stimuli. Unable to visualize fundi on fundoscopic exam. PERRLA OU. EOMI without nystagmus. Facial sensation intact to LT. Facial muscles full and symmetric. Hearing intact to conversation. Uvula midline with symmetric palatal elevation. Shoulder shrug normal on the right, diminished on the left. Tongue midline. MOTOR: Normal bulk and tone. No pronator drift. RUE strength 5/5 at deltoids, biceps, triceps, wrist flexors and extensors, and hand grasp. RLE strength 5/5 at iliopsoas, hamstrings, quadriceps, tibialis anterior, and gastrocnemius. LUE antigravity with drift to bed and increased tone. LLE antigravity with minimal drift to bed. REFLEXES: 2+ at biceps, triceps, brachioradialis, trace R patella, absent L patella, and absent Achilles bilaterally. Flexor plantar responses bilaterally. SENSORY: Intact to LT/vibration throughout, + extinction to double simultaneous stimuli. COORDINATION: No dysmetria or ataxia on [id number] bilaterally. Normal Gabe bilaterally. GAIT: Deferred due to physical status. NIH STROKE SCALE 1A. Level of Consciousness (0-3) = 0 1B. LOC Questions (0-2) = 0 1C. LOC Commands (0-2) = 0 2. Best Horizontal Gaze (0-2) = 0 3. Visual [place] (0-3) = 0 4. Facial Palsy (0-3) = 0 5. Motor Arm Right (0-4) = 0 Left (0-4) = 0 6. Motor Leg Right (0-4) = 0 Left (0-4) = 0 7. Limb Ataxia (0-2) = 0 8. Sensory (0-2) = 0 9. Best Language (0-3) = 0 10. Dysarthria (0-2) = 0 11. Extinction and Inattention (0-2) = 0 NIHSS TOTAL = 0 Results & Data ([facility]) Vital Signs (Past 12 Hours) Vital Signs Temp Pulse Pulse Resp BP Pulse Ox 01/13/21 07:31 48 L 01/13/21 06:59 36.6 C 58 L 18 179/77 H 95 01/13/21 04:10 36.8 C 67 18 193/73 H 96 01/13/21 00:48 62 01/12/21 23:39 36.8 C 62 18 141/60 H 98 PG Care Time/CCT Total # of Minutes Spent Total Time Spent with Patient: Total time spent is greater than 50% in coordination of care (as documented) at patient's floor/unit and/or counseling patient: Coding Level of Care Code 60377 Initial Inpt Care Lvl 3 Diagnoses History of stroke Z86.73 Ambulatory dysfunction R26.2 Yaniv-neglect of left side R41.4 H/O: stroke with residual effects I69.30 Hypertensive urgency I16.0 Noncompliance with medication regimen Z91.14 Hypercholesterolemia E78.00 Right thalamic stroke I63.9
[2021-01-13] MEDS: hydrALAZINE HCL 20 MG/ML VIAL IV PRN (12:04)
[2021-01-13] MEDS: ACETAMINOPHEN 325 MG TAB PO PRN (12:09)
[2021-01-13] MEDS ORDERED: MICONAZOLE NITRATE POWDER 43 GM EXT PRN (17:49)
[2021-01-13] MEDS: lisinopril 40 MG TAB PO SCH (20:25)
[2021-01-14] MEDS: ACETAMINOPHEN 325 MG TAB PO PRN (02:39)
[2021-01-14] MEDS: hydrALAZINE HCL 20 MG/ML VIAL IV PRN ×2 (03:44→16:56)
[2021-01-14] MEDS: ONDANSETRON INJ 2 MG/ML 2 ML VIAL IV PRN (05:15)
[2021-01-14] MEDS: METOPROLOL SUCC 50MG EXT REL TAB PO SCH (08:52)
[2021-01-14] MEDS: BACLOFEN 10 MG TAB PO SCH (08:52)
[2021-01-14] MEDS: ROSUVASTATIN CALCIUM 20 MG TAB PO SCH (08:52)
[2021-01-14] MEDS: ENOXAPARIN INJ 40 MG/0.4 ML SYR SQ SCH ×2 (08:52→08:54)
[2021-01-14] MEDS: PANTOprazole 40 MG TAB PO SCH (08:52)
[2021-01-14] MEDS: CLOPIDOGREL BISULFATE 75 MG TAB PO SCH (08:52)
[2021-01-14] MEDS ORDERED: NALOXONE HCL 0.4 MG/1 ML VIAL/CARP IV STA (11:49)
[2021-01-14] MEDS ORDERED: NALOXONE HCL 0.4 MG/1 ML VIAL/CARP ONE (11:49)
[2021-01-14] MEDS: SODIUM CHLORIDE 0.9% 1000ML 1,000 ML IV SCH (12:18)
--- NOTE | 2021-01-14 12:22 | CT Scan Report ---
CT head/brain wo con CLINICAL HISTORY: 75 years-old Female with rule out worsened stroke, pt declined. Acute strokelike s ymptoms TECHNIQUE: Multiple axial CT images of the head were obtained without contrast. A dose lowering tech nique was utilized adhering to the principles of ALARA. CT DOSE: 1277.12 mGycm COMPARISON: Brain MRI 01/12/2021, head CT 01/11/2021 FINDINGS: No acute intracranial hemorrhage, midline shift, intracranial mass, hydrocephalus, territorial ischem ia or abnormal extra-axial collection. Encephalomalacia related to chronic right MCA infarct. White m atter hypodensities suggestive of chronic microvascular ischemic disease. Chronic lacunar infarcts of the basal ganglia. The 1 cm acute or subacute appearing lacunar infarct of the right thalamus is red emonstrated. The study is motion degraded and was therefore repeated. Ex vacuo ventriculomegaly of th e right lateral ventricle. Cerebral vascular calcifications. The calvarium is intact. The paranasal sinuses, mastoid air cells, and middle ear cavities are clear . IMPRESSION: 1. Motion degraded exam. 2. Tiny acute to subacute lacunar infarct of the right thalamus is redemonstrated, better characteriz ed on the brain MRI from 01/12/2021. 3. Chronic right MCA territory infarct. ACT 112: Negative or not required by law. The above report was generated using voice recognition software. It may contain grammatical, syntax o r spelling errors. Electronically signed by: Fred Macedo M.D. 01/14/2021 12:20 PM
[2021-01-14 13:34] LABS: Basophils # (auto) 0.02 K/uL (0-0.2); Basophils % (auto) 0.1 %; Eosinophils # (auto) 0.04 K/uL (0-0.5); Eosinophils % (auto) 0.3 %; Hematocrit (blood only) 42.4 % (37-47); Hemoglobin 14.7 g/dL (12.0-16.0); Immature Granulocytes # (auto) 0.04 K/uL (0.00-0.02); Immature Granulocytes % (auto) 0.3 %; Lymphocytes # (auto) 1.23 K/uL (1.2-3.4); Mean Corpuscular Hemoglobin 31.5 pg (25-34); Mean Platelet Volume 11.2 fL (7.4-10.4); Monocytes # (auto) 1.25 K/uL (0.11-0.59); Monocytes % (auto) 8.2 %; Neutrophils # (auto) 12.74 K/uL (1.4-6.5); Neutrophils % (auto) 83.1 %; Platelet Count 258 K/uL (130-400); RDW Coefficient of Variation 12.9 % (11.5-14.5); RDW Standard Deviation 42.9 fL (36.4-46.3); Red Blood Count 4.66 M/uL (4.2-5.4); White Blood Count 15.32 K/uL (4.8-10.8)
[2021-01-14 13:38] LABS: Mean Corpuscular Hgb Conc 34.7 g/dL (32-36)
[2021-01-14 13:38] LABS: Base Excess ABG -0.5 mEq/L (-9-1.8); HCO3 ABG 22 mmol/L (19-24); Oxygen Saturation ABG 96.8 % (90-95); PCO2 ABG 32 mmHg (35-46); PO2 ABG 82 mmHg (80-95); pH ABG 7.46 (7.35-7.45)
[2021-01-14 13:43] LABS: Allen Test Pos (Pos)
[2021-01-14 13:52] LABS: Albumin Level 3.4 gm/dl (3.4-5.0); BUN Creatinine Ratio 19.3 (10-20); Calcium 9.1 mg/dl (8.5-10.1); Creatinine Clr Calc Pharmacy 47.9 ml/min; Est GFR (African American) 63.8 ml/min; Est GFR (Non-African American) 55.1 ml/min; Potassium 3.8 mmol/L (3.5-5.1)
[2021-01-14 13:55] LABS: Albumin Globulin Ratio 0.9 (0.9-2); Bilirubin,Total 0.5 mg/dl (0.2-1); Total Protein 7.4 gm/dl (6.4-8.2)
--- NOTE | 2021-01-14 14:25 | Neurology Progress Note ---
Date of Service January 14, 2021 Assessment & Plan (1) History of stroke: (2) Ambulatory dysfunction: (3) Yaniv-neglect of left side: (4) H/O: stroke with residual effects: (5) Hypertensive urgency: (6) Noncompliance with medication regimen: (7) Hypercholesterolemia: (8) Right thalamic stroke: Plan: Marylou Donnelly is a 75-year-old woman with past medical history of hypertension, hyperlipidemia, prediabetes, history of right MCA stroke with residual left sided yaniv-neglect, depression/anxiety with prior suicide attempt and h/o right pontine stroke with residual left-sided weakness who p/t [facility] with recurrent falls in the setting of uncontrolled HTN. Symptom localization: n/a (no new symptoms other than worsening falls) Stroke mechanism: most likely lacunar/lipohyalinosis in setting of medication non-compliance, less likely cardioembolic or cryptogenic Stroke WorkUp: - CT head: shows no hemorrhage, stable hypodensities in the right MCA territory in the temporo-parietal region, chronic right pontine infarct, chronic infarct in the left caudate head/left internal capsule, chronic right external capsule/BG infarct, and questionable infarct in the right thalamus. Repeat CTH stable. - CTA head/neck: none current admission (had CTA in November 2020) - MRI brain: shows acute infarct in the right thalamus with chronic infarcts in the above territories with associated dilation of the right lateral ventricle, moderate SVID, and mild to moderate generalized atrophy - Telemetry: intermittent bradycardia - A1c: pending - FLP: pending - Troponin, TSH: negative, WNL Stroke Management: - Continuous cardiac monitoring, recommend interrogating pacemaker - Vitals, Neurochecks, NIHSS per unit routine - BP parameters: SBP CAP 180, restart home anti-hypertensives for goal normotension - Complete ischemic stroke workup with: carotid ultrasound (pending) - Consult speech, PT, OT for supportive management - Will memorial counselor concerning stroke education, smoking cessation, healthy diet, physical activity, weight loss - Follow up with PCP for assistance with outpatient goals (BP <130/80, LDL <70, A1c <7) - Follow up in neurology clinic in 6-8 weeks with LAUREN Oquendo Secondary Stroke Prevention: - Antiplatelet: continue plavix 75mg daily and consider outpatient plavix assay to make sure she is a responder. If another new stroke in the future in setting of medication compliance, would change to ASA 81mg po daily/brillinta 90mg bid x 30 days (after loading with brilinta 180mg daily), with plan to go back to ASA/plavix after 30 day period. - Anticoagulation: Not indicated at this time - Statin: change to atorvastatin 40 mg daily HTN: - BP parameters, as above - Restart home medications with goal of lowering BP to normotension over next 3- 4 days - Interrogate pacemaker FEN/GI: - Diet: Beside dysphagia to clear patient for PO meds/Cardiac HH diet - Monitor lytes and replete PRN Glucose Control: - Sliding scale insulin and accuchecks per primary team to avoid hyperglycemia # Confusion: most likely 2/2 receiving baclofen (not consistently taking at home if at all) with mild renal insufficiency vs infection, less likely seizure - check UA, treatment per primary team if UTI - would hold further baclofen until mental status improves and plan to restart at 5mg bid with slow uptitration given age/renal disease - routine EEG (ordered, pending) Thank you for this interesting consult. Plan of care was discussed with primary team. Please call with any questions. Agree with transfer to assisted living as it is unclear if she is appropriately taking her medications at home and would greatly benefit from assistance. Admission and Anticipated Discharge Date Admission Date: January 11, 2021 Subjective NAEs overnight. Found to be more confused this morning. Taken for repeat CTH that shows stable encephalomalacia and stable new right thalamic stroke, no hemorrhage (independently reviewed). Of note, did receive all of her prescribed home medications starting yesterday though she had reported not taking them at home often due to inability to ambulate well on her own. She was sleeping upon evaluation today and continued to be drowsy but arousable during the examination. Still oriented to person/place, not date anymore. Review of Systems Review of Systems: 10 point review of systems completed and negative except as in HPI. Results & Data ([facility]) Vital Signs (Past 12 Hours) Vital Signs Temp Pulse Pulse Resp BP BP Pulse Ox 01/14/21 13:50 36.8 C 63 18 164/72 H 94 01/14/21 11:21 37.0 C 64 16 130/68 95 01/14/21 07:57 36.9 C 68 20 177/66 H 95 01/14/21 07:46 75 01/14/21 04:18 37.0 C 78 18 192/79 H 96 01/14/21 04:07 38 L 01/14/21 03:39 36.6 C 65 20 218/79 H 97 Exam (Neuro) Physical Exam: General Exam: GEN: NAD, lying down in examination bed. HEENT: No conjunctival injection, no rhinorrhea CV: RRR on monitor, no significant edema. PULM: Nonlabored respirations on room air. Neuro Exam: MS: Drowsy but arousable, initially required frequent stimulation before waking up fully. Oriented to person, place, not date. Speech fluent and appropriate without dysarthria or paraphasic errors. Language intact including comprehension and repetition, difficulty with low frequency and some high frequency words. Cognition and memory mildly impaired. Inattentive. +left sided neglect. CN: +left inferior quadrantopia. + extinction to double simultaneous stimuli. Unable to visualize fundi on fundoscopic exam. PERRLA OU. EOMI without nystagmus. Facial sensation intact to LT. Facial muscles full and symmetric. Hearing intact to conversation. Shoulder shrug normal on the right, diminished on the left. Tongue midline. MOTOR: Normal bulk and tone. No pronator drift. RUE/RLE antigravity without drift. LUE antigravity with drift to bed and increased tone. LLE antigravity with minimal drift to bed. SENSORY: Intact to noxious stimuli throughout, + extinction to double simultaneous stimuli. COORDINATION: No dysmetria or ataxia on [id number] in RUE. GAIT: Deferred due to physical status. NIH STROKE SCALE 1A. Level of Consciousness (0-3) = 1 1B. LOC Questions (0-2) = 0 1C. LOC Commands (0-2) = 0 2. Best Horizontal Gaze (0-2) = 0 3. Visual [place] (0-3) = 0 4. Facial Palsy (0-3) = 0 5. Motor Arm Right (0-4) = 0 Left (0-4) = 0 6. Motor Leg Right (0-4) = 0 Left (0-4) = 0 7. Limb Ataxia (0-2) = 0 8. Sensory (0-2) = 0 9. Best Language (0-3) = 0 10. Dysarthria (0-2) = 0 11. Extinction and Inattention (0-2) = 0 NIHSS TOTAL = 1 PG Care Time/CCT Total # of Minutes Spent Total Time Spent with Patient: Total time spent is greater than 50% in coordination of care (as documented) at patient's floor/unit and/or counseling patient: 45 Coding Level of Care Code 95929 Subseq Hosp Care Lvl 3 Diagnoses History of stroke Z86.73 Ambulatory dysfunction R26.2 Yaniv-neglect of left side R41.4 H/O: stroke with residual effects I69.30 Hypertensive urgency I16.0 Noncompliance with medication regimen Z91.14 Hypercholesterolemia E78.00 Right thalamic stroke I63.9
[2021-01-14 15:34] LABS: Appearance Urine Turbid (Clear); Bacteria Urine Automated 2+ (Negative); Blood Urine 3+ (Negative); Color Urine Dark Yellow; Epithelial Cell Urine Auto >30 /lpf (0-5); Glucose Urine UA Negative (Negative); Ketones Urine Trace (Negative); Leukocyte Esterase Urine 2+ (Negative); Nitrite Urine Positive (Negative); Protein Urine 3+ (Negative); RBC Urine Automated >30 /hpf (0-4); Specific Gravity Urine 1.033 (1.000-1.030); Urobilinogen Urine Negative (Negative); WBC Urine Automated >30 /hpf (0-5); pH Urine 5.5 (4.5-7.5)
[2021-01-14 15:37] LABS: Bilirubin Urine 1+ (Negative)
[2021-01-14 15:47] LABS: Amphetamines+Metham, Urine Neg (Neg); Barbiturates, Urine Neg (Neg); Benzodiazepine, Urine Neg (Neg); Cocaine, Urine Neg (Neg); MDMA (Ecstacy), Urine Neg (Neg); Methadone, Urine Neg (Neg); Opiate, Urine Neg (Neg); Phencyclidine, Urine Neg (Neg)
--- NOTE | 2021-01-14 16:45 | Hospitalist Progress Note ---
Date of Service January 14, 2021 Assessment & Plan (1) Encephalopathy: Plan: Patient awakened this morning with in a confused state and lethargic. Patient was seen urgently at bedside by myself on multiple occasions throughout the morning. Patient had a blood sugar which was normal and a stat CT head which was unremarkable for additional stroke or hemorrhage. She was given naloxone as there was some concern she may have taken home medications that were in her purse. None were found with search by security. Patient had no response to the naloxone and talk screen was negative. Patient had a markedly abnormal urinalysis and ceftriaxone was begun. Neurology is visit with the patient feels no additional imaging is needed This time we feel she may have metabolic encephalopathy due to urinary tract infection exacerbated previous stroke symptoms (2) Recurrent falls: Plan: acute to subacute R thalamic stroke Previous left hemiparesis persists making her an increased fall risk PT/OT will benefit from rehab (3) Hypertensive urgency: Plan: Secondary to not taking her usual medications. - Continue home Toprol XL and lsinopril. Watch now as is bradycardic, will need adjustment - HTN urgency aspect resolved; BP now 145/65. (4) Yaniv-neglect of left side: Plan: new Right thalamic stroke possibly from hypertensive urgency, also left sided weakness from previous R MCA strokes. Patient notes no new deficits with new stroke / to neuro about Plavix failure but with non compliance will continue with Plavix and rosuvastatin (5) History of stroke: Plan: Left sided weakness. Prior visual deficits although none on gross visual field exam. - Continue clopidogrel and rosuvastatin per neurology recommendations - Continue baclofen BID for contractures (6) Ambulatory dysfunction: Plan: PT/OT (7) GERD (gastroesophageal reflux disease): Plan: - PPI per hospital formulary (8) DVT prophylaxis: Plan: Lovenox 40 mg SQ daily Plan: - PT/OT/Case management -> Patient is hoping to go to [facility] and then possibly transition to long-term care as she feels she is no longer safe in her apartment. Admission and Anticipated Discharge Date Admission Date: January 11, 2021 Subjective Patient awoke in an altered state and acute worsening through the morning hours. She was difficult to respond she was mayer in color and ashen her vital signs with low blood pressure but otherwise were stable. She was foaming about her purse nursing was concerned that she may have taken some home medication. We did attempt to give her naloxone without improvement we did check a blood sugar which was unremarkable we checked a noncontrast CT of the head which was unremarkable. Additional laboratories were checked as well as urine analysis which showed a markedly abnormal urinalysis subsequently inferring this might be a metabolic encephalopathy from urinary tract infection. Antibiotics were begun. Neurology did reevaluate the patient did not recommend to proceed with MRI scan feels this is likely encephalopathy from infection but are ordering carotid Doppler and EEG. Review of Systems Review of Systems: Moderate distress and significant fatigue no headache, no visual changes no speech or swallowing issues no chest pain, pressure or palpitations no shortness of breath, cough or wheezes no abdominal pain, nausea or vomiting, diarrhea or constipation no dysuria, hematuria or frequency no focal joint pain or swelling no back pain, CVA tenderness or radicular pain no bruising, bleeding or rashes Patient was lethargic difficult to arouse speaking in incomplete sentences confabulating words not oriented to time was aware she was in the hospital Physical Exam Physical Exam: The patient appeared well nourished and normally developed. Vital signs as documented. Patient is lethargic but does awaken easy Head exam is normocephalic atraumatic Neck is without JVD, thyromegaly, or carotid bruits. Lungs are clear to auscultation, diminished excursion due to effort Cardiac exam, Rhythm is regular.. No murmurs, rubs or gallops. Abdominal exam reveals normal bowel sounds, soft non tender, no masses Extremities are nonedematous and both pedal pulses are present Neurologic exam is alert and oriented x2, overall weak but no focal loss of strength or sensation Skin is without bruises or rashes Results & Data Results & Data ([facility]) Vital Signs (Past 12 Hours) Vital Signs Temp Pulse Pulse Resp BP BP Pulse Ox 01/14/21 16:00 66 01/14/21 15:47 99.0 F 66 18 150/68 H 92 01/14/21 13:50 98.2 F 63 18 164/72 H 94 01/14/21 11:21 98.6 F 64 16 130/68 95 01/14/21 07:57 98.4 F 68 20 177/66 H 95 01/14/21 07:46 75 PG Care Time/CCT Total # of Minutes Spent Total Time Spent with Patient: Total time spent is greater than 50% in coordination of care (as documented) at patient's floor/unit and/or counseling patient: Coding Level of Care Code 13948 Subseq Hosp Care Lvl 3 Diagnoses Recurrent falls R29.6 Hypertensive urgency I16.0 Yaniv-neglect of left side R41.4 History of stroke Z86.73 Ambulatory dysfunction R26.2 GERD (gastroesophageal reflux disease) K21.9 DVT prophylaxis Z29.9 Encephalopathy G93.40
[2021-01-14] MEDS: cefTRIAXone SODIUM 2,000 MG in DEXTROSE 5% 50 ML IV SCH (16:53)
--- NOTE | 2021-01-14 21:05 | Ultrasound Report ---
CAROTID ARTERY ULTRASOUND CLINICAL HISTORY: stroke. COMPARISON STUDY: CTA of the neck November 16, 2020. TECHNIQUE: Real-time, grayscale, and color Doppler sonography of the carotid and vertebral arteries w as performed. Images were viewed in the transverse and longitudinal planes. FINDINGS: There is mild atherosclerotic plaque. Velocity measurements are listed below. COMMON CAROTID PEAK SYSTOLIC VELOCITY (CM/S): RIGHT 121 LEFT 108 ICA PEAK SYSTOLIC VELOCITY (CM/S): RIGHT 95 LEFT 83 Systolic ratios between the internal to common carotid arteries were normal. Antegrade flow is seen in the vertebral arteries. Right vertebral artery stenosis shown on CTA of Nov is not visualized by sonography. The external carotid arteries are patent. IMPRESSION: 1. No evidence for a hemodynamically significant stenosis within the bilateral common carotid or cerv ical internal carotid arteries. 2. Right vertebral artery stenosis on CT of November 16, 2020 not well visualized by sonography. ACT 112: Negative or not required by law. Electronically signed by: David Carlisle M.D. 01/14/2021 9:04 PM
[2021-01-14] MEDS: lisinopril 40 MG TAB PO SCH (21:55)
[2021-01-15] MEDS: SODIUM CHLORIDE 0.9% 1000ML 1,000 ML IV SCH ×2 (00:07→12:15)
[2021-01-15] MEDS: ONDANSETRON INJ 2 MG/ML 2 ML VIAL IV PRN (01:28)
[2021-01-15] MEDS: cefTRIAXone SODIUM 2,000 MG in DEXTROSE 5% 50 ML IV SCH (07:49)
[2021-01-15] MEDS: CLOPIDOGREL BISULFATE 75 MG TAB PO SCH ×2 (09:20→10:34)
[2021-01-15] MEDS: ENOXAPARIN INJ 40 MG/0.4 ML SYR SQ SCH (09:20)
[2021-01-15] MEDS: METOPROLOL SUCC 50MG EXT REL TAB PO SCH ×2 (09:20→10:36)
[2021-01-15] MEDS: ROSUVASTATIN CALCIUM 20 MG TAB PO SCH ×2 (09:21→10:37)
[2021-01-15] MEDS: PANTOprazole 40 MG TAB PO SCH ×2 (09:21→10:36)
--- NOTE | 2021-01-15 11:51 | Neurology Progress Note ---
Date of Service January 15, 2021 Assessment & Plan (1) History of stroke: (2) Ambulatory dysfunction: (3) Yaniv-neglect of left side: (4) H/O: stroke with residual effects: (5) Hypertensive urgency: (6) Noncompliance with medication regimen: (7) Hypercholesterolemia: (8) Right thalamic stroke: Plan: Marylou Donnelly is a 75-year-old woman with past medical history of hypertension, hyperlipidemia, prediabetes, history of right MCA stroke with residual left sided yaniv-neglect, depression/anxiety with prior suicide attempt and h/o right pontine stroke with residual left-sided weakness who p/t [facility] with recurrent falls in the setting of uncontrolled HTN. Symptom localization: n/a (no new symptoms other than worsening falls) Stroke mechanism: most likely lacunar/lipohyalinosis in setting of medication non-compliance, less likely cardioembolic or cryptogenic Stroke WorkUp: - CT head: shows no hemorrhage, stable hypodensities in the right MCA territory in the temporo-parietal region, chronic right pontine infarct, chronic infarct in the left caudate head/left internal capsule, chronic right external capsule/BG infarct, and questionable infarct in the right thalamus. Repeat CTH stable. - Carotid ultrasound: no significant carotid artery stenosis - MRI brain: shows acute infarct in the right thalamus with chronic infarcts in the above territories with associated dilation of the right lateral ventricle, moderate SVID, and mild to moderate generalized atrophy - Telemetry: intermittent bradycardia - Troponin, TSH: negative, WNL Stroke Management: - Continuous cardiac monitoring, recommend interrogating pacemaker - Vitals, Neurochecks, NIHSS per unit routine - BP parameters: SBP CAP 180, restart home anti-hypertensives for goal normotension - Consult speech, PT, OT for supportive management - Will family service counselor concerning stroke education, smoking cessation, healthy diet, physical activity, weight loss - Follow up with PCP for assistance with outpatient goals (BP <130/80, LDL <70, A1c <7) - Follow up in neurology clinic in 6-8 weeks with LAUREN Oquendo Secondary Stroke Prevention: - Antiplatelet: continue plavix 75mg daily and consider outpatient plavix assay to make sure she is a responder. If another new stroke in the future in setting of medication compliance, would change to ASA 81mg po daily/brillinta 90mg bid x 30 days (after loading with brilinta 180mg daily), with plan to go back to ASA/plavix after 30 day period. - Anticoagulation: Not indicated at this time - Statin: change to atorvastatin 40 mg daily # Confusion: most likely 2/2 UTI and possibly baclofen. EEG showed mild generalized encephalopathy, no seizures. - treatment of UTI per primary team - ok to restart baclofen at 5mg bid with slow uptitration given age/renal disease Thank you for this interesting consult. Plan of care was discussed with primary team. Please call with any questions. Agree with transfer to assisted living as it is unclear if she is appropriately taking her medications at home and would greatly benefit from assistance. Admission and Anticipated Discharge Date Admission Date: January 11, 2021 Subjective Found to have a UTI, treated and mental status is improved today. Near baseline currently on examination this afternoon. Review of Systems Review of Systems: 10 point review of systems completed and negative except as in HPI. Results & Data ([facility]) Vital Signs (Past 12 Hours) Vital Signs Temp Pulse Pulse Resp BP BP Pulse Ox 01/15/21 08:13 36.9 C 61 18 151/70 H 94 01/15/21 08:00 60 01/15/21 03:34 37.1 C 64 18 163/64 H 92 Pulse Ox 01/15/21 08:13 01/15/21 08:00 94 01/15/21 03:34 Exam (Neuro) Physical Exam: General Exam: GEN: NAD, lying down in examination bed. HEENT: No conjunctival injection, no rhinorrhea CV: RRR on monitor, no significant edema. PULM: Nonlabored respirations on room air. Neuro Exam: MS: Drowsy but arousable, initially required frequent stimulation before waking up fully. Oriented to person, place, not date. Speech fluent and appropriate without dysarthria or paraphasic errors. Language intact including comprehension and repetition, difficulty with low frequency and some high frequency words. Cognition and memory mildly impaired. Inattentive. +left sided neglect. CN: +left inferior quadrantopia. + extinction to double simultaneous stimuli. Unable to visualize fundi on fundoscopic exam. PERRLA OU. EOMI without nystagmus. Facial sensation intact to LT. Left facial droop. Hearing intact to conversation. Shoulder shrug normal on the right, diminished on the left. Tongue midline. MOTOR: Normal bulk and tone. No pronator drift. RUE/RLE antigravity without drift. LUE antigravity with drift to bed and increased tone. LLE antigravity with minimal drift to bed. SENSORY: Intact to noxious stimuli throughout, + extinction to double simultaneous stimuli. COORDINATION: No dysmetria or ataxia on [id number] in RUE. GAIT: Deferred due to physical status. NIH STROKE SCALE 1A. Level of Consciousness (0-3) = 0 1B. LOC Questions (0-2) = 0 1C. LOC Commands (0-2) = 0 2. Best Horizontal Gaze (0-2) = 0 3. Visual [place] (0-3) = 1 4. Facial Palsy (0-3) = 1 5. Motor Arm Right (0-4) = 0 Left (0-4) = 2 6. Motor Leg Right (0-4) = 0 Left (0-4) = 1 7. Limb Ataxia (0-2) = 0 8. Sensory (0-2) = 0 9. Best Language (0-3) = 0 10. Dysarthria (0-2) = 0 11. Extinction and Inattention (0-2) = 2 NIHSS TOTAL = 7 (chronic, this is her baseline) PG Care Time/CCT Total # of Minutes Spent Total Time Spent with Patient: Total time spent is greater than 50% in coordination of care (as documented) at patient's floor/unit and/or counseling patient: Coding Level of Care Code 95020 Subseq Obs Care Lvl 2 Diagnoses History of stroke Z86.73 Ambulatory dysfunction R26.2 Yaniv-neglect of left side R41.4 H/O: stroke with residual effects I69.30 Hypertensive urgency I16.0 Noncompliance with medication regimen Z91.14 Hypercholesterolemia E78.00 Right thalamic stroke I63.9
[2021-01-15] MEDS: hydrALAZINE HCL 20 MG/ML VIAL IV PRN ×2 (12:41→13:17)
--- NOTE | 2021-01-15 13:51 | Electroencephalogram ---
EEG Procedure Note Date of Service January 15, 2021 Start / End Times Start Time: 5:20pm End Time: 5:40pm Referring Physician Nida Acuna History AMS, worsening confusion Home Medication List Medication Instructions Recorded Confirmed Type acetaminophen 325 mg tablet 650 mg PO Q6H PRN 06/07/18 01/11/21 History (Tylenol) clopidogrel 75 mg tablet 75 mg PO QAM #30 tab 10/02/20 01/11/21 Rx omeprazole 20 mg tablet,delayed 20 mg PO DAILY 11/15/20 01/11/21 History release baclofen 10 mg tablet 10 mg PO BID #60 tab 11/18/20 01/11/21 Rx rosuvastatin 20 mg tablet 20 mg PO DAILY #30 tab 11/18/20 01/11/21 Rx lisinopril 20 mg tablet 40 mg PO HS #90 tab 12/11/20 01/11/21 Rx metoprolol succinate 50 mg 100 mg PO QAM 01/11/21 01/11/21 History tablet,extended release 24 hr Inpatient Medication List Acetaminophen (Acetaminophen 325 Mg Tab) 650 mg PO Q4H PRN PRN Reason: Pain or Fever Stop: 02/10/21 21:53 Last Admin: 01/14/21 02:39 Dose: 650 mg Documented by: [id number] Admin: 01/13/21 12:09 Dose: 650 mg Documented by: [id number] Admin: 01/11/21 23:22 Dose: 650 mg Documented by: [id number] Clopidogrel Bisulfate ([facility]og[facility] Bisulfate 75 Mg Tab) [facility] Stop: 02/11/21 08:59 Last Admin: 01/15/21 10:34 Dose: 75 mg Documented by: [id number] Admin: 01/15/21 09:20 Dose: Not Given Documented by: [id number] Admin: 01/14/21 08:52 Dose: 75 mg Documented by: [id number] Admin: 01/13/21 08:09 Dose: 75 mg Documented by: [id number] Admin: 01/12/21 08:59 Dose: 75 mg Documented by: [id number] Enoxaparin Sodium (Enoxaparin Inj 40 Mg/0.4 Ml Syr) [facility] Stop: 02/11/21 08:59 Last Admin: 01/15/21 09:20 Dose: Not Given Documented by: [id number] Admin: 01/14/21 08:54 Dose: Not Given Documented by: [id number] Admin: 01/13/21 08:12 Dose: Not Given Documented by: [id number] Admin: 01/12/21 08:58 Dose: Not Given Documented by: [id number] Hydralazine HCl (Hydralazine Hcl 20 Mg/Ml Vial) 10 mg IV Q4H PRN PRN Reason: sBP > 180 Stop: 02/10/21 21:35 Last Admin: 01/15/21 13:17 Dose: 10 mg Documented by: [id number] Admin: 01/14/21 16:56 Dose: 10 mg Documented by: [id number] Admin: 01/14/21 03:44 Dose: 10 mg Documented by: [id number] Admin: 01/13/21 12:04 Dose: 10 mg Documented by: [id number] Admin: 01/12/21 04:21 Dose: 10 mg Documented by: [id number] Ceftriaxone Sodium 2,000 mg/ (Dextrose) 70 mls @ 100 mls/hr IV DAILY [facility]; Protocol Stop: 01/19/21 15:59 Last Infusion: 01/15/21 08:31 Dose: 0 mls/hr Documented by: [id number] Admin: 01/15/21 07:49 Dose: 100 mls/hr Documented by: [id number] Infusion: 01/14/21 17:41 Dose: 0 mls/hr Documented by: [id number] Admin: 01/14/21 16:53 Dose: 100 mls/hr Documented by: [id number] Lisinopril (Lisinopril 40 Mg Tab) 40 mg PO HS [facility] Stop: 02/10/21 21:53 Last Admin: 01/14/21 21:55 Dose: Not Given Documented by: [id number] Admin: 01/13/21 20:25 Dose: 40 mg Documented by: [id number] Admin: 01/12/21 20:18 Dose: 40 mg Documented by: [id number] Admin: 01/11/21 23:20 Dose: 40 mg Documented by: [id number] Metoprolol Succinate (Metoprolol Succ 50mg Ext Rel Tab) 100 mg PO QAM [facility] Stop: 02/11/21 08:59 Last Admin: 01/15/21 10:36 Dose: 100 mg Documented by: [id number] Admin: 01/15/21 09:20 Dose: Not Given Documented by: [id number] Admin: 01/14/21 08:52 Dose: 100 mg Documented by: [id number] Admin: 01/13/21 08:09 Dose: 100 mg Documented by: [id number] Admin: 01/12/21 08:58 Dose: 100 mg Documented by: [id number] Ondansetron HCl (Ondansetron Inj 2 Mg/Ml 2 Ml Vial) 4 mg IV Q4H PRN PRN Reason: Nausea Stop: 02/13/21 05:01 Last Admin: 01/15/21 01:28 Dose: 4 mg Documented by: [id number] Admin: 01/14/21 05:15 Dose: 4 mg Documented by: [id number] Pantoprazole Sodium (Pantoprazole 40 Mg Tab) 40 mg PO DAILY [facility] Stop: 02/11/21 08:59 Last Admin: 01/15/21 10:36 Dose: 40 mg Documented by: [id number] Admin: 01/15/21 09:21 Dose: Not Given Documented by: [id number] Admin: 01/14/21 08:52 Dose: 40 mg Documented by: [id number] Admin: 01/13/21 08:09 Dose: 40 mg Documented by: [id number] Admin: 01/12/21 09:00 Dose: 40 mg Documented by: [id number] Rosuvastatin Calcium (Rosuvastatin Calcium 20 Mg Tab) 20 mg PO DAILY [facility] Stop: 02/11/21 08:59 Last Admin: 01/15/21 10:37 Dose: 20 mg Documented by: [id number] Admin: 01/15/21 09:21 Dose: Not Given Documented by: [id number] Admin: 01/14/21 08:52 Dose: 20 mg Documented by: [id number] Admin: 01/13/21 08:09 Dose: 20 mg Documented by: [id number] Admin: 01/12/21 08:59 Dose: 20 mg Documented by: [id number] Discontinued Medications Baclofen (Baclofen 10 Mg Tab) 10 mg PO BID [facility] Stop: 02/10/21 21:53 Last Admin: 01/14/21 08:52 Dose: 10 mg Documented by: [id number] Admin: 01/13/21 20:24 Dose: 10 mg Documented by: [id number] Admin: 01/13/21 08:09 Dose: 10 mg Documented by: [id number] Admin: 01/12/21 20:18 Dose: 10 mg Documented by: [id number] Admin: 01/12/21 08:58 Dose: 10 mg Documented by: [id number] Admin: 01/11/21 23:20 Dose: 10 mg Documented by: [id number] Hydralazine HCl (Hydralazine Hcl 20 Mg/Ml Vial) 5 mg IV NOW STA Stop: 01/11/21 19:05 Last Admin: 01/11/21 19:15 Dose: 5 mg Documented by: [id number] Sodium Chloride (Nss 1000ml) 1,000 mls @ 100 mls/hr IV .Q10H [facility] Stop: 02/13/21 11:59 Last Admin: 01/15/21 12:15 Dose: Not Given Documented by: [id number] Infusion: 01/15/21 10:07 Dose: 0 mls/hr Documented by: [id number] Admin: 01/15/21 00:07 Dose: 100 mls/hr Documented by: [id number] Infusion: 01/14/21 22:18 Dose: 100 mls/hr Documented by: [id number] Infusion: 01/14/21 18:27 Dose: 100 mls/hr Documented by: [id number] Admin: 01/14/21 12:18 Dose: 100 mls/hr Documented by: [id number] Metoprolol Succinate (Metoprolol Succ 50mg Ext Rel Tab) 100 mg PO NOW STA Stop: 01/11/21 19:07 Last Admin: 01/11/21 19:57 Dose: 100 mg Documented by: [id number] Naloxone HCl (Naloxone Hcl 0.4 Mg/1 Ml Vial/Carp) Confirm Administered Dose 0.4 mg .ROUTE .Gamestaq-MED ONE Stop: 01/14/21 11:50 Last Admin: 01/14/21 11:51 Dose: 0.4 mg Documented by: [id number] Naloxone HCl (Naloxone Hcl 0.4 Mg/1 Ml Vial/Carp) 0.4 mg IV NOW STA Stop: 01/14/21 11:50 Last Admin: 01/14/21 12:18 Dose: Not Given Documented by: [id number] Description This is a 21 electrode EEG with a single channel dedicated to limited EKG. The electrodes were placed in accordance with the International 10-20 system. History: AMS, worsening confusion Rx: none Start/Stop: 5:20pm/5:40pm Attending reading: Nida Acuna EEG Description: EEG background: Background was normal voltage with 4-7 Hz theta slowing observed with slightly slower frequency in the right hemisphere. A poorly formed 5-7 Hz posterior dominant rhythm with no clear A-P gradient was observed. The EEG is continuous. There is variability and reactivity present. Activation and reactivity: Photic stimulation performed without any abnormalities noted. No photic driving observed. Hyperventilation was not performed. Sleep: No sleep architecture noted. Epileptiform discharges: No epileptiform discharges were observed. Rhythmic and periodic patterns: None Seizures: None Impression: This was a mildly abnormal EEG given mild generalized slowing consistent with a mild encephalopathy which could be toxic-metabolic in origin or represent mild general cerebral dysfunction. No seizures or epileptiform discharges were seen. Clinical correlation required. [facility] Procedure Codes Indication for Procedure (1) Encephalopathy: Neurology Neurology: 67339 EEG include record awake & drowsy
--- NOTE | 2021-01-15 18:51 | Hospitalist Progress Note ---
Date of Service January 15, 2021 Assessment & Plan (1) Encephalopathy: Plan: Patient awakened this morning with in a confused state and lethargic. Patient was seen urgently at bedside by myself on multiple occasions throughout the morning. Patient had a blood sugar which was normal and a stat CT head which was unremarkable for additional stroke or hemorrhage. She was given naloxone as there was some concern she may have taken home medications that were in her purse. None were found with search by security. Patient had no response to the naloxone and talk screen was negative. Patient had a markedly abnormal urinalysis and ceftriaxone was begun. Neurology is visit with the patient feels no additional imaging is needed This time we feel she may have metabolic encephalopathy due to urinary tract infection exacerbated previous stroke symptoms, preliminary is gram negative bacilli (2) Recurrent falls: Plan: acute to subacute R thalamic stroke Previous left hemiparesis persists making her an increased fall risk PT/OT will benefit from rehab, now that she improved (3) Hypertensive urgency: Plan: Secondary to not taking her usual medications. - Continue home Toprol XL and lsinopril. Watch now as is bradycardic, will need adjustment - HTN urgency aspect resolved; BP now 145/65. (4) Yaniv-neglect of left side: Plan: new Right thalamic stroke possibly from hypertensive urgency, also left sided weakness from previous R MCA strokes. Patient notes no new deficits with new stroke / to neuro about Plavix failure but with non compliance will continue with Plavix and rosuvastatin (5) History of stroke: Plan: Left sided weakness. Prior visual deficits although none on gross visual field exam. - Continue clopidogrel and rosuvastatin per neurology recommendations - Continue baclofen BID for contractures (6) Ambulatory dysfunction: Plan: PT/OT (7) GERD (gastroesophageal reflux disease): Plan: - PPI per hospital formulary (8) DVT prophylaxis: Plan: Lovenox 40 mg SQ daily Plan: - PT/OT/Case management -> Patient is hoping to go to [facility] and then possibly transition to long-term care as she feels she is no longer safe in her apartment. Admission and Anticipated Discharge Date Admission Date: January 11, 2021 Subjective Found to have a UTI, treated and mental status is improved today. Near baseline currently on examination this afternoon. will re asses PT fitness for rehab transfer Review of Systems Review of Systems: improved awakefullness no headache, no visual changes no speech or swallowing issues no chest pain, pressure or palpitations no shortness of breath, cough or wheezes no abdominal pain, nausea or vomiting, diarrhea or constipation no dysuria, hematuria or frequency no focal joint pain or swelling no back pain, CVA tenderness or radicular pain no bruising, bleeding or rashes Patient was back to her baseline Physical Exam Physical Exam: The patient appeared well nourished and normally developed. Vital signs as documented. Patient is lethargic but does awaken easy Head exam is normocephalic atraumatic Neck is without JVD, thyromegaly, or carotid bruits. Lungs are clear to auscultation, diminished excursion due to effort Cardiac exam, Rhythm is regular.. No murmurs, rubs or gallops. Abdominal exam reveals normal bowel sounds, soft non tender, no masses Extremities are nonedematous and both pedal pulses are present Neurologic exam is alert and oriented x2, improving weakness continues without focal loss of strength or sensation Skin is without bruises or rashes Results & Data Results & Data ([facility]) Vital Signs (Past 12 Hours) Vital Signs Temp Pulse Pulse Resp BP BP Pulse Ox 01/15/21 16:39 97.5 F L 63 18 157/79 H 96 01/15/21 14:15 155/89 H 01/15/21 13:13 194/70 H 01/15/21 12:38 192/75 H 01/15/21 12:28 99.0 F 68 16 185/80 H 94 01/15/21 08:13 98.4 F 61 18 151/70 H 94 01/15/21 08:00 60 Pulse Ox 01/15/21 16:39 01/15/21 14:15 01/15/21 13:13 01/15/21 12:38 01/15/21 12:28 01/15/21 08:13 01/15/21 08:00 94 PG Care Time/CCT Total # of Minutes Spent Total Time Spent with Patient: Total time spent is greater than 50% in coordination of care (as documented) at patient's floor/unit and/or counseling patient: Coding Level of Care Code 56357 Subseq Hosp Care Lvl 2 Diagnoses Encephalopathy G93.40 Recurrent falls R29.6 Hypertensive urgency I16.0 Yaniv-neglect of left side R41.4 History of stroke Z86.73 Ambulatory dysfunction R26.2 GERD (gastroesophageal reflux disease) K21.9 DVT prophylaxis Z29.9
[2021-01-15] MEDS: lisinopril 40 MG TAB PO SCH (20:40)
[2021-01-16] MEDS: hydrALAZINE HCL 20 MG/ML VIAL IV PRN (07:58)
[2021-01-16] MEDS ORDERED: CLOPIDOGREL BISULFATE 75 MG TAB PO SCH (09:00)
[2021-01-16] MEDS ORDERED: METOPROLOL SUCC 50MG EXT REL TAB PO SCH (09:00)
[2021-01-16] MEDS ORDERED: PANTOprazole 40 MG TAB PO SCH (09:00)
[2021-01-16] MEDS ORDERED: ROSUVASTATIN CALCIUM 20 MG TAB PO SCH (09:00)
[2021-01-16] MEDS: cefTRIAXone SODIUM 2,000 MG in DEXTROSE 5% 50 ML IV SCH (09:01)
[2021-01-16] MEDS: ENOXAPARIN INJ 40 MG/0.4 ML SYR SQ SCH (09:02)
[2021-01-16] MEDS: METOPROLOL SUCC 50MG EXT REL TAB PO SCH (11:20)
--- NOTE | 2021-01-16 21:11 | Discharge Summary ---
Date of Service January 16, 2021 Admission HPI Per Admitting Provider Marylou Sanders is a 75 year old female with history of multiple strokes who presents to the ER with concern of a new stroke as she has been falling to her left side for the last 3 days. She has significant left sided weakness chronically and left sided neglect but usually is able to walk around with a walker. She is concerned about a new stroke but mainly feels she needs to go somewhere for rehabilitation at this time. She reports no injuries or pain from the falls. No new vision, speech or hearing changes. No new weakness or change in sensation of extremities. Reports her left sided weakness is at it's baseline. She reports non compliance with her medications as sometimes it is too hard to get into the room where she keeps them. Therefore has not taken her medications (including for her blood pressure) for the last few days. She reports her blood pressure is usually higher in hospital than at home. In the ER CT head showed no acute pathology. She was referred to medicine for admission and ongoing management of weakness. Principal Diagnosis acute thalamic stroke ecoli uti with metabolic encephalpathy since resolved Discharge Exam The patient appeared well nourished and normally developed. she has baseline left hemipelegia Vital signs as documented. Head exam is normocephalic atraumatic Neck is without JVD, thyromegaly, or carotid bruits. Lungs are clear to auscultation, no focal loss of breath sounds Cardiac exam, Rhythm is regular.. No murmurs, rubs or gallops. Abdominal exam reveals normal bowel sounds, soft non tender, no masses Extremities are nonedematous and both pedal pulses are present Neurologic exam is alert and oriented x2, left hemiplegia Skin is without bruises or rashes Psychologically is without concerns for anxiety or depression Discharge Data Allergies Allergy/AdvReac Type Severity Reaction Status Date / Time Penicillins Allergy Hives Verified 11/25/20 14:15 Sulfa (Sulfonamide Allergy Hives Verified 11/25/20 14:15 Antibiotics) "ALL ANTIBIOTICS" Allergy Intermediate HIVES Uncoded 11/25/20 14:15 Consultations 01/11/21 20:25 ED Decision to Admit Stat 01/12/21 12:29 Consult Neurology Routine 01/13/21 08:30 Consult Neurology Routine Ordered Studies 01/11/21 16:29 CT head/brain wo con Stat 01/11/21 19:07 US venous doppler LE LT Urgent 01/12/21 19:02 MR brain wo con Routine 01/14/21 11:56 CT head/brain wo con Stat 01/14/21 14:18 US carotid doppler BI Routine Hospital Course (1) Encephalopathy: metabolic encephalopathy due to urinary tract infection exacerbated previous stroke symptoms, preliminary is E coli toxic encephalopathy from medicaiton-> baclofen (2) Recurrent falls: acute to subacute R thalamic stroke Previous left hemiparesis persists making her an increased fall risk PT/OT will benefit from rehab, now that she improved (3) Hypertensive urgency: Secondary to not taking her usual medications. - Continue home Toprol XL and lsinopril. Watch now as is bradycardic, will need adjustment - HTN urgency aspect resolved; BP now 145/65. (4) Yaniv-neglect of left side: new Right thalamic stroke possibly from hypertensive urgency, also left sided weakness from previous R MCA strokes. Patient notes no new deficits with new stroke / to neuro about Plavix failure but with non compliance will continue with Plavix and rosuvastatin (5) History of stroke: Left sided weakness. Prior visual deficits although none on gross visual field exam. - Continue clopidogrel and rosuvastatin per neurology recommendations (6) Ambulatory dysfunction: PT/OT (7) GERD (gastroesophageal reflux disease): - PPI per hospital formulary (8) DVT prophylaxis: Lovenox 40 mg SQ daily - PT/OT/Case management -> Patient is hoping to go to [facility] and then possibly transition to long-term care as she feels she is no longer safe in her apartment. Total Time Total Time Spent Total Time Spent (In Minutes): It required greater than 30 minutes to prepare this patient for discharge Discharge Plan Discharge Items Patient Disposition: Transfer [facility] Reason For Visit: RECURRENT FALLS, HYPERTENSIVE URGENCY Discharge Diagnosis: thalamic stroke metabolic encephalopahty from uti e coli uti Activity: Per Instructions section Activity Comment: per PT/OT Non-emergency contact: Primary Care Provider Call non-emergency contact if: your symptoms worsen and you have a fever Follow-up/Referrals: Maik Du MD [Primary Care Provider] - Diet: Regular Addtl Attending Provider Instructions: please complete antibiotics for E Coli uti and consider re testing once finished it seems that she may have some progressive dementia under lying her stroke, perhaps some cognitive testing once her infection is completed Pending Studies at Discharge: No Stand-Alone Forms: My [facility] Skilled Items Patient informed of condition?: Yes DNR: No Discharge Level of Care: Skilled Communicable Disease: No Discharge Prognosis: Stable Lines: None Urinary Catheter: No Medications and DC Order Prescriptions: New cefdinir 300 mg capsule 300 mg PO BID 5 Days Qty: 10 RF: 0 Continued clopidogrel 75 mg tablet 75 mg PO QAM Qty: 30 RF: 2 rosuvastatin 20 mg tablet 20 mg PO DAILY Qty: 30 RF: 2 lisinopril 20 mg tablet 40 mg PO HS Qty: 90 RF: 5 acetaminophen [Tylenol] 325 mg Tablet 650 mg PO Q6H PRN (Reason: Pain) RF: 0 omeprazole 20 mg Tablet,Delayed Release (Dr/Ec) 20 mg PO DAILY RF: 0 metoprolol succinate 50 mg tablet extended release 24 hr 100 mg PO QAM RF: 0 Discontinued baclofen 10 mg tablet 10 mg PO BID Qty: 60 RF: 2 Discharge Orders: Discharge Order (Routine); Ordered 01/16/21 Ordered By: Joey Elise Admission Data Admit Date/Time: 01/11/21 20:07 Attending Provider: Joey Elise Admit Provider: Clyde Christina Primary Care Provider: Maik Du Other Providers: Agustin Louis ; [facility] ; Clyde Christina ; Magdiel Talbot ; Nida Acuna Other Interventions: Discharge Summary Assessment (RN) Last Done: 01/16/21 12:25 Coding Level of Care Code D/C DAY MANAGEMENT >30 MINS Diagnoses Encephalopathy G93.40 Recurrent falls R29.6 Hypertensive urgency I16.0 Yaniv-neglect of left side R41.4 History of stroke Z86.73 Ambulatory dysfunction R26.2 GERD (gastroesophageal reflux disease) K21.9 DVT prophylaxis Z29.9
== END 2021-01-16 15:21 | DRG 64 ==
LOC: ED 15:25 → SUATTDRO 20:07 → 2N 20:07 → 2S 01-14 11:54 → 3W 01-15 10:25

== ENCOUNTER 2021-03-09 03:19 | Inpatient (IN) ==
--- NOTE | 2021-03-09 03:25 | Emergency Department Note ---
Impression & Plan [facility] NAME: SAVANNA JAMES AGE: 75 SEX: F ARRIVES VIA: Ambulance INFORMANT: Patient ED PROVIDER(S): Chuyita Lockhart DO CHIEF COMPLAINT: Dizziness and vomiting PLAN: Disposition: Admit to the [facility] Condition: Stable MEDICAL DECISION MAKING: This is a 75-year-old female patient with a history of hypertension who presents to the emergency department with nausea and dizziness. The patient was suffering hypertensive emergency. She had significant dizziness, nausea and vomiting which was controlled with Zofran. Her blood pressure was well controlled with IV labetalol. Patient had no strokelike symptoms but did have nausea, vomiting and dizziness. She was given Zofran by EMS with moderate relief of her symptoms. The patient admits that she did not take her nighttime medications which may have contributed to this episode of hypertension. I discussed the case with the [facility] and they will evaluate for further management. Triage Nursing notes reviewed and agree with them. Prior medical records reviewed Vital Signs: reviewed and remarkable for hypertension Differential diagnosis: Hypertensive emergency; acute CVA; myocardial ischemia ER treatment provided: IV labetalol x2 Diagnostics interpreted by me: ECG: Normal sinus rhythm at a rate of [address] segment elevation or signs of ischemia although there was some T wave inversion in the inferior leads which is new compared to an EKG from January. There is no ectopy. Cardiac Monitoring: Normal sinus rhythm at 67 Laboratory studies: See below Imaging studies: As per my interpretation Portable chest x-ray: No acute pulmonary infiltrates or cardiomegaly HPI: 75/F arrives for evaluation of nausea and dizziness. The patient was asleep and awoke with to go to the bathroom and had extreme nausea, dizziness and vomited. The patient was unable to get up to go to the bathroom because of her extreme dizziness. EMS was called and found her blood pressure to be 240/100. The patient has a history of hypertension and states that she did not take her usual nighttime medications before going to sleep. She states that she did feel normal prior to laying down for bed. ROS: See above HPI for pertinent positives & negatives. A total of 10 systems reviewed and were otherwise negative. PAST MEDICAL HISTORY:See Below PAST SURGICAL HISTORY:See Below FAMILY HISTORY:See Below SOCIAL HISTORY:See Below HOME MEDICATIONS:See list ALLERGIES:See list VITALS:See Below PHYSICAL EXAMINATION: HEENT: Head - normocephalic and atraumatic. Pupils are equal, round, and reactive to light. Extraocular eye muscles are intact and sclera are anicteric. Nose - moist nasal mucosa without discharge. Mouth - moist buccal mucosa. Oropharynx is nonerythematous and there is no tonsillar exudate or edema noted. Neck: Supple; no JVD, nuchal rigidity, cervical lymphadenopathy, or auscultated bruits. Heart: Regular rate and rhythm. There is a normal S1 and S2 with no murmurs, clicks, or gallops appreciated. Lungs: Clear to auscultation bilaterally with no wheezes, rales, or rhonchi. Abdomen: Soft, completely nontender, nondistended, with good bowel sounds. There are no palpable pulsatile masses or hepatosplenomegaly. There is no guarding, rigidity, or rebound noted. Extremities: There is some nonpitting edema in the left arm and left leg which is chronic. There are easily palpable peripheral pulses. Neuro:The patient is awake and alert, oriented to day, time, and place. The patient does have baseline weakness in her left arm and left leg. There are no new neurological findings. Skin: Pale and warm ED COURSE: Times/Reassessments: 0335: The patient was evaluated in room B2. A complete history and physical was performed. Laboratory studies were drawn as above. A twelve-lead EKG was obtained as described above. Previous electronic medical records were reviewed. An order was placed for continuous cardiac monitoring. Patient was in a normal sinus rhythm at a rate of 67. Patient was given 10 mg of IV labetalol. A portable chest x-ray was performed. Patient's blood pressure remained elevated and she was given a second dose of IV labetalol. I have personally spent greater than 30 minutes of critical care time in the direct management of this patient. This includes bedside care, interpretation of diagnostic studies, and testing, discussion with consultants, patient, and family members, and other required patient management activities. This 30 minutes is in excess of all separately billable procedures. Chuyita Lockhart DO Past Med/Surg History Medical History Acute CVA (cerebrovascular accident) Acute right MCA stroke Depression Depression with suicidal ideation GERD (gastroesophageal reflux disease) HTN (hypertension) HTN (hypertension) Hypercholesterolemia Hypercholesterolemia Pre-diabetes Prediabetes Sinusitis Suicidal ideation Suicide attempt 2014 - ETOH/Valium combination - had acute inpatient psychiatric stay Urinary and bowel incontinence Urinary incontinence Surgical History H/O oral surgery History of loop recorder S/P appendectomy S/P hysterectomy with oophorectomy Family History Mother Hypertension Grandmother (Maternal) Stroke Other Heart disease Denies family history of Ovarian cancer Prostate cancer Myocardial infarction Breast cancer Colorectal cancer Social History Smoking Status: Never smoker Second Hand Exposure: No; Hx Alcohol Use: No Hx Substance Use: No Preferred Language: Faroese Communication Ability: Effective Visual Impairment: No Limitations Hearing Ability: Normal 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 Beliefs That Will Affect Care: None marital status: Current Living Situation: Alone Current Living Situation Comment: Senior apartment housing current occupational status: retired 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[employer], similar to [employer] work Other Information That Helps Us Care for You: No Feels Safe at Home: Yes Safety Concerns: Feels Safe At This Time Childhood Exposure to Second-Hand Smoke: Yes Dental Care, Regularly: Yes Physical Activity Frequency: 1-2 Times per Week Physical Activity Frequency Comment: walks [facility] 2X a week for her groceries Seatbelt Use: always Sunscreen Use: No Assistive Devices: Glasses Allergies Allergies Allergy/AdvReac Type Severity Reaction Status Date / Time Penicillins Allergy Hives Verified 03/09/21 06:52 Sulfa (Sulfonamide Allergy Hives Verified 03/09/21 06:52 Antibiotics) "ALL ANTIBIOTICS" Allergy Intermediate HIVES Uncoded 03/09/21 06:52 Home Meds Home Medications Medication Instructions Recorded Confirmed acetaminophen 325 mg tablet 650 mg PO Q6H PRN 06/07/18 03/09/21 (Tylenol) omeprazole 20 mg tablet,delayed 20 mg PO DAILY PRN 11/15/20 03/09/21 release metoprolol succinate 50 mg 100 mg PO QAM 01/11/21 03/09/21 tablet,extended release 24 hr baclofen 10 mg tablet 10 mg PO BID 03/09/21 03/09/21 rosuvastatin 20 mg tablet 20 mg PO HS 03/09/21 03/09/21 Previous Rx's Medication Instructions Recorded clopidogrel 75 mg tablet 75 mg PO QAM #30 tab 10/02/20 lisinopril 20 mg tablet 40 mg PO HS #90 tab 12/11/20 Results & Data (ED) Vital Signs Vital Signs - 24 hr 03/09/21 03:25 03/09/21 03:33 03/09/21 03:51 Temperature 36.7 C 36.7 C Temperature Source Oral Oral Pulse Rate 77 Pulse Rate [Radial] 67 Respiratory Rate 16 14 Blood Pressure 224/96 H Blood Pressure [Right Arm] 209/114 H Blood Pressure Mean 138 Blood Pressure Mean [Right Arm] 145 Blood Pressure Position Lying Blood Pressure Position [Right Arm] Lying Pulse Oximetry 96 94 95 Oxygen Delivery Method Room Air Room Air Room Air Sepsis Recent Fever Within 48 Hours No Sepsis New/Unexplained Change in Mental Status No Sepsis Action Taken by Nursing No Action Required 03/09/21 05:34 Temperature Temperature Source Pulse Rate Pulse Rate [Radial] 77 Respiratory Rate 18 Blood Pressure Blood Pressure [Right Arm] 199/78 H Blood Pressure Mean Blood Pressure Mean [Right Arm] 118 Blood Pressure Position Blood Pressure Position [Right Arm] Lying Pulse Oximetry 97 Oxygen Delivery Method Room Air Sepsis Recent Fever Within 48 Hours Sepsis New/Unexplained Change in Mental Status Sepsis Action Taken by Nursing Laboratory Data Result diagrams: 03/09/21 04:07 03/09/21 04:07 Lab Results 03/09/21 03/09/21 Range/Units 04:07 04:07 WBC 8.99 (4.8-10.8) K/uL RBC 4.52 (4.2-5.4) M/uL Hgb 14.0 (12.0-16.0) g/dL Hct 41.1 (37-47) % MCV 90.9 (80-100) fL MCH 31.0 (25-34) pg MCHC 34.1 (32-36) g/dL RDW Std Deviation 41.7 (36.4-46.3) fL RDW Coeff of Ghassan 12.6 (11.5-14.5) % Plt Count 219 (130-400) K/uL MPV 10.9 H (7.4-10.4) fL Immature Gran % (Auto) 0.4 % Neut % (Auto) 82.8 % Lymph % (Auto) 11.0 % Johnston % (Auto) 5.2 % Eos % (Auto) 0.3 % Baso % (Auto) 0.3 % Neut # (Auto) 7.43 H (1.4-6.5) K/uL Lymph # (Auto) 0.99 L (1.2-3.4) K/uL Johnston # (Auto) 0.47 (0.11-0.59) K/uL Eos # (Auto) 0.03 (0-0.5) K/uL Baso # (Auto) 0.03 (0-0.2) K/uL Immature Gran # (Auto) 0.04 H (0.00-0.02) K/uL Sodium 138 (136-145) mmol/L Potassium 3.6 (3.5-5.1) mmol/L Chloride 106 (98-107) mmol/L Carbon Dioxide 27 (21-32) mmol/L Anion Gap 5.0 (3-11) BUN 9 (7-18) mg/dl Creatinine 0.73 (0.6-1.2) mg/dl Est Cr Clr Drug Dosing 66.6 ml/min Est GFR ( Amer) 93.4 ml/min Est GFR (Non-Af Amer) 80.6 ml/min BUN/Creatinine Ratio 12.7 (10-20) Glucose 145 H (70-99) mg/dl Calcium 8.8 (8.5-10.1) mg/dl Total Bilirubin 0.4 (0.2-1) mg/dl AST 14 L (15-37) U/L ALT 21 (12-78) U/L Alkaline Phosphatase 112 (45-117) U/L Troponin I < 0.015 (0-0.045) ng/ml Total Protein 7.3 (6.4-8.2) gm/dl Albumin 3.3 L (3.4-5.0) gm/dl Globulin 4.0 (2.5-4.0) gm/dl Albumin/Globulin Ratio 0.8 L (0.9-2) Administered Medications Clopidogrel Bisulfate (Clopidogrel Bisulfate 75 Mg Tab) [facility] [place] Stop: 04/08/21 08:59 Last Admin: 03/09/21 09:32 Dose: 75 mg Documented by: [id number] Hydralazine HCl (Hydralazine Hcl 20 Mg/Ml Vial) 10 mg IV Q4H PRN PRN Reason: SBP > 190 or DBP > 110 Stop: 04/08/21 16:56 Last Admin: 03/09/21 17:15 Dose: 10 mg Documented by: [id number] Rosuvastatin Calcium (Rosuvastatin Calcium 20 Mg Tab) 20 mg PO DAILY SUSANA Stop: 04/08/21 08:59 Last Admin: 03/09/21 09:32 Dose: 20 mg Documented by: [id number] Discontinued Medications Hydralazine HCl (Hydralazine Hcl 20 Mg/Ml Vial) 5 mg IV NOW ONE Stop: 03/09/21 15:36 Last Admin: 03/09/21 16:09 Dose: 5 mg Documented by: [id number] Labetalol HCl (Labetalol Hcl Iv 5 Mg/Ml 20ml) 10 mg IV NOW STA Stop: 03/09/21 03:48 Last Admin: 03/09/21 04:05 Dose: 10 mg Documented by: [id number] Cosigned by: [id number] Labetalol HCl (Labetalol Hcl Iv 5 Mg/Ml 20ml) 10 mg IV NOW STA Stop: 03/09/21 04:34 Last Admin: 03/09/21 05:33 Dose: 10 mg Documented by: [id number] Cosigned by: [id number] Meclizine HCl (Meclizine Hcl 25 Mg Tab) 25 mg PO NOW STA Stop: 03/09/21 05:57 Last Admin: 03/09/21 07:04 Dose: 25 mg Documented by: [id number] Metoprolol Succinate (Metoprolol Succ 50mg Ext Rel Tab) 100 mg PO QAM SUSANA Stop: 04/08/21 08:59 Last Admin: 03/09/21 09:32 Dose: 100 mg Documented by: [id number] Metoprolol Tartrate (Metoprolol Tartrate 1 Mg/Ml Vial) 25 mg IV NOW STA Stop: 03/09/21 06:03 Last Admin: 03/09/21 06:24 Dose: 25 mg Documented by: [id number] Ondansetron HCl (Ondansetron Inj 2 Mg/Ml 2 Ml Vial) Confirm Administered Dose 4 mg .ROUTE .STK-MED ONE Stop: 03/09/21 07:37 Last Admin: 03/09/21 07:36 Dose: 4 mg Documented by: [id number] Discharge Plan Visit Data Chief Complaint: Vomiting Stated Complaint: Hypertension ED Provider: Chuyita Lockhart Discharge Problem: Hypertensive urgency Patient Disposition: Admitted As Inpatient Discharge Instructions Interventions: ED Discharge Assessment Last Done: 03/09/21 08:05
[2021-03-09] MEDS ORDERED: LABETALOL HCL IV 5 MG/ML 20ML IV STA ×2 (03:47→04:33)
[2021-03-09 04:16] LABS: Basophils # (auto) 0.03 K/uL (0-0.2); Basophils % (auto) 0.3 %; Eosinophils # (auto) 0.03 K/uL (0-0.5); Eosinophils % (auto) 0.3 %; Hematocrit (blood only) 41.1 % (37-47); Immature Granulocytes # (auto) 0.04 K/uL (0.00-0.02); Immature Granulocytes % (auto) 0.4 %; Lymphocytes # (auto) 0.99 K/uL (1.2-3.4); Mean Corpuscular Hgb Conc 34.1 g/dL (32-36); Mean Corpuscular Volume 90.9 fL (80-100); Mean Platelet Volume 10.9 fL (7.4-10.4); Monocytes # (auto) 0.47 K/uL (0.11-0.59); Monocytes % (auto) 5.2 %; Neutrophils # (auto) 7.43 K/uL (1.4-6.5); Neutrophils % (auto) 82.8 %; Platelet Count 219 K/uL (130-400); RDW Coefficient of Variation 12.6 % (11.5-14.5); RDW Standard Deviation 41.7 fL (36.4-46.3); Red Blood Count 4.52 M/uL (4.2-5.4); White Blood Count 8.99 K/uL (4.8-10.8)
[2021-03-09 04:34] LABS: Alanine Aminotransferase 21 U/L (12-78); Albumin Level 3.3 gm/dl (3.4-5.0); Aspartate Aminotransferase 14 U/L (15-37); BUN Creatinine Ratio 12.7 (10-20); Blood Urea Nitrogen 9 mg/dl (7-18); Calcium 8.8 mg/dl (8.5-10.1); Carbon Dioxide 27 mmol/L (21-32); Chloride 106 mmol/L (98-107); Creatinine Clr Calc Pharmacy 66.6 ml/min; Est GFR (African American) 93.4 ml/min; Est GFR (Non-African American) 80.6 ml/min; Glucose 145 mg/dl (70-99); Potassium 3.6 mmol/L (3.5-5.1); Sodium 138 mmol/L (136-145)
[2021-03-09 04:36] LABS: Albumin Globulin Ratio 0.8 (0.9-2); Alkaline Phosphatase 112 U/L (45-117); Bilirubin,Total 0.4 mg/dl (0.2-1); Total Protein 7.3 gm/dl (6.4-8.2)
[2021-03-09 05:29] LABS: Troponin I < 0.015 ng/ml (0-0.045)
[2021-03-09] MEDS ORDERED: MECLIZINE HCL 25 MG TAB PO STA (05:56)
[2021-03-09] MEDS ORDERED: METOPROLOL TARTRATE 1 MG/ML VIAL IV STA (06:02)
--- NOTE | 2021-03-09 06:04 | History & Physical Report ---
Date of Service March 09, 2021 Assessment & Plan (1) Hypertensive urgency: Plan: Mrs. Donnelly is a 75 yo woman with a PMHx of hypertension and CVA with residual deficits who presented for evalution of dizziness. - systolic BP > 180 on arrival - Creatinine WNL, trop undetectable. - UA pending - CT Head ordered to assess for evidence of end-organ damage - Labetalol 10mg IV given in ED. Metoprolol Succinate 25mg IV given on admission. - continue home lisinopril 40mg and metoprolol succinate 100mg daily - voltage criteria met for LVH (aVL > 11mm); suspect patients BP is uncontrolled and has been for a time - recommend consideration of adding amlodipine to home regimen (2) Vertigo: Plan: - new onset - meclizine 25mg ordered on admission - Zofran prn for nausea - likely peripheral due to BPPV (sudden onset, intense nausea and vomiting, worsen when she changed positions) (3) H/O: stroke with residual effects: Plan: - head CT ordered as above - hold plavix until hemorrhage is ruled out - continue statin DVT ppx: hold until intracranial hemorrhage is ruled out with head CT Diet: Heart healthy Dispo: Med/tele Code: DNR/DNI, I discussed with patient History of Present Illness Primary Care Provider: Maik Du MD Mrs. 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 She ate her dinner and sat down on her cough to watch the [employer] football game. She then experienced sudden onset dizziness and she became nauseated. She vomited several times; no blood. She described a "room spinning sensation" at the time of these symptoms. She lives along, so [facility] On [facility], EMS recorded her BP to be 240/100. She takes Metoprolol succinate 100mg daily and lisinopril 40mg daily for HTN. She did not take her evening dose on 03/08/21. She denies any headache, fever/chills, chest pain, SOB, or diarrhea. Social Hx: Lives alone. Non-smoker. No eoth. In the ED, her BP was 224/96 on arrival. It improved to 199/78 with two doses of Labetalol 10mg IV. She was afebrile with a normal HR and breathing. Her CBC and CMP were WNL. Her trop was undetectable. A UA was ordered. CXR showed no active disease (final read pending). EKG showed NSR without ST segment changes; however she meets voltage criteria for LVH. Allergies Allergy/AdvReac Type Severity Reaction Status Date / Time Penicillins Allergy Hives Verified 03/09/21 06:52 Sulfa (Sulfonamide Allergy Hives Verified 03/09/21 06:52 Antibiotics) "ALL ANTIBIOTICS" Allergy Intermediate HIVES Uncoded 03/09/21 06:52 Home Medications Medication Instructions Recorded Confirmed Type acetaminophen 325 mg tablet 650 mg PO Q6H PRN 06/07/18 03/09/21 History (Tylenol) clopidogrel 75 mg tablet 75 mg PO QAM #30 tab 10/02/20 03/09/21 Rx omeprazole 20 mg tablet,delayed 20 mg PO DAILY PRN 11/15/20 03/09/21 History release lisinopril 20 mg tablet 40 mg PO HS #90 tab 12/11/20 03/09/21 Rx metoprolol succinate 50 mg 100 mg PO QAM 01/11/21 03/09/21 History tablet,extended release 24 hr baclofen 10 mg tablet 10 mg PO BID 03/09/21 03/09/21 History rosuvastatin 20 mg tablet 20 mg PO HS 03/09/21 03/09/21 History Past Med/Surg History Medical History Acute CVA (cerebrovascular accident) Acute right MCA stroke Depression Depression with suicidal ideation GERD (gastroesophageal reflux disease) HTN (hypertension) HTN (hypertension) Hypercholesterolemia Hypercholesterolemia Pre-diabetes Prediabetes Sinusitis Suicidal ideation Suicide attempt 2013 - ETOH/Valium combination - had acute inpatient psychiatric stay Urinary and bowel incontinence Urinary incontinence Surgical History H/O oral surgery History of loop recorder S/P appendectomy S/P hysterectomy with oophorectomy Family History Mother Hypertension Grandmother (Maternal) Stroke Other Heart disease Denies family history of Ovarian cancer Prostate cancer Myocardial infarction Breast cancer Colorectal cancer Social History Smoking Status: Never smoker Second Hand Exposure: No; Hx Alcohol Use: No Hx Substance Use: No Preferred Language: Polish Communication Ability: Effective Visual Impairment: No Limitations Hearing Ability: Normal Concrete Form Setter Required: No Beliefs That Will Affect Care: None marital status: Current Living Situation: Alone Current Living Situation Comment: Senior apartment housing current occupational status: retired 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[employer], 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 Other Information That Helps Us Care for You: No Feels Safe at Home: Yes Safety Concerns: Feels Safe At This Time Childhood Exposure to Second-Hand Smoke: Yes Dental Care, Regularly: Yes Physical Activity Frequency: 1-2 Times per Week Physical Activity Frequency Comment: walks to [facility] 2X a week for her groceries Seatbelt Use: always Sunscreen Use: No Assistive Devices: Glasses Review of Systems Review of Systems: All systems reviewed & are unremarkable except as noted in HPI & below Physical Exam Constitutional: WD/WN, vitals as above cooperative; no acute distress Eyes: + anicteric sclerae ENMT: external ear and nose normal, oropharynx normal Neck: trachea midline Respiratory: normal respiratory effort, lungs clear to auscultation Cardiovascular: Rate/Rhythm: regular rate and regular rhythm Heart Sounds: normal S1, normal S2 and + murmur (systolic) Extremities: + pedal edema (trace ) Gastrointestinal (Abdomen): normal bowel sounds, soft, nontender, no hepatosplenomegaly Musculoskeletal: Head/Neck/Chest: normocephalic and head atraumatic Skin: no rashes, warm and dry Neurologic: + hemineglect on left + left arm weakness Psychiatric: A+Ox3, euthymic affect Results & Data Results & Data ([facility]) Vital Signs (Past 12 Hours) Vital Signs Temp Pulse Pulse Resp BP BP Pulse Ox 03/09/21 05:34 77 18 199/78 H 97 03/09/21 03:51 95 03/09/21 03:33 36.7 C 67 14 209/114 H 94 03/09/21 03:25 36.7 C 77 16 224/96 H 96 Supervising Physician Co-Signing Physician Notes Attending addendum: I have physically seen this patient, have supervised the medical residents activities, and agree with the H&P unless as otherwise noted. Assessment and Plan: Hypertensive urgency- Would not aggressively lower at this time, due to patient's history of strokes, until it is confirmed that there is no new stroke Given labetalol 10 mg IV by the ED Continue routine home medications for now, to resume lisinopril and metoprolol succinate in a.m. if work-up is otherwise normal Permissive hypertension Vertigo- Order CT head and further neurologic work-up as warranted History of CVA- As noted above, warrants additional work-up at this time, as vertigo may be a sign of any new injury CT head to rule out hemorrhagic infarct Otherwise resume antiplatelet agents and follow stroke without TPA order set Remaining orders and notations as noted Resident Activity Tracking Resident Involvement: Resident Care Provided Care Provided: Adult [facility]
[2021-03-09 07:17] LABS: Appearance Urine Cloudy (Clear); Bacteria Urine Automated 1+ (Negative); Bilirubin Urine Negative (Negative); Blood Urine Negative (Negative); Cast Urine Automated 0 /lpf (0-5); Color Urine Yellow; Epithelial Cell Urine Auto >30 /lpf (0-5); Glucose Urine UA Negative (Negative); Ketones Urine Negative (Negative); Leukocyte Esterase Urine Negative (Negative); Nitrite Urine Negative (Negative); Protein Urine Negative (Negative); Specific Gravity Urine 1.012 (1.000-1.030); Urobilinogen Urine Negative (Negative)
[2021-03-09 07:27] LABS: RBC Urine Automated >30 /hpf (0-4)
[2021-03-09] MEDS ORDERED: ONDANSETRON INJ 2 MG/ML 2 ML VIAL ONE (07:36)
--- NOTE | 2021-03-09 07:55 | Electrocardiogram Report ---
Test Reason : Blood Pressure : / mmHG Vent. Rate : 078 BPM Atrial Rate : 078 BPM P-R Int : 142 ms QRS Dur : 098 ms QT Int : 426 ms P-R-T Axes : 051 065 013 degrees QTc Int : 485 ms Normal sinus rhythm Possible Inferior infarct , age undetermined Abnormal ECG When compared with ECG of 11-JAN-2021 16:15, Borderline criteria for Inferior infarct are now Present T wave inversion now evident in Inferior leads Confirmed by Silas Santiago ([id number]) on 03/09/2021 7:55:24 AM Referred By: REFERRED SELF Confirmed By:Aj Santiago
--- NOTE | 2021-03-09 08:06 | CT Scan Report ---
CT head/brain wo con CLINICAL HISTORY: hypertensive urgency, hx of stroke Technique: Contiguous axial CT images of the head were acquired from the base of the skull to the bill harjit without intravenous contrast administration. Images were viewed in brain, subdural and bone [facility]. Automated dose lowering techniques and/or adjustment according to patient size were utilized for this exam. Comparison: Comparison is made to CT head 01/24/2021 Findings: Areas of decreased attenuation are present in the periventricular and subcortical white matter bilate rally consistent with small vessel ischemic disease. Generalized cerebral atrophy with commensurate e nlargement of the ventricles, sulci, and cisterns is also present. There is no acute intracranial hem orrhage or evidence of acute territorial infarction. No shift of the midline structures, mass effect, or extra-axial abnormalities are shown. Atherosclerotic calcifications are present in the intracran ial segments of the internal carotid arteries. Encephalomalacia in the right posterior T8 territories again seen. Lacunar infarcts are seen bilaterally. Imaged portions of the paranasal sinuses and mastoid air cells are clear. The orbits appear normal. There are no acute fractures of the calvaria or scalp swelling. Hyperostosis frontalis is incidental ly noted. Impression: No acute intracranial hemorrhage, no evidence of acute territorial infarction or other acute intracra nial disease process. ACT 112: Negative or not required by law. Electronically signed by: Mike Barry M.D. 03/09/2021 8:04 AM
[2021-03-09] MEDS ORDERED: ACETAMINOPHEN 325 MG TAB PO PRN (08:30)
[2021-03-09] MEDS ORDERED: ONDANSETRON INJ 2 MG/ML 2 ML VIAL IV PRN (08:30)
--- NOTE | 2021-03-09 08:50 | XRay Report ---
XR chest 1V portable CLINICAL HISTORY: Hypertension TECHNIQUE: Single frontal radiograph of the chest was obtained. Comparison: Comparison is made to chest one view 01/11/2021 FINDINGS: No lines and tubes are seen. Calcified aortic knob is seen. Cardiac silhouette is stably prominent. T he lungs are clear. No evidence of pleural effusion or pneumothorax. IMPRESSION: No acute chest disease. ACT 112: Negative or not required by law. Electronically signed by: Mike Barry M.D. 03/09/2021 8:48 AM
[2021-03-09] MEDS ORDERED: METOPROLOL SUCC 50MG EXT REL TAB PO SCH (09:00)
[2021-03-09] MEDS: CLOPIDOGREL BISULFATE 75 MG TAB PO SCH (09:32)
[2021-03-09] MEDS: ROSUVASTATIN CALCIUM 20 MG TAB PO SCH (09:32)
[2021-03-09] MEDS ORDERED: hydrALAZINE HCL 20 MG/ML VIAL IV ONE (15:35)
--- NOTE | 2021-03-09 16:55 | History & Physical Bridge Note ---
Date of Service March 09, 2021 History & Physical Bridge Note I have examined the patient, reviewed the History & Physical and in the interval since the performance of the History & Physical I have noted the following changes of clinical significance: no changes noted Patient seen and examined this afternoon. Doing well. Vertigo and nausea have improved with medication. She does report that if she moves her head, the vertigo is worse, so I do think this may be peripheral. - PT for Jazzy maneuvers - MRI brain to r/o stroke given she did just have a new stroke 2 months prior. - Continue home Plavix, rosuvastatin For HTN, she reports her blood pressure is always this high, so want to be careful to drop pressure too low. - Put in hydralazine 5 mg IV x 1 for BP 215/90 though asymptomatic. - Hydralazine 10 mg IV PRN - Will get lisinopril 40 mg HS tonight. - Switched metoprolol to carvedilol tomorrow AM. Could consider adding HCTZ as well tomorrow, but will not make too many adjustments too quickly.
[2021-03-09] MEDS ORDERED: MICONAZOLE NITRATE POWDER 43 GM EXT PRN (17:00)
[2021-03-09] MEDS: hydrALAZINE HCL 20 MG/ML VIAL IV PRN (17:15)
--- NOTE | 2021-03-09 20:47 | Billing Data ---
Date of Service March 09, 2021 Coding Level of Care Code INT OBSERVATION CARE 70M LVL 3
[2021-03-09] MEDS: lisinopril 40 MG TAB PO SCH (21:52)
[2021-03-10] MEDS: hydrALAZINE HCL 20 MG/ML VIAL IV PRN ×2 (05:30→16:31)
[2021-03-10 07:46] LABS: Hematocrit (blood only) 42.9 % (37-47); Hemoglobin 14.6 g/dL (12.0-16.0); Mean Corpuscular Volume 91.1 fL (80-100); Mean Platelet Volume 11.3 fL (7.4-10.4); Platelet Count 256 K/uL (130-400); RDW Standard Deviation 43.2 fL (36.4-46.3); Red Blood Count 4.71 M/uL (4.2-5.4); White Blood Count 10.51 K/uL (4.8-10.8)
[2021-03-10 08:03] LABS: BUN Creatinine Ratio 16.7 (10-20); Calcium 9.3 mg/dl (8.5-10.1); Creatinine Clr Calc Pharmacy 68.4 ml/min; Est GFR (African American) 96.6 ml/min; Est GFR (Non-African American) 83.3 ml/min; Magnesium 2.3 mg/dl (1.8-2.4); Potassium 3.4 mmol/L (3.5-5.1)
[2021-03-10] MEDS: carvediloL 12.5 MG TAB PO SCH ×2 (08:18→20:44)
[2021-03-10] MEDS: ROSUVASTATIN CALCIUM 20 MG TAB PO SCH (08:18)
[2021-03-10] MEDS: CLOPIDOGREL BISULFATE 75 MG TAB PO SCH (08:18)
[2021-03-10] MEDS ORDERED: amLODIPine BESYLATE 5 MG TAB PO ONE (13:53)
--- NOTE | 2021-03-10 14:17 | Magnetic Resonance Report ---
Brain MRI WITHOUT CONTRAST HISTORY: New vertigo TECHNIQUE: Multiplanar multisequence MRI of the brain was performed without the use of contrast. COMPARISON STUDY: Head CT 03/09/2021. Brain MRI 11/16/2020. FINDINGS: No areas of restricted diffusion to suggest acute infarction. The midline structures are in tact. The major vascular flow-voids at the skull base are well-maintained. The orbits are unremarkabl e. Paranasal sinuses and right mastoid air cells are clear. Chronic trace left mastoid effusion again noted. There is no mass, hematoma, midline shift. Large area of encephalomalacia within the right pa rietal and temporal lobes is again noted and is consistent with an old right MCA territory infarct. T here is surrounding increased T2 signal consistent with gliosis which is also stable. Old lacunar inf arction within the bilateral basal ganglia and mayela are again noted. IMPRESSION: 1. No significant change compared to the prior study. No acute intracranial abnormality.. 2. Old infarcts as described above. ACT 112: Negative or not required by law. Electronically signed by: Hilario Hart M.D. 03/10/2021 2:16 PM
[2021-03-10] MEDS: lisinopril 40 MG TAB PO SCH (20:44)
--- NOTE | 2021-03-10 22:14 | Hospitalist Progress Note ---
Date of Service March 10, 2021 Assessment & Plan (1) Hypertensive urgency: Plan: Mrs. Donnelly is a 75 yo woman with a PMHx of hypertension and CVA with residual deficits who presented for evalution of dizziness. - systolic BP > 180 on arrival - Creatinine WNL, trop undetectable. - UA shows bacteruria, radhasegundo asymptomatic bacteruria. - CT Head ordered to assess for evidence of end-organ damage - Labetalol 10mg IV given in ED. Metoprolol Succinate 25mg IV given on admission. - continue home lisinopril 40mg and metoprolol succinate 100mg daily - voltage criteria met for LVH (aVL > 11mm); suspect patients BP is uncontrolled and has been for a time - added amlodipine. DC will be held until tomrrow. (2) Vertigo: Plan: - new onset - meclizine 25mg ordered on admission - Zofran prn for nausea - likely peripheral due to BPPV (sudden onset, intense nausea and vomiting, worsen when she changed positions) (3) H/O: stroke with residual effects: Plan: - head CT ordered as above - hold plavix until hemorrhage is ruled out - continue statin DVT ppx: hold until intracranial hemorrhage is ruled out with head CT Diet: Heart healthy Dispo: Med/tele Code: DNR/DNI, I discussed with patient Admission and Anticipated Discharge Date Admission Date: March 09, 2021 Subjective Patient is resting comfortably. Patient reports she is having urinary incontinence. Review of Systems Review of Systems: All systems reviewed & are unremarkable except as noted in HPI & below Physical Exam Physical Exam: Constitutional:L WD/WN, vitals as a lauren cooperative; no acute distress Eyes: + anicteric scler ae ENMT: external ear and n ose normal, oropha rynx normal Neck: trachea midline Respiratory: normal respiratory effort, lungs johsua ar to auscultation Cardiovascular:L Rate/Rhythm: regul ar rate and regula r rhythm Heart So unds: normal S1, n ormal S2 and + mur mur (systolic) Ex tremities: + pedal edema (trace ) Gastrointestinal ( Abdomen): normal bowel sound s, soft, nontender , no hepatosplenom egaly Musculoskeletal: Head/Neck/Chest: n ormocephalic and h ead atraumatic Skin: no rashes, warm an d dry Neurologic: + hemineglect on left + left arm w eakness Psychiatric: A+Ox3, euthymic af fect Results & Data Results & Data ([facility]) Vital Signs (Past 12 Hours) Vital Signs Temp Pulse Pulse Pulse Resp BP Pulse Ox 03/10/21 19:00 36.7 C 64 17 128/67 91 03/10/21 18:06 80 138/65 03/10/21 16:06 36.7 C 60 18 195/70 H 96 03/10/21 15:00 62 03/10/21 11:22 36.6 C 62 18 142/72 H 95 03/10/21 11:00 67 151/68 H PG Care Time/CCT Total # of Minutes Spent Total Time Spent with Patient: Total time spent is greater than 50% in coordination of care (as documented) at patient's floor/unit and/or counseling patient: Coding Level of Care Code 41848 Subseq Hosp Care Lvl 2 Diagnoses Hypertensive urgency I16.0 Vertigo R42 H/O: stroke with residual effects I69.30
[2021-03-11] MEDS ORDERED: MICONAZOLE NITRATE POWDER 43 GM EXT PRN (06:14)
[2021-03-11 08:37] LABS: Hematocrit (blood only) 42.9 % (37-47); Hemoglobin 14.5 g/dL (12.0-16.0); Mean Corpuscular Hgb Conc 33.8 g/dL (32-36); Mean Corpuscular Volume 91.7 fL (80-100); Mean Platelet Volume 11.3 fL (7.4-10.4); Platelet Count 254 K/uL (130-400); RDW Coefficient of Variation 13.2 % (11.5-14.5); RDW Standard Deviation 43.7 fL (36.4-46.3); Red Blood Count 4.68 M/uL (4.2-5.4); White Blood Count 8.46 K/uL (4.8-10.8)
[2021-03-11 09:01] LABS: BUN Creatinine Ratio 29.6 (10-20); Calcium 9.7 mg/dl (8.5-10.1); Creatinine Clr Calc Pharmacy 61.3 ml/min; Est GFR (African American) 87.5 ml/min; Est GFR (Non-African American) 75.5 ml/min; Potassium 3.4 mmol/L (3.5-5.1)
[2021-03-11] MEDS: carvediloL 12.5 MG TAB PO SCH ×2 (09:07→20:52)
[2021-03-11] MEDS: CLOPIDOGREL BISULFATE 75 MG TAB PO SCH (09:07)
[2021-03-11] MEDS: ROSUVASTATIN CALCIUM 20 MG TAB PO SCH (09:07)
[2021-03-11] MEDS: lisinopril 40 MG TAB PO SCH (20:52)
[2021-03-11] MEDS ORDERED: amLODIPine BESYLATE 5 MG TAB PO ONE (21:05)
--- NOTE | 2021-03-11 21:05 | Hospitalist Progress Note ---
Date of Service March 11, 2021 Assessment & Plan (1) Hypertensive urgency: Plan: Mrs. Donnelly is a 75 yo woman with a PMHx of hypertension and CVA with residual deficits who presented for evalution of dizziness. - systolic BP > 180 on arrival - Creatinine WNL, trop undetectable. - UA shows bacteruria, yessica asymptomatic bacteruria. - CT Head ordered to assess for evidence of end-organ damage - Labetalol 10mg IV given in ED. Metoprolol Succinate 25mg IV given on admission. - continue home lisinopril 40mg and metoprolol succinate 100mg daily - voltage criteria met for LVH (aVL > 11mm); suspect patients BP is uncontrolled and has been for a time - added amlodipine 2.5 mg PO pm. -B/P is better controlled today (2) Vertigo: Plan: - new onset - meclizine 25mg ordered on admission - Zofran prn for nausea - likely peripheral due to BPPV (sudden onset, intense nausea and vomiting, worsen when she changed positions) (3) H/O: stroke with residual effects: Plan: - head CT ordered as above - hold plavix until hemorrhage is ruled out - continue statin DVT ppx: hold until intracranial hemorrhage is ruled out with head CT Diet: Heart healthy Dispo: Med/tele Code: DNR/DNI, I discussed with patient Admission and Anticipated Discharge Date Admission Date: March 11, 2021 Subjective 75 yo female reports no new symptoms. Patient reports her vertigo has improved. Review of Systems Review of Systems: All systems reviewed & are unremarkable except as noted in HPI & below Physical Exam Physical Exam: Constitutional: WD/WN, vitals as above cooperative; no acute distress Eyes: + anicteric sclerae ENMT: external ear and nose normal, oropharynx normal Neck: trachea midline Respiratory: normal respiratory effort, lungs clear to auscultation Cardiovascular: Rate/Rhythm: regular rate and regular rhythm Heart Sounds: no rmal S1, normal S2 and + murmur (systolic) Extremities: + pedal edema (trace ) Gastrointestinal (Abdomen): normal bowel sounds, soft, nontender, no hepatosplenomegaly Musculoskeletal: Head/Neck/Chest: normocephalic and head atraumatic Skin: no rashes, warm and dry Neurologic: + hemineglect on left + left arm weakness Psychiatric: A+Ox3, euthymic affect Results & Data Results & Data ([facility]) Vital Signs (Past 12 Hours) Vital Signs Temp Pulse Pulse Resp BP Pulse Ox 03/11/21 19:20 36.7 C 68 18 129/71 96 03/11/21 15:11 36.8 C 67 20 133/74 94 03/11/21 14:18 60 03/11/21 10:50 36.3 C L 63 18 120/70 95 PG Care Time/CCT Total # of Minutes Spent Total Time Spent with Patient: Total time spent is greater than 50% in coordination of care (as documented) at patient's floor/unit and/or counseling patient: Coding Level of Care Code 96643 Subseq Hosp Care Lvl 2 Diagnoses Hypertensive urgency I16.0 Vertigo R42 H/O: stroke with residual effects I69.30 Time Spent (min) 25
[2021-03-12 08:02] LABS: Hematocrit (blood only) 40.1 % (37-47); Hemoglobin 13.8 g/dL (12.0-16.0); Mean Corpuscular Hemoglobin 31.1 pg (25-34); Mean Corpuscular Hgb Conc 34.4 g/dL (32-36); Mean Corpuscular Volume 90.3 fL (80-100); Mean Platelet Volume 11.5 fL (7.4-10.4); Platelet Count 215 K/uL (130-400); RDW Coefficient of Variation 13.3 % (11.5-14.5); RDW Standard Deviation 44.2 fL (36.4-46.3); Red Blood Count 4.44 M/uL (4.2-5.4); White Blood Count 7.65 K/uL (4.8-10.8)
[2021-03-12 08:28] LABS: BUN Creatinine Ratio 42.4 (10-20); Calcium 9.2 mg/dl (8.5-10.1); Creatinine Clr Calc Pharmacy 64.1 ml/min; Est GFR (African American) 91.9 ml/min; Est GFR (Non-African American) 79.3 ml/min; Potassium 3.5 mmol/L (3.5-5.1)
[2021-03-12] MEDS: CLOPIDOGREL BISULFATE 75 MG TAB PO SCH (09:17)
[2021-03-12] MEDS: ROSUVASTATIN CALCIUM 20 MG TAB PO SCH (09:18)
[2021-03-12] MEDS: carvediloL 12.5 MG TAB PO SCH (09:19)
--- NOTE | 2021-03-12 14:45 | Discharge Summary ---
Date of Service March 12, 2021 Admission HPI Per Admitting Provider Mrs. 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 She ate her dinner and sat down on her cough to watch the [employer] football game. She then experienced sudden onset dizziness and she became nauseated. She vomited several times; no blood. She described a "room spinning sensation" at the time of these symptoms. She lives along, so she hit her life alert button to [facility]. On arrival, EMS recorded her BP to be 240/100. She takes Metoprolol succinate 100mg daily and lisinopril 40mg daily for HTN. She did not take her evening dose on 03/08/21. She denies any headache, fever/chills, chest pain, SOB, or diarrhea. Social Hx: Lives alone. Non-smoker. No eoth. In the ED, her BP was 224/96 on arrival. It improved to 199/78 with two doses of Labetalol 10mg IV. She was afebrile with a normal HR and breathing. Her CBC and CMP were WNL. Her trop was undetectable. A UA was ordered. CXR showed no active disease (final read pending). EKG showed NSR without ST segment changes; however she meets voltage criteria for LVH. Principal Diagnosis hypertensive crisis Discharge Exam Constitutional: WD/WN, vitals as above cooperative; no acute distress Eyes: + anicteric sclerae ENMT: external ear and nose normal, oropharynx normal Neck: trachea midline Respiratory: normal respiratory effort, lungs clear to auscultation Cardiovascular: Rate/Rhythm: regular rate and regular rhythm Heart Sounds: normal S1, normal S2 and + murmur (systolic) Extremities: + pedal edema (trace ) Gastrointestinal (Abdomen): normal bowel sounds, soft, nontender, no hepatosplenomegaly Musculoskeletal: Head/Neck/Chest: normocephalic and head atraumatic Skin: no rashes, warm and dry Neurologic: + hemineglect on left + left arm weakness Psychiatric: A+Ox3, euthymic affect Discharge Data Allergies Allergy/AdvReac Type Severity Reaction Status Date / Time Penicillins Allergy Hives Verified 03/09/21 06:52 Sulfa (Sulfonamide Allergy Hives Verified 03/09/21 06:52 Antibiotics) "ALL ANTIBIOTICS" Allergy Intermediate HIVES Uncoded 03/09/21 06:52 Consultations 03/09/21 05:34 ED Decision to Admit Stat Ordered Studies 03/09/21 06:01 CT head/brain wo con Stat 03/10/21 01:20 MR brain wo con Routine Hospital Course (1) Hypertensive urgency: Hypertensive crisis Mrs. Donnelly is a 75 yo woman with a PMHx of hypertension and CVA with residual deficits who presented for evalution of dizziness. - systolic BP > 180 on arrival - Creatinine WNL, trop undetectable. - UA shows bacteruria, liley asymptomatic bacteruria. - CT Head ordered to assess for evidence of end-organ damage - Labetalol 10mg IV given in ED. Metoprolol Succinate 25mg IV given on admission. - continue home lisinopril 40mg and metoprolol succinate 100mg daily - voltage criteria met for LVH (aVL > 11mm); suspect patients BP is uncontrolled and has been for a time - added amlodipine 2.5 mg PO pm. -B/P is better controlled today Discharge plan as stated below. (2) Vertigo: - new onset - meclizine 25mg ordered on admission - Zofran prn for nausea - likely peripheral due to BPPV (sudden onset, intense nausea and vomiting, worsen when she changed positions) (3) H/O: stroke with residual effects: - head CT ordered as above - hold plavix until hemorrhage is ruled out - continue statin DVT ppx: hold until intracranial hemorrhage is ruled out with head CT Diet: Heart healthy Dispo: Med/tele Code: DNR/DNI, I discussed with patient Total Time Total Time Spent Total Time Spent (In Minutes): 32 Discharge Plan Discharge Items Patient Disposition: Transfer Inpatient Rehab Fac Reason For Visit: HYPERTENSIVE URGENCY Discharge Diagnosis: hypertension crisis/urgency Activity: Resume your previous activity Non-emergency contact: Primary Care Provider Call non-emergency contact if: you have any medication questions Follow-up/Referrals: Maik Du MD [Primary Care Provider] - Diet: Heart Healthy Addtl Attending Provider Instructions: You have been hospitalized for an acute medical problem. During your stay at [facility], we have made an effort to correct the problem that brought you to the hospital while keeping you as comfortable as possible. Medications were used to bring your condition under control and your discharge instructions will include directions for any medications you should take after leaving the hospital. Please make sure you see your Primary Care Provider as part of your follow up plan. PCP followup in 2 weeks Pending Studies at Discharge: No Stand-Alone Forms: [facility] Skilled Items Patient informed of condition?: Yes DNR: Yes Discharge Level of Care: Acute rehab Communicable Disease: No Discharge Prognosis: Stable Lines: None Urinary Catheter: No Medications and DC Order Prescriptions: New rosuvastatin [Crestor] 20 mg Tablet 20 mg PO DAILY Qty: 30 RF: 0 carvedilol 12.5 mg Tablet 12.5 mg PO BID Qty: 60 RF: 0 amlodipine 2.5 mg tablet 2.5 mg PO PM Qty: 30 RF: 0 Continued clopidogrel 75 mg tablet 75 mg PO QAM Qty: 30 RF: 2 lisinopril 20 mg tablet 40 mg PO HS Qty: 90 RF: 5 acetaminophen [Tylenol] 325 mg Tablet 650 mg PO Q6H PRN (Reason: Pain) RF: 0 omeprazole 20 mg Tablet,Delayed Release (Dr/Ec) 20 mg PO DAILY PRN (Reason: Acid Reflux) RF: 0 baclofen 10 mg tablet 10 mg PO BID RF: 0 rosuvastatin 20 mg tablet 20 mg PO HS RF: 0 Discontinued metoprolol succinate 50 mg tablet extended release 24 hr 100 mg PO QAM RF: 0 Discharge Orders: Discharge Order (Routine); Ordered 03/12/21 Ordered By: Jerome Dykes Admission Data Admit Date/Time: 03/11/21 10:48 Attending Provider: Jerome Dykes Admit Provider: Ivette Beavers Primary Care Provider: Maik Du Other Providers: Agustin Louis ; [facility] Other Interventions: Discharge Summary Assessment (RN) Last Done: 03/12/21 15:06 Coding Level of Care Code D/C DAY MANAGEMENT >30 MINS Diagnoses Hypertensive urgency I16.0 Vertigo R42 H/O: stroke with residual effects I69.30
== END 2021-03-12 16:49 | DRG 305 ==
LOC: 2W 03:19 → ED 03:19 → SUATTDRO 05:58 → 2W 08:05

== ENCOUNTER 2021-05-23 12:12 | Inpatient (IN) ==
--- NOTE | 2021-05-23 12:47 | Emergency Department Note ---
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 She contacted EMS who came and helped her out of bed however she did not feel any pain and declined transfer. However she reports her pain has persisted throughout today despite taking an old oxycodone she had and so presents for evaluation. Prior to this she denies any recent fevers, chills, cough congestion, GI or symptoms. As an aside the patient reports that if she is going to be admitted she would like to be admitted to the psychiatric unit because she has been depressed. When asked how long this has been going on for she begins to explain that it begins with the of her mother when she was a child. She further reports that she has been additionally depressed since she had to give away her cat due to not being around enough in the setting of frequent hospitalizations. She reports she has thought of killing herself every day since she was 9 years old and her doctor is aware of this. She reports "fortunately I have not done it". The patient acknowledges that she does not take her blood pressure medicine often. She did not take it today. She reports that she probably does not take it at least twice a week. She reports the reason she does not take it is that she feels it makes her dizzy/gives her vertigo. On arrival the patient is in no acute distress, afebrile blood pressure 200 s/100s and vital signs otherwise stable. She appears clinically dry. She has mild discomfort of the right posterior lateral chest wall without bony crepitus. Her neurologic exam is at baseline. CT of the head was performed and was negative for acute process. Chest x-ray with right rib views were performed and was negative for fractures or acute process otherwise. Our psychiatric case finisher did meet with the patient and the patient continued to endorse suicide ideation and thoughts of attempting with an overdose which she reports she did in 2013. She is interested in psychiatric admission. However, given the patient's chronic medical conditions in the setting of noncompliance with medications with elevated blood pressure additional medical clearance testing was performed. EKG without overt acute ischemia. WBC 10.8K, nonspecific. H/H and platelets within normal limits. Chemistry without metabolic acidosis. Electrolytes and LFTs unremarkable. Troponin negative/undetectable. Lipase is not elevated. UA without convincing evidence of infection. COVID-19 PCR and influenza PCR were negative. The patient's blood pressure remained elevated in the 200s/100s in setting of no t taking her medications. She was given one-time 5 mg dose of IV labetalol did improve her blood pressure to the 170s/80s with MAP reduced from 146 on arrival to 111 representing a reduction in her MAP of >20%, she is an appropriate goal for the first 24 hours. However, the patient's home blood pressure medications are 40 mg of lisinopril at night and 50 mg of metoprolol extended release daily. Thus, it is unlikely that the patient will have refractory hypertension as it is apparent that the patient's hypertension is due to medication noncompliance which has been the case in the past. Thus, we did proceed with referral for inpatient psychiatric treatment given the patient's reported depression with suicidal ideation and plan to overdose. Was seen by [facility] liaison. At this time the patient's blood pressure unfortunately did fluctuate and was again two hundreds/one hundreds though when I reassessed her it had improved to 160/100s. Nevertheless her blood pressure continued to be labile. The patient also added information during the interview where she reported that her acute increased suicidal ideation with actual thoughts of carrying out suicide were flared by her pain and if she were to get her pain under control then she would not feel this. Because of these it was suggested that the patient may benefit from a medical admission for blood pressure and pain control and they can consult [facility] for her psychiatric needs. Case was discussed with Dr. Ray, [facility] hospitalist, who will evaluate the patient for admission. Triage Nursing notes reviewed and agree them. Prior medical records reviewed Vital Signs: reviewed and remarkable for hypertension. Differential diagnosis: Fracture, dislocation, contusion, intra-abdominal, pneumothorax, intrathoracic, intracranial, neurologic, compartment syndrome, rhabdomyolysis, as well as other pathologies. ER treatment provided: See below. Diagnostics interpreted by me: ECG: Sinus tachycardia, 103 bpm, no ectopy, no overt ST elevation or depression, QTC 471, QRS 88. Cardiac Monitoring: An order for continuous cardiac monitoring was placed and demonstrated sinus tachycardia, 103 bpm, no ectopy. Laboratory studies: See below Imaging studies: See below Consultation(s): Case was discussed with Dr. Ray, [facility] hospitalist, who will evaluate the patient for admission. 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 She contacted EMS who came and helped her out of bed however she did not feel any pain and declined transfer. However she reports her pain has persisted throughout today despite taking an old oxycodone she had and so presents for evaluation. Prior to this she denies any recent fevers, chills, cough congestion, GI or symptoms. As an aside the patient reports that if she is going to be admitted she would like to be admitted to the psychiatric unit because she has been depressed. When asked how long this has been going on for she begins to explain that it begins with the of her mother when she was a child. She further reports that she has been additionally depressed since she had to give away her cat due to not being around enough in the setting of frequent hospitalizations. She reports she has thought of killing herself every day since she was 9 years old and her doctor is aware of this. She reports "fortunately I have not done it". The patient acknowledges that she does not take her blood pressure medicine often. She did not take it today. She reports that she probably does not take it at least twice a week. She reports the reason she does not take it is that she feels it makes her dizzy/gives her vertigo. ROS: See above HPI for pertinent positives & negatives. A total of 10 systems reviewed and were otherwise negative. PAST MEDICAL HISTORY:See Below PAST SURGICAL HISTORY:See Below FAMILY HISTORY:See Below SOCIAL HISTORY:See Below HOME MEDICATIONS:See Below ALLERGIES:See Below VITALS:See Below PHYSICAL EXAMINATION: GENERAL: Awake, alert, chronically ill-appearing, in no distress HENT: Normocephalic, atraumatic. Oropharynx with dry mucous membranes and otherwise unremarkable. EYES: Normal conjunctiva. Sclera non-icteric. NECK: Supple. No nuchal rigidity. FROM. No JVD. RESPIRATORY: Clear to auscultation. CARDIAC: Regular rate, normal rhythm. Extremities warm and well perfused. Pulses equal. ABDOMEN: Soft, non-distended. No tenderness to palpation. No rebound or guarding. No masses. RECTAL: Deferred. MUSCULOSKELETAL: Chest examination reveals no tenderness. The back is symmetrical on inspection without obvious abnormality. There is no CVA tenderness to palpation. She reports subjective pain to palpation of the right posterior lateral lower chest wall however without discrete tenderness elicited and no guarding or bony crepitus. LOWER EXTREMITIES: Calves are equal size bilaterally and non-tender. No edema. No discoloration. NEURO: Left sided weakness at baseline. SKIN: No rash or jaundice noted. Leonardo Etienne MD Past Med/Surg History Medical History Acute CVA (cerebrovascular accident) Acute right MCA stroke Depression Depression with suicidal ideation GERD (gastroesophageal reflux disease) HTN (hypertension) HTN (hypertension) Hypercholesterolemia Hypercholesterolemia Pre-diabetes Prediabetes Sinusitis Suicidal ideation Suicide attempt 2013 - ETOH/Valium combination - had acute inpatient psychiatric stay Urinary and bowel incontinence Urinary incontinence Surgical History H/O oral surgery History of loop recorder S/P appendectomy S/P hysterectomy with oophorectomy Family History Mother Hypertension Grandmother (Maternal) Stroke Other Heart disease Denies family history of Ovarian cancer Prostate cancer Myocardial infarction Breast cancer Colorectal cancer Social History Smoking Status: Never smoker Second Hand Exposure: No; Hx Alcohol Use: No Hx Substance Use: No Preferred Language: [place] Communication Ability: Effective Visual Impairment: No Limitations Hearing Ability: Normal [place] [employer] Required: No Beliefs That Will Affect Care: None marital status: Current Living Situation: Alone Current Living Situation Comment: Senior apartment housing current occupational status: retired 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[employer], 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 How many Children do You have: 0 Feels Safe at Home: Yes Childhood Exposure to Second-Hand Smoke: Yes Dental Care, Regularly: Yes Physical Activity Frequency: 1-2 Times per Week Physical Activity Frequency Comment: walks to [facility] 2X a week for her groceries Seatbelt Use: always Sunscreen Use: No Assistive Devices: None Allergies Allergies Allergy/AdvReac Type Severity Reaction Status Date / Time Penicillins Allergy Hives Verified 05/23/21 14:53 Sulfa (Sulfonamide Allergy Hives Verified 05/23/21 14:53 Antibiotics) "ALL ANTIBIOTICS" Allergy Intermediate HIVES Uncoded 05/23/21 14:53 Home Meds Home Medications Medication Instructions Recorded Confirmed baclofen 10 mg tablet 10 mg PO BID 03/09/21 05/23/21 lisinopril 40 mg tablet 40 mg PO HS 05/23/21 05/23/21 metoprolol succinate 50 mg 50 mg PO DAILY 05/23/21 05/23/21 tablet,extended release 24 hr oxycodone 5 mg tablet 5 mg PO Q6H PRN 05/23/21 05/23/21 rosuvastatin 40 mg tablet (Crestor) 40 mg PO HS 05/23/21 05/23/21 Previous Rx's Medication Instructions Recorded clopidogrel 75 mg tablet 75 mg PO QAM #30 tab 10/02/20 Results & Data (ED) Vital Signs Vital Signs - 24 hr 05/23/21 12:23 05/23/21 12:36 05/23/21 14:53 Temperature 37.1 C 37.1 C Temperature Source Oral Oral Pulse Rate 107 H Pulse Rate [Right Radial] 107 H 97 H Pulse Rate from SpO2 Sensor Pulse Rhythm Regular Pulse Rhythm [Right Radial] Regular Pulse Strength Normal Pulse Strength [Right Radial] Normal Respiratory Rate 16 16 22 Respiratory Effort / Characteristics Non-Labored Non-Labored Respiratory Depth Normal Normal Respiratory Pattern Regular Blood Pressure 208/115 H Blood Pressure [Right Arm] 208/115 H 232/114 H Blood Pressure Mean 146 Blood Pressure Mean [Right Arm] 146 153 Blood Pressure Position Lying Blood Pressure Position [Right Arm] Lying Pulse Oximetry 96 96 95 Oxygen Delivery Method Room Air Room Air Room Air Sepsis Recent Fever Within 48 Hours No Sepsis New/Unexplained Change in Mental Status No Sepsis Action Taken by Nursing No Action Required 05/23/21 15:59 05/23/21 16:00 05/23/21 16:30 Temperature 36.7 C Temperature Source Oral Pulse Rate 102 H 101 H 102 H Pulse Rate [Right Radial] 102 H Pulse Rate from SpO2 Sensor 101 H Pulse Rhythm Regular Pulse Rhythm [Right Radial] Regular Pulse Strength Pulse Strength [Right Radial] Normal Respiratory Rate 14 18 24 Respiratory Effort / Characteristics Non-Labored Spontaneous Respiratory Depth Normal Respiratory Pattern Regular Blood Pressure 213/96 H 204/92 H 172/85 H Blood Pressure [Right Arm] 204/92 H Blood Pressure Mean 135 129 114 Blood Pressure Mean [Right Arm] 129 Blood Pressure Position Blood Pressure Position [Right Arm] Lying Pulse Oximetry 95 Oxygen Delivery Method Room Air Sepsis Recent Fever Within 48 Hours Sepsis New/Unexplained Change in Mental Status Sepsis Action Taken by Nursing 05/23/21 17:00 05/23/21 17:12 05/23/21 17:25 Temperature Temperature Source Pulse Rate 101 H 103 H Pulse Rate [Right Radial] 104 H Pulse Rate from SpO2 Sensor Pulse Rhythm Pulse Rhythm [Right Radial] Regular Pulse Strength Pulse Strength [Right Radial] Normal Respiratory Rate 16 15 18 Respiratory Effort / Characteristics Non-Labored Spontaneous Respiratory Depth Normal Respiratory Pattern Regular Blood Pressure 201/93 H Blood Pressure [Right Arm] 201/93 H Blood Pressure Mean 129 Blood Pressure Mean [Right Arm] 129 Blood Pressure Position Blood Pressure Position [Right Arm] Lying Pulse Oximetry 95 Oxygen Delivery Method Room Air Sepsis Recent Fever Within 48 Hours Sepsis New/Unexplained Change in Mental Status Sepsis Action Taken by Nursing 05/23/21 17:30 05/23/21 17:31 05/23/21 17:35 Temperature Temperature Source Pulse Rate 98 H 102 H 96 H Pulse Rate [Right Radial] Pulse Rate from SpO2 Sensor 95 H Pulse Rhythm Pulse Rhythm [Right Radial] Pulse Strength Pulse Strength [Right Radial] Respiratory Rate 13 20 17 Respiratory Effort / Characteristics Respiratory Depth Respiratory Pattern Blood Pressure 174/80 H 178/111 H Blood Pressure [Right Arm] Blood Pressure Mean 111 133 Blood Pressure Mean [Right Arm] Blood Pressure Position Blood Pressure Position [Right Arm] Pulse Oximetry 96 Oxygen Delivery Method Sepsis Recent Fever Within 48 Hours Sepsis New/Unexplained Change in Mental Status Sepsis Action Taken by Nursing 05/23/21 17:40 05/23/21 17:43 05/23/21 17:50 Temperature Temperature Source Pulse Rate 92 H 91 H Pulse Rate [Right Radial] 104 H Pulse Rate from SpO2 Sensor 93 H 92 H Pulse Rhythm Pulse Rhythm [Right Radial] Regular Pulse Strength Pulse Strength [Right Radial] Normal Respiratory Rate 17 20 18 Respiratory Effort / Characteristics Non-Labored Spontaneous Respiratory Depth Normal Respiratory Pattern Regular Blood Pressure 169/75 H 156/77 H Blood Pressure [Right Arm] 174/80 H Blood Pressure Mean 106 103 Blood Pressure Mean [Right Arm] 111 Blood Pressure Position Blood Pressure Position [Right Arm] Sitting Pulse Oximetry 93 97 93 Oxygen Delivery Method Room Air Sepsis Recent Fever Within 48 Hours Sepsis New/Unexplained Change in Mental Status Sepsis Action Taken by Nursing 05/23/21 18:00 05/23/21 18:01 05/23/21 18:11 Temperature Temperature Source Pulse Rate 101 H 98 H 102 H Pulse Rate [Right Radial] Pulse Rate from SpO2 Sensor 101 H 98 H Pulse Rhythm Pulse Rhythm [Right Radial] Pulse Strength Pulse Strength [Right Radial] Respiratory Rate 18 23 25 H Respiratory Effort / Characteristics Respiratory Depth Respiratory Pattern Blood Pressure 228/122 H 227/127 H Blood Pressure [Right Arm] Blood Pressure Mean 157 160 Blood Pressure Mean [Right Arm] Blood Pressure Position Blood Pressure Position [Right Arm] Pulse Oximetry 95 96 Oxygen Delivery Method Sepsis Recent Fever Within 48 Hours Sepsis New/Unexplained Change in Mental Status Sepsis Action Taken by Nursing 05/23/21 18:21 05/23/21 18:23 05/23/21 18:30 Temperature Temperature Source Pulse Rate 98 H 99 H Pulse Rate [Right Radial] 96 H Pulse Rate from SpO2 Sensor 99 H Pulse Rhythm Pulse Rhythm [Right Radial] Regular Pulse Strength Pulse Strength [Right Radial] Normal Respiratory Rate 16 20 20 Respiratory Effort / Characteristics Non-Labored Spontaneous Respiratory Depth Normal Respiratory Pattern Regular Blood Pressure 215/96 H Blood Pressure [Right Arm] 215/96 H Blood Pressure Mean 135 Blood Pressure Mean [Right Arm] 135 Blood Pressure Position Blood Pressure Position [Right Arm] Sitting Pulse Oximetry 95 95 Oxygen Delivery Method Room Air Sepsis Recent Fever Within 48 Hours Sepsis New/Unexplained Change in Mental Status Sepsis Action Taken by Nursing 05/23/21 18:31 05/23/21 18:40 05/23/21 18:50 Temperature Temperature Source Pulse Rate 98 H 96 H 95 H Pulse Rate [Right Radial] Pulse Rate from SpO2 Sensor 95 H 96 H 96 H Pulse Rhythm Pulse Rhythm [Right Radial] Pulse Strength Pulse Strength [Right Radial] Respiratory Rate 17 18 16 Respiratory Effort / Characteristics Respiratory Depth Respiratory Pattern Blood Pressure 182/85 H 187/85 H 182/80 H Blood Pressure [Right Arm] Blood Pressure Mean 117 119 114 Blood Pressure Mean [Right Arm] Blood Pressure Position Blood Pressure Position [Right Arm] Pulse Oximetry 96 96 95 Oxygen Delivery Method Sepsis Recent Fever Within 48 Hours Sepsis New/Unexplained Change in Mental Status Sepsis Action Taken by Nursing 05/23/21 19:00 05/23/21 19:02 05/23/21 19:10 Temperature Temperature Source Pulse Rate 93 H 87 Pulse Rate [Right Radial] 93 H Pulse Rate from SpO2 Sensor 93 H Pulse Rhythm Pulse Rhythm [Right Radial] Regular Pulse Strength Pulse Strength [Right Radial] Normal Respiratory Rate 17 20 18 Respiratory Effort / Characteristics Non-Labored Spontaneous Respiratory Depth Normal Respiratory Pattern Regular Blood Pressure 176/81 H 191/88 H Blood Pressure [Right Arm] 182/80 H Blood Pressure Mean 112 122 Blood Pressure Mean [Right Arm] 114 Blood Pressure Position Blood Pressure Position [Right Arm] Sitting Pulse Oximetry 93 96 Oxygen Delivery Method Room Air Sepsis Recent Fever Within 48 Hours Sepsis New/Unexplained Change in Mental Status Sepsis Action Taken by Nursing 05/23/21 19:20 05/23/21 19:30 05/23/21 19:31 Temperature Temperature Source Pulse Rate 95 H 78 85 Pulse Rate [Right Radial] Pulse Rate from SpO2 Sensor Pulse Rhythm Pulse Rhythm [Right Radial] Pulse Strength Pulse Strength [Right Radial] Respiratory Rate 20 22 30 H Respiratory Effort / Characteristics Respiratory Depth Respiratory Pattern Blood Pressure 202/102 H 251/97 H Blood Pressure [Right Arm] Blood Pressure Mean 135 148 Blood Pressure Mean [Right Arm] Blood Pressure Position Blood Pressure Position [Right Arm] Pulse Oximetry Oxygen Delivery Method Sepsis Recent Fever Within 48 Hours Sepsis New/Unexplained Change in Mental Status Sepsis Action Taken by Nursing 05/23/21 19:36 05/23/21 19:43 05/23/21 19:50 Temperature Temperature Source Pulse Rate 82 76 75 Pulse Rate [Right Radial] Pulse Rate from SpO2 Sensor Pulse Rhythm Pulse Rhythm [Right Radial] Pulse Strength Pulse Strength [Right Radial] Respiratory Rate 19 19 16 Respiratory Effort / Characteristics Respiratory Depth Respiratory Pattern Blood Pressure 200/114 H 214/84 H 199/83 H Blood Pressure [Right Arm] Blood Pressure Mean 142 127 121 Blood Pressure Mean [Right Arm] Blood Pressure Position Blood Pressure Position [Right Arm] Pulse Oximetry Oxygen Delivery Method Sepsis Recent Fever Within 48 Hours Sepsis New/Unexplained Change in Mental Status Sepsis Action Taken by Nursing 05/23/21 20:00 05/23/21 20:10 05/23/21 20:30 Temperature Temperature Source Pulse Rate 74 72 73 Pulse Rate [Right Radial] Pulse Rate from SpO2 Sensor 71 73 73 Pulse Rhythm Pulse Rhythm [Right Radial] Pulse Strength Pulse Strength [Right Radial] Respiratory Rate 15 23 17 Respiratory Effort / Characteristics Respiratory Depth Respiratory Pattern Blood Pressure 169/110 H 182/82 H Blood Pressure [Right Arm] Blood Pressure Mean 129 115 Blood Pressure Mean [Right Arm] Blood Pressure Position Blood Pressure Position [Right Arm] Pulse Oximetry 94 95 94 Oxygen Delivery Method Sepsis Recent Fever Within 48 Hours Sepsis New/Unexplained Change in Mental Status Sepsis Action Taken by Nursing 05/23/21 21:00 05/23/21 21:30 05/23/21 22:00 Temperature Temperature Source Pulse Rate 78 75 79 Pulse Rate [Right Radial] Pulse Rate from SpO2 Sensor 78 76 79 Pulse Rhythm Pulse Rhythm [Right Radial] Pulse Strength Pulse Strength [Right Radial] Respiratory Rate 17 21 22 Respiratory Effort / Characteristics Respiratory Depth Respiratory Pattern Blood Pressure 195/93 H Blood Pressure [Right Arm] Blood Pressure Mean 127 Blood Pressure Mean [Right Arm] Blood Pressure Position Blood Pressure Position [Right Arm] Pulse Oximetry 95 91 92 Oxygen Delivery Method Sepsis Recent Fever Within 48 Hours Sepsis New/Unexplained Change in Mental Status Sepsis Action Taken by Nursing Laboratory Data Attestation: I reviewed the patient's lab results. Result diagrams: 05/23/21 15:25 05/23/21 15:25 Lab Results 05/23/21 05/23/21 05/23/21 Range/Units 15:25 15:25 15:25 WBC 10.87 H (4.8-10.8) K/uL RBC 4.14 L (4.2-5.4) M/uL Hgb 13.0 (12.0-16.0) g/dL POC Hgb (12.0-16.0) g/dl Hct 38.5 (37-47) % POC Hct (37-47) % MCV 93.0 (80-100) fL MCH 31.4 (25-34) pg MCHC 33.8 (32-36) g/dL RDW Std Deviation 46.8 H (36.4-46.3) fL RDW Coeff of Ghassan 13.7 (11.5-14.5) % Plt Count 232 (130-400) K/uL MPV 11.3 H (7.4-10.4) fL Immature Gran % (Auto) 0.1 % Neut % (Auto) 76.3 % Lymph % (Auto) 11.6 % [place] % (Auto) 10.9 % Eos % (Auto) 0.6 % Baso % (Auto) 0.5 % Neut # (Auto) 8.31 H (1.4-6.5) K/uL Lymph # (Auto) 1.26 (1.2-3.4) K/uL [place] # (Auto) 1.18 H (0.11-0.59) K/uL Eos # (Auto) 0.06 (0-0.5) K/uL Baso # (Auto) 0.05 (0-0.2) K/uL Immature Gran # (Auto) 0.01 (0.00-0.02) K/uL PT 9.9 (9.0-12.0) Seconds INR 1.0 (0.9-1.1) POC Sodium (135-144) mmol/L Sodium 138 (136-145) mmol/L POC Potassium (3.3-5.0) mmol/L Potassium 3.5 (3.5-5.1) mmol/L POC Chloride (101-112) mmol/L Chloride 105 (98-107) mmol/L Carbon Dioxide 26 (21-32) mmol/L POC Total CO2 (24-31) mmol/L Anion Gap 7 (3-11) POC Anion Gap (16-25) mmol/L POC BUN (7-18) mg/dl BUN 13 (6-23) mg/dl Creatinine 0.73 (0.6-1.2) mg/dl POC Creatinine (0.6-1.3) mg/dl Est Cr Clr Drug Dosing 66.3 ml/min Est GFR ( Amer) 92.7 ml/min Est GFR (Non-Af Amer) 80.0 ml/min BUN/Creatinine Ratio 17.8 (10-20) Glucose 105 H (70-99) mg/dl POC Glucose (other) (70-99) mg/dl Calcium 9.0 (8.5-10.1) mg/dl POC Ioniz Calcium Jair (1.12-1.32) mmol/l Phosphorus 3.8 (2.5-4.9) mg/dl Magnesium 2.0 (1.7-2.4) mg/dl Total Bilirubin 0.7 (0.2-1.0) mg/dl AST 13 (13-39) U/L ALT 9 (7-52) U/L Alkaline Phosphatase 97 (34-104) U/L Troponin I < 0.03 (0-0.04) ng/ml Total Protein 6.7 (6.0-8.3) gm/dl Albumin 3.8 (3.4-5.0) gm/dl Globulin 2.9 (2.5-4.0) gm/dl Albumin/Globulin Ratio 1.3 (0.9-2) Lipase 15 (11-82) U/L Urine Color Urine Appearance (Clear) Urine pH (4.5-7.5) Ur Specific [place] (1.000-1.030) Urine Protein (Negative) Urine Glucose (UA) (Negative) Urine Ketones (Negative) Urine Blood (Negative) Urine Nitrite (Negative) Urine Bilirubin (Negative) Urine Urobilinogen (Negative) Ur Leukocyte Esterase (Negative) Urine Opiates Screen (Neg) Ur Methadone, Qual (Neg) Urine Barbiturates (Neg) Ur Phencyclidine (PCP) (Neg) U Amphetamin/Meth Scrn (Neg) MDMA (Ecstasy) Screen (Neg) U Benzodiazepines Scrn (Neg) Ur Cocaine Metabolite (Neg) U Marijuana (THC) Screen (Neg) SARS-CoV-2 (PCR) (Negative) Influenza Type A (PCR) (Neg) Influenza Type B (PCR) (Neg) RSV (RT-PCR) (Neg) 05/23/21 05/23/21 05/23/21 Range/Units 15:35 16:00 16:00 WBC (4.8-10.8) K/uL RBC (4.2-5.4) M/uL Hgb (12.0-16.0) g/dL POC Hgb 12.6 (12.0-16.0) g/dl Hct (37-47) % POC Hct 37 (37-47) % MCV (80-100) fL MCH (25-34) pg MCHC (32-36) g/dL RDW Std Deviation (36.4-46.3) fL RDW Coeff of Ghassan (11.5-14.5) % Plt Count (130-400) K/uL MPV (7.4-10.4) fL Immature Gran % (Auto) % Neut % (Auto) % Lymph % (Auto) % [place] % (Auto) % Eos % (Auto) % Baso % (Auto) % Neut # (Auto) (1.4-6.5) K/uL Lymph # (Auto) (1.2-3.4) K/uL [place] # (Auto) (0.11-0.59) K/uL Eos # (Auto) (0-0.5) K/uL Baso # (Auto) (0-0.2) K/uL Immature Gran # (Auto) (0.00-0.02) K/uL PT (9.0-12.0) Seconds INR (0.9-1.1) POC Sodium 140 (135-144) mmol/L Sodium (136-145) mmol/L POC Potassium 3.4 (3.3-5.0) mmol/L Potassium (3.5-5.1) mmol/L POC Chloride 103 (101-112) mmol/L Chloride (98-107) mmol/L Carbon Dioxide (21-32) mmol/L POC Total CO2 24 (24-31) mmol/L Anion Gap (3-11) POC Anion Gap 17.0 (16-25) mmol/L POC BUN 13 (7-18) mg/dl BUN (6-23) mg/dl Creatinine (0.6-1.2) mg/dl POC Creatinine 0.7 (0.6-1.3) mg/dl Est Cr Clr Drug Dosing ml/min Est GFR ( Amer) ml/min Est GFR (Non-Af Amer) ml/min BUN/Creatinine Ratio (10-20) Glucose (70-99) mg/dl POC Glucose (other) 107 H (70-99) mg/dl Calcium (8.5-10.1) mg/dl POC Ioniz Calcium Jair 1.23 (1.12-1.32) mmol/l Phosphorus (2.5-4.9) mg/dl Magnesium (1.7-2.4) mg/dl Total Bilirubin (0.2-1.0) mg/dl AST (13-39) U/L ALT (7-52) U/L Alkaline Phosphatase (34-104) U/L Troponin I (0-0.04) ng/ml Total Protein (6.0-8.3) gm/dl Albumin (3.4-5.0) gm/dl Globulin (2.5-4.0) gm/dl Albumin/Globulin Ratio (0.9-2) Lipase (11-82) U/L Urine Color Yellow Urine Appearance Clear (Clear) Urine pH 6.5 (4.5-7.5) Ur Specific [place] 1.016 (1.000-1.030) Urine Protein Negative (Negative) Urine Glucose (UA) Negative (Negative) Urine Ketones Trace H (Negative) Urine Blood Negative (Negative) Urine Nitrite Negative (Negative) Urine Bilirubin Negative (Negative) Urine Urobilinogen Negative (Negative) Ur Leukocyte Esterase Negative (Negative) Urine Opiates Screen Neg (Neg) Ur Methadone, Qual Neg (Neg) Urine Barbiturates Neg (Neg) Ur Phencyclidine (PCP) Neg (Neg) U Amphetamin/Meth Scrn Neg (Neg) MDMA (Ecstasy) Screen Neg (Neg) U Benzodiazepines Scrn Neg (Neg) Ur Cocaine Metabolite Neg (Neg) U Marijuana (THC) Screen Neg (Neg) SARS-CoV-2 (PCR) (Negative) Influenza Type A (PCR) (Neg) Influenza Type B (PCR) (Neg) RSV (RT-PCR) (Neg) 05/23/21 Range/Units 16:07 WBC (4.8-10.8) K/uL RBC (4.2-5.4) M/uL Hgb (12.0-16.0) g/dL POC Hgb (12.0-16.0) g/dl Hct (37-47) % POC Hct (37-47) % MCV (80-100) fL MCH (25-34) pg MCHC (32-36) g/dL RDW Std Deviation (36.4-46.3) fL RDW Coeff of Ghassan (11.5-14.5) % Plt Count (130-400) K/uL MPV (7.4-10.4) fL Immature Gran % (Auto) % Neut % (Auto) % Lymph % (Auto) % [place] % (Auto) % Eos % (Auto) % Baso % (Auto) % Neut # (Auto) (1.4-6.5) K/uL Lymph # (Auto) (1.2-3.4) K/uL [place] # (Auto) (0.11-0.59) K/uL Eos # (Auto) (0-0.5) K/uL Baso # (Auto) (0-0.2) K/uL Immature Gran # (Auto) (0.00-0.02) K/uL PT (9.0-12.0) Seconds INR (0.9-1.1) POC Sodium (135-144) mmol/L Sodium (136-145) mmol/L POC Potassium (3.3-5.0) mmol/L Potassium (3.5-5.1) mmol/L POC Chloride (101-112) mmol/L Chloride (98-107) mmol/L Carbon Dioxide (21-32) mmol/L POC Total CO2 (24-31) mmol/L Anion Gap (3-11) POC Anion Gap (16-25) mmol/L POC BUN (7-18) mg/dl BUN (6-23) mg/dl Creatinine (0.6-1.2) mg/dl POC Creatinine (0.6-1.3) mg/dl Est Cr Clr Drug Dosing ml/min Est GFR ( Amer) ml/min Est GFR (Non-Af Amer) ml/min BUN/Creatinine Ratio (10-20) Glucose (70-99) mg/dl POC Glucose (other) (70-99) mg/dl Calcium (8.5-10.1) mg/dl POC Ioniz Calcium Jair (1.12-1.32) mmol/l Phosphorus (2.5-4.9) mg/dl Magnesium (1.7-2.4) mg/dl Total Bilirubin (0.2-1.0) mg/dl AST (13-39) U/L ALT (7-52) U/L Alkaline Phosphatase (34-104) U/L Troponin I (0-0.04) ng/ml Total Protein (6.0-8.3) gm/dl Albumin (3.4-5.0) gm/dl Globulin (2.5-4.0) gm/dl Albumin/Globulin Ratio (0.9-2) Lipase (11-82) U/L Urine Color Urine Appearance (Clear) Urine pH (4.5-7.5) Ur Specific [place] (1.000-1.030) Urine Protein (Negative) Urine Glucose (UA) (Negative) Urine Ketones (Negative) Urine Blood (Negative) Urine Nitrite (Negative) Urine Bilirubin (Negative) Urine Urobilinogen (Negative) Ur Leukocyte Esterase (Negative) Urine Opiates Screen (Neg) Ur Methadone, Qual (Neg) Urine Barbiturates (Neg) Ur Phencyclidine (PCP) (Neg) U Amphetamin/Meth Scrn (Neg) MDMA (Ecstasy) Screen (Neg) U Benzodiazepines Scrn (Neg) Ur Cocaine Metabolite (Neg) U Marijuana (THC) Screen (Neg) SARS-CoV-2 (PCR) NEGATIVE (Negative) Influenza Type A (PCR) Negative (Neg) Influenza Type B (PCR) Negative (Neg) RSV (RT-PCR) Negative (Neg) Administered Medications Miscellaneous (Remove Lidoderm Patch) 1 ea N/A DAILY@2100 [facility] Stop: 06/22/21 20:59 Last Admin: 05/23/21 20:40 Dose: 1 ea Documented by: [id number] Discontinued Medications Acetaminophen (Acetaminophen 500 Mg Tab) 1,000 mg PO NOW STA Stop: 05/23/21 14:25 Last Admin: 05/23/21 14:30 Dose: 1,000 mg Documented by: [id number] Baclofen (Baclofen 10 Mg Tab) 10 mg PO NOW STA Stop: 05/23/21 20:17 Last Admin: 05/23/21 20:40 Dose: 10 mg Documented by: [id number] Ioversol (Optiray 320 100ml) 94 ml IV ONCE ONE Stop: 05/23/21 16:39 Last Admin: 05/23/21 16:38 Dose: 94 ml Documented by: [id number] Labetalol HCl (Labetalol Hcl Iv 5 Mg/Ml 20ml) 5 mg IV NOW STA Stop: 05/23/21 17:08 Last Admin: 05/23/21 17:16 Dose: 5 mg Documented by: [id number] Cosigned by: [id number] Labetalol HCl (Labetalol Hcl Iv 5 Mg/Ml 20ml) 5 mg IV NOW STA Stop: 05/23/21 20:17 Last Admin: 05/23/21 20:40 Dose: 5 mg Documented by: [id number] Cosigned by: [id number] Lidocaine (Lidocaine 5% 1 Patch) 1 patch TD NOW STA Stop: 05/23/21 14:25 Last Admin: 05/23/21 14:30 Dose: 1 patch Documented by: [id number] Lisinopril (Lisinopril 40 Mg Tab) 40 mg PO NOW STA Stop: 05/23/21 17:49 Last Admin: 05/23/21 18:21 Dose: 40 mg Documented by: [id number] Metoprolol Succinate (Metoprolol Succ 50mg Ext Rel Tab) 50 mg PO NOW STA Stop: 05/23/21 17:49 Last Admin: 05/23/21 18:21 Dose: 50 mg Documented by: [id number] Morphine Sulfate (Morphine Sulfate 2 Mg/Ml Carp) 2 mg IV NOW STA Stop: 05/23/21 15:05 Last Admin: 05/23/21 16:50 Dose: Not Given Documented by: [id number] Morphine Sulfate (Morphine Sulfate 2 Mg/Ml Carp) 2 mg IV NOW STA Stop: 05/23/21 21:15 Last Admin: 05/23/21 21:18 Dose: 2 mg Documented by: [id number] Imaging Data Radiologist's Impression: Head CT 05/23/21 12:40 CT head/brain wo con CLINICAL HISTORY: Status post fall with pain COMPARISON STUDY: 03/09/2021 CT DOSE: 788.63 mGycm TECHNIQUE: Standard CT of the Brain was performed without IV contrast. A dose lowering technique was utilized adhering to the principles of ALARA. FINDINGS: Extraaxial space: There is no evidence for subdural hematoma. There are no extra-axial fluid collections. Ventricles and cisterns: The ventricles are mildly dilated bilaterally. Ex vacuo deformity is present on the right. There is no evidence for midline shift or mass effect. Parenchyma: There is no subarachnoid or intraparenchymal hemorrhage. There is no evidence for an acute infarct or cerebral edema. Encephalomalacia is again seen involving the distribution of the right middle cerebral artery representing an old infarct. Old lacunar infarcts are also present within the basal ganglia bilaterally. There is mild cerebral cortical atrophy and decreased attenuation in the periventricular white matter representing remote small vessel disease. There are no gross mass lesions. Osseous structures: There is no evidence for an acute fracture. The visualized paranasal sinuses are clear. The mastoid air cells are clear bilaterally. Soft tissues: There is no evidence for focal soft tissue swelling. IMPRESSION: No acute intracerebral pathology. There is again evidence for atroph y, remote small vessel disease, old MCA infarct and old bilateral lacunar infarcts within the basal ganglia. ACT 112: Negative or not required by law. Electronically signed by: Jose Maki M.D. 05/23/2021 1:07 PM Ribs w/Chest X-Ray 05/23/21 12:40 XR ribs RT min 2V w CXR1V CLINICAL HISTORY: pain fall out of bed. Right rib pain COMPARISON STUDY: Portable chest from 03/09/2021 TECHNIQUE: Frontal view of the chest. Right rib series is performed. FINDINGS: Single frontal view of the chest demonstrates the heart to be mildly enlarged. The lungs are clear of acute infiltrates. There is no evidence for pleural effusion. There is no evidence for vascular congestion. Multiple views of the ribs demonstrate no evidence for displaced fracture. IMPRESSION: No acute chest disease. No evidence for rib fracture. ACT 112: Negative or not required by law. Electronically signed by: Jose Maki M.D. 05/23/2021 1:39 PM Abdomen/Pelvis CT 05/23/21 15:04 CT abd pelvis IV con only CLINICAL HISTORY: right back pain fall out of bed COMPARISON STUDY: No previous studies for comparison. CT DOSE: 1036.17 mGy.cm TECHNIQUE: Standard CT of the Abdomen and Pelvis was performed with IV contrast. A dose lowering technique was utilized adhering to the principles of ALARA. Contrast Volume: Optiray 320, 94 ml. The patient did not receive oral contrast. FINDINGS: Abdominal cavity: There is no evidence for abdominal mass, adenopathy or ascites. Liver: There is homogeneous attenuation of the liver parenchyma. There is no evidence for enhancing mass lesion. Spleen: There is homogeneous attenuation of the splenic parenchyma. There is no enhancing mass lesion. Pancreas: There is homogeneous attenuation of the pancreatic parenchyma. There is no evidence for mass lesion or peripancreatic fluid collection. Gall Bladder: The gallbladder is well distended with cholelithiasis. There is no CT evidence for acute cholecystitis. Adrenal glands: The adrenal glands are normal in size and attenuation. There is no evidence for enhancing mass lesion. Kidneys: There is homogeneous attenuation of the renal parenchyma bilaterally. There is no evidence for renal calculus or hydronephrosis. There is no evidence for enhancing mass. Bowel: There is a moderate size left paraesophageal hiatal hernia. The bowel loops are normally placed within the abdomen and pelvis without evidence for dilatation or obstruction. There is no evidence for mass lesion. There is mild fecal stasis. There are no inflammatory changes present. There is no evidence for free air. The appendix is not visualized. Bladder: The bladder is within normal limits with no evidence for focal mass, calculus or diverticulum. : There is no evidence for pelvic mass or adenopathy. There is no evidence for pelvic ascites. Vasculature: There is no evidence for aneurysmal dilatation of the abdominal aor ta. Osseous structures: There is no acute osseous pathology. The bones are osteopenic with extensive degenerative changes seen particularly at the L4-5 disc space level. IMPRESSION: 1. No acute intra-abdominal or pelvic abnormality. 2. Cholelithiasis with no CT evidence for acute cholecystitis. 3. Mild fecal stasis. 4. Additional nonacute findings are delineated above. ACT 112: Negative or not required by law. Electronically signed by: Jose Maki M.D. 05/23/2021 4:[address] 05/23/21 15:04 CT chest diagnostic w con CLINICAL HISTORY: right back pain fall out of bed COMPARISON STUDY: Standard radiographs from 05/23/2021 CT DOSE: TECHNIQUE: Standard CT of the Chest was performed with IV contrast. A dose lowering technique was utilized adhering to the principles of ALARA. Contrast Volume: Optiray 320, 94 ml FINDINGS: Airway: The airway is clear. No endobronchial lesion is identified. Lungs and pleural: There is a small right-sided pleural effusion and minimal right basilar atelectasis. There is also mild left basilar atelectasis. The lungs are otherwise clear of acute alveolar opacities, air bronchograms or pulmonary nodules. Mediastinum: There is no evidence for pathologic adenopathy. The heart size is within normal limits. There is mild coronary artery calcification. The thoracic aorta is within normal limits. There is mild atherosclerotic calcification. There is no evidence for pericardial effusion. Upper abdomen: There is a moderately large paraesophageal hiatal hernia on the left. Osseous structures: There is no acute osseous pathology. There is no definite rib fracture. IMPRESSION: 1. Small right pleural effusion and right basilar atelectasis. 2. Minimal left basilar atelectasis. 3. Otherwise, no acute chest disease. 4. Coronary artery calcification. 5. No evidence for displaced rib fracture. 6. Moderately large left paraesophageal hiatal hernia. ACT 112: Negative or not required by law. Electronically signed by: Jose Maki M.D. 05/23/2021 4:49 PM Discharge Plan Visit Data Chief Complaint: Rib Injury/Pain Stated Complaint: R LOWER RIB PAIN ED Provider: Leonardo Etienne Discharge Problem: Hypertensive urgency, Noncompliance with medication regimen, Fall from bed, Mid back pain on right side, Depression with suicidal ideation Forms Stand Alone Forms: My [facility] Prescriptions Prescriptions: No Action clopidogrel 75 mg tablet 75 mg PO QAM Qty: 30 RF: 2 baclofen 10 mg tablet 10 mg PO BID RF: 0 metoprolol succinate 50 mg tablet extended release 24 hr 50 mg PO DAILY RF: 0 lisinopril 40 mg tablet 40 mg PO HS RF: 0 oxycodone 5 mg Tablet 5 mg PO Q6H PRN (Reason: Pain) RF: 0 rosuvastatin [Crestor] 40 mg Tablet 40 mg PO HS RF: 0 Referrals Referrals: Maik Du MD [Primary Care Provider] - Discharge Problem: Fall from bed Qualifiers: Encounter type: initial encounter Qualified Code(s): W06.XXXA - Fall from bed, initial encounter
--- NOTE | 2021-05-23 13:08 | CT Scan Report ---
CT head/brain wo con CLINICAL HISTORY: Status post fall with pain COMPARISON STUDY: 03/09/2021 CT DOSE: 788.63 mGycm TECHNIQUE: Standard CT of the Brain was performed without IV contrast. A dose lowering technique was utilized adhering to the principles of ALARA. FINDINGS: Extraaxial space: There is no evidence for subdural hematoma. There are no extra-axial fluid collecti ons. Ventricles and cisterns: The ventricles are mildly dilated bilaterally. Ex vacuo deformity is presen t on the right. There is no evidence for midline shift or mass effect. Parenchyma: There is no subarachnoid or intraparenchymal hemorrhage. There is no evidence for an acu te infarct or cerebral edema. Encephalomalacia is again seen involving the distribution of the right middle cerebral artery representing an old infarct. Old lacunar infarcts are also present within the basal ganglia bilaterally. There is mild cerebral cortical atrophy and decreased attenuation in the p eriventricular white matter representing remote small vessel disease. There are no gross mass lesions . Osseous structures: There is no evidence for an acute fracture. The visualized paranasal sinuses are clear. The mastoid air cells are clear bilaterally. Soft tissues: There is no evidence for focal soft tissue swelling. IMPRESSION: No acute intracerebral pathology. There is again evidence for atrophy, remote small vesse l disease, old MCA infarct and old bilateral lacunar infarcts within the basal ganglia. ACT 112: Negative or not required by law. Electronically signed by: Jose Maki M.D. 05/23/2021 1:07 PM
--- NOTE | 2021-05-23 13:41 | XRay Report ---
XR ribs RT min 2V w CXR1V CLINICAL HISTORY: pain fall out of bed. Right rib pain COMPARISON STUDY: Portable chest from 03/09/2021 TECHNIQUE: Frontal view of the chest. Right rib series is performed. FINDINGS: Single frontal view of the chest demonstrates the heart to be mildly enlarged. The lungs are clear of acute infiltrates. There is no evidence for pleural effusion. There is no evidence for vascular linda estion. Multiple views of the ribs demonstrate no evidence for displaced fracture. IMPRESSION: No acute chest disease. No evidence for rib fracture. ACT 112: Negative or not required by law. Electronically signed by: Jose Maki M.D. 05/23/2021 1:39 PM
[2021-05-23] MEDS ORDERED: LIDOCAINE 5% 1 PATCH TD STA (14:24)
[2021-05-23] MEDS ORDERED: ACETAMINOPHEN 500 MG TAB PO STA (14:24)
[2021-05-23] MEDS ORDERED: MoRPHine SULFATE 2 MG/ML CARP IV STA ×2 (15:04→21:14)
[2021-05-23 15:43] LABS: Basophils # (auto) 0.05 K/uL (0-0.2); Basophils % (auto) 0.5 %; Eosinophils # (auto) 0.06 K/uL (0-0.5); Eosinophils % (auto) 0.6 %; Hematocrit (blood only) 38.5 % (37-47); Immature Granulocytes # (auto) 0.01 K/uL (0.00-0.02); Immature Granulocytes % (auto) 0.1 %; Lymphocytes # (auto) 1.26 K/uL (1.2-3.4); Lymphocytes % (auto) 11.6 %; Mean Corpuscular Hemoglobin 31.4 pg (25-34); Mean Corpuscular Hgb Conc 33.8 g/dL (32-36); Mean Platelet Volume 11.3 fL (7.4-10.4); Monocytes # (auto) 1.18 K/uL (0.11-0.59); Monocytes % (auto) 10.9 %; Neutrophils # (auto) 8.31 K/uL (1.4-6.5); Neutrophils % (auto) 76.3 %; Platelet Count 232 K/uL (130-400); RDW Coefficient of Variation 13.7 % (11.5-14.5); RDW Standard Deviation 46.8 fL (36.4-46.3); Red Blood Count 4.14 M/uL (4.2-5.4); White Blood Count 10.87 K/uL (4.8-10.8)
[2021-05-23 15:47] LABS: iSTAT Creatinine 0.7 mg/dl (0.6-1.3); iSTAT Hemoglobin 12.6 g/dl (12.0-16.0); iSTAT Ionized Calcium 1.23 mmol/l (1.12-1.32); iSTAT Potassium 3.4 mmol/L (3.3-5.0)
[2021-05-23 15:53] LABS: Prothrombin Time 9.9 Seconds (9.0-12.0)
[2021-05-23 16:09] LABS: Alanine Aminotransferase 9 U/L (7-52); Albumin Globulin Ratio 1.3 (0.9-2); Albumin Level 3.8 gm/dl (3.4-5.0); Alkaline Phosphatase 97 U/L (34-104); Anion Gap 7 (3-11); Aspartate Aminotransferase 13 U/L (13-39); BUN Creatinine Ratio 17.8 (10-20); Bilirubin,Total 0.7 mg/dl (0.2-1.0); Blood Urea Nitrogen 13 mg/dl (6-23); Carbon Dioxide 26 mmol/L (21-32); Chloride 105 mmol/L (98-107); Creatinine Clr Calc Pharmacy 66.3 ml/min; Est GFR (African American) 92.7 ml/min; Globulin 2.9 gm/dl (2.5-4.0); Glucose 105 mg/dl (70-99); Lipase 15 U/L (11-82); Phosphorus 3.8 mg/dl (2.5-4.9); Potassium 3.5 mmol/L (3.5-5.1); Sodium 138 mmol/L (136-145); Total Protein 6.7 gm/dl (6.0-8.3); Troponin I < 0.03 ng/ml (0-0.04)
[2021-05-23 16:15] LABS: Appearance Urine Clear (Clear); Bilirubin Urine Negative (Negative); Blood Urine Negative (Negative); Color Urine Yellow; Glucose Urine UA Negative (Negative); Ketones Urine Trace (Negative); Leukocyte Esterase Urine Negative (Negative); Nitrite Urine Negative (Negative); Protein Urine Negative (Negative); Specific Gravity Urine 1.016 (1.000-1.030); Urobilinogen Urine Negative (Negative); pH Urine 6.5 (4.5-7.5)
[2021-05-23 16:38] LABS: Amphetamines+Metham, Urine Neg (Neg); Barbiturates, Urine Neg (Neg); Benzodiazepine, Urine Neg (Neg); Cocaine, Urine Neg (Neg); MDMA (Ecstacy), Urine Neg (Neg); Methadone, Urine Neg (Neg); Opiate, Urine Neg (Neg); Phencyclidine, Urine Neg (Neg)
[2021-05-23] MEDS ORDERED: OPTIRAY 320 100ml IV ONE (16:38)
--- NOTE | 2021-05-23 16:51 | CT Scan Report ---
CT chest diagnostic w con CLINICAL HISTORY: right back pain fall out of bed COMPARISON STUDY: Standard radiographs from 05/23/2021 CT DOSE: TECHNIQUE: Standard CT of the Chest was performed with IV contrast. A dose lowering technique was u tilized adhering to the principles of ALARA. Contrast Volume: Optiray 320, 94 ml FINDINGS: Airway: The airway is clear. No endobronchial lesion is identified. Lungs and pleural: There is a small right-sided pleural effusion and minimal right basilar atelectasi s. There is also mild left basilar atelectasis. The lungs are otherwise clear of acute alveolar opaci ties, air bronchograms or pulmonary nodules. Mediastinum: There is no evidence for pathologic adenopathy. The heart size is within normal limits. There is mild coronary artery calcification. The thoracic aorta is within normal limits. There is mil d atherosclerotic calcification. There is no evidence for pericardial effusion. Upper abdomen: There is a moderately large paraesophageal hiatal hernia on the left. Osseous structures: There is no acute osseous pathology. There is no definite rib fracture. IMPRESSION: 1. Small right pleural effusion and right basilar atelectasis. 2. Minimal left basilar atelectasis. 3. Otherwise, no acute chest disease. 4. Coronary artery calcification. 5. No evidence for displaced rib fracture. 6. Moderately large left paraesophageal hiatal hernia. ACT 112: Negative or not required by law. Electronically signed by: Jose Maki M.D. 05/23/2021 4:49 PM
--- NOTE | 2021-05-23 16:59 | CT Scan Report ---
CT abd pelvis IV con only CLINICAL HISTORY: right back pain fall out of bed COMPARISON STUDY: No previous studies for comparison. CT DOSE: 1036.17 mGy.cm TECHNIQUE: Standard CT of the Abdomen and Pelvis was performed with IV contrast. A dose lowering symone hnique was utilized adhering to the principles of ALARA. Contrast Volume: Optiray 320, 94 ml. The patient did not receive oral contrast. FINDINGS: Abdominal cavity: There is no evidence for abdominal mass, adenopathy or ascites. Liver: There is homogeneous attenuation of the liver parenchyma. There is no evidence for enhancing m ass lesion. Spleen: There is homogeneous attenuation of the splenic parenchyma. There is no enhancing mass lesion . Pancreas: There is homogeneous attenuation of the pancreatic parenchyma. There is no evidence for mas s lesion or peripancreatic fluid collection. Gall Bladder: The gallbladder is well distended with cholelithiasis. There is no CT evidence for acut e cholecystitis. Adrenal glands: The adrenal glands are normal in size and attenuation. There is no evidence for enhan cing mass lesion. Kidneys: There is homogeneous attenuation of the renal parenchyma bilaterally. There is no evidence f or renal calculus or hydronephrosis. There is no evidence for enhancing mass. Bowel: There is a moderate size left paraesophageal hiatal hernia. The bowel loops are normally place d within the abdomen and pelvis without evidence for dilatation or obstruction. There is no evidence for mass lesion. There is mild fecal stasis. There are no inflammatory changes present. There is no e vidence for free air. The appendix is not visualized. Bladder: The bladder is within normal limits with no evidence for focal mass, calculus or diverticulu m. : There is no evidence for pelvic mass or adenopathy. There is no evidence for pelvic ascites. Vasculature: There is no evidence for aneurysmal dilatation of the abdominal aorta. Osseous structures: There is no acute osseous pathology. The bones are osteopenic with extensive dege nerative changes seen particularly at the L4-5 disc space level. IMPRESSION: 1. No acute intra-abdominal or pelvic abnormality. 2. Cholelithiasis with no CT evidence for acute cholecystitis. 3. Mild fecal stasis. 4. Additional nonacute findings are delineated above. ACT 112: Negative or not required by law. Electronically signed by: Jose Maki M.D. 05/23/2021 4:57 PM
[2021-05-23] MEDS ORDERED: LABETALOL HCL IV 5 MG/ML 20ML IV STA ×2 (17:07→20:16)
[2021-05-23 17:10] LABS: Influenza A virus by PCR Negative (Neg); Influenza B virus by PCR Negative (Neg); RSV by PCR Negative (Neg); SARS CoV2 RNA(COVID-19) InHosp NEGATIVE (Negative)
[2021-05-23] MEDS ORDERED: METOPROLOL SUCC 50MG EXT REL TAB PO STA (17:48)
[2021-05-23] MEDS ORDERED: lisinopril 40 MG TAB PO STA (17:48)
[2021-05-23] MEDS ORDERED: BACLOFEN 10 MG TAB PO STA (20:16)
--- NOTE | 2021-05-23 21:17 | History & Physical Report ---
Date of Service May 23, 2021 Assessment & Plan (1) Hypertensive urgency: Plan: 76 yo F w/ pMHx. of GERD, HTN, prior suicidal ideation presenting with right back pain after a fall and HTN urgency along with suicidal ideation with a plan. HTN urgency BP as high as 230's systolic in the ER Given IV Lopressor and home medication - continue home Lisinopril, Metoprolol - added PO as needed Hydralazine for SBP >180 - continue to monitor on telemetry Suicidal ideation with a plan - psych consulted - suicide precautions, safety tray, one-one Fall with right back/flank pain CT chest with right sided pleural effusion, no rib fractures seen - lidocaine patch, home oxycodone, home baclofen - IS while awake - PT/OT ordered Prior stroke with L sided deficits - continue Clopidogrel - continue Statin - BP control as above Code: DNR/DNI Diet: safety tray DVT: Lovenox 30 mg Qday (2) Mid back pain on right side: (3) HTN (hypertension): (4) CVA (cerebral vascular accident): History of Present Illness Chief Complaint: right sided pain Primary Care Provider: Maik Du MD Marylou Donnelly has a past medical history of HTN, GERD, prior right MCA stroke and prior suicidal ideation. She is presenting after a fall from her bed on her right side with right sided pain. She has pain over her right flank that started after the fall and is worse with deep breathing. She was found to have suicidal ideations here in the hospital. She brought up that she has had 2 prior suicide attempts, once in 2007 when her only child and again in 2013 when she did not have any money and saw it as an escape. She said that she currently has a plan but no date in mind. She said that she has been hoarding pills for this purpose. She sees a therapist at [facility], [place] who she sees on a weekly basis. She said she has not taken any of her home medications today. She has a loop recorder in since May 2019. ED course: given home BP medications and IV Labetalol for BP into the 230's systolic. Social: denies ETOH, tobacco, rec. drug use Allergies Allergy/AdvReac Type Severity Reaction Status Date / Time Penicillins Allergy Hives Verified 05/23/21 14:53 Sulfa (Sulfonamide Allergy Hives Verified 05/23/21 14:53 Antibiotics) "ALL ANTIBIOTICS" Allergy Intermediate HIVES Uncoded 05/23/21 14:53 Home Medications Medication Instructions Recorded Confirmed Type clopidogrel 75 mg tablet 75 mg PO QAM #30 tab 10/02/20 05/23/21 Rx baclofen 10 mg tablet 10 mg PO BID 03/09/21 05/23/21 History lisinopril 40 mg tablet 40 mg PO HS 05/23/21 05/23/21 History metoprolol succinate 50 mg 50 mg PO DAILY 05/23/21 05/23/21 History tablet,extended release 24 hr oxycodone 5 mg tablet 5 mg PO Q6H PRN 05/23/21 05/23/21 History rosuvastatin 40 mg tablet (Crestor) 40 mg PO HS 05/23/21 05/23/21 History Past Med/Surg History Medical History Acute CVA (cerebrovascular accident) Acute right MCA stroke Depression Depression with suicidal ideation GERD (gastroesophageal reflux disease) HTN (hypertension) HTN (hypertension) Hypercholesterolemia Hypercholesterolemia Pre-diabetes Prediabetes Sinusitis Suicidal ideation Suicide attempt 2013 - ETOH/Valium combination - had acute inpatient psychiatric stay Urinary and bowel incontinence Urinary incontinence Surgical History H/O oral surgery History of loop recorder S/P appendectomy S/P hysterectomy with oophorectomy Family History Mother Hypertension Grandmother (Maternal) Stroke Other Heart disease Denies family history of Ovarian cancer Prostate cancer Myocardial infarction Breast cancer Colorectal cancer Social History Smoking Status: Never smoker Second Hand Exposure: No; Hx Alcohol Use: No Hx Substance Use: No Preferred Language: Chinese Communication Ability: Effective Visual Impairment: No Limitations Hearing Ability: Normal Telecommunication Engineer Required: No Beliefs That Will Affect Care: None marital status: Current Living Situation: Alone Current Living Situation Comment: Senior apartment housing current occupational status: retired 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[employer], similar to [employer] work How many Children do You have: 0 Other Information That Helps Us Care for You: No Feels Safe at Home: Yes Childhood Exposure to Second-Hand Smoke: Yes Dental Care, Regularly: Yes Physical Activity Frequency: 1-2 Times per Week Physical Activity Frequency Comment: walks to [place] 2X a week for her groceries Seatbelt Use: always Sunscreen Use: No Assistive Devices: Walker Review of Systems Review of Systems: Constitutional: denies fevers, chills, diaphoresis, night sweats admits nausea Head: denies trauma, headache, confusion, lightheadedness Neuro: admits chronic focal weakness on the left side ENT: denies rhinorrhea, stuffiness, sneezing Cardiac: denies chest pain, palpitations Pulm.: denies cough, shortness of breath, hemoptysis admits pain on inspiration and increased sputum production this morning GI: denies constipation, blood in stool admits diarrhea : denies dysuria, urgency, polyuria Physical Exam Constitutional: well developed and well nourished; no acute distress Eyes: PERRL, conjunctivae normal, anicteric sclerae ENMT: external ear and nose normal, oropharynx normal Neck: normal visual inspection Respiratory: lungs clear, slightly diminishes on the right lower lung field, no wheezing, or rales appreciated Cardiovascular: RRR, no murmur, no edema Gastrointestinal (Abdomen): normal bowel sounds, soft, nontender, no hepatosplenomegaly Musculoskeletal: no cyanosis or clubbing, extremities motor strength 5/5 Skin: no rashes, warm and dry Neurologic: no focal motor deficits Psychiatric: Orientation: alert and oriented x 3 Eye Contact: + fair eye contact Affect: + depressed affect Mood: + depressed mood Results & Data Results & Data ([facility]) Vital Signs (Past 12 Hours) Vital Signs Temp Pulse Pulse Resp BP BP Pulse Ox 05/23/21 20:10 72 23 169/110 H 95 05/23/21 20:00 74 15 94 05/23/21 19:50 75 16 199/83 H 05/23/21 19:43 76 19 214/84 H 05/23/21 19:36 82 19 200/114 H 05/23/21 19:31 85 30 H 251/97 H 05/23/21 19:30 78 22 05/23/21 19:20 95 H 20 202/102 H 05/23/21 19:10 87 18 191/88 H 05/23/21 19:02 93 H 20 182/80 H 96 05/23/21 19:00 93 H 17 176/81 H 93 05/23/21 18:50 95 H 16 182/80 H 95 05/23/21 18:40 96 H 18 187/85 H 96 05/23/21 18:31 98 H 17 182/85 H 96 05/23/21 18:30 99 H 20 95 05/23/21 18:23 96 H 20 215/96 H 95 05/23/21 18:21 98 H 16 215/96 H 05/23/21 18:11 102 H 25 H 227/127 H 05/23/21 18:01 98 H 23 228/122 H 96 05/23/21 18:00 101 H 18 95 05/23/21 17:50 91 H 18 156/77 H 93 05/23/21 17:43 104 H 20 174/80 H 97 05/23/21 17:40 92 H 17 169/75 H 93 05/23/21 17:35 96 H 17 178/111 H 96 05/23/21 17:31 102 H 20 174/80 H 05/23/21 17:30 98 H 13 05/23/21 17:25 104 H 18 201/93 H 95 05/23/21 17:12 103 H 15 201/93 H 05/23/21 17:00 101 H 16 05/23/21 16:30 102 H 24 172/85 H 05/23/21 16:00 36.7 C 101 H 102 H 18 204/92 H 204/92 H 95 05/23/21 15:59 102 H 14 213/96 H 05/23/21 14:53 97 H 22 232/114 H 95 05/23/21 12:36 37.1 C 107 H 16 208/115 H 96 05/23/21 12:23 37.1 C 107 H 16 208/115 H 96 CBC Results Results Complete Blood Count Results: RBC 4.37 M/uL (4.2-5.4) 05/24/21 WBC 10.59 K/uL (4.8-10.8) 05/24/21 Hgb 13.6 g/dL (12.0-16.0) 05/24/21 Hct 40.3 % (37-47) 05/24/21 Plt Count 223 K/uL (130-400) 05/24/21 Code Status & VTE Plan VTE Prophylaxis Plan VTE Prophylaxis will be ordered: Yes Supervising Physician Co-Signing Physician Notes Patient seen and examined, chart reviewed, case discussed [facility] Dr. Doe and I agree with the assessment and plan as above. In brief, patient is a 76-year-old female status post fall from her bed resulting in right-sided back pain presenting with urgency and ongoing suicidal ideation. Patient fell from her bed and landed on the carpeted floor at her shoes with her right side. She is complaining of significant pain in her right side. No fractures are seen. Patient has history of hypertension and is nonadherent to her medications. Blood pressures as high as 230s in the ER. She denies chest pain, shortness of breath, headache or dizziness. She was administered IV Lopressor in the ER. On exam patient is persistently hypertensive otherwise vital signs are stable Skinno rash HEENTnormocephalic, atraumatic, no cervical spine tenderness, moist mucous membranes Heart+ S1, S2, regular, no murmur/rub/gallops LungsCTA Abdomenpositive bowel sounds, soft, nontender, nondistended Extremitieswarm, well-perfused Tenderness with palpation of the right side. No crepitus Labs and images reviewed Assessment/plan Blood pressure management. We will resume her home medications as well as offer hydralazine p.o. as needed for blood pressures over 180. Ideally will avoid further IV agents in preparation of patient being moved to the psychiatry unit Suicidal ideation with plan to overdose on medications. Patient states she has been thinking about this for years and just does not know when she will do it. Was not able to confidently contract for safety while in the hospital stating "you watch us very closely here and I do not think I would be able to do anything" One-to-one sitter, suicide precautions Remainder of plan as above Resident Activity Tracking Resident Involvement: Resident Care Provided Care Provided: Adult Hospital Medicine (1) HTN (hypertension) Hypertension type: unspecified Qualified Code(s): I10 - Essential (primary) hypertension (2) CVA (cerebral vascular accident) CVA mechanism: unspecified Qualified Code(s): I63.9 - Cerebral infarction, unspecified
[2021-05-24] MEDS ORDERED: POLYETHYLENE (MIRALAX) 17 GM PACK PO PRN (01:15)
[2021-05-24] MEDS ORDERED: oxyCODONE HCL IR 5 MG TAB (IMMEDIATE RELEASE) PO PRN (01:15)
[2021-05-24] MEDS: hydrALAZINE 10 MG TAB PO PRN ×3 (05:16→13:32)
[2021-05-24 06:05] LABS: Basophils # (auto) 0.03 K/uL (0-0.2); Basophils % (auto) 0.3 %; Eosinophils # (auto) 0.01 K/uL (0-0.5); Eosinophils % (auto) 0.1 %; Hematocrit (blood only) 40.3 % (37-47); Hemoglobin 13.6 g/dL (12.0-16.0); Immature Granulocytes # (auto) 0.02 K/uL (0.00-0.02); Immature Granulocytes % (auto) 0.2 %; Lymphocytes % (auto) 8.5 %; Mean Corpuscular Hemoglobin 31.1 pg (25-34); Mean Corpuscular Hgb Conc 33.7 g/dL (32-36); Mean Corpuscular Volume 92.2 fL (80-100); Mean Platelet Volume 11.3 fL (7.4-10.4); Monocytes # (auto) 0.95 K/uL (0.11-0.59); Neutrophils # (auto) 8.68 K/uL (1.4-6.5); Neutrophils % (auto) 81.9 %; Platelet Count 223 K/uL (130-400); RDW Coefficient of Variation 13.3 % (11.5-14.5); RDW Standard Deviation 44.8 fL (36.4-46.3); Red Blood Count 4.37 M/uL (4.2-5.4); White Blood Count 10.59 K/uL (4.8-10.8)
[2021-05-24 06:30] LABS: BUN Creatinine Ratio 12.5 (10-20); Calcium 9.1 mg/dl (8.5-10.1); Creatinine Clr Calc Pharmacy 75.7 ml/min; Est GFR (African American) 100.5 ml/min; Est GFR (Non-African American) 86.7 ml/min; Potassium 3.4 mmol/L (3.5-5.1)
[2021-05-24 06:47] LABS: Estimated Average Glucose 120 mg/dl; Hemoglobin A1C 5.8 % (4.5-5.6)
--- NOTE | 2021-05-24 07:19 | Hospitalist Progress Note ---
Date of Service May 24, 2021 Assessment & Plan (1) Hypertensive urgency: Plan: 76yo female with poorly-controlled HTN, HLD, CVA, urinary incontinence, and two prior intentional overdoses presents with hypertensive urgency, right hip pain after a mechanical fall, and suicidal ideation with plan to intentionally overdose. Hypertensive urgency SBP as high as 230's in ER; patient was given her home antihypertensives along with lopressor IV Continue home lisinopril, metoprolol Started amlodipine 10mg qd Hydralazine 10mg PO q1h prn SBP>180 Caution with increased beta blockade given history of bradycardia (prior hospitalizations) Continue telemetry monitoring - To consider sleep study as outpatient Right back/hip pain secondary to mechanical fall CT chest with right sided pleural effusion, though no rib fractures seen CT abdomen/pelvis with no acute osseous abnormality, no hip fracture Continue lidocaine patch, home oxycodone, home baclofen PT/OT ordered Suicidal ideation with plan Patient with suicidal ideation with plan to overdose on home meds she has been accumulating over time History of two intentional overdoses in the past Psychiatry consulted -Patient may be appropriate for q15 min checks as cooperative with care so far and thoughts were solely to OD at home. -will reassess need for inpatient psychiatric care when closer to medical cl earance (pain control, consistent control of BP, ambulating, etc.) -she is reportedly ambivalent re: restart of Zoloft/antidepressants in general, would avoid SNRIs given HTN. History of CVA, history of left-sided deficit No focal deficit apparent on exam Continue clopidogrel, continue rosuvastatin Continue lovenox BP control as above Impaired fasting glucose HbA1c 5.8% (05/24/21) Recommend PCP follow-up FEN: safe tray, heart healthy Code status: DNR/DNI DVT ppx: lovenox Consults: psychiatry PT/OT: ordered Dispo: ED mental health unit (2) Mid back pain on right side: (3) HTN (hypertension): (4) CVA (cerebral vascular accident): Admission and Anticipated Discharge Date Admission Date: May 23, 2021 Supervising Physician Co-Signing Physician Notes Resident Physician Supervision Note: I independently interviewed and examined the patient and verified the zhong history and physical, reviewed labs and image studies and agree with resident Dr. Perez findings and care plan. Subjective Patient seen and evaluated at bedside this morning. No acute events overnight. This morning, patient feels well, with her hip pain having resolved with a lidocaine patch. Patient continues to endorse SI although she says these thoughts have decreased since she is no longer in pain. Denies HI or AVH. Patient denies CP, SOB, abdominal pain, nausea, vomiting, lightheadedness, dizziness, and diarrhea. Review of Systems Review of Systems: See HPI Physical Exam Physical Exam: Constitutional: well-appearing, no acute distress CV: extremities well-perfused Resp: breathing non-labored Skin: lidocaine patch on right hip Neuro: alert, oriented, no focal deficit appreciated Appearance: wearing hospital gown Behavior: calm, cooperative, eye contact good Mood: "okay" Affect: pleasant, affect congruent with mood Speech: appropriate rate/quantity/volume Thought process: slightly tangential Thought content: appropriate to topic of discussion, denies HI Cognition: alert, focused, short- and long-term memory grossly intact, abstraction intact Insight: fair Judgment: poor Results & Data Results & Data ([facility]) Vital Signs (Past 12 Hours) Vital Signs Temp Pulse Pulse Resp BP BP Pulse Ox 05/24/21 06:27 188/90 H 05/24/21 05:00 36.9 C 79 18 215/100 H 97 05/24/21 01:18 05/24/21 00:56 68 20 176/68 H 98 05/23/21 23:18 69 20 185/102 H 96 05/23/21 22:00 79 22 92 05/23/21 21:30 75 21 91 05/23/21 21:00 78 17 195/93 H 95 05/23/21 20:30 73 17 182/82 H 94 05/23/21 20:10 72 23 169/110 H 95 05/23/21 20:00 74 15 94 05/23/21 19:50 75 16 199/83 H 05/23/21 19:43 76 19 214/84 H 05/23/21 19:36 82 19 200/114 H 05/23/21 19:31 85 30 H 251/97 H 05/23/21 19:30 78 22 05/23/21 19:20 95 H 20 202/102 H Pulse Ox 05/24/21 06:27 05/24/21 05:00 05/24/21 01:18 98 05/24/21 00:56 05/23/21 23:18 05/23/21 22:00 05/23/21 21:30 05/23/21 21:00 05/23/21 20:30 05/23/21 20:10 05/23/21 20:00 05/23/21 19:50 05/23/21 19:43 05/23/21 19:36 05/23/21 19:31 05/23/21 19:30 05/23/21 19:20 Resident Activity Tracking Resident Involvement: Resident Care Provided Care Provided: Adult Hospital Medicine (1) HTN (hypertension) Hypertension type: unspecified Qualified Code(s): I10 - Essential (primary) hypertension (2) CVA (cerebral vascular accident) CVA mechanism: unspecified Qualified Code(s): I63.9 - Cerebral infarction, unspecified
[2021-05-24] MEDS: ENOXAPARIN INJ 30 MG/0.3 ML SYR SQ SCH ×2 (08:43→08:54)
[2021-05-24] MEDS: METOPROLOL SUCC 50MG EXT REL TAB PO SCH (08:44)
[2021-05-24] MEDS: LIDOCAINE 5% 1 PATCH TD SCH (08:44)
[2021-05-24] MEDS: CLOPIDOGREL BISULFATE 75 MG TAB PO SCH (08:44)
[2021-05-24] MEDS: BACLOFEN 10 MG TAB PO SCH ×2 (08:44→20:24)
--- NOTE | 2021-05-24 09:29 | Electrocardiogram Report ---
Test Reason : Blood Pressure : / mmHG Vent. Rate : 103 BPM Atrial Rate : 103 BPM P-R Int : 184 ms QRS Dur : 088 ms QT Int : 360 ms P-R-T Axes : 051 057 044 degrees QTc Int : 471 ms Poor data quality, interpretation may be adversely affected Sinus tachycardia Otherwise normal ECG When compared with ECG of 09-MAR-2021 03:32, Borderline criteria for Inferior infarct are no longer Present Confirmed by Booker Valenzuela ([id number]) on 05/24/2021 9:29:17 AM Referred By: REFERRED SELF Confirmed By:Booker Valenzuela
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
[2021-05-24] MEDS: ACETAMINOPHEN 325 MG TAB PO PRN (12:58)
[2021-05-24] MEDS: amLODIPine BESYLATE 5 MG TAB PO SCH (13:32)
--- NOTE | 2021-05-24 14:06 | Billing Data ---
Date of Service May 23, 2021 Coding Level of Care Code 42535 Initial Inpt Care Lvl 3
[2021-05-24] MEDS: ROSUVASTATIN CALCIUM 20 MG TAB PO SCH (20:24)
[2021-05-24] MEDS: lisinopril 40 MG TAB PO SCH (20:24)
[2021-05-25 07:16] LABS: Basophils # (auto) 0.03 K/uL (0-0.2); Basophils % (auto) 0.3 %; Eosinophils # (auto) 0.08 K/uL (0-0.5); Eosinophils % (auto) 0.8 %; Hematocrit (blood only) 43.8 % (37-47); Hemoglobin 14.9 g/dL (12.0-16.0); Immature Granulocytes # (auto) 0.02 K/uL (0.00-0.02); Immature Granulocytes % (auto) 0.2 %; Lymphocytes # (auto) 0.89 K/uL (1.2-3.4); Lymphocytes % (auto) 9.3 %; Mean Corpuscular Hemoglobin 31.6 pg (25-34); Mean Platelet Volume 12.1 fL (7.4-10.4); Monocytes # (auto) 1.05 K/uL (0.11-0.59); Monocytes % (auto) 10.9 %; Neutrophils # (auto) 7.52 K/uL (1.4-6.5); Neutrophils % (auto) 78.5 %; Platelet Count 236 K/uL (130-400); RDW Coefficient of Variation 13.3 % (11.5-14.5); Red Blood Count 4.71 M/uL (4.2-5.4); White Blood Count 9.59 K/uL (4.8-10.8)
--- NOTE | 2021-05-25 07:32 | Hospitalist Progress Note ---
Date of Service May 25, 2021 Assessment & Plan (1) Hypertensive urgency: Plan: 76yo female with poorly-controlled HTN, HLD, CVA, urinary incontinence, and two prior intentional overdoses presents with hypertensive urgency, right hip pain after a mechanical fall, and suicidal ideation with plan to intentionally overdose. Hypertensive urgency - SBP as high as 230's in ER; patient was given her home antihypertensives along with lopressor IV Continue home lisinopril, metoprolol Started amlodipine 10mg qd Hydralazine 10mg PO q1h prn SBP>180 - improved BP reading with pain control and addition of amlodipine. - noncompliance with meds? sec to side effects. - was prescribed amlodipine recent hospital stay but was not on home med list this admission. suspect discontinuation due to side effect. - encourage compliance. Right back/hip pain secondary to mechanical fall CT chest with right sided pleural effusion, though no rib fractures seen CT abdomen/pelvis with no acute osseous abnormality, no hip fracture Pain controlled with lidocaine patch, home oxycodone, home baclofen PT/OT ordered; consider SNF prior to DC home, as patient lives alone and does not have a support system in the community Suicidal ideation with plan Patient with suicidal ideation with plan to overdose on home meds she has been accumulating over time History of two intentional overdoses in the past Psychiatry consulted - worsening symptoms sec to uncontrolled pain. - Improved today - No longer meets criteria for inpatient psychiatric hospitalization. - should continue outpatient therapy, confirm status with Alberta Pal when office reopens. - limit amounts of meds prescribed as no way to fully secure (for example no 90 day supplies, only enough to get to follow up appointments, attempt to confirm last fills and what should have at home, etc.) History of CVA, history of left-sided deficit No focal deficit apparent on exam Continue clopidogrel, continue rosuvastatin Continue lovenox BP control as above Impaired fasting glucose HbA1c 5.8% (05/24/21) Recommend PCP follow-up FEN: safe tray, heart healthy Code status: DNR/DNI DVT ppx: lovenox Consults: psychiatry PT/OT: ordered Dispo: med/surg (2) Mid back pain on right side: (3) HTN (hypertension): (4) CVA (cerebral vascular accident): Admission and Anticipated Discharge Date Admission Date: May 23, 2021 Supervising Physician Co-Signing Physician Notes Resident Physician Supervision Note: I independently interviewed and examined the patient and verified the zhong history and physical, reviewed labs and image studies and agree with resident Dr. Perez findings and care plan. Subjective Patient seen and evaluated at bedside this morning. No acute events overnight. Patient feels well today and reports her mood has improved quite a bit over the past day. Patient denies suicidal thoughts at this time. Patient reports her pain is a 0/10 at rest and 7/10 with movement; she reports being willing to work with PT/OT today. Patient denies other symptoms including CP, SOB, abdominal pain, nausea, vomiting, lightheadedness, dizziness, and diarrhea. Review of Systems Review of Systems: See HPI Physical Exam Physical Exam: Constitutional: well-appearing, no acute distress, laying in bed CV: extremities well-perfused Resp: breathing non-labored Skin: lidocaine patch on right hip Neuro: alert, oriented, no focal deficit appreciated Appearance: wearing hospital gown Behavior: calm, cooperative, eye contact fair Mood: "not too bad today" Affect: pleasant, affect congruent with mood Speech: appropriate rate/quantity/volume Thought process: linear, coherent Thought content: appropriate to topic of discussion, denies SI/HI Cognition: alert, focused Results & Data Results & Data ([facility]) Vital Signs (Past 12 Hours) Vital Signs Temp Pulse Pulse Resp BP Pulse Ox Pulse Ox 05/25/21 04:00 36.8 C 78 18 108/56 L 96 05/25/21 01:15 97 05/25/21 00:00 63 05/24/21 23:10 36.5 C 62 18 141/67 H 95 Resident Activity Tracking Resident Involvement: Resident Care Provided Care Provided: Adult Hospital Medicine (1) HTN (hypertension) Hypertension type: unspecified Qualified Code(s): I10 - Essential (primary) hypertension (2) CVA (cerebral vascular accident) CVA mechanism: unspecified Qualified Code(s): I63.9 - Cerebral infarction, unspecified
[2021-05-25 07:41] LABS: BUN Creatinine Ratio 24.6 (10-20); Calcium 9.4 mg/dl (8.5-10.1); Creatinine Clr Calc Pharmacy 74.7 ml/min; Est GFR (African American) 102.1 ml/min; Est GFR (Non-African American) 88.1 ml/min; Potassium 3.4 mmol/L (3.5-5.1)
[2021-05-25] MEDS: BACLOFEN 10 MG TAB PO SCH ×2 (07:55→21:44)
[2021-05-25] MEDS: amLODIPine BESYLATE 5 MG TAB PO SCH (07:55)
[2021-05-25] MEDS: LIDOCAINE 5% 1 PATCH TD SCH (07:56)
[2021-05-25] MEDS: CLOPIDOGREL BISULFATE 75 MG TAB PO SCH (07:56)
[2021-05-25] MEDS: METOPROLOL SUCC 50MG EXT REL TAB PO SCH (07:57)
[2021-05-25] MEDS: ENOXAPARIN INJ 30 MG/0.3 ML SYR SQ SCH (08:05)
[2021-05-25] MEDS: POTASSIUM CHLORIDE CRTAB 20 MEQ TABCR PO SCH (09:55)
--- NOTE | 2021-05-25 10:07 | Psychiatric Progress Note ---
Date of Service May 25, 2021 Impression / Recommendations Impression 76 yo female with SI in the context of pain and hypertensive urgency, she has chronic history of depression but is high risk given 2 past attempts, hx of loss, recently non compliance with BP meds. 05/25/21: significant improvement, initial statements re: acute SI were in the context of pain and hypertensive urgency, now denies SI. (1) Depression: should continue outpatient therapy, confirm status with [place] Pal when office reopens. limit amounts of meds prescribed as no way to fully secure (for example no 90 day supplies, only enough to get to follow up appointments, attempt to confirm last fills and what should have at home, etc.) no longer meets criteria for acute inpatient psychiatric hospitalization not may additional risk factors that can be mitigated, patient has ego integrity vs. despair phase of life given level of education, sole survivor of family, and feeling she is dependent on assistance Risk Factors Assessment Do You Have Access To A Gun?: No Protective Factors Assessment Employed: No Interval History Identifying Information 76 yo female with long hx of SI related to trauma and loss, admit with uncontrolled hypertension. Chief Complaint "yeah, i couldn't deal with the pain on top of everything else, but that is addressed now and I just want to go home". Review of Systems Notes states that her pain is well controlled, was able to ambulate with PT in the hallway, denies n/v/d. Subjective Subjective Patient was seen & assessed and interval progress reviewed with nursing and Dr. Urban. States that she told ED that she was acutely suicidal as she didn't want to be sent home "in that state". She admits she has been more depressed since she had to give up her cat to PAWS due to recurrent hospitalizations. She denies ever having an intended date to take pills. She denies that stashing her BP meds with that intention. In general just doesn't like how she feels on medications in general but recognizes need given stroke history. She states that she would b e agreeable to physical rehab if recommended. Physical Exam Psychiatric Orientation: alert and oriented x 3 Apperance: appropriately groomed Eye Contact: good eye contact Motor Behavior: no abnormal motor movements Speech: normal rate/rhythm/volume of speech Affect: + depressed affect Mood: + depressed mood Thought Process: goal directed thought process Thought Content: reality based without delusions Suicidal Thoughts: denies suicidal thoughts Homicidal Thoughts: denies homicidal thoughts Hallucinations: no auditory hallucinations and no visual hallucinations Cognition: attention grossly intact and language grossly intact Estimated Intelligence: consistent with education level Vital Signs (Past 24 Hours) Last Vital Signs Temp 36.9 C 05/25/21 08:09 Pulse 77 05/25/21 08:09 Resp 19 05/25/21 08:09 BP 168/76 H 05/25/21 08:09 Pulse Ox 95 05/25/21 08:09 Results & Data ([facility]) Laboratory Results Laboratory Results - last 24 hr 05/25/21 05/25/21 06:40 06:40 WBC 9.59 RBC 4.71 Hgb 14.9 Hct 43.8 MCV 93.0 MCH 31.6 MCHC 34.0 RDW Std Deviation 46.0 RDW Coeff of Ghassan 13.3 Plt Count 236 MPV 12.1 H Immature Gran % (Auto) 0.2 Neut % (Auto) 78.5 Lymph % (Auto) 9.3 [place] % (Auto) 10.9 Eos % (Auto) 0.8 Baso % (Auto) 0.3 Neut # (Auto) 7.52 H Lymph # (Auto) 0.89 L [place] # (Auto) 1.05 H Eos # (Auto) 0.08 Baso # (Auto) 0.03 Immature Gran # (Auto) 0.02 Sodium 139 Potassium 3.4 L Chloride 104 Carbon Dioxide 25 Anion Gap 10 BUN 15 Creatinine 0.61 Est Cr Clr Drug Dosing 74.7 Est GFR ( Amer) 102.1 Est GFR (Non-Af Amer) 88.1 BUN/Creatinine Ratio 24.6 H Glucose 107 H Calcium 9.4 Current Inpatient Medications Current Inpatient Medications: Current Inpatient Medications Acetaminophen (Acetaminophen 325 Mg Tab) 650 mg PO Q4H PRN PRN Reason: Pain or Fever Stop: 06/23/21 01:14 Last Admin: 05/24/21 12:58 Dose: 650 mg Documented by: Amlodipine Besylate (Amlodipine Besylate 5 Mg Tab) 10 mg PO QAM [facility] Stop: 06/23/21 13:29 Last Admin: 05/25/21 07:55 Dose: 10 mg Documented by: Baclofen (Baclofen 10 Mg Tab) 10 mg PO BID [facility] Stop: 06/23/21 08:59 Last Admin: 05/25/21 07:55 Dose: 10 mg Documented by: Clopidogrel Bisulfate (Clopidogrel Bisulfate 75 Mg Tab) [address] [facility] Stop: 06/23/21 08:59 Last Admin: 05/25/21 07:56 Dose: 75 mg Documented by: Hydralazine HCl (Hydralazine 10 Mg Tab) 10 mg PO Q1H PRN PRN Reason: SBP > 180 Stop: 06/23/21 01:14 Last Admin: 05/24/21 13:32 Dose: 10 mg Documented by: Lidocaine (Lidocaine 5% 1 Patch) [address] [facility] Stop: 06/23/21 08:59 Last Admin: 05/25/21 07:56 Dose: 1 patch Documented by: Lisinopril (Lisinopril 40 Mg Tab) 40 mg PO [facility] Stop: 06/23/21 20:59 Last Admin: 05/24/21 20:24 Dose: 40 mg Documented by: Metoprolol Succinate (Metoprolol Succ 50mg Ext Rel Tab) 50 mg PO DAILY [facility] Stop: 06/23/21 08:59 Last Admin: 05/25/21 07:57 Dose: 50 mg Documented by: Miscellaneous (Remove Lidoderm Patch) 1 ea N/A DAILY@2100 [facility] Stop: 06/23/21 20:59 Last Admin: 05/24/21 20:26 Dose: 1 ea Documented by: Oxycodone HCl (Oxycodone Hcl Ir 5 Mg Tab (Immediate Release)) 5 mg PO Q6H PRN PRN Reason: Pain Stop: 06/07/21 01:14 Last Admin: 05/24/21 10:50 Dose: 5 mg Documented by: Polyethylene Glycol (Polyethylene (Miralax) 17 Gm Pack) 17 gm PO DAILY PRN PRN Reason: Constipation Stop: 06/23/21 01:14 Potassium Chloride (Potassium Chloride Crtab 20 Meq Tabcr) [address] [facility] Stop: 06/24/21 08:59 Last Admin: 05/25/21 09:55 Dose: 20 meq Documented by: Rosuvastatin Calcium (Rosuvastatin Calcium 20 Mg Tab) 40 mg PO [facility] Stop: 06/23/21 20:59 Last Admin: 05/24/21 20:24 Dose: 40 mg Documented by: (1) Depression Active/Remission status: currently active Depression Type: major depressive disorder Major depression episode severity: severe Major depression recurrence: recurrent Psychotic features: without psychotic features Qualified Code(s): F33.2 - Major depressive disorder, recurrent severe without psychotic features
[2021-05-25] MEDS: ACETAMINOPHEN 325 MG TAB PO PRN (18:24)
[2021-05-25] MEDS: ROSUVASTATIN CALCIUM 20 MG TAB PO SCH (21:44)
[2021-05-25] MEDS: lisinopril 40 MG TAB PO SCH (21:44)
[2021-05-26] MEDS: POTASSIUM CHLORIDE CRTAB 20 MEQ TABCR PO SCH ×5 (07:56→10:56)
[2021-05-26] MEDS: BACLOFEN 10 MG TAB PO SCH ×2 (07:56→20:14)
[2021-05-26 08:49] LABS: Basophils # (auto) 0.04 K/uL (0-0.2); Basophils % (auto) 0.6 %; Eosinophils # (auto) 0.16 K/uL (0-0.5); Eosinophils % (auto) 2.5 %; Hematocrit (blood only) 42.5 % (37-47); Hemoglobin 14.3 g/dL (12.0-16.0); Immature Granulocytes # (auto) 0.03 K/uL (0.00-0.02); Immature Granulocytes % (auto) 0.5 %; Lymphocytes # (auto) 1.09 K/uL (1.2-3.4); Lymphocytes % (auto) 16.7 %; Mean Corpuscular Hemoglobin 31.6 pg (25-34); Mean Corpuscular Hgb Conc 33.6 g/dL (32-36); Mean Corpuscular Volume 93.8 fL (80-100); Mean Platelet Volume 12.3 fL (7.4-10.4); Monocytes # (auto) 0.72 K/uL (0.11-0.59); Neutrophils # (auto) 4.49 K/uL (1.4-6.5); Neutrophils % (auto) 68.7 %; Platelet Count 210 K/uL (130-400); RDW Coefficient of Variation 13.8 % (11.5-14.5); RDW Standard Deviation 47.3 fL (36.4-46.3); Red Blood Count 4.53 M/uL (4.2-5.4); White Blood Count 6.53 K/uL (4.8-10.8)
[2021-05-26 09:15] LABS: BUN Creatinine Ratio 37.9 (10-20); Creatinine Clr Calc Pharmacy 69.1 ml/min; Est GFR (African American) 99.5 ml/min; Est GFR (Non-African American) 85.8 ml/min; Potassium 3.7 mmol/L (3.5-5.1)
[2021-05-26] MEDS: METOPROLOL SUCC 50MG EXT REL TAB PO SCH (09:26)
[2021-05-26] MEDS: CLOPIDOGREL BISULFATE 75 MG TAB PO SCH (09:27)
[2021-05-26] MEDS: amLODIPine BESYLATE 5 MG TAB PO SCH (09:27)
[2021-05-26] MEDS: LIDOCAINE 5% 1 PATCH TD SCH (09:28)
--- NOTE | 2021-05-26 13:32 | Hospitalist Progress Note ---
Date of Service May 26, 2021 Assessment & Plan (1) Hypertensive urgency: Plan: 76yo female with poorly-controlled HTN, HLD, CVA, urinary incontinence, and two prior intentional overdoses presents with hypertensive urgency, right hip pain after a mechanical fall, and suicidal ideation with plan to intentionally overdose. Hypertensive urgency SBP as high as 230's in ER; patient was given her home antihypertensives along with lopressor IV. Suspect 2/2 to medication non compliance. Continue home lisinopril, metoprolol -Caution with increased beta blockade given history of bradycardia (prior hospitalizations) Started amlodipine 10mg qd -tolerating without A/E Hydralazine 10mg PO q1h prn SBP>180 Right back/hip pain secondary to mechanical fall CT chest with right sided pleural effusion, though no rib fractures seen, CT abdomen/pelvis with no acute osseous abnormality, no hip fracture Continue lidocaine patch, home oxycodone, home baclofen PT/OT ordered recommending SNF on DC CM consulted referral [facility] Suicidal ideation with plan Patient with suicidal ideation with plan to overdose on home meds she has been accumulating over time. History of two intentional overdoses in the past Psychiatry consulted -Recommending outpatient therapy Suicide precautions, 1:1 sit, safety tray History of CVA, history of left-sided deficit No focal deficit apparent on exam Continue clopidogrel, continue rosuvastatin Continue lovenox BP control as above Impaired fasting glucose HbA1c 5.8% (05/24/21) Recommend PCP follow-up FEN: safe tray, heart healthy Code status: DNR/DNI DVT ppx: lovenox Consults: psychiatry PT/OT: ordered Dispo: med/surg, referral [facility]. (2) Mid back pain on right side: (3) HTN (hypertension): (4) CVA (cerebral vascular accident): Admission and Anticipated Discharge Date Admission Date: May 25, 2021 Supervising Physician Co-Signing Physician Notes I personally examined the patient and verified all zhong points of history and exam, discussed case, and agree with decision making with Dr Ray feeling OK. awaiting rehab. no new complaints vitals noted nad heent nc at mmm breathing unlabored no accessory muscles good effort skin no rashes no pallor or icterus neuro no focal deficits hypertensive urgency - now improved. continue current meds deconditioning - for rehab otherwise as above Subjective Patient sitting up in bed this morning no acute distress. Patient was sleeping overnight. She reports tolerating diet she reports voiding, she has not had a bowel movement since admission. She denies symptoms of constipation. Acute concerns related to disposition. All questions answered Physical Exam Physical Exam: General: No acute distress HEENT: Normocephalic atraumatic Neck: No significant lymphadenopathy, trachea midline, normal to visual inspection Cardiac: Regular rate and rhythm, normal S1, normal S2, I did not appreciated any significant murmurs rubs or gallops, I did not appreciate any significant pedal edema, No calf tenderness, capillary refill is less than 3 seconds Respiratory: Clear to auscultation bilaterally with symmetrical chest rise, I did not appreciate any significant wheezes, rales, rhonchi, no increased work of breathing GI: Normal bowel sounds, soft, nontender in all 4 quadrants, nondistended MSK: No sensory or motor changes, moves all extremities without issue, extremities are warm and well-perfused Skin: [place], clean, dry, intact. Neuro: Alert and oriented x4, no focal deficits Psych: Calm, cooperative, logical thought process Results & Data Results & Data ([facility]) Vital Signs (Past 12 Hours) Vital Signs Temp Pulse Pulse Resp BP Pulse Ox 05/26/21 11:10 36.5 C 68 18 146/79 H 97 05/26/21 07:45 36.5 C 60 18 148/75 H 95 05/26/21 07:19 57 L 05/26/21 03:00 36.4 C L 58 L 20 123/70 93 Laboratory Results 05/26/21 05/26/21 Range/Units 08:30 08:30 WBC 6.53 (4.8-10.8) K/uL RBC 4.53 (4.2-5.4) M/uL Hgb 14.3 (12.0-16.0) g/dL Hct 42.5 (37-47) % MCV 93.8 (80-100) fL MCH 31.6 (25-34) pg MCHC 33.6 (32-36) g/dL RDW Std Deviation 47.3 H (36.4-46.3) fL RDW Coeff of Ghassan 13.8 (11.5-14.5) % Plt Count 210 (130-400) K/uL MPV 12.3 H (7.4-10.4) fL Immature Gran % (Auto) 0.5 % Neut % (Auto) 68.7 % Lymph % (Auto) 16.7 % [place] % (Auto) 11.0 % Eos % (Auto) 2.5 % Baso % (Auto) 0.6 % Neut # (Auto) 4.49 (1.4-6.5) K/uL Lymph # (Auto) 1.09 L (1.2-3.4) K/uL [place] # (Auto) 0.72 H (0.11-0.59) K/uL Eos # (Auto) 0.16 (0-0.5) K/uL Baso # (Auto) 0.04 (0-0.2) K/uL Immature Gran # (Auto) 0.03 H (0.00-0.02) K/uL Sodium 138 (136-145) mmol/L Potassium 3.7 (3.5-5.1) mmol/L Chloride 105 (98-107) mmol/L Carbon Dioxide 27 (21-32) mmol/L Anion Gap 6 (3-11) BUN 25 H (6-23) mg/dl Creatinine 0.66 (0.6-1.2) mg/dl Est Cr Clr Drug Dosing 69.1 ml/min Est GFR ( Amer) 99.5 ml/min Est GFR (Non-Af Amer) 85.8 ml/min BUN/Creatinine Ratio 37.9 H (10-20) Glucose 117 H (70-99(Fasting)) mg/dl Calcium 9.0 (8.5-10.1) mg/dl Medications Administered Current Inpatient Medications Acetaminophen (Acetaminophen 325 Mg Tab) 650 mg PO Q4H PRN PRN Reason: Pain or Fever Stop: 06/23/21 01:14 Last Admin: 05/25/21 18:24 Dose: 650 mg Documented by: Amlodipine Besylate (Amlodipine Besylate 5 Mg Tab) 10 mg PO QAM [facility] Stop: 06/23/21 13:29 Last Admin: 05/26/21 09:27 Dose: 10 mg Documented by: Baclofen (Baclofen 10 Mg Tab) 10 mg PO BID [facility] Stop: 06/23/21 08:59 Last Admin: 05/26/21 07:56 Dose: 10 mg Documented by: Clopidogrel Bisulfate (Clopidogrel Bisulfate 75 Mg Tab) [facility] Stop: 06/23/21 08:59 Last Admin: 05/26/21 09:27 Dose: 75 mg Documented by: Hydralazine HCl (Hydralazine 10 Mg Tab) 10 mg PO Q1H PRN PRN Reason: SBP > 180 Stop: 06/23/21 01:14 Last Admin: 05/24/21 13:32 Dose: 10 mg Documented by: Lidocaine (Lidocaine 5% 1 Patch) 1 patch TD [facility] Stop: 06/23/21 08:59 Last Admin: 05/26/21 09:28 Dose: 1 patch Documented by: Lisinopril (Lisinopril 40 Mg Tab) [address] [facility] Stop: 06/23/21 20:59 Last Admin: 05/25/21 21:44 Dose: 40 mg Documented by: Metoprolol Succinate (Metoprolol Succ 50mg Ext Rel Tab) 50 mg PO DAILY [facility] Stop: 06/23/21 08:59 Last Admin: 05/26/21 09:26 Dose: 50 mg Documented by: Miscellaneous (Remove Lidoderm Patch) 1 ea N/A DAILY@2100 [facility] Stop: 06/23/21 20:59 Last Admin: 05/25/21 21:45 Dose: 1 ea Documented by: Oxycodone HCl (Oxycodone Hcl Ir 5 Mg Tab (Immediate Release)) 5 mg PO Q6H PRN PRN Reason: Pain Stop: 06/07/21 01:14 Last Admin: 05/24/21 10:50 Dose: 5 mg Documented by: Polyethylene Glycol (Polyethylene (Miralax) 17 Gm Pack) 17 gm PO DAILY PRN PRN Reason: Constipation Stop: 06/23/21 01:14 Potassium Chloride (Potassium Chloride Crtab 20 Meq Tabcr) 20 meq PO [facility] Stop: 06/24/21 08:59 Last Admin: 05/26/21 09:26 Dose: 20 meq Documented by: Rosuvastatin Calcium (Rosuvastatin Calcium 20 Mg Tab) [address] [facility] Stop: 06/23/21 20:59 Last Admin: 05/25/21 21:44 Dose: 40 mg Documented by: Resident Activity Tracking Resident Involvement: Resident Care Provided Care Provided: Adult Hospital Medicine (1) HTN (hypertension) Hypertension type: unspecified Qualified Code(s): I10 - Essential (primary) hypertension (2) CVA (cerebral vascular accident) CVA mechanism: unspecified Qualified Code(s): I63.9 - Cerebral infarction, unspecified
--- NOTE | 2021-05-26 14:35 | Billing Data ---
Date of Service May 26, 2021 Coding Level of Care Code 66711 Subseq Hosp Care Lvl 2
[2021-05-26] MEDS: ROSUVASTATIN CALCIUM 20 MG TAB PO SCH (20:13)
[2021-05-26] MEDS: lisinopril 40 MG TAB PO SCH (20:14)
--- NOTE | 2021-05-27 07:16 | Discharge Summary ---
Date of Service May 27, 2021 Admission HPI Per Admitting Provider Marylou Donnelly has a past medical history of HTN, GERD, prior right MCA stroke and prior suicidal ideation. She is presenting after a fall from her bed on her right side with right sided pain. She has pain over her right flank that started after the fall and is worse with deep breathing. She was found to have suicidal ideations here in the hospital. She brought up that she has had 2 prior suicide attempts, once in 2007 when her only child and again in 2013 when she did not have any money and saw it as an escape. She said that she currently has a plan but no date in mind. She said that she has been hoarding pills for this purpose. She sees a therapist at [facility], [place] Pal who she sees on a weekly basis. She said she has not taken any of her home medications today. She has a loop recorder in since May 2019. ED course: given home BP medications and IV Labetalol for BP into the 230's systolic. Social: denies ETOH, tobacco, rec. drug use Admission Exam Per Admitting Provider Constitutional: well developed and well nourished; no acute distress Eyes: PERRL, conjunctivae normal, anicteric sclerae ENMT: external ear and nose normal, oropharynx normal Neck: normal visual inspection Respiratory: lungs clear, slightly diminishes on the right lower lung field, no wheezing, or rales appreciated Cardiovascular: RRR, no murmur, no edema Gastrointestinal (Abdomen): normal bowel sounds, soft, nontender, no hepatosplenomegaly Musculoskeletal: no cyanosis or clubbing, extremities motor strength 5/5 Skin: no rashes, warm and dry Neurologic: no focal motor deficits Psychiatric: Orientation: alert and oriented x 3 Eye Contact: + fair eye contact Affect: + depressed affect Mood: + depressed mood Principal Diagnosis Hypertensive urgency Discharge Exam General: No acute distress HEENT: Normocephalic atraumatic Neck: No significant lymphadenopathy, trachea midline, normal to visual inspection Cardiac: Regular rate and rhythm, normal S1, normal S2, I did not appreciated any significant murmurs rubs or gallops, I did not appreciate any significant pedal edema, No calf tenderness, capillary refill is less than 3 seconds Respiratory: Clear to auscultation bilaterally with symmetrical chest rise, I did not appreciate any significant wheezes, rales, rhonchi, no increased work of breathing GI: Normal bowel sounds, soft, nontender in all 4 quadrants, nondistended MSK: No sensory or motor changes, moves all extremities without issue, extremities are warm and well-perfused Skin: [place], clean, dry, intact. Neuro: Alert and oriented x4, no focal deficits Psych: Calm, cooperative, logical thought process Discharge Data Allergies Allergy/AdvReac Type Severity Reaction Status Date / Time Penicillins Allergy Hives Verified 05/23/21 14:53 Sulfa (Sulfonamide Allergy Hives Verified 05/23/21 14:53 Antibiotics) "ALL ANTIBIOTICS" Allergy Intermediate HIVES Uncoded 05/23/21 14:53 Consultations 05/23/21 20:21 ED Decision to Admit Stat 05/24/21 01:15 Consult Psychiatry Routine Ordered Studies 05/23/21 12:40 CT head/brain wo con Stat 05/23/21 15:04 CT abd pelvis IV con only Stat CT chest diagnostic w con Stat Hospital Course (1) Hypertensive urgency: 76yo female with poorly-controlled HTN, HLD, CVA, urinary incontinence, and two prior intentional overdoses presents with hypertensive urgency, right hip pain after a mechanical fall, and suicidal ideation with plan to intentionally overdose. Hypertensive urgency SBP as high as 230's in ER;Suspect 2/2 to medication non compliance. Patient was given her home antihypertensives along with lopressor IV. Continue home lisinopril, metoprolol -Caution with increased beta blockade given history of bradycardia (prior hospitalizations) Started amlodipine 10mg qd -tolerating without A/E Hydralazine 10mg PO q1h prn SBP>180 Right back/hip pain secondary to mechanical fall CT chest with right sided pleural effusion, though no rib fractures seen, CT abdomen/pelvis with no acute osseous abnormality, no hip fracture Continue lidocaine patch, home oxycodone, home baclofen PT/OT ordered recommending SNF on DC CM consulted [facility] Suicidal ideation with plan Patient with suicidal ideation with plan to overdose on home meds she has been accumulating over time. History of two intentional overdoses in the past Psychiatry consulted -Recommending outpatient therapy Suicide precautions, 1:1 sit, safety tray History of CVA, history of left-sided deficit No focal deficit apparent on exam Continue clopidogrel, continue rosuvastatin Continue lovenox BP control as above Impaired fasting glucose HbA1c 5.8% (05/24/21) Recommend PCP follow-up Rasheed Ray MD PGY 3, FCM This chart was completed utilizing [employer] voice recognition software. Grammatical errors, random word insertions, pronoun errors, and in complete sentences are an occasional consequence of the system. Any questions or concerns about the content, text, or information contained within the body of this dictation should be addressed directly to the physician for clarification. (2) Mid back pain on right side: (3) HTN (hypertension): (4) CVA (cerebral vascular accident): Total Time Total Time Spent Total Time Spent (In Minutes): <30 Discharge Plan Discharge Items Patient Disposition: Transfer Half-Way Fac Reason For Visit: HTN Discharge Diagnosis: Hypertensive urgency Activity: Resume your previous activity Non-emergency contact: Primary Care Provider Call non-emergency contact if: you have any medication questions, your symptoms worsen and your pain is not controlled Follow-up/Referrals: ,Maik Hopper MD [Primary Care Provider] - Diet: Heart Healthy Addtl Attending Provider Instructions: 76yo female with poorly-controlled HTN, HLD, CVA, urinary incontinence, and two prior intentional overdoses presents with hypertensive urgency, right hip pain after a mechanical fall, and suicidal ideation with plan to intentionally overdose. Hypertensive urgency SBP as high as 230's in ER;Suspect 2/2 to medication non compliance. Patient was given her home antihypertensives along with lopressor IV. Continue home lisinopril, metoprolol -Caution with increased beta blockade given history of bradycardia (prior hospitalizations) Started amlodipine 10mg qd -tolerating without A/E Hydralazine 10mg PO q1h prn SBP>180 Right back/hip pain secondary to mechanical fall CT chest with right sided pleural effusion, though no rib fractures seen, CT abdomen/pelvis with no acute osseous abnormality, no hip fracture Continue lidocaine patch, home oxycodone, home baclofen PT/OT ordered recommending SNF on DC CM consulted [facility] Suicidal ideation with plan Patient with suicidal ideation with plan to overdose on home meds she has been accumulating over time. History of two intentional overdoses in the past Psychiatry consulted -Recommending outpatient therapy Suicide precautions, 1:1 sit, safety tray History of CVA, history of left-sided deficit No focal deficit apparent on exam Continue clopidogrel, continue rosuvastatin Continue lovenox BP control as above Impaired fasting glucose HbA1c 5.8% (05/24/21) Recommend PCP follow-up Rasheed Ray MD PGY 3, FCM This chart was completed utilizing [employer] voice recognition software. Grammatical errors, random word insertions, pronoun errors, and in complete sentences are an occasional consequence of the system. Any questions or concerns about the content, text, or information contained within the body of this dictation should be addressed directly to the physician for clarification. Pending Studies at Discharge: No Stand-Alone Forms: My [facility] Skilled Items Patient informed of condition?: Yes DNR: Yes Discharge Level of Care: Skilled Communicable Disease: No Discharge Prognosis: Improving Lines: None Urinary Catheter: No Medications and DC Order Prescriptions: New amlodipine [Norvasc] 5 mg Tablet 10 mg PO QAM 30 Days Qty: 60 RF: 0 Continued clopidogrel 75 mg tablet 75 mg PO QAM Qty: 30 RF: 2 baclofen 10 mg tablet 10 mg PO BID RF: 0 metoprolol succinate 50 mg tablet extended release 24 hr 50 mg PO DAILY RF: 0 lisinopril 40 mg tablet 40 mg PO HS RF: 0 oxycodone 5 mg Tablet 5 mg PO Q6H PRN (Reason: Pain) RF: 0 rosuvastatin [Crestor] 40 mg Tablet 40 mg PO HS RF: 0 Discharge Orders: Discharge Order (Routine); Ordered 05/27/21 Ordered By: Rasheed Ray Admission Data Admit Date/Time: 05/25/21 08:49 Attending Provider: Jaylan López Admit Provider: Palomo Doe Primary Care Provider: Maik Du Other Providers: Lulu Rya ; Evelia Pack ; Estela Andrade ; Tiffanie Butt ; Alvin Mcdaniels ; Alanna Urban ; [facility] Other Interventions: Discharge Summary Assessment (RN) Last Done: 05/27/21 12:01 Supervising Physician Co-Signing Physician Notes I personally examined the patient and verified all zhong points of history and exam, discussed case, and agree with decision making with Dr Ray feeling OK. approved rehab. no new complaints vitals noted nad heent nc at mmm breathing unlabored no accessory muscles good effort skin no rashes no pallor or icterus neuro no focal deficits hypertensive urgency - now improved. continue current meds stable for rehab deconditioning - for rehab today otherwise as above
[2021-05-27] MEDS: BACLOFEN 10 MG TAB PO SCH (07:50)
[2021-05-27] MEDS: CLOPIDOGREL BISULFATE 75 MG TAB PO SCH (07:50)
[2021-05-27] MEDS: amLODIPine BESYLATE 5 MG TAB PO SCH (07:51)
[2021-05-27] MEDS: METOPROLOL SUCC 50MG EXT REL TAB PO SCH (07:51)
[2021-05-27] MEDS: LIDOCAINE 5% 1 PATCH TD SCH (07:52)
--- NOTE | 2021-05-27 16:37 | Billing Data ---
Date of Service May 27, 2021 Coding Level of Care Code D/C DAY MANAGEMENT <30 MINS
== END 2021-05-27 13:43 | DRG 305 ==
LOC: EDINP 12:12 → ED 12:12 → SUATTDRO 21:07 → 2N 05-24 16:19 → SUATTDRO 05-25 08:49